=== PATIENT | male | born 1960 | race Caucasian/White ===

== ENCOUNTER 2023-05-18 15:03 | Outpatient (AMB) | payer MEDICARE, SELFPAY ==
--- NOTE | 2023-05-18 15:04 | A.OFFVIS_ITS ---
Intake Vital Signs 05/18/23 15:10 Height 5 ft 7 in Weight 226 lb 3.108 oz BMI 35.4 BP 158/84 H Blood Pressure Location Lt brachial Position Sitting Pulse 72 Pulse Source Pulse Oximeter Intake Visit Reasons: DM Intake Note: Patient presents today to follow up on DMT. Last Diabetic Eye exam: 05/04/2023 Last Podiatry Visit: Doesn't have one Random Glucose: 76 mg/dl HgA1c: 9.3% Passenger Tire Inspector Required: No Accompanied by: Self / Same As Patient HPI HPI Comments History of Present Illness Details 62 YO M who is seen in consultation for T2DM at the request of PCP. He was seen by myself many years ago for diabetes Initially diagnosed with T2DM in 2003. Was initially started on treatment with metformin. Current regimen 70/30 insulin 60units in AM and 60 units in PM . Regular in sulin 20 units in AM and PM Metformin 1000 mg not taking Glipizide 5 mg QD Per the CGM / Dexcom CGMS is active % of time . data the patient's predicted A1C is []% which is compared to the patients previous A1C [] dated []. Avg glucose is . Variability of The patient's blood sugars were in target []% of the time, above target []% of the time, and below target []% of the time Reports low sugars once a wk . Treats lows with eats cake . Not Checks sugar after to ensure it is rising. Most recent A1C 9.3 , Family history of T2DM in father . Has eyes checked yearly, last eye exam 2 wks ago , Has retinopathy. Has neuropathy, last foot exam [], Not sees podiatry. Has nephropathy, on CORAL/ARB. Has HLD, on statin. Denies CAD. Had diabetes education in past . [facility] Surgical History (Updated 05/18/23 @ 15:17 by ALINA Ceja) H/O lateral meniscus repair of left knee H/O umbilical hernia repair History of Tony-en-Y gastric bypass History of cervical discectomy History of lumbar fusion H/O microdiscectomy Family History (Updated 05/18/23 @ 15:20 by ALINA Ceja) Mother Asthma Father Diabetes Prostate cancer Social History (Updated 05/18/23 @ 15:21 by ALINA Ceja) Alcohol intake: never Patient Tobacco Use Status: Never used Tobacco Physical Exam Vital Signs: Last Vital Signs Pulse 72 05/18/23 15:10 BP 158/84 H 05/18/23 15:10 BMI result Body Mass Index 35.4 Assessment & Plan Assessment & Plan (1) Uncontrolled type 2 diabetes mellitus with hyperglycemia: Code(s): E11.65 - Type 2 diabetes mellitus with hyperglycemia Plan: This is a 62-year-old male with a history of type 2 diabetes being treated with glipizide, premixed insulin poor glycemic control and known microvascular complications namely neuropathy and CKD. Plan is to change the 70/30 insulin to Tresiba 30 units and talk to the patient about starting mounjaro 2.5 mg Qwkly or an alternative G LP 1. We will also provide Humalog supplemental scale 151-200 6 units , 201-250 8 units and >250 10 units . Will have patient be with assistant chief nursing officer and weather teacher. Could consider an SGLT 2 inhibitor in the future. Went over relationship with poor glycemic control to development and progression of complication Medications: New insulin degludec (Tresiba FlexTouch U-100 insulin) 30 units (0.3 mL) subcut BEDTIME 15 mL 4RF blood-glucose sensor (FreeStyle Max 3 Sensor device) As directed change every 14 days 2 ea 5RF tirzepatide (Mounjaro) 2.5 mg (0.5 mL) subcut QWEEK 4 weeks 2 mL 0RF insulin lispro (Humalog KwikPen (U-100) Insulin) 8 units (0.08 mL) subcut TID 15 mL 4RF blood-glucose meter,continuous (FreeStyle Max 3 [place]) As directed 1 ea 0RF Coding Level of Care Code Est Pt Level 4 (21927) Diagnoses Uncontrolled type 2 diabetes mellitus with hyperglycemia E11.65
[2023-05-18 15:10] VITALS: BP 158/84; PULSE 72; BMI 35.4
[2023-05-19 07:30] LABS: Glucose, Whole Blood 76 mg/dL (60-115)
== END 2023-05-18 16:04 | disposition home or self-care (01) ==
PROVIDERS: PCP Internal Medicine; Visit Provider Internal Medicine Endocrinology, Diabetes & Metabolism
DX: E11.65 Type 2 diabetes mellitus with hyperglycemia (principal)
CPT/HCPCS: 99214

== ENCOUNTER → 2023-05-18 15:03 | Outpatient (BNVA) | payer MEDICARE, SELFPAY | PROVIDERS: PCP Internal Medicine; Visit Provider Internal Medicine Endocrinology, Diabetes & Metabolism | DX: E11.65 Type 2 diabetes mellitus with hyperglycemia (principal) | CPT/HCPCS: 82947; 99212 ==

== ENCOUNTER → 2023-05-19 07:34 | Outpatient (BNV) | payer MEDICARE, SELFPAY | PROVIDERS: PCP Internal Medicine; Visit Provider Internal Medicine Endocrinology, Diabetes & Metabolism | DX: Z13.9 Encounter for screening, unspecified (principal); E11.65 Type 2 diabetes mellitus with hyperglycemia | CPT/HCPCS: 83036 ==

== ENCOUNTER 2023-05-30 09:02 | Outpatient (AMB) | payer MEDICARE, SELFPAY ==
--- NOTE | 2023-05-30 09:46 | A.OFFVIS_ITS ---
Intake Intake Visit Reasons: dm Novelties Sales Representative Required: No Accompanied by: Self / Same As Patient Allergies No Known Allergies Allergy (Verified 05/20/23 08:41) HPI Comprehensive Diabetes Asmnt Most Recent Diabetes Results: No Data to Display [facility] Surgical History (Updated 05/18/23 @ 15:17 by ALINA Ceja) H/O lateral meniscus repair of left knee H/O umbilical hernia repair History of Tony-en-Y gastric bypass History of cervical discectomy History of lumbar fusion H/O microdiscectomy Family History (Updated 05/18/23 @ 15:20 by ALINA Ceja) Mother Asthma Father Diabetes Prostate cancer Social History (Updated 05/18/23 @ 15:21 by ALINA Ceja) Alcohol intake: never Patient Tobacco Use Status: Never used Tobacco Assessment & Plan Assessment & Plan (1) Uncontrolled type 2 diabetes mellitus with hyperglycemia: Code(s): E11.65 - Type 2 diabetes mellitus with hyperglycemia Plan: Learning objectives: The patient was provided with verbal and written education on the following topics as outlined below. Assess patient education level/literacy/barriers, patient reports he forgot reading glasses so he was unable to identify carbohydrates from carbohydrate list that he regularly eats within his diet Patient questions/concerns, patient's last A1c 9.3% on 05/19/2023, patient reports prior A1cs in the 7% range in 2022. Patient reports he has not participating in regular physical activity in the winter months. Does attend sportsman club in warmer weather. The patient met all learning objectives and was able to verbalize understanding and provide teach back of education topics discussed . The patient was provided with the opportunity to ask questions and all questions were answered. Topics covered in today?s session included: Medications (If applicable) * Name of medication? * Dosing/administration instructions? * Mechanism of action? * Potential side effects? * Potential adverse reaction and appropriate treatment? * Review onset, peak, duration Assess for concerns re: insurance coverage, cost, barriers to compliance Insulin/Injectables (If applicable) * Storage/care of insulin?? * Injection sites? * Site rotation? * Onset, peak, duration * Drawing up insulin? * Injecting insulin/other injectables? * Sharps disposal Continuous blood glucose monitoring (if applicable) Hypoglycemia and Hyperglycemia * Signs and symptoms? * Causes?? * Treatment? * Preventing hypoglycemia? * When to seek medical attention * Blood glucose targets and how you feel when your blood glucose is in and out of your target ranges. * Monitoring and knowing your A1C. * What can make blood glucose go up and down and preventing high and low blood glucose. * Review of blood sugar targets in expected goal range and outside of expected goal range. * Problem solving and preventing hyper/hypoglycemia. * Sick day management of diabetes. * Using blood sugar results in decision making process in managing diabetes. ?Patient was receptive to information provided and participated in the discussion. Asked?appropriate questions and demonstrated good understanding of the topics discussed.? ? Educational Materials: The patient was provided with the following written educational materials: Planning healthy meals New Smart Goal: Patient will increase physical activity Patient Response to instructions: Comprehension of Instructions: Good Readiness to make changes:? Contemplation How confident they feel about making changes: Positive Patient Instructions: follow up with DM in 1 month Coding Level of Care Code Est Pt Level 1 (16488) Diagnoses Uncontrolled type 2 diabetes mellitus with hyperglycemia E11.65
== END 2023-05-30 09:55 | disposition home or self-care (01) ==
PROVIDERS: PCP Internal Medicine; Visit Provider Registered Nurse Diabetes Educator
DX: E11.65 Type 2 diabetes mellitus with hyperglycemia (principal)

== ENCOUNTER → 2023-05-30 09:02 | Outpatient (BNVA) | payer MEDICARE, SELFPAY | PROVIDERS: PCP Internal Medicine; Visit Provider Registered Nurse Diabetes Educator | DX: E11.65 Type 2 diabetes mellitus with hyperglycemia (principal) | CPT/HCPCS: 99211 ==

== ENCOUNTER 2023-06-27 10:24 | Outpatient (REF) | payer MEDICARE, SELFPAY ==
[2023-06-27 11:59] LABS: Anion Gap 10 (12-20); Blood Urea Nitrogen 13 mg/dL (9-16); Calcium 9.4 mg/dL (8.4-10.2); Carbon Dioxide 28 mmol/L (22-29); Chloride 106 mmol/L (96-108); Cholesterol 169 mg/dL (<200); Estimated Glomerular Filt Rate 50; Glucose Random 132 mg/dL (60-115); HDL Cholesterol 28 mg/dL (>40); LDL Cholesterol Calculated 112 mg/dL (<100); Potassium 3.7 mmol/L (3.3-5.1); Sodium 140 mmol/L (135-145); Triglycerides 149 mg/dL (<150)
[2023-06-27 13:09] LABS: Microalbum/Creatinine Ratio Ur 283.8 ug/mg cr (<30)
== END 2023-06-27 10:25 | disposition home or self-care (01) ==
LOC: HO.LAB 10:24
PROVIDERS: Visit Provider Internal Medicine Endocrinology, Diabetes & Metabolism
DX: E11.9 Type 2 diabetes mellitus without complications (principal)
CPT/HCPCS: 36415; 80048; 80061; 82043; 82570

== ENCOUNTER 2023-06-29 14:33 | Outpatient (AMB) | payer MEDICARE, SELFPAY ==
--- NOTE | 2023-06-29 15:23 | A.OFFVIS_ITS ---
Intake Vital Signs 06/29/23 15:26 Height 5 ft 7 in Weight 216 lb 0.848 oz BMI 33.8 BP 134/80 Blood Pressure Location Lt brachial Position Sitting Pulse 71 Pulse Source Pulse Oximeter Intake Visit Reasons: DM-lvm Intake Note: Patient presents today to follow up on D2MT. Last Diabetic Eye exam: 04/2023 Last Podiatry Visit: Doesn't have one Random Glucose: 203 mg/dl HgA1c: 9.3% 05/19/23 Primer Powder Blender Wet Required: No Accompanied by: Self / Same As Patient Allergies No Known Allergies Allergy (Verified 06/29/23 15:23) Medication List - Last Reconciled 06/29/23 by Joseph Garcia MD amitriptyline 25 mg PO BEDTIME atorvastatin 10 mg PO DAILY blood-glucose meter,continuous (FreeStyle Max 3 [place]) As directed blood-glucose sensor (FreeStyle Max 3 Sensor device) As directed change every 14 days coenzyme C33-nleloxo E 100-100 mg-unit caps PO bohxnfmxrtbe-ymxbyupmmzh-ijuot 1,000-200 mcg (Celebrate B-12 Quick-Melt) tabs PO diltiazem HCl ER 300 mg PO DAILY ezetimibe 10 mg PO DAILY fenofibrate 160 mg PO DAILY gabapentin 600 mg PO TID insulin aspart U-100 (Novolog FlexPen U-100 Insulin aspart) 8 units (0.08 mL) subcut TID lisinopril 40 mg PO DAILY metoprolol succinate ER 200 mg PO DAILY pen needle, diabetic (Comfort EZ Pen [place]) As directed injects 4 times a day saw palmetto 450 mg PO BID spironolactone 25 mg PO DAILY tirzepatide (Mounjaro) 2.5 mg (0.5 mL) subcut QWEEK 4 weeks tramadol-acetaminophen 37.5-325 mg 1 tab PO BID PRN Tresiba FlexTouch U-100 (insulin degludec) 30 units (0.3 mL) subcut BEDTIME NS vitamin B complex 1 cap PO DAILY HPI HPI Comments History of Present Illness Details 63 YO M who is seen in consultation for T2DM at the request of PCP. He was seen by myself many years ago for diabetes Initially diagnosed with T2DM in 2003. Was initially started on treatment with metformin. Current regimen Tresiba 30 units , Novolog 8 units Metformin 1000 mg not taking Mounjaro 2.5 mg Qwkly Per the CGM / max CGMS is active 91 % of time . data the patient's predicted A1C is 7.8% Avg glucose is 189 . Variability of 29.4 The patient's blood sugars were in target 43% of the time, above target 57% of the time, and below target 0% of the time. Panel shows [place] cares overnight and elevation post-dinner Reports low sugars once a wk . Treats lows with eats cake . Not Checks sugar after to ensure it is rising. Family history of T2DM in father . Has eyes checked yearly, last eye exam 2 wks ago , Has retinopathy. Has neuropathy, last foot exam [], Not sees podiatry. Has nephropathy, on CORAL/ARB. Has HLD, on statin. Denies CAD. Had diabetes education in past . [facility] Medical History (Updated 06/29/23 @ 16:20 by Joseph Garcia MD) Hyperlipidemia Type 2 diabetes mellitus Surgical History H/O lateral meniscus repair of left knee H/O umbilical hernia repair History of Tony-en-Y gastric bypass History of cervical discectomy History of lumbar fusion H/O microdiscectomy Family History Mother Asthma Father Diabetes Prostate cancer Social History Alcohol intake: never Patient Tobacco Use Status: Never used Tobacco Physical Exam Vital Signs: Last Vital Signs Pulse 71 06/29/23 15:26 BP 134/80 06/29/23 15:26 BMI result Body Mass Index 33.8 Absence of Cushingoid features. Absence of acromegalic features. Neck exam reveals nl size thyroid about 15 gms. No thyroid nodules palpable. No carotid bruits present. Lungs CTA. Heart S1 S2, Reg R/R. No M/R/ G. Skin exam reveals absence of vitiligo or acanthosis nigricans. Abdominal exam reveals Soft NT/ND with NA BS. No organomegaly present. Neck Other: . Extrem Other: Visual exam of foot performed. No ulcerations or open lesions. No onchomycosis, no callouses.Pulses 2 + distally Sensation intact to monofilament exam. Vibratory sensation sensed is intact with 128 Hz tuning fork Results Reviewed Results Reviewed: Laboratory Last Values Glucose (Clinic) 203 mg/dL (60-115) H 06/29/23 15:29 Assessment & Plan Assessment & Plan (1) Uncontrolled type 2 diabetes mellitus with hyperglycemia: Code(s): E11.65 - Type 2 diabetes mellitus with hyperglycemia Plan: This is a 62-year-old male with a history of type 2 diabetes being treated withMounjaro and basal-bolus insulin poor glycemic control and known microvascular complications namely neuropathy and CKD. Plan is to increase the Mounjaro to 5 mg Qwkly. Will also add a SGLT 2 inhibitor namely Farxiga 5 mg. Told patient to report any hypoglycemia. Will check a basic metabolic panel 10 days after starting the Farxiga (2) Type 2 diabetes mellitus: Code(s): E11.9 - Type 2 diabetes mellitus without complications Plan: See plan for diabetes (3) Hyperlipidemia: Code(s): E78.5 - Hyperlipidemia, unspecified Plan: LDL not at goal. Patient previously not tolerant of atorvastatin . We will switch ezetimibe and fenofibrate to rosuvastatin 10 mg and recheck lipid profile in 2 months Orders: Orders Basic Metabolic Panel 10 Days E11.9 - Type 2 diabetes mellitus without complications Lipid Panel 2 Months E11.9 - Type 2 diabetes mellitus without complications Medications: New rosuvastatin (Crestor) 10 mg PO DAILY 30 tabs 4RF tirzepatide (Mounjaro) 5 mg (0.5 mL) subcut QWEEK 2 mL 5RF dapagliflozin propanediol (Farxiga) 5 mg PO DAILY 30 tabs 5RF Discontinued tirzepatide (Mounjaro) Discontinued Reason: Doctor's Order 2.5 mg (0.5 mL) subcut QWEEK 4 weeks 2 mL 0RF E11.65 - Type 2 diabetes mellitus with hyperglycemia Coding Level of Care Code Est Pt Level 4 (22089) Diagnoses Uncontrolled type 2 diabetes mellitus with hyperglycemia E11.65 Type 2 diabetes mellitus E11.9 Hyperlipidemia E78.5
[2023-06-29 15:26] VITALS: BP 134/80; PULSE 71; BMI 33.8
[2023-06-29 15:33] LABS: Glucose, Whole Blood 203 mg/dL (60-115)
== END 2023-06-29 16:25 | disposition home or self-care (01) ==
PROVIDERS: PCP Internal Medicine; Visit Provider Internal Medicine Endocrinology, Diabetes & Metabolism
DX: E11.65 Type 2 diabetes mellitus with hyperglycemia (principal); E11.9 Type 2 diabetes mellitus without complications; E78.5 Hyperlipidemia, unspecified
CPT/HCPCS: 99214

== ENCOUNTER → 2023-06-29 14:33 | Outpatient (BNVA) | payer MEDICARE, SELFPAY | PROVIDERS: PCP Internal Medicine; Visit Provider Internal Medicine Endocrinology, Diabetes & Metabolism | DX: E11.65 Type 2 diabetes mellitus with hyperglycemia (principal); E78.5 Hyperlipidemia, unspecified | CPT/HCPCS: 82947; 99212 ==

== ENCOUNTER 2023-07-25 13:00 | Outpatient (AMB) | payer MEDICARE, SELFPAY ==
--- NOTE | 2023-07-25 13:41 | A.OFFVIS_ITS ---
Intake Intake Visit Reasons: DM Policy Writer Required: No Accompanied by: Spouse Allergies No Known Allergies Allergy (Verified 06/29/23 15:23) HPI Comprehensive Diabetes Asmnt Most Recent Diabetes Results: Microalb/Creat Ratio 283.8 ug/mg cr (<30) H 06/27/23 Cholesterol 169 mg/dL (<200) 06/27/23 HDL Cholesterol 28 mg/dL (>40) L 06/27/23 Triglycerides 149 mg/dL (<150) 06/27/23 Creatinine 1.43 mg/dL (0.5-1.4) H 06/27/23 Blood Urea Nitrogen 13 mg/dL (9-16) 06/27/23 Sodium 140 mmol/L (135-145) 06/27/23 Potassium 3.7 mmol/L (3.3-5.1) 06/27/23 Chloride 106 mmol/L (96-108) 06/27/23 Carbon Dioxide 28 mmol/L (22-29) 06/27/23 Calcium 9.4 mg/dL (8.4-10.2) 06/27/23 [facility] Medical History (Updated 06/29/23 @ 16:20 by Joseph Garcia MD) Hyperlipidemia Type 2 diabetes mellitus Surgical History H/O lateral meniscus repair of left knee H/O umbilical hernia repair History of Tony-en-Y gastric bypass History of cervical discectomy History of lumbar fusion H/O microdiscectomy Family History Mother Asthma Father Diabetes Prostate cancer Social History Alcohol intake: never Patient Tobacco Use Status: Never used Tobacco Assessment & Plan Assessment & Plan (1) Type 2 diabetes mellitus: Code(s): E11.9 - Type 2 diabetes mellitus without complications Plan: Learning objectives: The patient was provided with verbal and written education on the following topics as outlined below. Assess patient education level/literacy/barriers Patient questions/concerns, patient uses freestyle Max 3 to test glucose Average glucose for the past 2 weeks 185 mg/dL Patient above target 50% Patient at target 50% Patient below target 0% Patient is having some postprandial hyperglycemia especially in the evening meal Reviewed with patient, portion sizes of carbohydrates at mealtime The patient met all learning objectives and was able to verbalize understanding and provide teach back of education topics discussed . The patient was provided with the opportunity to ask questions and all questions were answered. Topics covered in today?s session included: Medications (If applicable) * Name of medication? * Dosing/administration instructions? * Mechanism of action? * Potential side effects? * Potential adverse reaction and appropriate treatment? * Review onset, peak, duration Assess for concerns re: insurance coverage, cost, barriers to compliance Insulin/Injectables (If applicable) * Storage/care of insulin?? * Injection sites? * Site rotation? * Onset, peak, duration * Drawing up insulin? * Injecting insulin/other injectables? * Sharps disposal Continuous blood glucose monitoring (if applicable) Hypoglycemia and Hyperglycemia * Signs and symptoms? * Causes?? * Treatment? * Preventing hypoglycemia? * When to seek medical attention * Blood glucose targets and how you feel when your blood glucose is in and out of your target ranges. * Monitoring and knowing your A1C. * What can make blood glucose go up and down and preventing high and low blood glucose. * Review of blood sugar targets in expected goal range and outside of expected goal range. * Problem solving and preventing hyper/hypoglycemia. * Sick day management of diabetes. * Using blood sugar results in decision making process in managing diabetes. ?Patient was receptive to information provided and participated in the [place] doc. Asked?appropriate questions and demonstrated good understanding of the topics discussed.? ? Educational Materials: The patient was provided with the following written educational materials: Target Goal handout Smart Goal Assessment:? keep meals between 45-60 gms Pt met goal less than 25% New Smart Goal: Patient will use rule of 15 to treat any hypoglycemia Patient Response to instructions: Comprehension of Instructions: Fair Readiness to make changes:? Contemplative How confident they feel about making changes: Fair Patient Instructions: Recommended to patient he increase suppertime dose of NovoLog from 12 units to 14 units Follow-up with medical educator in 1 month Coding Level of Care Code Est Pt Level 1 (37304) Diagnoses Type 2 diabetes mellitus E11.9
== END 2023-07-25 13:51 | disposition home or self-care (01) ==
PROVIDERS: PCP Internal Medicine; Visit Provider Registered Nurse Diabetes Educator
DX: E11.9 Type 2 diabetes mellitus without complications (principal)

== ENCOUNTER → 2023-07-25 13:00 | Outpatient (BNVA) | payer MEDICARE, SELFPAY | PROVIDERS: PCP Internal Medicine; Visit Provider Registered Nurse Diabetes Educator | DX: E11.9 Type 2 diabetes mellitus without complications (principal) | CPT/HCPCS: 99211 ==

== ENCOUNTER 2023-08-25 12:31 | Outpatient (AMB) | payer MEDICARE, SELFPAY ==
--- NOTE | 2023-08-25 13:05 | A.OFFVIS_ITS ---
Intake Intake Visit Reasons: DM/CONFIRMED Senior Sales Operations Analyst Required: No Accompanied by: Spouse Allergies No Known Allergies Allergy (Verified 06/29/23 15:23) [facility] Comprehensive Diabetes Asmnt Most Recent Diabetes Results: Microalb/Creat Ratio 283.8 ug/mg cr (<30) H 06/27/23 Cholesterol 169 mg/dL (<200) 06/27/23 HDL Cholesterol 28 mg/dL (>40) L 06/27/23 Triglycerides 149 mg/dL (<150) 06/27/23 Creatinine 1.43 mg/dL (0.5-1.4) H 06/27/23 Blood Urea Nitrogen 13 mg/dL (9-16) 06/27/23 Sodium 140 mmol/L (135-145) 06/27/23 Potassium 3.7 mmol/L (3.3-5.1) 06/27/23 Chloride 106 mmol/L (96-108) 06/27/23 Carbon Dioxide 28 mmol/L (22-29) 06/27/23 Calcium 9.4 mg/dL (8.4-10.2) 06/27/23 [facility] Medical History (Updated 06/29/23 @ 16:20 by Joseph Garcia MD) Hyperlipidemia Type 2 diabetes mellitus Surgical History H/O lateral meniscus repair of left knee H/O umbilical hernia repair History of Tony-en-Y gastric bypass History of cervical discectomy History of lumbar fusion H/O microdiscectomy Family History Mother Asthma Father Diabetes Prostate cancer Social History Alcohol intake: never Patient Tobacco Use Status: Never used Tobacco Assessment & Plan Assessment & Plan (1) Type 2 diabetes mellitus: Code(s): E11.9 - Type 2 diabetes mellitus without complications Plan: Personal Continuous Glucose Monitor: Patients CGM information reviewed Reviewed patient's sensor data: Hypoglycemia: ? 0% Hyperglycemia:? 78% Time in Range:?22% Average glucose for the last 2 weeks? 241 mg/dL Has not been able to get Mounjaro 5 mg in the past several months, while not taking the medication glucose has increased. Patient also reports snacking on high carb foods overnight Patient using Efficient Power Conversion Max 3 to monitor glucose Average glucose for the past 2 weeks 241 mg/dL Patient above target 78% At target 22% Below target 0% This is a significant increase from average glucose when he was seen in June 2023. Called [facility] pharmacy to find out if they have any Mounjaro stock, was told by pharmacist they have 2.5 mg dose Message sent to Dr. Garcia to send prescription for Mounjaro 2.5 mg dose Also discussed with patient switching Tresiba U 100, to Tresiba U 200 in the event we need to titrate up Tresiba dose of 30 units daily Patient given low carb snack list, recommended to patient to decrease carbohydrate snacks in the evening and overnight. If he is going to eat high carb snacks or high carb meal recommended he increase physical activity afterwards, this can help reduce postprandial hyperglycemia Patient's last A1c in April 2023 9.3%, patient has follow-up appointment with PCP 09/2023. Patient will have A1c drawn at that appointment. Patient will follow-up with Dr. Garcia in October 2023, and follow-up with certified diabetes educator a month after appointment with Dr. Garcia Patient instructed if he is unable to obtain Mounjaro to call certified diabetes educator so we can review glucose and adjust insulin as needed Reviewed how to interpret trend arrows Reminded patient that to check finger sticks if symptoms do not match sensor reading. Discussed lag time between finger stick and sensor data.? Patient able to insert sensor independently at home without issue.? Portions of this note were created using voice recognition software, please excuse any words or phrases that may have been misinterpreted. Coding Level of Care Code Est Pt Level 1 (03971) Diagnoses Type 2 diabetes mellitus E11.9
== END 2023-08-25 13:13 | disposition home or self-care (01) ==
PROVIDERS: PCP Internal Medicine; Visit Provider Registered Nurse Diabetes Educator
DX: E11.9 Type 2 diabetes mellitus without complications (principal)

== ENCOUNTER → 2023-08-25 12:31 | Outpatient (BNVA) | payer MEDICARE, SELFPAY | PROVIDERS: PCP Internal Medicine; Visit Provider Registered Nurse Diabetes Educator | DX: E11.9 Type 2 diabetes mellitus without complications (principal) | CPT/HCPCS: 99211 ==

== ENCOUNTER 2023-11-07 08:21 | Outpatient (AMB) | payer MEDICARE, SELFPAY ==
--- NOTE | 2023-11-03 09:33 | MHC.OFFVIS ---
Intake Visit Reasons: DM2 Allergies No Known Allergies Allergy (Verified 06/29/23 15:23) PFSH Medical History (Updated 06/29/23 @ 16:20 by Joseph Garcia MD) Hyperlipidemia Type 2 diabetes mellitus Surgical History H/O lateral meniscus repair of left knee H/O umbilical hernia repair History of Tony-en-Y gastric bypass History of cervical discectomy History of lumbar fusion H/O microdiscectomy Family History Mother Asthma Father Diabetes Prostate cancer Social History Alcohol intake: never Patient Tobacco Use Status: Never used Tobacco Coding
--- NOTE | 2023-11-07 08:23 | A.OFFVIS_ITS ---
Vital Signs 11/07/23 08:24 Height 5 ft 7 in Weight 205 lb 11.06 oz BMI 32.2 BP 142/78 H Blood Pressure Location Lt brachial Position Sitting Pulse 65 Pulse Source Pulse Oximeter Intake Visit Reasons: DM2/CONFIRMED Intake Note: Patient presents today for D2MT follow up visit. Last Diabetic Eye exam: 04/2023 Last Podiatry Visit: Doesn't have one Random Glucose: 103 mg/dl HgA1c: 6.9% Director Of Rehabilitative Services Required: No Accompanied by: Self / Same As Patient Allergies No Known Allergies Allergy (Verified 06/29/23 15:23) Medication List - Last Reconciled 11/07/23 by Terri Lanier PA-C amitriptyline 25 mg PO BEDTIME atorvastatin 10 mg PO DAILY blood-glucose meter,continuous (HydrobeeStyle Max 3 [place]) As directed blood-glucose sensor (FreeStyle Max 3 Sensor device) USE DIRECTED TO TEST BLOOD SUGAR. CHANGE EVERY 14 DAYS coenzyme [id number] E 100-100 mg-unit caps PO jearoilotowm-yimkhuztgjb-qnhuz 1,000-200 mcg (Celebrate B-12 Quick-Melt) tabs PO dapagliflozin propanediol (Farxiga) 5 mg PO DAILY diltiazem HCl ER 300 mg PO DAILY gabapentin 600 mg PO TID insulin aspart U-100 (Novolog FlexPen U-100 Insulin aspart) 12 units (0.12 mL) subcut TID insulin degludec (Tresiba FlexTouch U-200 insulin) 30 units (0.15 mL) subcut BEDTIME lisinopril 40 mg PO DAILY metoprolol succinate ER 200 mg PO DAILY pen needle, diabetic (Comfort EZ Pen [place]) As directed injects 4 times a day rosuvastatin (Crestor) 10 mg PO DAILY saw palmetto 450 mg PO BID spironolactone 25 mg PO DAILY tramadol-acetaminophen 37.5-325 mg 1 tab PO BID PRN vitamin B complex 1 cap PO DAILY HPI HPI DM2/CONFIRMED: Details: Pt is a 63 y/o male who presents today for a DM follow up. He last saw Dr. Garcia in June 2023. He has a hx of htn, cardiomyopathy, hyperlipidemia, ckd, microalbuminuria, peripheral neuropathy and insomnia. Endo: A1c today is 6.9. His previous A1c was 9.3. He is currently on Tresiba 30 units, NovoLog 12 units t.i.d. (not using unless has a large meal), Farxiga 5 mg, Mounjaro 2.5 mg. he states he is tolerating his medications. CGM-Max 3 download shows usage 96%, average glucose 146, GMI 6.8, variability 25%. Very high 1%, high 18%, 81% in range. No hypoglycemic events. -hyperglycemia appears to be in the afternoon at lunchtime and evening around 21:00. Hypoglycemia-rare. Treats it with orange juice. Hyperglycemia- states that he will get thristy but has no sx usually. Complications- CKD, microalbuminuria, peripheral neuropathy, denies known vision problems but states he wears glasses. No known retinopathy. Nephro: he follows with Nephrology, Dr. Serrato. Follows annually, last seen 2 weeks ago. CV: Blood pressure today in the office is 142/78. He is on spironolactone 25 mg, metoprolol 200 mg, lisinopril 40 mg, diltiazem 300 mg. His last cholesterol was not at goal. at his last visit he was started on Crestor. He did not tolerate atorvastatin due to myalgias. Reports some improvement of muscle aches. He did not get labs done prior to appointment. his mortgage advisor is Dr. Cee and sees him annually. Recent echo, per pt, shows stable/improved. Neuro: follows with neurology for peripheral neuropathy thought to be related to dm and on gabapentin. [facility] Medical History (Updated 11/07/23 @ 09:06 by Terri Lanier PA-C) Hyperlipidemia Surgical History H/O lateral meniscus repair of left knee H/O umbilical hernia repair History of Tony-en-Y gastric bypass History of cervical discectomy History of lumbar fusion H/O microdiscectomy Family History Mother Asthma Father Diabetes Prostate cancer Social History Alcohol intake: never Patient Tobacco Use Status: Never used Tobacco Physical Exam Const Orientation/consciousness: patient oriented x3 Neck Neck: Yes no lymphadenopathy Thyroid: Thyroid normal Carotids: no bruits Resp Auscultation: clear to auscultation bilaterally Cardio Rate: regular rate Rhythm: regular rhythm Heart sounds: S1 normal heart sound present and S2 normal heart sound present Peripheral pulses: dorsalis pedis present Neuro General: patient oriented x3, gait normal and no focal motor deficits Extrem Other: Monofilament sensation intact bilaterally. Vibratory sensation intact bilaterally. Skin intact. General: Yes normal to inspection Results AMB Hemoglobin A1c AMB Hemoglobin A1c 6.9 % Last Edit by ALINA Ceja on 11/07/23 08:41 Results Reviewed Results Reviewed: Laboratory Tests 05/19/23 06/27/23 06/27/23 07:34 10:38 10:40 Creatinine 1.43 H Estimated GFR 50 Glucose (Clinic) Hgb A1c (Clinic) 9.3 H Triglycerides 149 Cholesterol 169 LDL Cholesterol, Calc 112 H HDL Cholesterol 28 L Urine Creatinine 94.40 Urine Microalbumin 268.0 Microalb/Creat Ratio 283.8 H 06/29/23 15:29 Creatinine Estimated GFR Glucose (Clinic) 203 H Hgb A1c (Clinic) Triglycerides Cholesterol LDL Cholesterol, Calc HDL Cholesterol Urine Creatinine Urine Microalbumin Microalb/Creat Ratio Assessment & Plan Assessment & Plan (1) Diabetes mellitus type 2, controlled, with complications: Code(s): E11.8 - Type 2 diabetes mellitus with unspecified complications Category: Medical Qualifiers: Diabetes mellitus chcf insulin use: with chcf use Qualified Code(s): E11.8 - Type 2 diabetes mellitus with unspecified complications; Z79.4 - group home (current) use of insulin Plan: continue tresiba. increase mounjaro to 5 mg weekly, continue farxiga 5 mg. Discussed that he never got his labs done after this was started but he states they had them done a couple weeks ago with his electron beam welder and everything looked ?normal ?. I will recheck labs in 3 months. He will follow-up at that time. Sooner if needed. (2) Diabetic peripheral neuropathy associated with type 2 diabetes mellitus: Code(s): E11.42 - Type 2 diabetes mellitus with diabetic polyneuropathy Category: Medical Plan: Following with Neurology. States pain is well controlled with gabapentin. 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 Reports recent labs showed stable. Will recheck in a few months. Reminded him to avoid NSAIDs. advised to get records (5) CKD stage 3 due to type 2 diabetes mellitus: Code(s): E11.22 - Type 2 diabetes mellitus with diabetic chronic kidney disease; N18.30 - Chronic kidney disease, stage 3 unspecified Category: Medical Plan: see above (6) Cardiomyopathy: Code(s): I42.9 - Cardiomyopathy, unspecified Category: Medical Qualifiers: Cardiomyopathy type: unspecified Qualified Code(s): I42.9 - Cardiomyopathy, unspecified Plan: stable per pt. follows with Dr. Cee. Advised to get records (7) Hyperlipidemia: Code(s): E78.5 - Hyperlipidemia, unspecified Category: Medical Qualifiers: Hyperlipidemia type: pure hypercholesterolemia Qualified Code(s): E78.00 - Pure hypercholesterolemia, unspecified Plan: switched from atorvastatin to crestor. reports better tolerance. will recheck lfts and lipds Orders: Orders Comprehensive [place]. Panel Fast Today E11.3213 - Type 2 diabetes mellitus with mild nonproliferative diabetic retinopathy with macular edema, bilateral, E78.5 - Hyperlipidemia, unspecified, Z79.4 - group home (current) use of insulin AMB Hemoglobin A1c Today E11.9 - Type 2 diabetes mellitus without complications, Z13.9 - Encounter for screening, unspecified Hemoglobin A1c Today E11.3213 - Type 2 diabetes mellitus with mild nonproliferative diabetic retinopathy with macular edema, bilateral, E78.5 - Hyperlipidemia, unspecified, Z79.4 - group home (current) use of insulin Lipid Panel Today E11.3213 - Type 2 diabetes mellitus with mild nonproliferative diabetic retinopathy with macular edema, bilateral, E78.5 - Hyperlipidemia, unspecified, Z79.4 - group home (current) use of insulin Microalbumin, Random (w Creat) Today E11.3213 - Type 2 diabetes mellitus with mild nonproliferative diabetic retinopathy with macular edema, bilateral, E78.5 - Hyperlipidemia, unspecified, Z79.4 - manager long term care (current) use of insulin Medications: New tirzepatide (Mounjaro) 5 mg (0.5 mL) subcut QWEEK 2 mL 6RF Coding Level of Care Code Est Pt Level 4 (96058) Complex EM visit Add On G2211 Diagnoses Controlled type 2 diabetes mellitus with complication, with long-term current use of insulin E11.8; Z79.4 Diabetes mellitus chcf insulin use: with chcf use Diabetic peripheral neuropathy associated with type 2 diabetes mellitus E11.42 Primary hypertension I10 Hypertension type: primary hypertension 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
[2023-11-07 08:24] VITALS: BP 142/78; PULSE 65; BMI 32.2
[2023-11-07 08:35] LABS: Glucose, Whole Blood 103 mg/dL (60-115)
== END 2023-11-07 08:55 | disposition home or self-care (01) ==
PROVIDERS: PCP Internal Medicine; Visit Provider Physician Assistant
DX: E11.8 Type 2 diabetes mellitus with unspecified complications (principal); Z79.4 Long term (current) use of insulin; E11.42 Type 2 diabetes mellitus with diabetic polyneuropathy; I10 Essential (primary) hypertension; E11.21 Type 2 diabetes mellitus with diabetic nephropathy; E11.22 Type 2 diabetes mellitus with diabetic chronic kidney disease; N18.30 Chronic kidney disease, stage 3 unspecified; I42.9 Cardiomyopathy, unspecified; E78.00 Pure hypercholesterolemia, unspecified; Z13.9 Encounter for screening, unspecified
CPT/HCPCS: 99214; G2211

== ENCOUNTER → 2023-11-07 08:21 | Outpatient (BNVA) | payer MEDICARE, SELFPAY | PROVIDERS: PCP Internal Medicine; Visit Provider Physician Assistant | DX: E11.42 Type 2 diabetes mellitus with diabetic polyneuropathy (principal); E11.22 Type 2 diabetes mellitus with diabetic chronic kidney disease; E11.21 Type 2 diabetes mellitus with diabetic nephropathy; N18.30 Chronic kidney disease, stage 3 unspecified; I42.9 Cardiomyopathy, unspecified; E78.00 Pure hypercholesterolemia, unspecified; Z79.4 Long term (current) use of insulin | CPT/HCPCS: 82947; 83036; 99212 ==

== ENCOUNTER 2023-11-25 11:40 | Outpatient (REF) | payer MEDICARE, SELFPAY ==
[2023-11-25 14:10] LABS: Alanine Aminotransferase 20 U/L (0-40); Alkaline Phosphatase 58 U/L (39-117); Anion Gap 11 (12-20); Aspartate Amino Transferase 22 U/L (5-37); Blood Urea Nitrogen 15 mg/dL (9-16); Calcium 9.3 mg/dL (8.4-10.2); Carbon Dioxide 27 mmol/L (22-29); Chloride 106 mmol/L (96-108); Cholesterol 192 mg/dL (<200); Estimated Glomerular Filt Rate 58; Glucose Fasting 70 mg/dL (60-99); HDL Cholesterol 28 mg/dL (>40); LDL Cholesterol Calculated 137 mg/dL (<100); Potassium 3.4 mmol/L (3.3-5.1); Sodium 141 mmol/L (135-145); Total Protein 7.1 g/dL (6.5-8.0); Triglycerides 139 mg/dL (<150)
[2023-11-25 14:20] LABS: Estimated Average Glucose 134 mg/dL; Hemoglobin A1c % 6.3 % (<6.0)
[2023-11-25 14:40] LABS: Creatinine Urine 74.86 mg/dL; Microalbum/Creatinine Ratio Ur 125.5 ug/mg cr (<30)
== END 2023-11-25 11:41 | disposition home or self-care (01) ==
LOC: HO.LAB 11:40
PROVIDERS: Absent Provider Internal Medicine Endocrinology, Diabetes & Metabolism; PCP Family Medicine; Visit Provider Physician Assistant
DX: E11.3213 Type 2 diabetes mellitus with mild nonproliferative diabetic retinopathy with macular edema, bilateral (principal); Z79.4 Long term (current) use of insulin; E78.5 Hyperlipidemia, unspecified
CPT/HCPCS: 36415; 80053; 80061; 82043; 82570; 83036

== ENCOUNTER 2023-12-26 12:57 | Outpatient (AMB) | payer MEDICARE, SELFPAY ==
--- NOTE | 2023-12-26 13:15 | A.OFFVIS_ITS ---
Intake Intake Visit Reasons: 60 min-lvm Therapeutic Recreation Leader Required: No Accompanied by: Self / Same As Patient Allergies No Known Allergies Allergy (Verified 06/29/23 15:23) HPI Comprehensive Diabetes Asmnt Most Recent Diabetes Results: Microalb/Creat Ratio 125.5 ug/mg cr (<30) H 11/25/23 Cholesterol 192 mg/dL (<200) 11/25/23 HDL Cholesterol 28 mg/dL (>40) L 11/25/23 Triglycerides 139 mg/dL (<150) 11/25/23 Creatinine 1.25 mg/dL (0.5-1.4) 11/25/23 Blood Urea Nitrogen 15 mg/dL (9-16) 11/25/23 Sodium 141 mmol/L (135-145) 11/25/23 Potassium 3.4 mmol/L (3.3-5.1) 11/25/23 Chloride 106 mmol/L (96-108) 11/25/23 Carbon Dioxide 27 mmol/L (22-29) 11/25/23 Calcium 9.3 mg/dL (8.4-10.2) 11/25/23 AST 22 U/L (5-37) 11/25/23 ALT 20 U/L (0-40) 11/25/23 Total Protein 7.1 g/dL (6.5-8.0) 11/25/23 Albumin 4.0 g/dL (3.5-5.0) 11/25/23 [facility] Medical History (Updated 11/07/23 @ 09:06 by Terri Lanier PA-C) Hyperlipidemia Surgical History H/O lateral meniscus repair of left knee H/O umbilical hernia repair History of Tony-en-Y gastric bypass History of cervical discectomy History of lumbar fusion H/O microdiscectomy Family History Mother Asthma Father Diabetes Prostate cancer Social History Alcohol intake: never Patient Tobacco Use Status: Never used Tobacco Assessment & Plan Assessment & Plan (1) Diabetes mellitus type 2, controlled, with complications: Code(s): E11.8 - Type 2 diabetes mellitus with unspecified complications Qualifiers: Diabetes mellitus residential insulin use: with intermediate school teacher use Qualified Code(s): E11.8 - Type 2 diabetes mellitus with unspecified complications; Z79.4 - remote computer terminal operator (current) use of insulin Plan: Learning objectives: The patient was provided with verbal and written education on the following topics as outlined below. The patient met all learning objectives and was able to verbalize understanding and provide teach back of education topics discussed . The patient was provided with the opportunity to ask questions and all questions were answered. Patient Assessment Patient questions/concerns patient's last A1c on 10/28/2023 6.9% this is an improvement from A1c from 05/09/2023 of 9.3% Route patient reports he has stopped using mealtime insulin Currently taking Farxiga 5 mg daily Tresiba U 200 30 units daily Mounjaro 5 mg weekly Recommended to patient he reduce Tresiba U 200 from 30 units daily to 26 units daily due to overnight hypoglycemic events If he continues to experience hypoglycemia he can reduce Tresiba to 22 units daily Patient has upcoming visit with physician's medical receptionist medical assistant on 02/10/2024, suggested to patient he discuss increasing majora dose with physician's medical receptionist medical assistant at that visit if he wishes to further reduce insulin What is Diabetes? Pathophysiology How the body produces and uses insulin Identify type of DM Risk factors Signs of Diabetes Brief overview of Diabetes Management Monitoring blood sugar Following a meal plan Regular exercise Maintaining a healthy weight Taking medication as needed Members of the care team (PCP, RN, MA, RD, CDE, warp trucker) Blood glucose monitoring When/how often to test Target blood sugar range Patient uses freestyle Max 3 to monitor glucose Patient's average glucose for the past 2 weeks 127 mg/dL Above target 6% At target 94% Below target 0% Patient has sporadic episodes of hypoglycemia overnight in her roof bolter operator Patient treats hypoglycemia with 4 oz of fruit juice or 8 oz of milk Introduction to Nutrition Importance of healthy diet in managing DM Diet is personalized to individual preference Review patient?s regular diet/food preferences Who prepares meals/does food shopping/ Dining out?/ Barriers? How diet effects glucose Eating 3 balanced meals a day with small, healthy snacks between meals Review food groups Carbohydrates: What is a carbohydrate/Which food/food groups are considered carbohydrates Effect of carbohydrates on blood glucose Portion sizes Reading food labels Basic carb counting (if applicable per nursing assessment) Plate method Meal planning Recommendations: Follow plate method, consistent carbs and read nutritional labels. Hypoglycemia and Hyperglycemia * Signs and symptoms * Causes * Treatment * Preventing hypoglycemia * When to seek medical attention Medical alert bracelet Lifestyle * Work * Travel * Stress management * Problem solving Know your goals * A1C * Blood sugar targets * Blood pressure * Cholesterol/LDL Urine microalbumin Smart Goal Assessment: Patient has been using rule of 15 to treat episodes of hypoglycemia, with fruit juice or milk Pt met goal 100% New Goal:? Patient will continue to work on increasing physical activity to up to 30 minutes 5 days a week Educational Materials: The patient was provided with the following written educational materials: ADCES 7 Healthy Behaviors Reducing Risks handout Patient Response to instructions: Comprehension of Instructions: good Readiness to make changes: action How confident they feel about making changes: positive Letter of completion of diabetes Education program will be sent to referring provider Portions of this note were created using voice recognition software, please excuse any words or phrases that may have been misinterpreted. Incluir actividad diaria regular. ADA recomienda 30 minutos de ejercicio 5 d?as a la semana. P?rdida de peso, hable con el PCP o el cardi?logo antes de comenzar un nuevo plan. Mida el nivel de az?car en la roberto seg?n las indicaciones; Ayuno y comida m?s amanda de 2hpp. Observe las tendencias en los resultados. Utilice los resultados y eval?e c?mo los alimentos, la actividad f?fuentes y los medicamentos afectan los resultados de az?car en la roberto. Lleve el gluc?metro o CGM a la pr?xima visita. Conocer los medicamentos para la diabetes, vigil acci?n, los efectos secundarios, la eficacia, la toxicidad, la dosis prescrita, el momento y la frecuencia de administraci?n apropiados, el efecto de las dosis olvidadas y retrasadas y las instrucciones de almacenamiento, viaje y seguridad. T?cnicas de resoluci?n de problemas para el seguimiento de episodios de hipo/hiperglucemia y tratamientos. Reducir los comportamientos de reducci?n de riesgos, dejar de fumar, ex?menes regulares de ojos, pies y dentales. Patient Instructions: Include regular daily activity. ADA recommends 30 minutes of exercise 5 days a week. Weight loss talk to PCP or Child And Adolescent Psychiatrist before starting new plan. Test blood sugar as directed; Fasting and 2hpp largest meal. Watch trends in results. Utilize results and to assess how food, physical activity and medications affect blood sugar results. Bring glucometer or CGM to next visit. Be knowledgeable about diabetes medication, its action, side effects, efficacy, toxicity, prescribed dosage, appropriate timing and frequency of administration, effect of missed and delayed doses and instructions for storage, travel and safety. Problem solving techniques to monitor hypo/hyperglycemia episodes and treatments. Reduce risk reduction behaviors, smoking cessation, regular eye, foot and dental examinations. Coding Level of Care Code Est Pt Level 1 (09283) Diagnoses Controlled type 2 diabetes mellitus with complication, with long-term current use of insulin E11.8; Z79.4 Diabetes mellitus residential insulin use: with intermediate school teacher use
== END 2023-12-26 13:27 | disposition home or self-care (01) ==
PROVIDERS: PCP Internal Medicine; Visit Provider Registered Nurse Diabetes Educator
DX: E11.8 Type 2 diabetes mellitus with unspecified complications (principal); Z79.4 Long term (current) use of insulin

== ENCOUNTER → 2023-12-26 12:57 | Outpatient (BNVA) | payer MEDICARE, SELFPAY | PROVIDERS: PCP Internal Medicine; Visit Provider Registered Nurse Diabetes Educator | DX: E11.8 Type 2 diabetes mellitus with unspecified complications (principal); E78.5 Hyperlipidemia, unspecified; Z79.4 Long term (current) use of insulin | CPT/HCPCS: 99211 ==

== ENCOUNTER 2024-02-13 15:05 | Outpatient (AMB) | payer MEDICARE, SELFPAY ==
[2024-02-13 15:09] VITALS: BP 140/76; PULSE 65; BMI 29.9
--- NOTE | 2024-02-13 15:09 | A.OFFVIS_ITS ---
Vital Signs 02/13/24 15:09 Height 5 ft 7 in Weight 190 lb 14.725 oz BMI 29.9 BP 140/76 H Blood Pressure Location Lt brachial Position Sitting Pulse 65 Pulse Source Pulse Oximeter Intake Visit Reasons: T2DM/LVM Intake Note: Patient presents today for D2MT follow up visit. Last Diabetic Eye exam: 05/2023 Last Podiatry Visit: Doesn't have one Random Glucose: 117 mg/dl HgA1c: 6.3% 11/25/23 [employer] Required: No Accompanied by: Self / Same As Patient Allergies No Known Allergies Allergy (Verified 02/13/24 15:18) Medication List - Last Reconciled 02/13/24 by Terri Lanier PA-C blood-glucose meter,continuous (FreeStyle Max 3 [place]) As directed blood-glucose sensor (FreeStyle Max 3 Sensor device) USE DIRECTED TO TEST BLOOD SUGAR. CHANGE EVERY 14 DAYS coenzyme T21-ztgksyl E 100-100 mg-unit caps PO xbccthnzcukn-fdogktstvfq-kzxde 1,000-200 mcg (Celebrate B-12 Quick-Melt) tabs PO diltiazem HCl ER 300 mg PO DAILY gabapentin 600 mg PO TID insulin aspart U-100 (Novolog FlexPen U-100 Insulin aspart) 12 units (0.12 mL) subcut TID insulin degludec (Tresiba FlexTouch U-200 insulin) 30 units (0.15 mL) subcut BEDTIME lisinopril 40 mg PO DAILY metoprolol succinate ER 200 mg PO DAILY pen needle, diabetic (Comfort EZ Pen [place]) As directed injects 4 times a day saw palmetto 450 mg PO BID spironolactone 25 mg PO DAILY tirzepatide (Mounjaro) 5 mg (0.5 mL) subcut QWEEK tramadol-acetaminophen 37.5-325 mg 1 tab PO BID PRN vitamin B complex 1 cap PO DAILY HPI HPI T2DM/LVM: Details: Pt is a 63 y/o male who presents today for a DM follow up. He last saw Dr. Garcia in June 2023. He has a hx of htn, cardiomyopathy, hyperlipidemia, ckd, microalbuminuria, peripheral neuropathy and insomnia. Endo: A1c most recently was 6.3. He is currently on Tresiba 30 units, NovoLog sliding scale (not using unless has a large meal),, Mounjaro 5 mg. he states he is tolerating his medications. -he stopped farxiga months ago and does not want to be on it. he stopped it due to issues with supply. CGM-Max 3 download shows usage 98%, average glucose 138, GMI 6.6, variability 25%. Very high 1%, high 12%, 87% in range. No hypoglycemic events. -hyperglycemia appears to be in the afternoon at lunchtime and evening around 21:00. Hypoglycemia-rare. Treats it with orange juice. has glucose tabs as well. Hyperglycemia- states that he will get thristy but has no sx usually. Complications- CKD, microalbuminuria, peripheral neuropathy, denies known vision problems but states he wears glasses. No known retinopathy. Nephro: he follows with Nephrology, Dr. Serrato. Follows annually. CV: Blood pressure today in the office is 140/76. He is on spironolactone 25 mg, metoprolol 200 mg, lisinopril 40 mg, diltiazem 300 mg. His last cholesterol was not at goal. he states he does not want any statins right now and did not tolerate crestor or atorvastatin. He did not get labs done prior to appointment. his plunger scoop operator is Dr. Cee and sees him annually. Recent echo, per pt, shows stable/improved. Neuro: follows with neurology for peripheral neuropathy thought to be related to dm and on gabapentin. [facility] Medical History (Updated 11/07/23 @ 09:06 by Terri Lanier PA-C) Hyperlipidemia Surgical History H/O lateral meniscus repair of left knee H/O umbilical hernia repair History of Tony-en-Y gastric bypass History of cervical discectomy History of lumbar fusion H/O microdiscectomy Family History Mother Asthma Father Diabetes Prostate cancer Social History Alcohol intake: never Patient Tobacco Use Status: Never used Tobacco Physical Exam Const Orientation/consciousness: patient oriented x3 Neck Neck: Yes no lymphadenopathy Thyroid: Thyroid normal Carotids: no bruits Resp Auscultation: clear to auscultation bilaterally Cardio Rate: regular rate Rhythm: regular rhythm Heart sounds: S1 normal heart sound present and S2 normal heart sound present Peripheral pulses: dorsalis pedis present Neuro General: patient oriented x3, gait normal and no focal motor deficits Extrem Other: Skin intact General: Yes normal to inspection Office Procedures Glucose Monitoring Details Details: see [facility] [id number] - Glucose monitoring, continuous-physician I&R Procedure code (CPT) selection complete Results Reviewed Results Reviewed: Laboratory Tests 06/27/23 11/25/23 11/25/23 10:40 11:58 12:00 BUN 15 Creatinine 1.25 Estimated GFR 58 Fasting Glucose 70 Estimat Average Glucose 134 Hemoglobin A1c % 6.3 H AST 22 ALT 20 Triglycerides 139 Cholesterol 192 LDL Cholesterol, Calc 137 H HDL Cholesterol 28 L Urine Creatinine 94.40 74.86 Urine Microalbumin 268.0 94.0 Microalb/Creat Ratio 283.8 H 125.5 H Assessment & Plan Assessment & Plan (1) 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 Currently well-controlled. Continue current regimen. follow up in 3-4 months. Sooner if needed. (2) HTN (hypertension): Code(s): I10 - Essential (primary) hypertension Category: Medical Qualifiers: Hypertension type: primary hypertension Qualified Code(s): I10 - Essential (primary) hypertension Plan: Continue current regimen (3) Hyperlipidemia: Code(s): E78.5 - Hyperlipidemia, unspecified Category: Medical Qualifiers: Hyperlipidemia type: pure hypercholesterolemia Qualified Code(s): E78.00 - Pure hypercholesterolemia, unspecified Plan: Declined statin or any medication to treat the cholesterol at this point. Discussed that lipids are not at goal. He is going to work on some lifestyle modifications. He states he is aware of the increased risk of heart attack and stroke with the uncontrolled cholesterol. 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
[2024-02-13 15:25] LABS: Glucose, Whole Blood 117 mg/dL (60-115)
== END 2024-02-13 15:44 | disposition home or self-care (01) ==
PROVIDERS: PCP Internal Medicine; Visit Provider Physician Assistant
DX: E11.21 Type 2 diabetes mellitus with diabetic nephropathy (principal); I10 Essential (primary) hypertension; E78.00 Pure hypercholesterolemia, unspecified

== ENCOUNTER → 2024-02-13 15:05 | Outpatient (BNVA) | payer MEDICARE, SELFPAY | PROVIDERS: PCP Internal Medicine; Visit Provider Physician Assistant | DX: E11.21 Type 2 diabetes mellitus with diabetic nephropathy (principal); E78.00 Pure hypercholesterolemia, unspecified; I10 Essential (primary) hypertension | CPT/HCPCS: 82947; 99212 ==

== ENCOUNTER 2024-07-13 11:03 | Outpatient (REF) | payer MEDICARE, SELFPAY ==
[2024-07-13 12:29] LABS: Estimated Average Glucose 128 mg/dL; Hemoglobin A1C 157.1893 umol/L; Hemoglobin A1c % 6.1 % (<6.0); Total Hemoglobin (HGBA1C) 3655.3358 umol/L
--- OUTSIDE RECORDS SUMMARY | 2024-07-13 12:33 | XMS_ITS | Encounter Summary ---
Author Organization [facility] Address [address] [place] [address] Phone Care Team Providers Care Skip Locator Name Role Phone Alexandre Jarquin MD Primary Care Provider [phone] Reason for Visit * Reason Comments Med Refill Encounter Details Date Type Department Care Team (Late Contact Info) Description 03/22/2021 Refill [facility] [address] [place] [address] Solis Serrato MD [address] [place] [address] Social History Tobacco Use Types [...] Office Visit [facility], [address] [place] [address] Solis Serrato MD [address] [place] [address] documented as of this encounter Visit Diagnoses Not on filedocumented in this encounter Care Teams Skip Locator Relationship Specialty Start Date End Date Alexandre Jarquin MD [address] [address] PCP - General Family Medicine 05/18/21 documented as of this encounter
--- OUTSIDE RECORDS SUMMARY | 2024-07-13 12:33 | XMS_ITS | Encounter Summary ---
Author Organization [facility], Address [address] [address] [place] [address] Phone Care Team Providers Care Brine Mixer Operator Name Role Phone Alexandre Jarquin MD Primary Care Provider [phone] Reason for Visit * Reason Comments Med Refill Encounter Details Date Type Department Care Team (Late Contact Info) Description 09/03/2020 Refill [facility] [address] [place] [phone] Jeancarlos Corea MD Social History Tobacco Use [...] Upcoming Encounters Date Type Department Care Team ([facility] Contact Info) Description 10/08/2024 3:45 PM EDT Office Visit [facility] [place], [address] [place] [address] Solis Serrato MD [address] [place] [address] documented as of this encounter Visit Diagnoses Not on filedocumented in this encounter Care Teams Brine Mixer Operator Relationship Specialty Start Date End Date Alexandre Jarquin MD [address] [phone] PCP - General Family Medicine 05/18/21 documented as of this encounter
--- OUTSIDE RECORDS SUMMARY | 2024-07-13 12:33 | XMS_ITS | Encounter Summary ---
Demographics Address [address] [place] [address] Home Phone Work Phone Mobile Phone Preferred Language en Marital Status Baptism Affiliation Unknown Race White Ethnic Group or Author Organization [employer] Address [address] [employer] [address] [place] [address] Care Team Providers Care School Patrol Name Role Phone Unavailable Primary Care Provider Unavailabl e Encounter Details Date Type Department Care Team (Latest Contact Info) Description 06/15/2021 Abstract [facility] CONVERSIONS Dental, Provider, DDS Social History [...]
--- OUTSIDE RECORDS SUMMARY | 2024-07-13 12:33 | XMS_ITS | Clinical Summary ---
Demographics Address [address] [place] [address] Home Phone Work Phone Mobile Phone Preferred Language en Marital Status Scientology Affiliation Unknown Race White Ethnic Group or Author Organization [employer] Address [address] [place] [address] 7[address] [place] [address] Care Team Providers Care Shopfitter Name Role Phone Unavailable Primary Care Provider [...]
--- OUTSIDE RECORDS SUMMARY | 2024-07-13 12:33 | XMS_ITS | Clinical Summary ---
Demographics Address [address] [place] [address] Home Phone Mobile Phone Preferred Language en Marital Status Hindu Affiliation Unknown Race Unknown Ethnic Group or Author Organization [facility] Address [address] [place] [address] Care Team Providers Care Social Work Job Titles Name Role Phone Unavailable Primary Care Provider [...] Documents on File Type Date Recorded Patient Repairer Resistance Welding Machines Expl anation Health Care Decision (hx) 02/25/2014 AD GUAJARDO DIRECTIVE Health Care Decision (hx) 02/25/2014 AD GUAJARDO DIRECTIVE Health Care Decision (hx) 02/25/2014 AD GUAJARDO DIRECTIVE Health Care Decision (hx) 02/25/2014 AD GUAJADRO DIRECTIVE Health Care Decision (hx) 02/25/2014 AD [...] DIRECTIVE Health Care Decision (hx) 12/17/2011 AD GUJAARDO DIRECTIVE Health Care Decision (hx) 12/17/2011 AD GUAJARDO DIRECTIVE Health Care Decision (hx) 12/17/2011 AD GUAJARDO DIRECTIVE Health Care Decision (hx) 12/17/2011 AD GUAJARDO DIRECTIVE Health Care Decision (hx) 12/17/2011 AD GUAJARDO DIRECTIVE Health Care Decision (hx) 12/17/2011 AD GUAJARDO DIRECTIVE
--- OUTSIDE RECORDS SUMMARY | 2024-07-13 12:33 | XMS_ITS | Clinical Summary ---
Demographics Address [address] [place] [address] Home Phone Mobile Phone Preferred Language Uzbek Marital Status Muslim Affiliation Unknown Race Unknown Ethnic Group or Author Organization [facility] Address [address] [place] [address] Care Team Providers Care Excel Expert Name Role Phone Unavailable Primary Care Provider [...] Personal/Family Self 1960 [address] [place] [address]
--- OUTSIDE RECORDS SUMMARY | 2024-07-13 12:33 | XMS_ITS | Encounter Summary ---
Demographics Address [address] [place] [address] Home Phone Work Phone Mobile Phone Preferred Language en Marital Status Mormon Affiliation Unknown Race White Ethnic Group or Author Organization [employer] Address [address] [facility] 7[address] [place] [address] Care Team Providers Care Automotive Brake Technician Name Role Phone Unavailable Primary Care Provider Unavailabl e Encounter Details Date Type Department Care Team (Latest Contact Info) Description 06/21/2018 Abstract [facility] CONVERSIONS Dental, Provider, DDS Social History [...]
--- OUTSIDE RECORDS SUMMARY | 2024-07-13 12:33 | XMS_ITS | Clinical Summary ---
Author Organization [facility] [place], Address [address] [place] [address] [place] [address] Phone Care Team Providers Care Silk Opener Name Role Phone Alexandre Jarquin MD Primary Care Provider [phone] Allergies No known active allergies Medications dilTIAZem [...] Visit [facility], [address] [place] [address] Solis Serrato MD [address] [facility] [place] [phone] Health Maintenance Due Date Last Done Comments [...] AM EDT) Hemoglobin A1C 8.3(H) (4.0-5.6) % [facility] Comment: MONITORING: In known diabetic patients, hemoglobin A1c targets should be discussed with health care provider. DIAGNOSTIC USE: ??The [place] Diabetes Association (ADA) and the World Health [...] Supplement 1 Testing performed or reported by [facility], a Service of [facility], [address] [place] [address] Francois Haque MD, Micro Computer Data Processor Blood (Blood, Venous) 08/07/2020 10:28 AM EDT 08/07/2020 10:29 AM EDT Solis Serrato MD LAB BLOOD ORDERABLES Final Result [facility] from Last 3 Months or Most Recently Relevant to Health Maintenance Insurance [facility] Care Teams Silk Opener Relationship Specialty Start Date End Date Alexandre Jarquin MD [address] [phone] PCP - General Family Medicine 05/18/21
[2024-07-13 12:44] LABS: Alanine Aminotransferase 23 U/L (0-40); Albumin Level 4.2 g/dL (3.5-5.0); Alkaline Phosphatase 54 U/L (39-117); Aspartate Amino Transferase 25 U/L (5-37); Bilirubin Direct 0.2 mg/dL (0.0-0.5); Bilirubin Total 0.5 mg/dL (0.0-1.0); Total Protein 7.3 g/dL (6.5-8.0)
[2024-07-13 12:49] LABS: Creatinine Urine 91.03 mg/dL; Microalbum/Creatinine Ratio Ur 96.6 ug/mg cr (<30)
== END 2024-07-13 11:04 | disposition home or self-care (01) ==
LOC: HO.LAB 11:03
PROVIDERS: PCP Family Medicine; Visit Provider Physician Assistant
DX: E11.8 Type 2 diabetes mellitus with unspecified complications (principal); I42.9 Cardiomyopathy, unspecified; E11.22 Type 2 diabetes mellitus with diabetic chronic kidney disease; N18.30 Chronic kidney disease, stage 3 unspecified; E11.21 Type 2 diabetes mellitus with diabetic nephropathy; Z79.4 Long term (current) use of insulin
CPT/HCPCS: 36415; 80076; 82043; 82570; 82947; 83036; 99212

== ENCOUNTER 2024-07-13 11:03 | Outpatient (AMB) | payer MEDICARE, SELFPAY ==
[2024-07-13 11:05] VITALS: BP 124/68; PULSE 69; O2SAT 96; BMI 29.1
--- NOTE | 2024-07-13 11:05 | A.OFFVIS_ITS ---
Vital Signs 07/13/24 11:05 Height 5 ft 7 in Weight 185 lb 10.067 oz BMI 29.1 BP 124/68 Blood Pressure Location Lt brachial Position Sitting Pulse 69 Pulse Source Pulse Oximeter Pulse Oximetry (%) 96 Oxygen Delivery Method Room Air Intake Visit Reasons: T2DM Intake Note: Patient present today for Type 2 Diabetes Mellitus Last Diabetic eye exam: 04/2024 Last Podiatry Visit: Doesn't have one Random Glucose: 164 mg/dl HgA1C: 6.1% Brick Paver Required: No Accompanied by: Self / Same As Patient Allergies acetaminophen [From Percocet] Allergy (Intermediate, Verified 07/13/24 11:12) Difficulty Breathing oxycodone [From Percocet] Allergy (Intermediate, Verified 07/13/24 11:12) Difficulty Breathing Medication List - Last Reconciled 07/13/24 by Terri Lanier PA-C blood-glucose sensor (Mobile Pulseyle Max 3 Sensor device) USE DIRECTED TO TEST BLOOD SUGAR. CHANGE EVERY 14 DAYS blood-glucose,brick paver,cont (FreeStyle Max 3 [place]) As directed coenzyme I20-npoldgz E 100-100 mg-unit caps PO jdlldkubznlb-xumkqyeipjj-hkhqw 1,000-200 mcg (Celebrate B-12 Quick-Melt) tabs PO diltiazem HCl ER 300 mg PO DAILY gabapentin 600 mg PO TID insulin aspart U-100 (Novolog FlexPen U-100 Insulin aspart) 12 units (0.12 mL) subcut TID insulin degludec (Tresiba FlexTouch U-200 insulin) 30 units (0.15 mL) subcut BEDTIME lisinopril 40 mg PO DAILY metoprolol succinate ER 200 mg PO DAILY pen needle, diabetic (Comfort EZ Pen [place]) As directed injects 4 times a day saw palmetto 450 mg PO BID spironolactone 25 mg PO DAILY tirzepatide (Mounjaro) 7.5 mg (0.5 mL) subcut QWEEK tramadol-acetaminophen 37.5-325 mg 1 tab PO BID PRN vitamin B complex 1 cap PO DAILY HPI HPI T2DM: Details: Pt is a 64 y/o male who presents today for a DM follow up. He last saw Dr. Garcia in June 2023. He has a hx of htn, cardiomyopathy, hyperlipidemia, ckd, microalbuminuria, peripheral neuropathy and insomnia. He forgot to do labs prior to today's appointment and is going to go after. He would like a copy to Dr. Jarquin at [facility] in [place]. Endo: A1c most recently was 6.1. He is currently on Tresiba 30 units, NovoLog sliding scale (not using unless has a large meal),, Mounjaro 5 mg. he states he is tolerating his medications. -he stopped farxiga months ago and does not want to be on it. he stopped it due to issues with supply. CGM-Max 3 download shows usage 96%, average glucose 133, GMI 6.5, variability 26%. Very high 1%, high 9%, 90% in range. No hypoglycemic events. -hyperglycemia appears to be in the afternoon at lunchtime and evening around 21:00. Hypoglycemia-rare. Treats it with orange juice. has glucose tabs as well. Hyperglycemia- states that he will get thirsty but has no sx usually. Complications- CKD, microalbuminuria, peripheral neuropathy, denies known vision problems but states he wears glasses. No known retinopathy. Nephro: he follows with Nephrology, Dr. Serrato. Follows annually. CV: Blood pressure today in the office is 124/68. He is on spironolactone 25 mg, metoprolol 200 mg, lisinopril 40 mg, diltiazem 300 mg. His last cholesterol was not at goal. he states he does not want any statins right now and did not tolerate crestor or atorvastatin. his quality improvement consultant is Dr. Cee and sees him annually. Recent echo, per pt, shows stable/improved. Neuro: follows with neurology for peripheral neuropathy thought to be related to dm and on gabapentin. [facility] Medical History (Updated 11/07/23 @ 09:06 by Terri Lanier PA-C) Hyperlipidemia Surgical History H/O lateral meniscus repair of left knee H/O umbilical hernia repair History of Tony-en-Y gastric bypass History of cervical discectomy History of lumbar fusion H/O microdiscectomy Family History Mother Asthma Father Diabetes Prostate cancer Social History Alcohol intake: never Patient Tobacco Use Status: Never used Tobacco Physical Exam Vital Signs: Last Vital Signs Pulse 69 07/13/24 11:05 BP 124/68 07/13/24 11:05 Pulse Ox 96 07/13/24 11:05 Oxygen Delivery Method Room Air 07/13/24 11:05 BMI result Body Mass Index 29.1 Const Orientation/consciousness: patient oriented x3 Neck Neck: Yes no lymphadenopathy Thyroid: Thyroid normal Carotids: no bruits Resp Auscultation: clear to auscultation bilaterally Cardio Rate: regular rate Rhythm: regular rhythm Heart sounds: S1 normal heart sound present and S2 normal heart sound present Peripheral pulses: dorsalis pedis present Neuro General: patient oriented x3, gait normal and no focal motor deficits Extrem Other: Monofilament sensation intact bilaterally. Vibratory sensation intact bilaterally. Skin intact. General: Yes normal to inspection Results AMB Hemoglobin A1c AMB Hemoglobin A1c 6.1 % Last Edit by ALINA Ceja on 07/13/24 11:27 Results Reviewed Results Reviewed: Laboratory Last Values Glucose (Clinic) 164 mg/dL (60-115) H 07/13/24 11:13 Laboratory Tests 11/25/23 02/13/24 11:58 15:21 Sodium 141 Potassium 3.4 Chloride 106 Carbon Dioxide 27 Anion Gap 11 L BUN 15 Creatinine 1.25 Estimated GFR 58 Glucose (Clinic) 117 H Hemoglobin A1c % 6.3 H AST 22 ALT 20 Alkaline Phosphatase 58 Total Protein 7.1 Triglycerides 139 Cholesterol 192 LDL Cholesterol, Calc 137 H HDL Cholesterol 28 L Assessment & Plan Assessment & Plan (1) Diabetes mellitus type 2, controlled, with complications: Code(s): E11.8 - Type 2 diabetes mellitus with unspecified complications Category: Medical Qualifiers: Diabetes mellitus mcc insulin use: with long term care social worker use Qualified Code(s): E11.8 - Type 2 diabetes mellitus with unspecified complications; Z79.4 - long term acute care registered nurse (current) use of insulin Plan: We will decrease the Tresiba to 25 units. I have increased Mounjaro to 7.5 mg. He will let me know if there is any difficulty tolerating this regimen. He will complete his blood work today. We will follow up in 3-4 months. Sooner if needed. Patient understands and agrees with this plan. (2) CKD stage 3 due to type 2 diabetes mellitus: Code(s): E11.22 - Type 2 diabetes mellitus with diabetic chronic kidney disease; N18.30 - Chronic kidney disease, stage 3 unspecified Category: Medical Plan: We will monitor. Labs ordered. Follows with Nephrology (3) Diabetic peripheral neuropathy associated with type 2 diabetes mellitus: Code(s): E11.42 - Type 2 diabetes mellitus with diabetic polyneuropathy Category: Medical Plan: Stable. On gabapentin. (4) Hyperlipidemia: Code(s): E78.5 - Hyperlipidemia, unspecified Category: Medical Qualifiers: Hyperlipidemia type: pure hypercholesterolemia Qualified Code(s): E78.00 - Pure hypercholesterolemia, unspecified Plan: Declines statin. Due for lipids. Aware of increased risk of MA/CVA. (5) HTN (hypertension): Code(s): I10 - Essential (primary) hypertension Category: Medical Qualifiers: Hypertension type: primary hypertension Qualified Code(s): I10 - Essential (primary) hypertension Plan: WNL. Continue current regimen. Orders: Orders AMB Hemoglobin A1c Today E11.8 - Type 2 diabetes mellitus with unspecified complications, Z13.9 - Encounter for screening, unspecified, Z79.4 - long term acute care registered nurse (current) use of insulin Medications: New tirzepatide (Mounjaro) 7.5 mg (0.5 mL) subcut QWEEK 2 mL 3RF Changed From insulin degludec (Tresiba FlexTouch U-200 insulin) 30 units (0.15 mL) subcut BEDTIME 9 mL 5RF To insulin degludec (Tresiba FlexTouch U-200 insulin) 25 units (0.125 mL) subcut BEDTIME 9 mL 5RF Discontinued tirzepatide (Mounjaro) Discontinued Reason: Doctor's Order 5 mg (0.5 mL) subcut QWEEK 2 mL 6RF Patient Instructions: increase mounjaro to 7.5 mg weekly decrease tresiba to 25 units download pt portal Coding Level of Care Code Est Pt Level 4 (66033) Complex EM visit Add On G2211 Diagnoses Controlled type 2 diabetes mellitus with complication, with long-term current use of insulin E11.8; Z79.4 Diabetes mellitus long term care social worker insulin use: with mcc use CKD stage 3 due to type 2 diabetes mellitus E11.22; N18.30 Diabetic peripheral neuropathy associated with type 2 diabetes mellitus E11.42 Pure hypercholesterolemia E78.00 Hyperlipidemia type: pure hypercholesterolemia Primary hypertension I10 Hypertension type: primary hypertension
[2024-07-13 11:18] LABS: Glucose, Whole Blood 164 mg/dL (60-115)
--- OUTSIDE RECORDS SUMMARY | 2024-07-13 11:51 | XMS_ITS | Encounter Summary ---
Demographics Address [address] [place] [address] Home Phone Work Phone Mobile Phone Preferred Language en Marital Status Amish Affiliation Unknown Race White Ethnic Group or Author Organization [employer] Address [address] [facility] [address] [place] [address] Care Team Providers Care Mice Raiser Name Role Phone Unavailable Primary Care Provider Unavailabl e Encounter Details Date Type Department Care Team (Latest Contact Info) Description 06/21/2018 Abstract [facility] CONVERSIONS Dental, Provider, DDS Social History Tobacco Use Types Packs/Day Years Used Date Smoking Tobacco: Never Assessed Sex and Gender Information Value Date Recorded Sex Assigned at Male 01/18/2022 10:25 AM EDT Legal Sex Male 10:25 AM EDT Gender Identity Male 01/18/2022 10:25 AM EDT Sexual Orientation Straight 01/18/2022 10 :25 AM EDT documented as of this encounter Plan of Treatment Not on file documented as of this encounter Visit Diagnoses Not on filedocumented in this encounter
--- OUTSIDE RECORDS SUMMARY | 2024-07-13 11:51 | XMS_ITS | Clinical Summary ---
Demographics Address [address] [place] [address] Home Phone Work Phone Mobile Phone Preferred Language en Marital Status Christianity Affiliation Unknown Race White Ethnic Group or Author Organization [employer] Address [address] [place] [address] 7[address] [place] [address] Care Team Providers Care Supervisor Dairy Sanitation Name Role Phone Unavailable Primary Care Provider Unavailabl e Social History Tobacco Use Types Packs/Day Years Used Date Smoking Tobacco: Never Assessed Sex and Gender Information Value Date Recorded Sex Assigned at Male 01/18/2022 10:25 AM EDT Legal Sex Male 10:25 AM EDT Gender Identity Male 01/18/2022 10:25 AM EDT Sexual Orientation Straight 01/18/2022 10 :25 AM EDT Plan of Treatment Health Maintenance Due Date Last Done Comments CT Colonography 1960 Colonoscopy 1960 Colorectal Cancer Screening 1960 Depression Screening 1960 FIT DNA/Cologuard 1960 FIT 1960 FOBT 1960 Lipid Panel 1960 Sigmoidoscopy 1960 Alcohol/Substance Use Screening 1972 Tobacco Screening 1972 Pneumococcal Vaccine: 50+ Years (2 of 2 - PCV) 2010 11/16/2006, 08/16/2006 Zoster Vaccines (1 of 2) 2010 COVID-19 Vaccine ( season) 2023 08/15/2020, 07/18/2020 Influenza Vaccine (#1) 2023 9, 12/10/2017, 12/21/2016, Additional history exists DTaP/Tdap/Td Vaccines (3 - Td or Tdap) 09/25/2027 09/24/2017, 01/04/2008 RSV Patients and Patients Aged 60 years or older (1 - 1-dose 75+ series) 05/26/2035 Pneumococcal Vaccine: Pediatrics (0 to 5 Years) and At-Risk Patients (6 to 49) Years) Aged Out 11/16/2006, 08/16/2006 No longer eligibl e based on patient's age to complete this topic HIB Vaccines Aged Out No longer eligi ble based on patient's age to complete this topic HPV Vaccines Aged Out No longer eligi ble based on patient's age to complete this topic Hepatitis A Vaccines Aged Out No long er eligible based on patient's age to complete this topic Hepatitis B Vaccines Aged Out No long er eligible based on patient's age to complete this topic IPV Vaccines Aged Out No longer eligi ble based on patient's age to complete this topic Meningococcal Vaccine Aged Out No guy priscila eligible based on patient's age to complete this topic RSV under 20 months Aged Out No longe r eligible based on patient's age to complete this topic Rotavirus Vaccines Aged Out No longer eligible based on patient's age to complete this topic
--- OUTSIDE RECORDS SUMMARY | 2024-07-13 11:51 | XMS_ITS | Encounter Summary ---
Demographics Address [address] [place] [address] Home Phone Work Phone Mobile Phone Preferred Language en Marital Status Samaritan Affiliation Unknown Race White Ethnic Group or Author Organization [employer] Address [address] [facility] [address] [place] [address] Care Team Providers Care Log Brander Name Role Phone Unavailable Primary Care Provider Unavailabl e Encounter Details Date Type Department Care Team (Latest Contact Info) Description 06/15/2021 Abstract [facility] CONVERSIONS Dental, Provider, DDS Social History [...]
--- OUTSIDE RECORDS SUMMARY | 2024-07-13 11:52 | XMS_ITS | Clinical Summary ---
Author Organization [facility], Address [address] [place] [address] [place] [address] Phone Care Team Providers Care Tram Operator Name Role Phone Alexandre Jarquin MD Primary Care Provider [phone] Allergies No known active allergies Medications dilTIAZem (TIAZAC) 300 MG 24 hr capsule Take 300 mg by mouth 1 (one) time each day Active folic acid (FOLVITE) 1 MG tablet Take 1 mg by mouth 1 (one) time each day Active gabapentin (NEURONTIN) 300 MG capsule Take 300 mg by mouth 1 (one) time each day Active insulin glargine (LANTUS) 100 UNIT/ML injection Inject 40 Units under the skin 1 (one) time each day Active lisinopril (PRINIVIL,ZESTRIL) 40 MG tablet Take 40 mg by mouth 1 (one) time each day Active metFORMIN XR (GLUCOPHATE-XR) 500 MG 24 hr tablet Take 1,000 mg by mouth 2 (two) times a day with meals Active Multiple Vitamin (MULTIVITAMIN) tablet Take 1 tablet by mouth 1 (one) time each day Active omeprazole (PriLOSEC) [address] capsule Take 20 mg by mouth 1 (one) time each day Active metoprolol succinate XL (TOPROL-XL) 200 MG 24 hr tablet Take 200 mg by mouth 1 (one) time each day Active Cyanocobalamin (VITAMIN B12 PO) Take 1 tablet by mouth 1 (one) time each day Active sildenafil (VIAGRA) 50 MG tablet sildenafil 50 mg tablet TAKE ONE TABLET BY MOUTH EVERY DAY DIRECTED Active ezetimibe (ZETIA) 10 MG tablet ezetimibe 10 mg tablet TAKE 1 TABLET BY MOUTH EVERY DAY 08/10/19 20 Active aspirin (ST LEON) 81 MG EC tablet Take 1 tablet by mouth 1 (one) time each day 06/25/19 15 Active coenzyme Q-10 100 MG capsule Take 300 mg by mouth daily Active fenofibrate (TRIGLIDE) 160 MG tablet 04/20/19 21 Active Melatonin [address] 10 mg under the tongue at night if needed Active oxyCODONE (ROXICODONE) 5 MG immediate release tablet 06/13/19 21 Active oxyCODONE-acetamino phen (PERCOCET) 5-325 MG per tablet Take 1 tablet by mouth at bed time 02/29/20 15 Active traMADol-acetaminop hen (ULTRACET) 37.5-325 MG per tablet tramadol 37.5 mg-acetaminophen 325 mg tablet 12/07/19 15 Active glipiZIDE (GLUCOTROL XL) 5 MG 24 hr tablet Take 1 tablet (5 mg total) by mouth 1 (one) time each day 90 tablet 3 03/24/19 22 Active amitriptyline (ELAVIL) 25 MG tablet 11/08/19 22 Active Ascorbic Acid (vitamin C) 500 MG tablet Take 500 mg by mouth 1 (one) time each day 08/18/19 23 Active docusate sodium (COLACE) 100 MG capsule TAKE ONE TO TWO CAPSULES BY MOUTH AT BEDTIME NEEDED FOR CONSTIPATION 08/15/19 23 Active gabapentin (NEURONTIN) 600 MG tablet TAKE 1 TABLET BY MOUTH TWICE DAILY AND 2 TABLETS AT BEDTIME DIRECTED 10/06/19 23 Active iron polysaccharides (NU-IRON,IFEREX) 150 MG capsule Take 150 mg by mouth 1 (one) time each day 08/18/19 23 Active rosuvastatin (CRESTOR) 10 MG tablet Take 10 mg by mouth 1 (one) time each day Active Active Problems Problem Noted Date Diagnosed Date Hypertensive renal disease 05/27/202110/18 Chronic kidney disease, stage 3 (moderate) 07/22 Hyperlipidemia 06/16/2017 Overview (08/01/2020): Last Assessment & Plan: Continues on moderate intensity statin therapy + zetia No recent lipid panel available for review but reports that he is up to date Type 2 diabetes mellitus 06/10/2017 023 Overview (10/18/2022): DIABETES HISTORY Diagnosis - type 2 diabetes, dx 2003 Treatment history - Metformin, PERALTA; insulin (Lantus and Humalog) in the past, required up to Lantus 300u per day; tried Byetta in the past, was having abd pain; on Soliqua as of July 2016. S/p gastric bypass Feb 2015 Last Assessment & Plan: Follows with Dr. Corea Continues on ACEi Blood pressure is well controlled Unable to view recent labs, reports Dr. Corea states his kidney function is stable. Type 2 diabetes mellitus with diabetic mononeuro letitia Serum creatinine above reference range Proteinuria Hyperkalemia Essential hypertension Anemia Resolved Problems Problem Noted Date Diagnosed Date Resolved Date Body mass index 30+ - obesity 06/16/2017 08/01/2020 Overview (08/01/2020): Last Assessment & Plan: Continues with healthy eating Activity is reduced due to back/neck arthritis/pain Insulin based therapy with NPH and PERALTA unfortunately promotes weight gain, although other antihyperglycemic agents might be helpful for weight loss, [facility] has limited access to these due to cost Other obstructive and reflux uropathy 05/18/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 05/18/2021 Immunizations Immunization Administration Dates Next Due Influenza (IM) Preservative Free 01/21/2014 Influenza TIV (IM) 11/28/2012,01/04/2008, 007 Influenza, Quadrivalent, Pre servative Free 12/29/2018,12/10/2017,12/21/2016,02/05,04/02/2015 Pneumococcal Polysaccharide 11/16/2006, 7 Tdap 09/24/2017,01/04/2008 Family History Medical History Relation Comments Cancer Father prostate Diabetes Father Hypertension Father Heart disease Mother heart attack Hypertension Mother Relation Status Comments Father Mother Social History Tobacco Use Types Packs/Day Years Used Date Smoking Tobacco: Never Alcohol Use Standard Drinks/Week Comments No 0 (1 standard drink = 0.6 oz pur e alcohol) Sex and Gender Information Value Date Recorded Sex Assigned at Not on file Legal Sex Male 4:33 PM EST Gender Identity Not on file Sexual Orientation Not on file Last Filed Vital Signs Vital Sign Reading Time Taken Comments Blood Pressure 100/60 10/19/2023 2:54 PM EDT Pulse - - Temperature - - Respiratory Rate - - Oxygen Saturation - - Inhaled Oxygen Concentration - - Weight 86.2 kg (190 lb) 07/23/2019 9:53 AM EDT Height 172.7 cm (5' 8 ) 02/05/2019 12:00 PM EST Body Mass Index 28.89 02/05/2019 12:00 PM EST Plan of Treatment Upcoming Encounters Date Type Department Care Team (Late st Contact Info) Description 10/08/2024 3:45 PM EDT Office Visit [facility], [address] [place] [address] Solis Serrato MD [address] [facility] [place] [id number] Health Maintenance Due Date Last Done Comments Pneumococcal Vaccine: 50+ Years (3 of 3 - PCV) 11/17/2007 11/16/2006, 08/16/2006 Colorectal Cancer Screening: Annual FOBT 2009 Colorectal Cancer Screening: Sigmoidoscopy 2009 Diabetes: Ophthalmology Exam 06/11/2019 Diabetes: Pedal Pulse Checked 06/11/2019 Diabetes: Sensory Foot Exam 06/11/2019 Diabetes: Visual Foot Exam 06/11/2019 Diabetes: Hemoglobin A1C 11/07/2020 021, 06/04/2020, 07/26/2019, Additional history exists Colorectal Cancer Screening: Colonoscopy 10/15/2024 10/15/2014 Influenza Vaccine (Season Ended) 2024 12/29/2018, 12/10/2017, 12/21/2016, Additional history exists Pneumococcal Vaccine: Peds (0 to 5 Years) and At-Risk Patients (6 to 49 Years) Discontinued 11/16/2006, 08/16/2006 Hepatitis B Vaccine Aged Out No longe r eligible based on patient's age to complete this topic Procedures Procedure Name Priority Date/Time Associated Diagnosis Comments HEMOGLOBIN A1C Routine 08/07/2020 10:28 AM EDT Serum creatinine raised Other proteinuria Essential hypertension from Last 3 Months or Most Recently Relevant to Health Maintenance Results * (ABNORMAL) Hemoglobin A1c (08/07/2020 10:28 AM EDT) Hemoglobin A1C 8.3(H) (4.0-5.6) % [facility] Comment: MONITORING: In known diabetic patients, hemoglobin A1c targets should be discussed with health care provider. DIAGNOSTIC USE: ??The [place] Diabetes Association (ADA) and the World Health Organization (WHO) recommend the use of HbA1c to diagnose diabetes using a threshold of 6.5%. Patients who have an HbA1c between 5.7% and 6.4% are considered at increased risk for developing diabetes in the future. CAUTION: Falsely low HbA1c results may be observed in patients with hemolytic anemia, homozygous forms of abnormal hemoglobin (e.g. SS, CC, SC), , recent blood loss or hemoglobin F greater than 7%. Fructosamine may be used as an alternate test in these cases. REFERENCE: ADA: Standards of Medical Care in Diabetes 2020, The Journal of Clinical and Applied Research and Education Volume 43, Supplement 1 Testing performed or reported by [facility], a Service of [facility], [address] [place] [address] Francois Haque MD, Multi Purpose Machine Operator Blood (Blood, Venous) 08/07/2020 10:28 AM EDT 08/07/2020 10:29 AM EDT Solis Serrato MD LAB BLOOD ORDERABLES Final Result [facility] from Last 3 Months or Most Recently Relevant to Health Maintenance Insurance [facility] Care Teams Tram Operator Relationship Specialty Start Date End Date Alexandre Jarquin MD [address] [phone] PCP - General Family Medicine 05/18/21
--- OUTSIDE RECORDS SUMMARY | 2024-07-13 11:52 | XMS_ITS | Clinical Summary ---
Demographics Address [address] [place] [address] Home Phone Mobile Phone Preferred Language Nicaraguan Marital Status Advent Affiliation Unknown Race Unknown Ethnic Group or Author Organization [facility] Address [address] [place] [address] Care Team Providers Care Waxing Machine Operator Name Role Phone Unavailable Primary Care Provider Unavailabl e Social History Tobacco Use Types Packs/Day Years Used Date Smoking Tobacco: Never Assessed Sex and Gender Information Value Date Recorded Sex Assigned at Not on file Gender Identity Not on file Sexual Orientation Not on file Job Start Date Occupation Industry Not on file Not on file Not on file Plan of Treatment Health Maintenance Due Date Last Done Comments Hepatitis C Screening 1960 Depression Screening 1972 Preventative Health Evaluation 1978 Colon Cancer Screening (Colonoscopy) 2005 Shingrix-Zoster Vaccine (1 of 2) 2010 COVID-19 Vaccine ( - season) 2023 08/15/2020, 07/18/2020 Influenza Vaccine (#1) 2023 9, 12/10/2017, 12/21/2016, Additional history exists Pneumococcal Vaccine (2 of 2 - PCV) 2025 11/16/2006, 08/16/2006 DTap / Tdap / Td (3 - Td or Tdap) 09/25/2027 09/24/2017, 01/04/2008 RSV Adult > 60+ Yrs or (1 - 1-dose 75+ series) 05/26/2035 Pneumococcal Vaccine Aged Out 11/16/2006, 08/17/19 07 No longer eligible based on patient's age to complete this topic Hepatitis B Vaccines Aged Out No long er eligible based on patient's age to complete this topic RSV Ped < 20 months Aged Out No longe r eligible based on patient's age to complete this topic Guarantor Name Account Type Relation to Patient Date of Phone Billing Address [place] Personal/Family Self 1960 [address] [place] [address]
--- OUTSIDE RECORDS SUMMARY | 2024-07-13 11:52 | XMS_ITS | Data Portability ---
Author Organization [facility], Main Office Address [address] [place] [address] Care Team Providers Care Senior Java Architect Name Role Phone MARILEE GASTON Orthodontist Vice President [phone] DALE CORONA Urologist ЕЛЕНА RAMOS Instruction Dean [phone] JESICA MELENDEZ Guest Experience Specialist MORENITA VELASCO Rx Specialist JANINE ALEJANDRE Phys. Med. [facility] Rehab CRISTINA DAVIS Neurosurgeon TATY CARBALLO Meat Hostess NÉSTOR JARQUIN Primary Care Provider [phone] LYNN CEE Settlement Clerk MANDY CORONADO OTHER Assessment No assessment recorded. Plan of Treatment Reminders Order Date Submit Date Provider Last Modified By Organization Details Last Modified Time Details Appointments FOLL OW UP 30MI N 2024 10:00A Andre Jarquin MD Not available Not available Not available Lab sjog myles anti body pane l (ssa , ssb, ro, la), seru m 2023 024 FRANCIE [facility], [address], [facility], [place], [address], 02/10/2024 06:09:02 C reac tive prot ein, QN, seru m or plas ma 2023 024 FRANCIE [facility] (Centralized Electronic Ordering - All Locations), Patient Can Go To The Location Of Their Choice, [id number] 02/10/2024 06:09:09 TSH, ultr a-se nsit surekha, seru m 2023 024 FRANCIE [facility], [address], [place], [address], 02/10/2024 06:09:05 PSA, seru m or plas ma 2023 024 FRANCIE [facility] (Centralized Electronic Ordering - All Locations), Patient Can Go To The Location Of Their Choice, 02/10/2024 06:09:03 test oste tonio , free + tota l, seru m 2023 024 FRANCIE [facility] (Centralized Electronic Ordering - All Locations), Patient Can Go To The Location Of Their Choice, 02/10/2024 06:09:03 lipi d pane l, seru m 2023 024 [facility]ANCIE [facility], [address], [place], [address], 02/10/2024 06:09:00 CMP, seru m or plas ma 2023 024 FRANCIE [facility] (Centralized Electronic Ordering - All Locations), Patient Can Go To The Location Of Their Choice, 02/10/2024 06:08:59 micr oalb umin /cre atin ine, mass rati o, urin e 2023 024 FRANCIE [facility] (Centralized Electronic Ordering - All Locations), Patient Can Go To The Location Of Their Choice, 02/10/2024 06:09:01 melquiades min B12, seru m 2023 024 FRANCIE [facility], [address], [place], [address], 02/10/2024 06:09:06 lucian te, seru m 2023 024 [facility]CIE [facility], [address], [place], [address], 02/10/2024 06:09:04 ferr jas , seru m or plas ma 2023 024 [facility]CI[facility], [address], [place], [address], 02/10/2024 06:09:07 reti c coun t, bloo d 2023 024 [facility]ANCIE [facility], [address], [place], [address], 02/10/2024 06:09:08 CBC w/ auto diff 2023 024 [facility]ANCIE [facility], [address], [place], [address], 02/10/2024 06:08:58 TIBC (tot al iron -[facility] ), seru m 2023 024 FRANCIE [facility], [address], [place], [address], 02/10/2024 06:09:00 russell sfer rin rece ptor , solu ble, hilaria t, seru m 2023 024 FRANCIE [facility] (Centralized Electronic Ordering - All Locations), Patient Can Go To The Location Of Their Choice, [id number] 02/10/2024 06:09:04 michael hernandez seru m 2023 024 FRANCIE [facility], [address], [address], [place], [address], 02/10/2024 06:09:07 hemo glob in A1C, fing erst ick 2023 024 FRANCIE In-Office Order, Internal Use Only DO Not Attach Compendium DO Not Attach Compendium, Do Not Delete/merge, [id number] 10/05/2023 14:13:01 CRP, high sens itiv ity, seru m or plas ma 2022 023 [facility], [address], [place], [address], 09/08/2022 13:40:35 sjog myles anti body pane l (ssa , ssb, ro, la), seru m 2022 023 [facility], [address], [address], [place], [address], 09/08/2022 13:28:34 test oste tonio , free , seru m 2022 023 [email or web address] [facility], [address], [address], [place], [address], 04/14/2023 17:30:20 HIV 1+2 AB + HIV 1 p24 Ag, qual itat surekha immu noas say, seru m 2022 023 FRANCIE [facility], [address], [address], [place], [address], 09/08/2022 13:40:36 michael lase , seru m 2022 023 [facility], [address], [address], [place], [address], 09/08/2022 13:49:21 magn esiu m, seru m or plas ma 2022 023 [facility], [address], [address], [place], [address], 07/27/2022 12:08:08 melquiades min B12, seru m 2022 023 [facility]CIE [facility], [address], [address], [place], [address], 07/27/2022 12:29:36 lipi d pane l, seru m 2022 023 [facility]ANCIE [facility], [address], [address], [place], [address], 07/27/2022 12:08:47 AST/ SGOT (asp fredis te freitas otra nsfe rase ), seru m or plas ma 2022 023 FRANCIE [facility], [address], [address], [place], [address], 07/27/2022 12:08:44 ALT (ala nine freitas otra nsfe rase ), seru m or plas ma 2022 023 FRANCIE [facility], [address], [address], [place], [address], 07/27/2022 12:08:43 BMP, seru m or plas ma 2022 023 [facility], [address], [address], [place], [address], 07/27/2022 12:08:46 CBC w/ auto diff 2022 023 [facility]CIE [facility], [address], [address], [place], [address], 07/27/2022 11:44:08 TSH, seru m or plas ma 2022 023 FRANCIE [facility], [address], [address], [place], [address], 07/27/2022 12:34:15 test oste tonio , free , seru m 2022 023 FRANCIE [facility], [address], [address], [place], [address], 07/27/2022 15:12:36 lucian te, seru m 2022 023 FRANCIE [facility], [address], [address], [place], [address], 07/27/2022 12:51:36 ferr itin , seru m or plas ma 2022 023 FRANCIE [facility], [address], [address], [place], [address], 07/27/2022 12:29:37 reti c coun t, bloo d 2022 023 FRANCIE [facility], [address], [address], [place], [address], 07/27/2022 11:44:09 iron + tota l iron -[facility] ([facility]IB C), seru m 2022 023 FRANCIE [facility], [address], [address], [place], [address], 07/27/2022 12:08:06 HbA1 c (hem oglo bin A1c) , bloo d 2022 023 FRANCIE [facility], [address], [address], [place], [address], 07/27/2022 12:09:57 micr oalb umin urin e 2022 023 FRANCIE [facility], [address], [address], [place], [address], 07/27/2022 12:16:32 PSA, seru m or plas ma 2022 023 FRANCIE [facility], [address], [address], [place], [address], 07/27/2022 12:29:38 Referral phys ical medi cine and reha bili marcela on refe rral - want s to cons ider stim ulat or. 2023 024 [facility], [address] [place] [address], [address], 02/22/2024 09:07:[address] refe rral - Esta blis hed Philly ent need s colo n canc er scre enin g 2023 024 CHRISTINE Gaston MD, [address] [facility], [facility] [address], [place], [address], 01/17/2024 12:07:25 psyc hiat rist refe rral 2022 023 [email or web address] os Not available 11/29/2022 12:39:03 psyc holo gist refe rral 2022 023 [email or web address] os Not available 11/29/2022 12:39:04 Procedures colo nosc opy scre enin g (PRO C) 2023 024 [email or web address] [facility], [address] [place], [address], 01/17/2024 11:55:46 Surgeries None adan rded . Imaging None adan rded . Medication Orders nyst atin 100, 000 unit /mL oral susp ensi on 2022 023 [email or web address] [facility], [facility], [place], [address], 10/05/2023 14:02:52 Nicho gra Nicho rgy 180 mg tabl et 2022 023 [email or web address] [id number], [address] [place], [address], 01/17/2024 10:22:06 Patient TargetsNo targets recorded. Patient Instructions Encounter Date Encounter Id Patient Instructions Last Modified By Organization Details Last Modified Time 06/02/2022 [id number] diabetic neuropathy: care instructions [email or web address] Not available 06/02/2022 14:43:49 09/08/2022 [id number] Well Visit 50 to 65: Care Instructions ckokar Not available 09/08/2022 13:28:17 preventing falls : care instructions ckokar Not available 09/08/2022 13:28:17 starting a weigh t loss plan: care instructions ckokar Not available 09/08/2022 13:28:17 diabetic neuropathy: care instructions ckokar Not available 09/08/2022 13:28:17 10/05/2023 [id number] Learning About Take-Home Naloxone Kits for Opioid Emergencies ckoharesh Not available 10/05/2023 14:11:39 ulcerative colitis: care instructions ckokar Not available 10/05/2023 14:11:39 anemia: care instructions ckokar Not available 10/05/2023 14:11:39 01/17/2024 [id number] back care and preventing injuries: care instructions ckokar Not available 01/17/2024 10:57:14 getting back to normal after low back pain: care instructions ckokar Not available 01/17/2024 10:57:14 learning about relief for back pain ckokar Not available 01/17/2024 10:57:14 Prostate Cancer Screening ckokar Not available 01/17/2024 10:49:08 Decreased Male Libido: Care Instructions ckokar Not available 01/17/2024 11:00:52 diabetic neuropathy: care instructions ckokar Not available 01/17/2024 10:49:07 When You Want to Lose Weight: Care Instructions ckokar Not available 01/17/2024 10:50:40 Well Visit 50 to 65: Care Instructions ckokar Not available 01/17/2024 10:49:07 preventing falls : care instructions ckokar Not available 01/17/2024 10:49:07 medical record request* - had colo and endo at [facility] get records. 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 Referring Physician: Néstor Jarquin [facility], Encounter Date: 01/17/2024 Results Created Date Observation Date Name Description Value Unit Range Abnormal Flag Note LastModifiedBy Organization Detail LastModifiedTime 07/28/1907/27/2022 COMPL ETE CBC WITH DIFF WBC 7.8 K/mm3 (4.0-1 1.0) Not Available [facility] (Centralized Electronic Ordering - All Locations) Patient Can Go To The Location Of Their Choice, 07/27/2022 11:44:07/28/1907/27/2022 COMPL ETE CBC WITH DIFF RBC 4.89 M/mm3 (4.70- 6.10) Not Available [facility] (Centralized Electronic Ordering - All Locations) Patient Can Go To The Location Of Their Choice, 07/27/2022 11:44:07 07/28/1907/27/2022 COMPL ETE CBC WITH DIFF HGB 12.4 gm/dL (13.7- 17.1) low Not Available [facility] (Centralized Electronic Ordering - All Locations) Patient Can Go To The Location Of Their Choice, 07/27/2022 11:44:07/28/1907/27/2022 COMPL ETE CBC WITH DIFF HCT 40.6 % (40.5- 50.0) Not Available [facility] (Centralized Electronic Ordering - All Locations) Patient Can Go To The Location Of Their Choice, 07/27/2022 11:44:07/28/1907/27/2022 COMPL ETE CBC WITH DIFF MCV 83.0 fL (80.0- 94.0) Not Available [facility] (Centralized Electronic Ordering - All Locations) Patient Can Go To The Location Of Their Choice, 07/27/2022 11:44:07/28/1907/27/2022 COMPL ETE CBC WITH DIFF MCH 25.4 pg (27.0- 34.0) low Not Available [facility] (Centralized Electronic Ordering - All Locations) Patient Can Go To The Location Of Their Choice, 07/27/2022 11:44:07/28/1907/27/2022 COMPL ETE CBC WITH DIFF MCHC 30.5 g/dL (33.0- 37.0) low Not Available [facility] (Centralized Electronic Ordering - All Locations) Patient Can Go To The Location Of Their Choice, 07/27/2022 11:44:07/28/1907/27/2022 COMPL ETE CBC WITH DIFF plt 276 K/mm3 (150-4 60) Not Available [facility] (Centralized Electronic Ordering - All Locations) Patient Can Go To The Location Of Their Choice, 07/27/2022 11:44:07/28/1907/27/2022 COMPL ETE CBC WITH DIFF RDW-SD 43.7 fL (<47.0 ) Not Available [facility] (Centralized Electronic Ordering - All Locations) Patient Can Go To The Location Of Their Choice, 07/27/2022 11:44:07/28/1907/27/2022 COMPL ETE CBC WITH DIFF MPV 11.5 fL (9.4-1 2.4) Not Available [facility] (Centralized Electronic Ordering - All Locations) Patient Can Go To The Location Of Their Choice, 07/27/2022 11:44:07/28/1907/27/2022 COMPL ETE CBC WITH DIFF automated NRBC 0.0 #/100 _WBC' s Not Available [facility] (Centralized Electronic Ordering - All Locations) Patient Can Go To The Location Of Their Choice, 07/27/2022 11:44:07/28/1907/27/2022 COMPL ETE CBC WITH DIFF abs. NRBC 0.0 K/mm3 Not Available [facility] (Centralized Electronic Ordering - All Locations) Patient Can Go To The Location Of Their Choice, 07/27/2022 11:44:07/28/1907/27/2022 COMPL ETE CBC WITH DIFF neut # 3.6 K/mm3 (1.3-7 .0) Not Available [facility] (Centralized Electronic Ordering - All Locations) Patient Can Go To The Location Of Their Choice, 07/27/2022 11:44:07/28/1907/27/2022 COMPL ETE CBC WITH DIFF lymph # 2.8 K/mm3 (0.8-3 .1) Not Available [facility] (Centralized Electronic Ordering - All Locations) Patient Can Go To The Location Of Their Choice, 07/27/2022 11:44:07/28/1907/27/2022 COMPL ETE CBC WITH DIFF mono# 0.9 K/mm3 (0.4-1 .3) Not Available [facility] (Centralized Electronic Ordering - All Locations) Patient Can Go To The Location Of Their Choice, 07/27/2022 11:44:07/28/1907/27/2022 COMPL ETE CBC WITH DIFF eo # 0.4 K/mm3 (0.0-0 .4) Not Available [facility] (Centralized Electronic Ordering - All Locations) Patient Can Go To The Location Of Their Choice, 07/27/2022 11:44:07/28/1907/27/2022 COMPL ETE CBC WITH DIFF baso # 0.1 K/mm3 (0.0-0 .1) Not Available [facility] (Centralized Electronic Ordering - All Locations) Patient Can Go To The Location Of Their Choice, 07/27/2022 11:44:07/28/1907/27/2022 COMPL ETE CBC WITH DIFF abs. imm gran 0.0 K/mm3 Not Available [facility] ([facility] Order[facility] - All Locations) Patient Can Go To The Location Of Their Choice, 07/27/2022 11:44:07/28/1907/27/2022 COMPL ETE CBC WITH DIFF neut 45.5 % (44-76 ) Not Available [facility] (Centralized Electronic Ordering - All Locations) Patient Can Go To The Location Of Their Choice, 07/27/2022 11:44:07/28/1907/27/2022 COMPL ETE CBC WITH DIFF lymph 36.5 % (15-43 ) Not Available [facility] (Centralized Electronic Ordering - All Locations) Patient Can Go To The Location Of Their Choice, 07/27/2022 11:44:07/28/1907/27/2022 COMPL ETE CBC WITH DIFF monocyte 11.4 % (4.5-1 0.5) high Not Available [facility] (Centralized Electronic Ordering - All Locations) Patient Can Go To The Location Of Their Choice, 07/27/2022 11:44:07/28/1907/27/2022 COMPL ETE CBC WITH DIFF eo 5.4 % (0-6) Not Available [facility] (Centralized Electronic Ordering - All Locations) Patient Can Go To The Location Of Their Choice, 07/27/2022 11:44:07/28/1907/27/2022 COMPL ETE CBC WITH DIFF baso 0.8 % (0-2) Not Available [facility] (Centralized Electronic Ordering - All Locations) Patient Can Go To The Location Of Their Choice, 07/27/2022 11:44:07/28/1907/27/2022 COMPL ETE CBC WITH DIFF imm gran 0.4 % Not Available [facility] (Centralized Electronic Ordering - All Locations) Patient Can Go To The Location Of Their Choice, 07/27/2022 11:44:07/28/1907/27/2022 RETIC ULOCY TE COUNT retic % 1.5 % (0.9-2 .1) Not Available [facility] (Centralized Electronic Ordering - All Locations) Patient Can Go To The Location Of Their Choice, 07/27/2022 11:44:07/28/1907/27/2022 RETIC ULOCY TE COUNT reticulocyte count, corrected 1.4 % (0.9-2 .1) Not Available [facility] (Centralized Electronic Ordering - All Locations) Patient Can Go To The Location Of Their Choice, 07/27/2022 11:44:07/28/1907/27/2022 RETIC ULOCY TE COUNT reticulocyte production index 1.4 % (1.0-2 .0) Not Available [facility] (Centralized Electronic Ordering - All Locations) Patient Can Go To The Location Of Their Choice, 07/27/2022 11:44:07/28/1907/27/2022 IRON & TIBC iron 65 mcg/d L (45-16 0) Not Available [facility] (Centralized Electronic Ordering - All Locations) Patient Can Go To The Location Of Their Choice, 07/27/2022 12:08:06 07/28/1907/27/2022 IRON & TIBC unsaturated iron binding capac 397 mcg/d L (110-3 70) high Not Available [facility] (Centralized Electronic Ordering - All Locations) Patient Can Go To The Location Of Their Choice, 07/27/2022 12:08:06 07/28/1907/27/2022 IRON & TIBC est T. iron bind capacity 462 mcg/d L (155-5 30) Not Available [facility] (Centralized Electronic Ordering - All Locations) Patient Can Go To The Location Of Their Choice, 07/27/2022 12:08:06 07/28/1907/27/2022 IRON & TIBC % iron saturation 14 % (20-55 ) low Not Available [facility] (Centralized Electronic Ordering - All Locations) Patient Can Go To The Location Of Their Choice, 07/27/2022 12:08:06 07/28/1907/27/2022 MAGNE SIUM magnesium 2.0 mg/dL (1.6-2 .3) Not Available [facility] (Centralized Electronic Ordering - All Locations) Patient Can Go To The Location Of Their Choice, 07/27/2022 12:08:08 07/28/1907/27/2022 ALT ALT 27 U/L (0-41) Not Available [facility] (Centralized Electronic Ordering - All Locations) Patient Can Go To The Location Of Their Choice, 07/27/2022 12:08:43 07/28/1907/27/2022 AST AST 39 U/L (0-40) Not Available [facility] (Centralized Electronic Ordering - All Locations) Patient Can Go To The Location Of Their Choice, 07/27/2022 12:08:44 07/28/1907/27/2022 BASIC METAB OLIC PANEL glucose 156 mg/dL (70-99 ) high Not Available [facility] (Centralized Electronic Ordering - All Locations) Patient Can Go To The Location Of Their Choice, 07/27/2022 12:08:46 07/28/1907/27/2022 BASIC METAB OLIC PANEL BUN 16 mg/dL (8-23) Not Available [facility] (Centralized Electronic Ordering - All Locations) Patient Can Go To The Location Of Their Choice, 07/27/2022 12:08:46 07/28/1907/27/2022 BASIC METAB OLIC PANEL creatinine 1.3 mg/dL (0.7-1 .2) high Not Available [facility] (Centralized Electronic Ordering - All Locations) Patient Can Go To The Location Of Their Choice, 07/27/2022 12:08:46 07/28/1907/27/2022 BASIC METAB OLIC PANEL sodium 142 mmol/ L (133-1 45) Not Available [facility] (Centralized Electronic Ordering - All Locations) Patient Can Go To The Location Of Their Choice, 07/27/2022 12:08:46 07/28/1907/27/2022 BASIC METAB OLIC PANEL potassium 4.2 mmol/ L (3.6-5 .2) Not Available [facility] (Centralized Electronic Ordering - All Locations) Patient Can Go To The Location Of Their Choice, 07/27/2022 12:08:46 07/28/1907/27/2022 BASIC METAB OLIC PANEL chloride 102 mmol/ L (98-10 7) Not Available [facility] (Centralized Electronic Ordering - All Locations) Patient Can Go To The Location Of Their Choice, 07/27/2022 12:08:46 07/28/1907/27/2022 BASIC METAB OLIC PANEL bicarbonate 29 mmol/ L (22-29 ) Not Available [facility] (Centralized Electronic Ordering - All Locations) Patient Can Go To The Location Of Their Choice, 07/27/2022 12:08:46 07/28/1907/27/2022 BASIC METAB OLIC PANEL anion gap 11 (4-17) Not Available [facility] (Centralized Electronic Ordering - All Locations) Patient Can Go To The Location Of Their Choice, 07/27/2022 12:08:46 07/28/1907/27/2022 BASIC METAB OLIC PANEL calcium 9.4 mg/dL (8.6-1 0.5) Not Available [facility] (Centralized Electronic Ordering - All Locations) Patient Can Go To The Location Of Their Choice, 07/27/2022 12:08:46 07/28/1907/27/2022 BASIC METAB OLIC PANEL estimated GFR creatinine 62 mL/mi n/1.7 3_M2 Creat inine based estim ated glome rular filtr ation (eGFR ) in adult s is calcu lated using the Natio nal Kidne y Found ation recom zoe d 2020 CKD-E PI equat ion. Estim ates GFR from serum creat inine , age and sex. Not Available [facility] (Centralized Electronic Ordering - All Locations) Patient Can Go To The Location Of Their Choice, 07/27/2022 12:08:46 07/28/1907/27/2022 LIPID PANEL cholesterol, total 183 mg/dL (<200) Not Available [facility] ([facility] Order[facility] - All Locations) Patient Can Go To The Location Of Their Choice, 07/27/2022 12:08:47 07/28/1907/27/2022 LIPID PANEL triglyceride 123 mg/dL (<150) Not Available [facility] ([facility] - [facility] Locations) Patient Can Go To The Location Of Their Choice, 07/27/2022 12:08:47 07/28/1907/27/2022 LIPID PANEL HDL chol 33 mg/dL (>39) low Not Available [facility] (Centralized Electronic Ordering - All Locations) Patient Can Go To The Location Of Their Choice, 07/27/2022 12:08:47 07/28/1907/27/2022 LIPID PANEL LDL cholesterol, calculated 125 mg/dL (0-130 ) Not Available [facility] (Centralized Electronic Ordering - All Locations) Patient Can Go To The Location Of Their Choice, 07/27/2022 12:08:47 07/28/1907/27/2022 LIPID PANEL non HDL cholesterol (calc) 150 mg/dL (<160) Not Available [facility] ([facility] Ordering - All Locations) Patient Can Go To The Location Of Their Choice, 07/27/2022 12:08:47 07/28/1907/27/2022 HEMOG LOBIN A1C hemoglobin A1C 7.8 % (4.0-5 .6) high MONIT ORING : In known diabe tic patie nts, hemog lobin A1c targe ts shoul d be discu ssed with healt h care provi carol. DIAGN OSTIC USE: The Ameri can [place] bent[place] Assoc iatio n (ADA) and the World Healt h Organ izati on (WHO) recom mend the use of HbA1c to diagn ose diabe bentley using a thres hold of 6.5%. Patie nts who have an HbA1c betwe en 5.7% and 6.4% are consi dered at incre ased risk for devel oping diabe bentley in the futur eChad MAGAÑA ON: False ly low HbA1c resul ts may be obser tania in patie nts with hemol ytic anemi a, homoz ygous forms of abnor mal hemog lobin (e.g. SS, CC, SC), pregn arun, recen t blood loss or hemog lobin F great er than 7%. Fruct osami ne may be used as an alter rober test in these cases . REFER ENCE: ADA: Stand ards of Medic al Care in [place] 2019, The Journ al of Clini emma and Appli ed Resea [facility] and Educa tion Volum e 43, Suppl ement 1 Not Available [facility] (Centralized Electronic Ordering - All Locations) Patient Can Go To The Location Of Their Choice, 07/27/2022 12:09:57 07/28/1907/27/2022 URINA RY MICRO ALBUM IN micro-albumi n 40.7 mg/L (<20) high The urine micro album in test is desig aspen to monit or renal funct ion. When scree juan for Bence Redman prote inuri a, urine elect ropho resis is recom zoe d. Not Available [facility] (Centralized Electronic Ordering - All Locations) Patient Can Go To The Location Of Their Choice, 07/27/2022 12:16:32 07/28/1907/27/2022 URINA RY MICRO ALBUM IN malb/creat ratio 56.5 mg/gm (0-20) high Not Available [facility] ([facility] Ordering - All Locations) Patient Can Go To The Location Of Their Choice, 07/27/2022 12:16:32 07/28/19 23 07/27/2022 URINA RY MICRO ALBUM IN urine creat for micro albumin 72.0 mg/dL Not Available [facility] ([facility] Ordering - All Locations) Patient Can Go To The Location Of Their Choice, 07/27/2022 12:16:32 07/28/1907/27/2022 VITAM IN B12 vitamin B12 1649 pg/mL (232-1 245) high Not Available [facility] (Centralized Electronic Ordering - All Locations) Patient Can Go To The Location Of Their Choice, 07/27/2022 12:29:36 07/28/1907/27/2022 NEAL TIN ferritin 27 NG/mL (16-29 4) Not Available [facility] (Centralized Electronic Ordering - All Locations) Patient Can Go To The Location Of Their Choice, 07/27/2022 12:29:37 07/28/1907/27/2022 PSA PSA 2.3 NG/mL (0-4) TEST PERFO RMED USING THE AUNG ELECT [employer] MILLU MINERamamia CENCE TOTAL PSA ASSAY . PSA VALUE S OBTAI ASPEN WITH OTHER ASSAY METHO DS OR KITS CANNO T BE USED INTER ROSAS EABLY . Not Available [facility] (Centralized Electronic Ordering - All Locations) Patient Can Go To The Location Of Their Choice, 07/27/2022 12:29:38 07/28/1907/27/2022 TSH WITH REFLE X TO FT4 TSH 1.57 uIU/m L (0.4-4 .2) Not Available [facility] (Centralized Electronic Ordering - All Locations) Patient Can Go To The Location Of Their Choice, 07/27/2022 12:34:15 07/28/1907/27/2022 FOLIC ACID folic acid 35.7 NG/mL (4.5-3 2.2) high Not Available [facility] (Centralized Electronic Ordering - All Locations) Patient Can Go To The Location Of Their Choice, 07/27/2022 12:51:36 07/28/1907/27/2022 FREE TESTO STERO NE testosterone 1015 NG/dL (280-8 00) high Not Available [facility] (Centralized Electronic Ordering - All Locations) Patient Can Go To The Location Of Their Choice, 07/27/2022 15:12:36 07/28/1907/2707/27/2022 FREE TESTO STERO NE shbg 69.7 nmol/ L (19-76 ) Not Available [facility] (Centralized Electronic Ordering - All Locations) Patient Can Go To The Location Of [facility], [id number] 07/27/2022 15:12:36 07/28/19 23 07/27/2022 FREE TESTO STERO NE free testosterone , estimated 12.90 NG/dL (3.7-1 4.7) Not Available [facility] (Centralized Electronic Ordering - All Locations) Patient Can Go To The Location Of Their Choice, [id number] 07/27/2022 15:12:36 08/15/19 23 08/14/2022 fecal occul t blood , immun oassa y, stool RESULT positi ve Not Available In-Office Order Internal Use Only DO Not Attach Compendium DO Not Attach Compendium, Do Not Delete/merge, [id number] 07/29/2022 20:39:50 10/05/19 24 10/05/2023 hemog lobin A1C, finge rstic k A1C 7.6 % 4-6 abnormal Not Available In-Office Order Internal Use Only DO Not Attach Compendium DO Not Attach Compendium, Do Not Delete/merge, [id number] 10/04/2023 17:57:12 02/08/20 24 02/08/2024 CBC WITH DIFFE RENTI AL/PL ATELE T WBC 9.2 x10e3 /uL 3.4-10 .8 normal Eff ectiv e Decem 2023 profi le 12414 5 WBC will be made* * non-o rdera ble as a stand -cristela e order code. Not Available [facility] ([facility]) [address] [facility], [place], [address], 02/10/2024 06:08:58 02/08/20 24 02/08/2024 CBC WITH DIFFE RENTI AL/PL ATELE T RBC 4.78 x10e6 /uL 4.14-5 .80 normal Not Available [facility] ([facility]) [address] [facility], [place], [address], 02/10/2024 06:08:58 02/08/20 24 02/08/2024 CBC WITH DIFFE RENTI AL/PL ATELE T hemoglobin 13.5 g/dL 13.0-1 7.7 normal Not Available [facility] ([facility]) [address] [place], [address], 02/10/2024 06:08:58 02/08/20 24 02/08/2024 CBC WITH DIFFE RENTI AL/PL ATELE T hematocrit 41.8 % 37.5-5 1.0 normal Not Available [facility] ([facility]) [address] [place], [address], 02/10/2024 06:08:58 02/08/2002/08/2024 CBC WITH DIFFE RENTI AL/PL ATELE T MCV 87 fL 79-97 normal Not Available [facility] ([facility]) [address] [place], [address], 02/10/2024 06:08:58 02/08/20 24 02/08/2024 CBC WITH DIFFE RENTI AL/PL ATELE T MCH 28.2 pg 26.6-3 3.0 normal Not Available [facility] ([facility]) [address] [place], [address], 02/10/2024 06:08:58 02/08/20 24 02/08/2024 CBC WITH DIFFE RENTI AL/PL ATELE T MCHC 32.3 g/dL 31.5-3 5.7 normal Not Available [facility] ([facility]) [address] [place], [address], 02/10/2024 06:08:58 02/08/20 24 02/08/2024 CBC WITH DIFFE RENTI AL/PL ATELE T RDW 13.2 % 11.6-1 5.4 Not Available [facility] ([facility]) [address] [place], [address], 02/10/2024 06:08:58 02/08/20 02/08/2024 CBC WITH DIFFE RENTI AL/PL ATELE T platelets 262 x10e3 /uL 150-45 0 normal Not Available [facility] ([facility]) [address] [facility], [place], [address], 02/10/2024 06:08:58 02/08/20 24 02/08/2024 CBC WITH DIFFE RENTI AL/PL ATELE T neutrophils 57 % not estab. normal Not Available [facility] ([facility]) [address] [facility], [place], [address], 02/10/2024 06:08:58 02/08/20 24 02/08/2024 CBC WITH DIFFE RENTI AL/PL ATELE T lymphs 29 % not estab. normal Not Available [facility] ([facility]) [address] [facility], [place], [address], 02/10/2024 06:08:58 02/08/20 24 02/08/2024 CBC WITH DIFFE RENTI AL/PL ATELE T monocytes 9 % not estab. normal Not Available [facility] ([facility]) [address] [facility], [place], [address], 02/10/2024 06:08:58 02/08/20 24 02/08/2024 CBC WITH DIFFE RENTI AL/PL ATELE T eos 4 % not estab. normal Not Available [facility] ([facility]) [address] [facility], [place], [address], 02/10/2024 06:08:58 02/08/20 24 02/08/2024 CBC WITH DIFFE RENTI AL/PL ATELE T basos 1 % not estab. normal Not Available [facility] ([facility]) [address] [facility], [place], [address], 02/10/2024 06:08:58 02/08/20 24 02/08/2024 CBC WITH DIFFE RENTI AL/PL ATELE T immature cells COMPENSATION ANALYST Not Available [facility] ([facility]) [address] [facility], [place], [address], 02/10/2024 06:08:58 02/08/20 24 02/08/2024 CBC WITH DIFFE RENTI AL/PL ATELE T neutrophils (absolute) 5.2 x10e3 /uL 1.4-7. 0 normal Not Available [facility] ([facility]) [address] [place], [address], 02/10/2024 06:08:58 02/08/20 24 02/08/2024 CBC WITH DIFFE RENTI AL/PL ATELE T lymphs (absolute) 2.7 x10e3 /uL 0.7-3. 1 normal Not Available [facility] ([facility]) [address] [place], [address], 02/10/2024 06:08:58 02/08/20 24 02/08/2024 CBC WITH DIFFE RENTI AL/PL ATELE T monocytes(ab solute) 0.8 x10e3 /uL 0.1-0. 9 normal Not Available [facility] ([facility]) [address] [place], [address], 02/10/2024 06:08:58 02/08/20 24 02/08/2024 CBC WITH DIFFE RENTI AL/PL ATELE T eos (absolute) 0.4 x10e3 /uL 0.0-0. 4 normal Not Available [facility] ([facility]) [address] [place], [address], 02/10/2024 06:08:58 02/08/20 24 02/08/2024 CBC WITH DIFFE RENTI AL/PL ATELE T baso (absolute) 0.1 x10e3 /uL 0.0-0. 2 normal Not Available [facility] ([facility]) [address] [place], [address], 02/10/2024 06:08:58 02/08/20 24 02/08/2024 CBC WITH DIFFE RENTI AL/PL ATELE T immature granulocytes 0 % not estab. Not Available [facility] ([facility]) [address] [facility], [place], [address], 02/10/2024 06:08:58 02/08/20 24 02/08/2024 CBC WITH DIFFE RENTI AL/PL ATELE T immature grans (abs) 0.0 x10e3 /uL 0.0-0. 1 Not Available [facility] ([facility]) [address] [facility], [place], [address], 02/10/2024 06:08:58 02/08/20 24 02/08/2024 CBC WITH DIFFE RENTI AL/PL ATELE T NRBC COMPENSATION ANALYST Not Available [facility] ([facility]) [address] [facility], [place], [address], 02/10/2024 06:08:58 02/08/20 24 02/08/2024 CBC WITH DIFFE RENTI AL/PL ATELE T hematology comments: COMPENSATION ANALYST Not Available [facility] ([facility]) [address] [facility], [place], [address], 02/10/2024 06:08:58 02/08/20 24 02/08/2024 COMP. METAB OLIC PANEL (14) glucose 99 mg/dL 70-99 normal Not Available [facility] ([facility]) [address] [facility], [place], [address], 02/10/2024 06:08:59 02/08/20 24 02/08/2024 COMP. METAB OLIC PANEL (14) BUN 17 mg/dL 8-27 normal Not Available [facility] ([facility]) [address] [facility], [place], [address], 02/10/2024 06:08:59 02/08/20 24 02/08/2024 COMP. METAB OLIC PANEL (14) creatinine 1.36 mg/dL 0.76-1 .27 above high normal Not Available [facility] ([facility]) [address], [place], [address], 02/10/2024 06:08:59 02/08/20 24 02/08/2024 COMP. METAB OLIC PANEL (14) eGFR 58 mL/mi n/1.7 3 >59 below low normal Not Available [facility] ([facility]) [address] [place], [address], 02/10/2024 06:08:59 02/08/20 24 02/08/2024 COMP. METAB OLIC PANEL (14) BUN/creatini ne ratio 13 10-24 normal Not Available [facility] ([facility]) [address] [facility] [place], [address], 02/10/2024 06:08:59 02/08/20 24 02/08/2024 COMP. METAB OLIC PANEL (14) sodium 141 mmol/ L 134-14 4 normal Not Available [facility] ([facility]) [address] [facility] [place], [address], 02/10/2024 06:08:59 02/08/20 24 02/08/2024 COMP. METAB OLIC PANEL (14) potassium 3.5 mmol/ L 3.5-5. 2 normal Not Available [facility] ([facility]) [address] [facility] [place], [address], 02/10/2024 06:08:59 02/08/20 24 02/08/2024 COMP. METAB OLIC PANEL (14) chloride 101 mmol/ L 96-106 normal Not Available [facility] ([facility]) [address] [facility] [place], [address], 02/10/2024 06:08:59 02/08/20 24 02/08/2024 COMP. METAB OLIC PANEL (14) carbon dioxide, total 25 mmol/ L 20-29 normal Not Available [facility] ([facility]) [address] [facility] [place], [address], 02/10/2024 06:08:59 02/08/20 24 02/08/2024 COMP. METAB OLIC PANEL (14) calcium 9.5 mg/dL 8.6-10 .2 normal Not Available [facility] ([facility]) [address] [place], [address], 02/10/2024 06:08:59 02/08/20 24 02/08/2024 COMP. METAB OLIC PANEL (14) protein, total 6.8 g/dL 6.0-8. 5 normal Not Available [facility] ([facility]) [address] [place], [address], 02/10/2024 06:08:59 02/08/20 24 02/08/2024 COMP. METAB OLIC PANEL (14) albumin 4.2 g/dL 3.9-4. 9 normal Not Available [facility] ([facility]) [address] [place], [address], 02/10/2024 06:08:59 02/08/20 24 02/08/2024 COMP. METAB OLIC PANEL (14) globulin, total 2.6 g/dL 1.5-4. 5 Not Available [facility] ([facility]) [address] [place], [address], 02/10/2024 06:08:59 02/08/20 24 02/08/2024 COMP. METAB OLIC PANEL (14) bilirubin, total 0.8 mg/dL 0.0-1. 2 normal Not Available [facility] ([facility]) [address] [place], [address], 02/10/2024 06:08:59 02/08/20 24 02/08/2024 COMP. METAB OLIC PANEL (14) alkaline phosphatase 52 IU/L 44-121 normal Not Available [facility] ([facility]) [address] [facility] [place], [address], 02/10/2024 06:08:59 02/08/20 24 02/08/2024 COMP. METAB OLIC PANEL (14) AST (SGOT) 22 IU/L 0-40 normal Not Available [facility] ([facility]) [address] [place], [address], 02/10/2024 06:08:59 02/08/20 24 02/08/2024 COMP. METAB OLIC PANEL (14) ALT (SGPT) 16 IU/L 0-44 normal Not Available [facility] ([facility]) [address] [place], [address], 02/10/2024 06:08:59 02/08/20 24 02/08/2024 LIPID PANEL cholesterol, total 189 mg/dL 100-19 9 normal Not Available [facility] ([facility]) [address] [place], [address], 02/10/2024 06:09:00 02/08/20 24 02/08/2024 LIPID PANEL triglyceride s 103 mg/dL 0-149 normal Not Available [facility] ([facility]) [address] [place], [address], 02/10/2024 06:09:00 02/08/20 24 02/08/2024 LIPID PANEL HDL cholesterol 30 mg/dL >39 below low normal Not Available [facility] ([facility]) [address] [place], [address], 02/10/2024 06:09:00 02/08/20 24 02/08/2024 LIPID PANEL VLDL cholesterol emma 19 mg/dL 5-40 Not Available [facility] ([facility]) [address] [place], [address], 02/10/2024 06:09:00 02/08/20 24 02/08/2024 LIPID PANEL LDL chol calc ([facility]) 140 mg/dL 0-99 above high normal Not Available [facility] ([facility]) [address] [facility], [place], [address], 02/10/2024 06:09:00 02/08/20 24 02/08/2024 LIPID PANEL LDL calc comment: COMPENSATION ANALYST Not Available [facility] ([facility]) [address] [facility], [place], [address], 02/10/2024 06:09:00 02/08/20 24 02/09/2024 IRON AND TIBC iron bind.cap.(TI BC) 397 ug/dL 250-45 0 normal Not Available [facility] ([facility]) [address] [facility], [place], [address], 02/10/2024 06:09:00 02/08/20 24 02/09/2024 IRON AND TIBC UIBC 300 ug/dL 111-34 3 normal Not Available [facility] ([facility]) [address] [facility], [place], [address], 02/10/2024 06:09:00 02/08/20 24 02/09/2024 IRON AND TIBC iron 97 ug/dL 38-169 normal Not Available [facility] ([facility]) [address] [facility], [place], [address], 02/10/2024 06:09:00 02/08/20 24 02/09/2024 IRON AND TIBC iron saturation 24 % 15-55 normal Not Available [facility] ([facility]) [address] [place], [address], 02/10/2024 06:09:00 02/08/20 24 02/09/2024 ALBUM IN/CR EAT RATIO , RANDO M UR creatinine, urine 223.8 mg/dL not estab. normal Not Available [facility] ([facility]) [address] [facility], [place], [address], 02/10/2024 06:09:01 02/08/20 24 02/09/2024 ALBUM IN/CR EAT RATIO , RANDO M UR albumin, urine 251.8 ug/mL not estab. Not Available [facility] ([facility]) [address] [place], [address], 02/10/2024 06:09:01 02/08/20 24 02/09/2024 ALBUM IN/CR EAT RATIO , RANDO M UR alb/creat ratio 113 mg/g_ creat 0-29 above high normal Cecy l: 0 - 29 Moder ately incre ased: 30 - 300 Sever jossie incre ased: >300 Not Available [facility] ([facility]) [address] [place], [address], 02/10/2024 06:09:01 02/08/20 24 02/09/2024 SJOGR EN'S AB, ANTI- SS-A/ -SS-B sjogren's anti-ss-A <0.2 ai 0.0-0. 9 Not Available [facility] ([facility]) [address] [place], [address], 02/10/2024 06:09:02 02/08/20 24 02/09/2024 SJOGR EN'S AB, ANTI- SS-A/ -SS-B sjogren's anti-ss-B <0.2 ai 0.0-0. 9 Not Available [facility] ([facility]) [address] [place], [address], 02/10/2024 06:09:02 02/08/20 24 02/09/2024 TESTO STERO NE,FR EE AND TOTAL testosterone 1081 NG/dL 264-91 6 above high normal Adult male refer ence inter jeannie is based on a popul ation of healt hy nonob severo males (BMI <30) betwe en 19 and 39 years old. Lb lubin et.al . JCEM 2017, 102;1 161-1 173. PMID: 82805 103. Not Available [facility] ([facility]) [address] [place], [address], 02/10/2024 06:09:03 02/08/20 24 02/09/2024 TESTO STERO NE,FR EE AND TOTAL free testosterone (direct) 9.3 pg/mL 6.6-18 .1 Not Available [facility] ([facility]) [address] [facility], [place], [address], 02/10/2024 06:09:03 02/08/20 24 02/08/2024 PSA TOTAL (REFL EX TO FREE) reflex criteria Commen t The perce nt free PSA is perfo rmed on a refle x basis only when the total PSA is betwe en 4.0 and 10.0 ng/mL . Not Available [facility] ([facility]) [address] [facility], [place], [address], 02/10/2024 06:09:03 02/08/20 24 02/09/2024 PSA TOTAL (REFL EX TO FREE) prostate specific Ag 2.2 NG/mL 0.0-4. 0 normal Aung ECLIA metho dolog y. Accor ding to the Ameri can [employer] g[employer] iatio n, Serum PSA shoul d decre ase and remai n at undet ectab le level s after radic al prost atect ross. The AUA defin es bioch emica l recur rence as an initi al PSA value 0.2 ng/mL or great er follo wed by a subse quent confi rmato ry PSA value 0.2 ng/mL or great er. Value s obtai aspen with diffe rent assay metho ds or kits canno t be used inter rosas eably . Resul ts canno t be inter prete d as absol jeovany evide nce of the prese nce or absen ce of edvin andino se. Not Available [facility] ([facility]) [address] [facility], [place], [address], 02/10/2024 06:09:03 02/08/20 24 02/08/2024 FOLAT E (FOLI C ACID) , SERUM folate (folic acid), serum >20.0 NG/mL >3.0 A serum folat e jodee ntrat ion of less than 3.1 ng/mL is consi dered to repre sent clini emma defic iency . Not Available [facility] ([facility]) [address] [facility], [place], [address], 02/10/2024 06:09:04 02/08/20 24 02/10/2024 SOLUB LE TRANS NEAL N DISTRIBUTION OPERATION SUPERVISOR TOR soluble transferrin receptor 16.6 nmol/ L 12.2-2 7.3 Not Available [facility] ([facility]) [address] [place], [address], 02/10/2024 06:09:04 02/08/20 24 02/08/2024 TSH RFX ON ABNOR MAL TO FREE T4 TSH 1.280 uIU/m L 0.450- 4.500 normal Not Available [facility] ([facility]) [address] [place], [address], 02/10/2024 06:09:05 02/08/20 24 02/09/2024 VITAM IN B12 vitamin B12 1708 pg/mL 232-12 45 above high normal Not Available [facility] ([facility]) [address] [place], [address], 02/10/2024 06:09:06 02/08/20 24 02/09/2024 ALDOL ASE aldolase 4.2 U/L 3.3-10 .3 Not Available [facility] ([facility]) [address] [place], [address], 02/10/2024 06:09:07 02/08/20 24 02/09/2024 NEAL TIN ferritin 115 NG/mL 30-400 normal Not Available [facility] ([facility]) [address] [place], [address], 02/10/2024 06:09:07 02/08/20 24 02/08/2024 RETIC ULOCY TE COUNT reticulocyte count 1.0 % 0.6-2. 6 Not Available [facility] ([facility]) [address] [facility], [place], [address], 02/10/2024 06:09:08 02/08/20 24 02/09/2024 C-NATHAN CTIVE PROTE IN, QUANT C-reactive protein, quant 2 mg/L 0-10 normal Not Available [facility] ([facility]) [address] [facility], [place], [address], 02/10/2024 06:09:09 06/04/19 23 04/27/2022 trans -thor acic echoc ardio gram (TTE) (PROC ) No observ ation record ed. [facility] ([facility]iology) [address] [place], [address], 06/04/2022 13:09:24 Result Notes None recorded. Problems Name Problem SNOMED Code Status Onset Date Resolution Date Notes Provider Name and Address Organization Details Recorded Time Type 2 diabetes mellitus 68958978 Completed 03/25/2017 Simón Finch MD [address], [place], [address] , [facility] 8 13:56:11 Epigastr ic pain [id number] Completed 201210/25/2013 RECORDED 11/29/19 13 2:49PM BY WAYNE MCCULLOUGH MA, ANNOTATI ON/JULIET Patel PA-C [address] [facility], [place], [address] , [facility] 6 14:59:27 Inflamma tory disorder of extremit y [id number] Completed 200810/25/2013 RECORDED 10/03/19 09 11:41AM BY AFIA HAY ON/ADDEN DUM Nora Jorge RIVERAC [address] [facility], [place], [address] , [facility] 6 14:59:27 Acute sinusiti s [id number] Completed 201210/25/2013 RECORDED 05/04/19 13 4:48PM BY MALAIKA EARL I, ANNOTATI ON/ADDEN DUM Nora Patel PA-C [address], [place], [address] , [facility] 6 14:59:26 Joint pain [id number] Completed 201210/25/2013 RECORDED 11/29/19 13 2:49PM BY WAYNE MCCULLOUGH MA, ANNOTATI ON/ADDEN DUM Nora Jorge PA-C [address], [place], [address] , [facility] 6 14:59:26 Cough [id number] Completed 200810/25/2013 IMPRESSI ON: ASTHMA VS. ACEI-REL ATED; RECORDED 04/02/19 09 7:22AM BY WAYNE MCCULLOUGH MA, AFIA ON/ADDEN DUM Nora Jorge HUNG-C [address], [place], [address] , [facility] 6 14:59:27 Counseli ng Completed 201110/25/2013 RECORDED 01/21/20 12 11:22AM BY WAYNE MCCULLOUGH MA, ANNOTATI ON/ADDEN DUM Nora Jorge HUNG-C [address], [place], [address] , [facility] 6 14:59:27 Uncontro lled type 2 diabetes mellitus [id number] Completed 201210/25/2013 RECORDED 11/29/19 13 2:51PM BY WAYNE MCCULLOUGH MA, ANNOTATI ON/ADDEN DUM Simón Finch MD [address], [place], [address] , [facility] 7 14:00:56 Edema [id number] Completed 201110/25/2013 RECORDED 01/21/20 12 11:21AM BY WAYNE MCCULLOUGH MA, ANNOTATI ON/ADDEN DUM Nora Patel PA-C [address], [place], [address] , [facility] 6 14:59:27 Family history of malignan t neoplasm of prostate [id number] Completed 200810/25/2013 RECORDED 10/03/19 09 11:41AM BY PANCHITO CONNOR, MINHATI ON/ADDEN DUM Nora Patel PA-C [address], [place], [address] , [facility] 6 14:59:27 Abdomina l pain [id number] Completed 201310/25/2013 RECORDED 03/23/19 14 1:50PM BY WAYNE MCCULLOUGH MA, ANNOTATI ON/ADDEN DUM Nora Patel PA-C [address], [place], [address] , [facility] 6 14:59:27 Influenz a vaccine needed [id number] Completed 201210/25/2013 RECORDED 11/29/19 13 3:35PM BY SIMÓN FINCH MD, OFFICE VISIT [facility]3][employer] [address] [place] [address] [address], [place], [address] , [facility] 6 14:59:27 Laborato ry procedur e performe d [id number] Completed 201310/25/2013 RECORDED 05/23/19 14 9:12AM BY WAYNE MCCULLOUGH MA, ANNOTATI ON/ADDEN DUM Nora Patel PA-C [address], [place], [address] , [facility] 6 14:59:27 Lateral epicondy litis [id number] Completed 201110/25/2013 RECORDED 01/21/20 12 11:21AM BY WAYNE MCCULLOUGH MA, ANNOTATI ON/ADDEN DUM Nora Patel PA-C [address], [place], [address] , [facility] 6 14:59:26 Knee pain Completed 201110/25/2013 STORY: LEFT KNEE; RECORDED 01/21/20 12 11:22AM BY WAYNE MCCULLOUGH MA, ANNOTATI ON/ADDEN DUM Nora Patel PA-C [address], [place], [address] , [facility] 6 14:59:26 Renewal of prescrip tion Completed 201210/25/2013 RECORDED 07/28/19 13 3:30PM BY WAYNE MCCULLOUGH MA, ANNOTATI ON/ADDEN DUM Nora Patel PA-C [address], [place], [address] , [facility] 6 14:59:27 Amnesia [id number] Completed 200810/25/2013 RECORDED 10/03/19 09 11:35AM BY PANCHITO CONNOR, AFIA ON/ADDEN DUM Nora Patel PA-C [address], [place], [address] , [facility] 6 14:59:27 Active or passive immuniza tion Completed 200710/25/2013 RECORDED 02/14/20 08 9:58AM BY PANCHITO VALENTIN, AFIA ON/ADDEN DUM Nora Patel PA-C [address] [facility] [address], [place], [address] , [facility] 6 14:59:27 Administ ration of bacteria l and viral vaccine Completed 200710/25/2013 RECORDED 01/04/20 08 9:03AM BY NATE GUTIERREZ, OFFICE VISIT Nora HUNG-C [address], [place], [address] , [facility] 6 14:59:27 Pre-surg ghanshyam evaluati on Completed 201110/25/2013 RECORDED 01/21/20 12 11:22AM BY WAYNE MCCULLOUGH MA, ANNOTATI ON/ADDEN DUM Nora Patel PA-C [address], [place], [address] , [facility] 6 14:59:27 Screenin g procedur e Completed 201310/25/2013 RECORDED 06/26/19 14 9:59AM BY WAYNE MCCULLOUGH MA, ANNOTLICHA ON/ADDEN DUM Nora Patel PA-C [address], [place], [address] , [facility] 6 14:59:27 Senile hyperker atosis [id number] Completed 201110/25/2013 RECORDED 01/21/20 12 11:21AM BY WAYNE MCCULLOUGH MA, AFIA ON/ADDEN DUM Nora Patel PA-C [address], [place], [address] , [facility] 6 14:59:26 Eruption [id number] Completed 200810/25/2013 RECORDED 10/03/19 09 11:41AM BY PANCHITO CONNOR, MINHATI ON/ADDEN DUM Nora Patel PA-C [address], [place], [address] , [facility] 6 14:59:27 Disturba nce of consciou sness [id number] Completed 201110/25/2013 STORY: EXCESSIV E DAYTIME SOMNOLEN CE. PREVIOUS INCONCLU SIVE POLYSOMN OGRAM.; RECORDED 01/21/20 12 11:22AM BY WAYNE MCCULLOUGH MA, ANNOTATI ON/ADDEN DUM Nora Jorge PA-C [address], [place], [address] , [facility] 6 14:59:26 Current knee cartilag e tear Completed 201110/25/2013 IMPRESSI ON: L KNEE, M AND LMT, FOLLOWED BY DR. KIM. SCHED FOR REPAIR 10/27. WILL FORWARD NOTE AND EKG. PT ALREADY HAS ORDER FROM THEIR OFFICE FOR REC LABS.; RECORDED 01/21/20 12 11:22AM BY WAYNE MCCULLOUGH MA, AFIA ON/ADDEN DUM Nora Jorge PA-C [address], [place], [address] , [facility] 6 14:59:27 Dermatop hytosis of the body Completed 201110/25/2013 RECORDED 01/21/20 12 11:22AM BY WAYNE MCCULLOUGH MA, AFIA ON/ADDEN DUM Nora Jorge HUNG-C [address], [place], [address] , [facility] 6 14:59:26 Type 2 diabetes mellitus without complica tion [id number] Completed 201010/25/2013 RECORDED 06/26/19 11 12:56PM BY WAYNE MCCULLOUGH MA, AFIA ON/ADDEN DUM Nora Jorge HUNG-C [address], [place] [place], [address] , [facility] 6 14:59:26 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 [id number] Completed 200810/25/2013 RECORDED 11/20/19 09 8:59AM BY AFIA HAY ON/ADDEN DUM Nora Jorge PA-C [address], [place], [address] , [facility] 6 14:59:26 Epigastr ic pain 49943905 Completed 201210/26/2013 RECORDED 11/29/19 13 2:49PM BY WAYNE MCCULLOUGH MA, ANNOTATI ON/ADDEN DUM Nora Jorge PA-C [address], [place], [address] , [facility] 6 14:59:27 Inflamma tory disorder of extremit y [id number] Completed 200810/26/2013 RECORDED 10/03/19 09 11:41AM BY PANCHITO CONNOR, ANNOTATI ON/ADDEN DUM Nora Patel PA-C [address], [place], [address] , [facility] 6 14:59:27 Acute sinusiti s [id number] Completed 201210/26/2013 RECORDED 05/04/19 13 4:48PM BY MALAIKA EARL I, ANNOTATI ON/ADDEN DUM Nora Patel PA-C [address], [place], [address] , [facility] 6 14:59:26 Joint pain [id number] Completed 201210/26/2013 RECORDED 11/29/19 13 2:49PM BY WAYNE MCCULLOUGH MA, ANNOTATI ON/ADDEN DUM Nora Jorge PA-C [address], [place], [address] , [facility] 6 14:59:26 Cough [id number] Completed 200810/26/2013 IMPRESSI ON: ASTHMA VS. ACEI-REL ATED; RECORDED 04/02/19 09 7:22AM BY WAYNE MCCULLOUGH MA, ANNOTATI ON/ADDEN DUM Nora Patel PA-C [address], [place], [address] , [facility] 6 14:59:27 Counseli ng Completed 201110/26/2013 RECORDED 01/21/20 12 11:22AM BY WAYNE MCCULLOUGH MA, ANNOTATI ON/ADDEN DUM Nora Jorge PA-C [address], [place], [address] , [facility] 6 14:59:27 Uncontro lled type 2 diabetes mellitus [id number] Completed 201210/26/2013 RECORDED 11/29/19 13 2:51PM BY WAYNE MCCULLOUGH MA, ANNOTATI ON/ADDEN DUM Simón Finch MD [address] [facility] [address], [place], [address] , [facility] 7 14:00:56 Edema [id number] Completed 201110/26/2013 RECORDED 01/21/20 12 11:21AM BY WAYNE MCCULLOUGH MA, ANNOTATI ON/ADDEN DUM Nora Jorge HUNG-C [address], [place], [address] , [facility] 6 14:59:27 Family history of malignan t neoplasm of prostate [id number] Completed 200810/26/2013 RECORDED 10/03/19 09 11:41AM BY PANCHITO CONNOR, ANNOTATI ON/ADDEN DUM Nora Jorge PA-C [address] [facility] [address], [place], [address] , [facility] 6 14:59:27 Abdomina l pain 66801153 Completed 201310/26/2013 RECORDED 03/23/19 14 1:50PM BY WAYNE MCCULLOUGH MA, ANNOTATI ON/ADDEN DUM Nora Jorge HUNG-C [address] [facility] [address], [place], [address] , [facility] 6 14:59:27 Influenz a vaccine needed [id number] 06 Completed 201210/26/2013 RECORDED 11/29/19 13 3:35PM BY SIMÓN FINCH MD, OFFICE VISIT Nora HUNG-C [address], [place], [address] , [facility] 6 14:59:27 Laborato ry procedur e performe d 968560963 Completed 201310/26/2013 RECORDED 05/23/19 14 9:12AM BY WAYNE MCCULLOUGH MA, ANNOTATI ON/ADDEN DUM Nora Jorge HUNG-C [address], [place], [address] , [facility] 6 14:59:27 Lateral epicondy litis 967672023 Completed 201110/26/2013 RECORDED 01/21/20 12 11:21AM BY WAYNE MCCULLOUGH MA, ANNOTATI ON/ADDEN DUM Nora HUNG-C [address], [place], [address] , [facility] 6 14:59:26 Knee pain Completed 201110/26/2013 STORY: LEFT KNEE; RECORDED 01/21/20 12 11:22AM BY WAYNE MCCULLOUGH MA, ANNOTATI ON/ADDEN DUM Nora Jorge HUNG-C [address], [place], [address] , [facility] 6 14:59:26 Renewal of prescrip tion Completed 201210/26/2013 RECORDED 07/28/19 13 3:30PM BY WAYNE MCCULLOUGH MA, ANNOTATI ON/ADDEN DUM Nora Jorge HUNG-C [address], [place], [address] , [facility] 6 14:59:27 Amnesia [id number] Completed 200810/26/2013 RECORDED 10/03/19 09 11:35AM BY PANCHITO CONNOR, ANNOTATI ON/ADDEN DUM Nora Patel PA-C [address], [place], [address] , [facility] 6 14:59:27 Active or passive immuniza tion Completed 200710/26/2013 RECORDED 02/14/20 08 9:58AM BY PANCHITO VALENTIN, ANNOTATI ON/ADDEN DUM Nora Patel PA-C [address] [facility] [address], [place], [address] , [facility] 6 14:59:27 Administ ration of bacteria l and viral vaccine Completed 200710/26/2013 RECORDED 01/04/20 08 9:03AM BY NATE GUTIERREZ, OFFICE VISIT [facility]3]den DC-C [address], [place], [address] , [facility] 6 14:59:27 Pre-surg ghanshyam evaluati on Completed 201110/26/2013 RECORDED 01/21/20 12 11:22AM BY WAYNE MCCULLOUGH MA, ANNOTATI ON/ADDEN DUM Nora Patel DC-C [address] [facility] [address], [place], [address] , [facility] 6 14:59:27 Screenin g procedur e Completed 201310/26/2013 RECORDED 06/26/19 14 9:59AM BY WAYNE MCCULLOUGH MA, ANNOTATI ON/ADDEN DUM Nora Patel PA-C [address] [address], [place], [address] , [facility] 6 14:59:27 Senile hyperker atosis 012790827 Completed 201110/26/2013 RECORDED 01/21/20 12 11:21AM BY WAYNE MCCULLOUGH MA, ANNOTATI ON/ADDEN DUM Nora Patel PA-C [address], [place], [address] , [facility] 6 14:59:26 Eruption [id number] Completed 200810/26/2013 RECORDED 10/03/19 09 11:41AM BY AFIA HAY ON/ADDEN DUM Norastewart Patel PA-C [address] [address], [place], [address] , [facility] 6 14:59:27 Disturba nce of consciou sness [id number] Completed 201110/26/2013 STORY: EXCESSIV E DAYTIME SOMNOLEN CE. PREVIOUS INCONCLU SIVE POLYSOMN OGRAM.; RECORDED 01/21/20 12 11:22AM BY WAYNE MCCULLOUGH MA, AFIA ON/ADDEN DUM Nora Patel PA-C [address] [address], [place], [address] , [facility] 6 14:59:26 Current knee cartilag e tear Completed 201110/26/2013 IMPRESSI ON: L KNEE, M AND LMT, FOLLOWED BY DR. KIM. SCHED FOR REPAIR 10/27. WILL FORWARD NOTE AND EKG. PT ALREADY HAS ORDER FROM THEIR OFFICE FOR REC LABS.; RECORDED 01/21/20 12 11:22AM BY WAYNE MCCULLOUGH MA, AFIA ON/ADDEN DUM Nora Patel PA-C [address] [address], [place], [address] , [facility] 6 14:59:27 Dermatop hytosis of the body Completed 201110/26/2013 RECORDED 01/21/20 12 11:22AM BY WAYNE MCCULLOUGH MA, AFIA ON/ADDEN DUM Nora Patel PA-C [address] [address], [place], [address] , [facility] 6 14:59:26 Type 2 diabetes mellitus without complica tion 832087744 Completed 201010/26/2013 RECORDED 06/26/19 11 12:56PM BY WAYNE MCCULLOUGH MA, ANNOTATI ON/ADDEN DUM Nora Jorge PA-C [address], [place], [address] , [facility] 6 14:59:26 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 844915539 Completed 200810/26/2013 RECORDED 11/20/19 09 8:59AM BY PANCHITO CONNOR, MINHATI ON/ADDEN DUM Nora Jorge PA-C [address], [place], [address] , [facility] 6 14:59:26 Epigastr ic pain 17059740 Completed 201210/02/2013 RECORDED 11/29/19 13 2:49PM BY WAYNE MCCULLOUGH MA, ANNOTATI ON/ADDEN DUM Nora Jorge PA-C [address], [place], [address] , [facility] 6 14:59:27 Intraret inal microvas cular abnormal ity 624014322 Completed 09/08/2022 Néstor Jarquin MD [address] [facility] [address], [place], [address] , [facility] 3 13:22:54 Inflamma tory disorder of extremit y 331071962 Completed 200810/02/2013 RECORDED 10/03/19 09 11:41AM BY PANCHITO CONNOR, MINHATI ON/ADDEN DUM Nora Jorge PA-C [address], [place], [address] , [facility] 6 14:59:27 Acute sinusiti s 05915539 Completed 201210/02/2013 RECORDED 05/04/19 13 4:48PM BY MINH BOLDENATI ON/ADDEN DUM Nora Jorge PA-C [address], [place], [address] , [facility] 6 14:59:26 Adult health examinat ion Completed 08/13/2022 Néstor Jarquin MD [address], [place], [address] , [facility] 3 18:13:54 Joint pain 37995501 Completed 201210/02/2013 RECORDED 11/29/19 13 2:49PM BY WAYNE MCCULLOUGH MA, ANNOTATI ON/ADDEN DUM Nora Patel PA-C [address], [place], [address] , [facility] 6 14:59:26 Asthma 262024131 Completed 09/17/2016 Néstor Jarquin MD [address] [facility] [address], [place], [address] , [facility] 2 18:53:24 Benign prostati c hyperpla lalo 655842065 Active Not Available [facility] 2 19:36:36 Bipolar I disorder 282590368 Active Not Available [facility] 2 19:36:36 Primary cardiomy opathy 86183260 Active Not Available [facility] 2 19:36:36 Carpal tunnel syndrome 96364845 Completed 09/08/2022 Néstor Jarquin MD [address] [facility] [address], [place], [address] , [facility] 3 13:21:48 Chronic pain 45510645 Active Not Available [facility] 2 19:36:36 Screenin g for malignan t neoplasm of colon Completed 12/21/2016 Wayne baez [facility], [facility] 7 13:26:16 Screenin g for malignan t neoplasm of colon Completed 201310/02/2013 RECORDED 06/26/19 14 9:59AM BY WAYNE MCCULLOUGH MA, ANNOTATI ON/ADDEN DUM Wayne baez MA null, [facility] 7 13:26:16 Cough 94203757 Completed 200810/02/2013 IMPRESSI ON: ASTHMA VS. ACEI-REL ATED; RECORDED 04/02/19 09 7:22AM BY WAYNE MCCULLOUGH MA, ANNOTATI ON/ADDEN DUM Nora Jorge ARANGO [address] [facility] [address], [place], [address] , [facility] 6 14:59:27 Counseli ng Completed 201110/02/2013 RECORDED 01/21/20 12 11:22AM BY WAYNE MCCULLOUGH MA, ANNOTATI ON/ADDEN DUM Nora Jorge ARANGO [address] [address], [place], [address] , [facility] 6 14:59:27 Uncontro lled type 2 diabetes mellitus 453731107 Completed 201210/02/2013 RECORDED 11/29/19 13 2:51PM BY WAYNE MCCULLOUGH MA, ANNOTATI ON/ADDEN DUM Simón Finch MD [address] [address], [place], [address] , [facility] 7 14:00:56 Disorder of eye due to type 2 diabetes mellitus 913810452 Active Not Available [facility] 2 19:36:36 Diplopia 22321173 Completed 09/08/2022 Néstor Jarquin MD [address] [address], [place], [address] , [facility] 3 13:21:57 Psychose 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 d libido 719803633 Active Not Available [facility] 2 19:36:37 Edema 518301122 Completed 201110/02/2013 RECORDED 01/21/20 12 11:21AM BY WAYNE MCCULLOUGH MA, ANNOTATI ON/ADDEN DUM Nora Patel PA-C [address], [place], [address] , [facility] 6 14:59:27 Family history of malignan t neoplasm of prostate 199692078 Completed 200810/02/2013 RECORDED 10/03/19 09 11:41AM BY PANCHITO CONNOR, MINHATI ON/ADDEN DUM Nora Patel PA-C [address], [place], [address] , [facility] 6 14:59:27 Abdomina l pain 11869745 Completed 201310/02/2013 RECORDED 03/23/19 14 1:50PM BY WAYNE MCCULLOUGH MA, ANNOTATI ON/ADDEN DUM Nora Jorge HUNG-C [address], [place], [address] , [facility] 6 14:59:27 Influenz a vaccine needed 10963316666 06 Completed 201210/02/2013 RECORDED 11/29/19 13 3:35PM BY SIMÓN FINCH MD, OFFICE VISIT Nora HUNG-C [address] [facility] [address], [place], [address] , [facility] 6 14:59:27 Umbilica l hernia 411179181 Active Not Available [facility] 2 19:36:37 Hyperlip idemia 91234154 Active 2017 Not Available [facility] 2 19:36:37 Hypersom shane with sleep apnea 40956054 Completed 01/17/2024 Néstor Jarquin MD [address] [facility] [address], [place], [address] , [facility] 4 10:37:02 Testicul ar hypofunc tion 240810125 Completed 09/08/2022 Néstor Jarquin MD [address], [place], [address] , [facility] 3 13:23:57 Metaboli c syndrome X 620005647 Completed 09/19/2016 Simón Finch MD [address], [place], [address] , [facility] 7 17:32:14 Vertebra l artery syndrome 68076522 Completed 09/19/2016 Simón Finch MD [address], [place], [address] , [facility] 7 17:32:22 Laborato ry procedur e performe d 433703710 Completed 201310/02/2013 RECORDED 05/23/19 14 9:12AM BY WAYNE MCCULLOUGH MA, ANNOTATI ON/ADDEN DUM Nora Jorge RIVERAC [address], [place], [address] , [facility] 6 14:59:27 Lateral epicondy litis 185311437 Completed 201110/02/2013 RECORDED 01/21/20 12 11:21AM BY WAYNE MCCULLOUGH MA, ANNOTATI ON/ADDEN DUM Nora Jorge RIVERAC [address], [place], [address] , [facility] 6 14:59:26 Low back pain 096427375 Active Not Available [facility] 2 19:36:36 Knee pain Completed 201110/02/2013 STORY: LEFT KNEE; RECORDED 01/21/20 12 11:22AM BY WAYNE MCCULLOUGH MA, ANNOTATI ON/ADDEN DUM Nora Jorge PA-C [address], [place], [address] , [facility] 6 14:59:26 Renewal of prescrip tion Completed 201210/02/2013 RECORDED 07/28/19 13 3:30PM BY WAYNE MCCULLOUGH MA, AFIA ON/ADDEN DUM Nora [facility] [address] [facility] [address], [place], [address] , [facility] 6 14:59:27 Amnesia [id number] Completed 200810/02/2013 RECORDED 10/03/19 09 11:35AM BY AFIA HAY ON/ADDEN DUM [facility] [address] [facility] [address], [place], [address] , [facility] 6 14:59:27 Active or passive immuniza tion Completed 200710/02/2013 RECORDED 02/14/20 08 9:58AM BY AFIA HILL ON/ADDEN DUM [facility] [address], [place], [address] , [facility] 6 14:59:27 Administ ration of bacteria l and viral vaccine Completed 200710/02/2013 RECORDED 01/04/20 08 9:03AM BY NATE GUTIERREZ, OFFICE VISIT [facility] [address] [facility] [address], [place], [address] , [facility] 6 14:59:27 Patient status finding [id number] Completed 09/17/2016 Wayne baez [place] null, [facility] 7 14:55:50 Morbid obesity 203546366 Completed 09/08/2022 Néstor Jarquin MD [address] [facility] [address], [place], [address] , [facility] 3 13:23:08 Pre-surg ghanshyam evaluati on Completed 201110/02/2013 RECORDED 01/21/20 12 11:22AM BY WAYNE MCCULLOUGH MA, ANNOTATI ON/ADDEN DUM Nora Patel PA-C [address], [place], [address] , [facility] 6 14:59:27 Screenin g procedur e Completed 201310/02/2013 RECORDED 06/26/19 14 9:59AM BY WAYNE MCCULLOUGH MA, ANNOTATI ON/ADDEN DUM Nora Patel PA-C [address], [place], [address] , [facility] 6 14:59:27 Senile hyperker atosis 342242903 Completed 201110/02/2013 RECORDED 01/21/20 12 11:21AM BY WAYNE MCCULLOUGH MA, ANNOTATI ON/ADDEN DUM Nora Patel PA-C [address], [place], [address] , [facility] 6 14:59:26 Eruption [id number] Completed 200810/02/2013 RECORDED 10/03/19 09 11:41AM BY PANCHITO CONNOR, ANNOTATI ON/ADDEN DUM Nora Patel PA-C [address] [facility] [address], [place], [address] , [facility] 6 14:59:27 Disturba nce of consciou sness 6107015 Completed 201110/02/2013 STORY: EXCESSIV E DAYTIME SOMNOLEN CE. PREVIOUS INCONCLU SIVE POLYSOMN OGRAM.; RECORDED 01/21/20 12 11:22AM BY WAYNE MCCULLOUGH MA, ANNOTLICHA ON/ADDEN DUM Nora Patel PA-C [address], [place], [address] , [facility] 6 14:59:26 Current knee cartilag e tear Completed 201110/02/2013 IMPRESSI ON: L KNEE, M AND LMT, FOLLOWED BY DR. KIM. SCHED FOR REPAIR 10/27. WILL FORWARD NOTE AND EKG. PT ALREADY HAS ORDER FROM THEIR OFFICE FOR REC LABS.; RECORDED 01/21/20 12 11:22AM BY WAYNE MCCULLOUGH MA, ANNOTATI ON/ADDEN DUM Nora Jorge PA-C [address], [place], [address] , [facility] 6 14:59:27 Dermatop hytosis of the body Completed 201110/02/2013 RECORDED 01/21/20 12 11:22AM BY WAYNE MCCULLOUGH MA, AFIA ON/ADDEN DUM Nora Jorge HUNG-C [address], [place], [address] , [facility] 6 14:59:26 Type 2 diabetes mellitus without complica tion 247364348 Completed 201010/02/2013 RECORDED 06/26/19 11 12:56PM BY WAYNE MCCULLOUGH MA, ANNOTATI ON/ADDEN DUM Nora Jorge HUNG-C [address], [place], [address] , [facility] 6 14:59:26 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 412518524 Completed 200810/02/2013 RECORDED 11/20/19 09 8:59AM BY PANCHITO CONNOR, AFIA ON/ADDEN DUM Nora Jorge HUNG-C [address], [place], [address] , [facility] 6 14:59:26 Inflamma tion of rotator cuff tendon 288485017 Active Not Available [facility] 2 19:36:37 Retinopa thy Active Not Available [facility] 2 19:36:36 Multiple joint pain 16591705 Completed 01/17/2024 Néstor Jarquin MD [address], [place], [address] , [facility] 4 10:37:17 Multiple bruising 210524487 Completed 09/01/2021 Néstor Jarquin MD [address] [facility] [address], [place], [address] , [facility] 2 08:36:05 Painless rectal bleeding 248667690 Completed 09/19/2016 Simón Finch MD [address] [facility] [address], [place], [address] , [facility] 7 17:32:25 Foot pain 77698190 Completed 09/08/2022 Néstor Jarquin MD [address] [facility] [address], [place], [address] , [facility] 3 13:22:03 Cardiomy opathy 59604171 Active Not Available [facility] 2 19:36:37 Tear of medial meniscus of knee 558584576 Active s/p repair Néstor Jarquin MD [address] [facility] [address], [place], [address] , [facility] 3 13:23:39 Uncontro lled type 2 diabetes mellitus 802558283 Completed 12/21/2016 Simón Finch MD [address] [facility] [address], [place], [address] , [facility] 7 14:00:56 Ulcerati ve colitis 79708514 Active 2017 Not Available [facility] 2 19:36:36 Venous retinal branch occlusio n 85519452 Active 2018 Not Available [facility] 2 19:36:36 Mild persiste nt asthma 744457168 Active Not Available [facility] 2 19:36:36 Iron deficien cy anemia 21972244 Completed 201809/01/2021 Néstor Jarquin MD [address] [facility] [address], [place], [address] , [facility] 2 08:35:56 Gastroes ophageal reflux disease 726599768 Active 2018 Not Available [facility] 2 19:36:37 Neurogen ic axel tello 791342101 Completed 201909/08/2022 Néstor Jarquin MD [address], [place], [address] , [facility] 3 13:23:16 Chronic kidney disease stage 3A 294429227 Active 2020 Not Available [facility] 2 19:36:37 Chronic kidney disease due to type 2 diabetes mellitus 77242414483 8 Active 2020 Not Available [facility] 2 19:36:36 Proteinu jennifer 52513078 Completed 01/17/2024 Néstor Jarquin MD [address], [place], [address] , [facility] 4 10:37:22 Anemia 677810307 Completed 01/17/2024 Néstor Jarquin MD [address], [place], [address] , [facility] 4 10:51:44 Serum creatini ne above referenc e range 136957159 Completed 09/08/2022 Néstor Jarquin MD [address], [place], [address] , [facility] 3 13:23:22 Hyperkal emia 57522021 Completed 09/01/2021 Néstor Jarquin MD [address], [place], [address] , [facility] 2 08:35:50 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 025289835 Active Not Available [facility] 2 19:36:37 Chronic kidney disease stage 3 626119123 Completed 201907/23/2019 Wayne baez [place] null, [facility] 2 15:07:15 Asthma 418843241 Active 2021 Not Available [facility] 2 19:36:36 Hyperten sive renal disease 99224407 Active 2021 Not Available [facility] 2 19:36:36 Spinal stenosis of lumbar region 37483043 Active 2023 Néstor Jarquin MD [address] [address], [place], [address] , [facility] 4 17:59:11 Body mass index 25-29 - overweig ht 366753631 Active 2023 Néstor Jarquin MD [address] [address], [place], [address] , [facility] 4 10:50:18 Overweig ht 116237141 Active 2023 Néstor Jarquin MD [address] [address], [place], [address] , [facility] 4 10:50:34 Abnormal testoste tonio 283905383 Active 2023 Néstor Jarquin MD [address] [address], [place], [address] , [facility] 4 06:26:29 Notes:Some problems listed i n Document: #[id number] could not be added to this patient's chart. Please review this document and add these problems to the patient's chart manually as needed. Problem Notes None recorded. Procedures Surgical History Date Name Laterality Status Provider Name and Address Organization Details Recorded Time 03/07/20 diabetic retinopathy screening completed Beatrice Pope [facility] 03/09/2024 09:24:39 01/17/20 24 Diabetic Foot Exam (Monofilament) completed Néstor Jarquin MD [address] [address], [place], [address], [facility] 01/17/2024 10:59:13 09/09/19 23 Diabetic Foot Exam (Monofilament) completed Néstor Jarquin MD [address], [place], [address], [facility] 09/08/2022 13:49:58 09/03/19 22 Diabetic Foot Exam (Monofilament) completed Néstor Jarquin MD [address] [facility] [address], [place], [address], [facility] 09/02/2021 09:44:23 11/12/19 21 lumbar microdiscectomy completed Wayne ramirez MA [facility] 05/27/2021 15:18:39 10/28/19 21 Diabetic Foot Exam (Monofilament) completed Wayne ramirez MA [facility] 10/27/2020 13:17:47 09/04/19 21 lumbar spinal fusion completed Wayne ramirez MA [facility] 05/27/2021 15:19:22 06/13/19 21 fusion of cervicothoracic joint by anterior approach completed Wayne ramirez MA [facility] 05/27/2021 15:19:42 12/30/19 19 Diabetic Foot Exam (Monofilament) completed Sherry Barnes [facility] 12/29/2018 10:14:49 11/29/19 19 injection of steroid via intravitreal route completed Wayne ramirez MA [facility] 12/05/2018 13:15:48 12/11/19 18 Chronic Pain Assessment completed Wayne ramirez MA [facility] 12/10/2017 10:21:40 12/11/19 18 Diabetic Foot Exam (Monofilament) completed Wayne ramirez MA [facility] 12/10/2017 10:09:19 09/25/19 18 Chronic Pain Assessment completed Wayne ramirez MA [facility] 09/24/2017 08:50:23 09/25/19 18 Diabetic Foot Exam (Monofilament) completed Wayne Holliday ashley, PANCHITO [facility] 09/24/2017 08:33:05 06/21/19 18 Chronic Pain Assessment completed Wayne Duc-Sharif os, [place] [facility] 06/20/2017 13:01:18 03/25/19 18 Chronic Pain Assessment completed Wayne Duc-Sharif os, PAN[place] [facility] 03/25/2017 13:50:04 12/22/19 17 Chronic Pain Assessment completed Wayne Duc-Sharif os, [place] [facility] 12/21/2016 13:28:57 09/18/19 17 Chronic Pain Assessment completed Wayne Duc-Sharif os, [place] [facility] 09/17/2016 14:55:34 05/07/19 17 Chronic Pain Assessment completed Malaika Solorio [facility] 05/07/2016 09:21:49 02/06/20 16 Chronic Pain Assessment completed Wayne Duc-Sharif ashley, PANCHITO [facility] 02/06/2016 14:10:17 11/04/19 16 Chronic Pain Assessment completed Wayne Duc-Sharif ashley, PANCHITO [facility] 11/04/2015 10:50:37 10/16/19 15 Colonoscopy completed Wayne Carranzaivan-Sharif ashley, PANCHITO [facility] 05/27/2021 15:20:02 10/16/19 15 Colonoscopy & polypectomy completed Wayne Duc-Sharif PANCHITO ramirez [facility] 05/27/2021 15:20:15 02/19/20 14 Gastric bypass for obesity completed Wayne Duc-Sharif PANCHITO ramirez [facility] 05/27/2021 15:21:50 11/20/19 12 Circumcision completed Wayne Duc-Sharif PANCHITO ramirez [facility] 02/06/2016 14:02:12 03/21/19 12 primary repair of umbilical hernia completed Wayne Duc-Sharif osPANCHITO [facility] 05/27/2021 15:22:24 10/20/19 11 Orthopedic Surgery completed Wayne ramirez MA [facility] 02/06/2016 14:02:12 03/21/19 11 operation on meniscus of the knee completed Wayne ramirez MA [facility] 05/27/2021 15:22:55 07/31/19 04 lumbar spinal fusion completed Wayne ramirez MA [facility] 05/27/2021 15:23:44 03/21/19 03 Back Surgery completed Wayne ramirez MA [facility] 01/21/2014 10:51:35 Imaging Results Imaging Date Name Status LastModified by Organization Details LastModified Time 04/27/2022 trans-thoracic echocardiogram (TTE) (PROC) completed [facility] (Interventional Radiology) [address] [place] [address], [id number], 06/04/2022 13:09:24 Procedure Notes None recorded. Medical Equipment None Reported. Allergies Allergen ID Allergen Name Allergen Category Reaction Reaction Severity Criticality Documentation Date Start Date Code Code System Note Provider Name and Address Organization Details Recorded Time 23148 No known allergy (situatio n) Not available Not available Not available Not available 08/05/2020 [id number] SNOMED PANCHITO [facility] 3 14:17:44 44628 atorvasta tin medicatio n myalgias (muscle pain) Not available Not available 06/02/2022 [id number] RxNorm PANCHITO [facility] 3 14:17:54 Medications Name Sig Start Date Stop Date Status Note LastModified by Organization Details LastModified Time carisopro dol 350 mg tablet THREE TIMES DAILY, NEEDED active Not Available Not Available No t Available fenofibra te micronize d 160 mg tablet 10/27 completed Not Available Not Available Not Available amoxicill in 500 mg capsule TAKE 1 CAPSULE BY MOUTH EVERY 8 HOURS 05/27 completed Not Available Not Available Not Available terazosin 5 mg capsule Take 5 mg by oral route. 10/04 completed Not Available Not Available Not Available fluconazo le 100 mg tablet DAILY 03/03 completed RECORDED 03/03/20 11 11:00AM BY WAYNE MCCULLOUGH MA, OFFICE VISIT; Not Available Not Available Not Available atorvasta tin 40 mg tablet Take 40 mg by oral route. 01/16 completed Not Available Not Available Not Available clotrimaz ole 10 mg jose Take 1 tablet 5 times a day by oral route for 7 days. 05/07 completed Not Available Not Available Not Available metformin 500 mg tablet Take 2 tablets twice a day by oral route. 07/09 completed Not Available Not Available Not Available Novolin 70/30 U-100 Insulin 100 unit/mL subcutane ous suspensio n Inject 45 units twice a day by subcutan eous route as directed . 01/16 completed Not Available Not Available Not Available nystatin 100,000 unit/mL oral suspensio n Take 5 mL 4 times a day by oral route for 7 days. 10/04 completed Not Available Not Available Not Available prednison e 10 mg tablet DIRECTED 07/27 completed RECORDED 07/28/19 13 3:34PM BY WAYNE MCCULLOUGH MA, OFFICE VISIT; Not Available Not Available Not Available gabapenti n 600 mg tablet Take 1 tablet 3 times a day by oral route for [address] Kareen Rodríguez Not Available Not Available Not Available ipratropi um 0.5 mg-albute rol 3 mg (2.5 mg base)/3 mL nebulizat ion soln Inhale 3 mL 4 times a day by inhalati on route as needed for 30 days. 05/07 completed Not Available Not Available Not Available Saline Mist 0.65 % nasal spray aerosol TAKE 1 SPRAY EVERY DAY BY NASAL ROUTE FOR 30 DAYS. 10/04 completed Not Available Not Available Not Available albuterol sulfate 2.5 mg/3 mL (0.083 %) solution for nebulizat ion INHALE THE CONTENTS OF 1 VIAL VIA NEBULIZE R THREE TIMES A DAY NEEDED active Not Available Not Available No t Available Vitamin C 500 mg tablet TAKE ONE TABLET BY MOUTH EVERY DAY 01/16 completed Not Available Not Available Not Available sildenafi l 50 mg tablet TAKE ONE TABLET BY MOUTH EVERY DAY 2023 active Not Available Not Available Not Avai lable atorvasta tin 10 mg tablet TAKE 1 TABLET BY MOUTH EVERY DAY 06/02 completed Not Available Not Available Not Available ketoconaz ole 200 mg tablet DAILY 03/03 completed RECORDED 03/03/20 11 11:00AM BY WAYNE MCCULLOUGH MA, OFFICE VISIT; Not Available Not Available Not Available Cartia XT 300 mg capsule,e xtended release Take 1 capsule every day by oral route for 30 days. 12/05 completed Not Available Not Available Not Available glyburide 5 mg tablet BID 11/16 completed RECORDED 11/17/19 07 1:00PM BY SIMÓN FINCH MD, OFFICE VISIT; Not Available Not Available Not Available ibuprofen 800 mg tablet THREE TIMES DAILY 06/02 completed Not Available Not Available Not Available diltiazem CD 180 mg capsule,e xtended release 24 hr 02/05 completed Not Available Not Available Not Available tramadol 37.5 mg-acetam inophen 325 mg tablet TAKE 2 TABLETS BY MOUTH 3 TIMES A DAY NEEDED 2024 active Not Available Not Available Not Avai lable Novolin N NPH U-100 Insulin isophane 100 unit/mL subcutane ous susp Inject 40 units every day by sub-q route for 28 days. 07/16 completed Not Available Not Available Not Available metoprolo l succinate ER 50 mg tablet,ex tended release 24 hr active Not Available Not Available Not Available melatonin 5 mg sublingua l tablet Place 10 mg by sublingu al route. 10/04 completed Not Available Not Available Not Available Tegretol XR 200 mg tablet,ex tended release QHS / HS 2008 active RECORDED 04/02/19 09 11:27AM BY WAYNE MCCULLOUGH MA, ANNOTATI ON/ADDEN DUM;[facility] ([facility] ) Not Available Not Available Not Available metoprolo l succinate ER 200 mg tablet,ex tended release 24 hr TAKE 1 TABLET BY MOUTH EVERY DAY FOR HYPERTEN DENISE RENAL DISEASE 2023 active Not Available Not Available Not Avai lable polysacch aride iron complex 150 mg iron capsule TAKE ONE CAPSULE BY MOUTH EVERY DAY 01/16 completed Not Available Not Available Not Available lisinopri l 20 mg tablet active Not Available Not Available Not Available prednison e 20 mg tablet 06/26 completed Not Available Not Available Not Available felodipin e ER 5 mg tablet,ex tended release 24 hr DAILY active Not Available Not Available Not Available metoprolo l succinate ER 100 mg tablet,ex tended release 24 hr active Not Available Not Available Not Available prednison e 5 mg tablet Take 1 tablet twice a day by oral route as needed for 3 days. 06/02 completed Not Available Not Available Not Available glipizide ER 5 mg tablet, extended release 24 hr Take 5 mg by oral route. 10/04 completed Not Available Not Available Not Available Lantus U-100 Insulin 100 unit/mL subcutane ous solution Inject 40 units by sub-q route. 10/04 completed Not Available Not Available Not Available pioglitaz one 45 mg tablet QD 11/27 completed RECORDED 11/28/19 11 11:57AM BY SIMÓN FINCH MD, OFFICE VISIT; Not Available Not Available Not Available diltiazem ER 300 mg capsule,2 4 hr,extend ed release Take 1 capsule every day by oral route. active Dr Lynn Cee Not Available Not Available Not Available amlodipin e 5 mg tablet Take 1 tablet every day by oral route for 90 days. 11/03 completed Not Available Not Available Not Available allopurin ol 100 mg tablet Take 2 tablets every day by oral route for 30 days. 05/07 completed Not Available Not Available Not Available omeprazol e 40 mg capsule,d elayed release DAILY 05/22 completed RECORDED 05/23/19 14 9:21AM BY WAYNE MCCULLOUGH MA, OFFICE VISIT; Not Available Not Available Not Available aspirin 81 mg tablet,de layed release Take 1 tablet every day by oral route. 09/17 completed Not Available Not Available Not Available spironola ctone 25 mg tablet TAKE 1 TABLET BY MOUTH EVERY DAY 01/[address] Lynn Cee Not Available Not Available Not Available amoxicill in 500 mg tablet 05/27 completed Not Available Not Available Not Available simvastat in 40 mg tablet DAILY active Not Available Not Available Not Available baclofen 20 mg tablet TAKE 1 TABLET TWICE A DAY 10/27 completed Not Available Not Available Not Available carbamaze pine 200 mg tablet DIRECTED 07/18 completed RECORDED 07/19/19 10 11:12AM BY SIMÓN FINCH MD, OFFICE VISIT;20 0MG IN THE MORNING, 300MG AT BEDTIME Not Available Not Available Not Available oxycodone -acetamin ophen 5 mg-325 mg tablet Take 1 tablet every day by oral route at bedtime for 30 days. 09/24 completed Not Available Not Available Not Available Fluticaso ne Propionat e (Inhal) 50 mcg/BLIST inhl powd TWO TIMES DAILY 07/27 completed RECORDED 07/28/19 13 3:35PM BY WAYNE MCCULLOUGH MA, OFFICE VISIT; Not Available Not Available Not Available hydromorp petey 2 mg tablet TAKE 1 2 TABLETS BY MOUTH EVERY 4 HOURS NEEDED FOR MODERATE PAIN SCALE 4 6 05/27 completed Not Available Not Available Not Available amitripty line 25 mg tablet Take 1 tablet every day by oral route at bedtime. active Dr. Kareen Rodríguez Not Available Not Available Not Available Novolin R Regular U-100 Insulin 100 unit/mL injection solution use 3 times daily with sliding scale 10/04 completed Not Available Not Available Not Available tamsulosi n 0.4 mg capsule Take 1 capsule every day by oral route for 30 days. 10/27 completed Not Available Not Available Not Available Calci-Claritza w 500 mg (as calcium carbonate 1,250 mg) tablet Take 1 tablet 3 times a day by oral route. 02/05 completed Not Available Not Available Not Available cephalexi n 500 mg capsule TAKE 1 CAPSULE BY MOUTH 4 TIMES A DAY FOR 7 DAYS 10/27 completed Not Available Not Available Not Available hydrocodo ne 10 mg-acetam inophen 660 mg tablet EVERY FOUR HOURS, NEEDED 09/01 completed RECORDED 10/04/19 12 12:31PM BY SIMÓN FINCH MD, MEDICATI ON AUTO-WILDA CTIVATIO N;OKAY TO DISPENSE DESPITE PRIOR REACTION TO OXYCODON E WITH NAUSEA. HAS TOLERATE D HYDROCOD ONE WITHOUT PROBLEMS . Not Available Not Available Not Available naproxen sodium 550 mg tablet 03/25 completed Not Available Not Available Not Available metformin 1,000 mg tablet TWO TIMES DAILY 03/23 completed RECORDED 03/23/19 14 1:58PM BY WAYNE MCCULLOUGH MA, OFFICE VISIT; Not Available Not Available Not Available lisinopri l 10 mg tablet active Not Available Not Available Not Available ferrous gluconate 240 mg (27 mg iron) tablet Take 1 tablet twice a day by oral route for 90 days. 07/14 completed iron studies wnl Not Available Not Available Not Available ascorbic acid (vitamin C) 500 mg chewable tablet Take 1 tablet every day by oral route. 2022 active Not Available Not Available Not Avai lable nystatin- triamcino lone 100,000 unit/g-0. 1 % topical cream 2 TIMES A DAY 03/03 completed RECORDED 03/03/20 11 11:00AM BY WAYNE MCCULLOUGH MA, OFFICE VISIT; Not Available Not Available Not Available docusate sodium 100 mg capsule TAKE ONE TO TWO CAPSULES BY MOUTH AT BEDTIME NEEDED FOR CONSTIPA TION active Not Available Not Available No t Available oxybutyni n chloride ER 5 mg tablet,ex tended release 24 hr Take 1 tablet every day by oral route for 14 days. 09/24 completed Not Available Not Available Not Available gabapenti n 300 mg capsule Take 300 mg by oral route. 10/04 completed Not Available Not Available Not Available omeprazol e 20 mg capsule,d elayed release Take 20 mg by oral route. 10/04 completed Not Available Not Available Not Available lisinopri l 20 mg-hydroc hlorothia zide 25 mg tablet QD 06/13 completed RECORDED 06/14/19 08 10:38AM BY SIMÓN FINCH MD, OFFICE VISIT;SEAMAN S COUGH. PROB ACEI COUGH Not Available Not Available Not Available folic acid 1 mg tablet Take 1 mg by oral route. 10/04 completed Not Available Not Available Not Available monteluka st 10 mg tablet Take 1 tablet every day by oral route. 01/16 completed Not Available Not Available Not Available lisinopri l 5 mg tablet active Not Available Not Available Not Available Aspirin EC 325 mg tablet,de layed release DAILY 06/24 completed Not Available Not Available Not Available Diltiazem HCl CR 300 mg/24hr capsule,e xtended release Take 1 capsule every day by oral route. 07/10 completed Not Available Not Available Not Available insulin lispro (U-100) 100 unit/mL subcutane ous solution Inject 20 units 3 times a day by subcutan eous route for 30 days. 2014 active Not Available Not Available Not Avai labjuana saw palmetto 500 mg capsule Take 1000 mg every day by oral route. active Not Available Not Available No t Available Tylenol-C odeine #3 300 mg-30 mg tablet TID/PRN 05/20 completed RECORDED 06/14/19 08 9:57AM BY SIMÓN FINCH MD, MEDICATI ON AUTO-WILDA CTIVATIO N; Not Available Not Available Not Available albuterol sulfate HFA 90 mcg/actua tion aerosol inhaler INHALE TWO PUFFS BY MOUTH EVERY 4 HOURS NEEDED active Not Available Not Available No t Available doxycycli ne hyclate 20 mg tablet Q12H 03/03 completed RECORDED 03/03/20 11 11:00AM BY WAYNE MCCULLOUGH MA, OFFICE VISIT;DR RIVERA Not Available Not Available Not Available Avandia 4 mg tablet Take 1 tablet every day by oral route for 30 days. active Not Available Not Available No t Available lisinopri l 40 mg tablet TAKE 1 TABLET BY MOUTH EVERY DAY active Not Available Not Available No t Available SF 5000 Plus 1.1 % dental cream TWO TIMES DAILY AFTER BRUSHING 03/03 completed RECORDED 03/03/20 11 11:01AM BY WAYNE MCCULLOUGH MA, OFFICE VISIT;DR RIVERA Not Available Not Available Not Available fluoxetin e 20 mg capsule DAILY 08/13 completed RECORDED 08/14/19 09 9:23AM BY SIMÓN FINCH MD, ANNOTATI ON/ADDEN DUM;PER PSYCHIAT RY (DR. QUEEN) Not Available Not Available Not Available metformin ER 500 mg tablet,ex tended release 24 hr Take 1000 mg by oral route. 10/04 completed Not Available Not Available Not Available sertralin e 50 mg tablet QD 11/16 completed RECORDED 11/17/19 07 1:00PM BY SIMÓN FINCH MD, OFFICE VISIT; Not Available Not Available Not Available glipizide 5 mg tablet BID 04/21 completed RECORDED 04/21/19 07 12:39PM BY SIOBHAN JHAVERI, MEDICATI ON AUTO-WILDA CTIVATIO N;THIS ORDER DISCONTI NUED PER MEDI-SPA N. Not Available Not Available Not Available diazepam 5 mg tablet 06/26 completed Not Available Not Available Not Available amoxicill in 875 mg-potass ium clavulana te 125 mg tablet TWO TIMES DAILY 12/05 completed Not Available Not Available Not Available Actos 30 mg tablet Take 1 tablet every day by oral route for 30 days. 06/24 completed Not Available Not Available Not Available oxycodone 5 mg tablet 07/09 completed Not Available Not Available Not Available albuterol (refill) 90 mcg/actua tion aerosol inhaler FOUR TIMES DAILY 07/27 completed RECORDED 07/28/19 13 3:35PM BY WAYNE MCCULLOUGH MA, OFFICE VISIT; Not Available Not Available Not Available Mapap Arthritis Pain 650 mg tablet,ex tended release 06/02 completed Not Available Not Available Not Available multivita min with iron tablet Take 1 tablet every day by oral route. 10/27 completed Not Available Not Available Not Available eplerenon e 25 mg tablet Take 1 tablet every day by oral route. 10/[address] Skinner Pack Not Available Not Available Not Available ezetimibe 10 mg tablet TAKE 1 TABLET BY MOUTH EVERY DAY 01/16 completed Not Available Not Available Not Available Novolog FlexPen U-100 Insulin aspart 100 unit/mL (3 mL) subcutane ous 10/04 completed Not Available Not Available Not Available cyclobenz aprine 5 mg tablet NEEDED 06/25 completed RECORDED 06/26/19 14 10:05AM BY WAYNE MCCULLOUGH MA, OFFICE VISIT; Not Available Not Available Not Available aripipraz ole 5 mg tablet DAILY 07/18 completed RECORDED 07/19/19 10 11:12AM BY SIMÓN FINCH MD, OFFICE VISIT;PE R PSYCH Not Available Not Available Not Available rosuvasta tin 10 mg tablet Take 1 tablet every day by oral route in the evening. active Dr Mandy Coronado Not Available Not Available Not Available Co Q-10 300 mg capsule Take 1 capsule every day by oral route. 01/16 completed Not Available Not Available Not Available tadalafil 20 mg tablet 30 MINUTES PRIOR TO INTERCOU RSE, PRN 2013 active Cialis Not Available Not Available Not Avai lable Glipizide XL 5 mg tablet,ex tended release Take 2 tablets every day by oral route. 12/[address] Morenita Velasco Not Available Not Available Not Available mesalamin e 1,000 mg rectal supposito ry Insert 1 supposit ory every day by rectal route as directed . 08/26 completed Not Available Not Available Not Available Pain Relief Extra Strength (acetamin ophen) 500 mg tablet TAKE 1 TABLET BY MOUTH EVERY 4 TO 6 HOURS NEEDED NOT TO EXCEED 8 TABLETS PER 24 HOURS 06/04 completed Not Available Not Available Not Available exenatide 5 mcg/dose (250 mcg/mL)1. 2 mL subcutane ous pen injector BID 30 MIN BEFORE MEALS 11/27 completed RECORDED 11/28/19 11 11:56AM BY SIMÓN FINCH MD, OFFICE VISIT; Not Available Not Available Not Available fenofibra te 160 mg tablet TAKE 1 TABLET BY MOUTH EVERY DAY active Not Available Not Available No t Available metformin ER 1,000 mg tablet,ex tended release 24 hr TWO TIMES DAILY 05/18 completed RECORDED 05/18/19 13 11:14AM BY WAYNE MCCULLOUGH MA, PHONE ENCOUNTE R;CHANGE D TO REGULAR METFORMI N Not Available Not Available Not Available chlorhexi dine gluconate 0.12 % mouthwash PLEASE SEE ATTACHED FOR DETAILED DIRECTIO NS 06/04 completed Not Available Not Available Not Available hydromorp petey EVERY FOUR HOURS, NEEDED 08/30 completed RECORDED 08/31/19 12 2:24PM BY SIMÓN FINCH MD, PHONE ENCOUNTE R; Not Available Not Available Not Available Flomax DAILY 03/03 completed RECORDED 03/03/20 11 11:00AM BY WAYNE MCCULLOUGH MA, OFFICE VISIT;DR COR[place] Not Available Not Available Not Available econazole nitrate TWO TIMES DAILY 03/03 completed RECORDED 03/03/20 11 11:00AM BY WAYNE MCCULLOUGH MA, OFFICE VISIT; Not Available Not Available Not Available CORAL Tennis Elbow Brace 04/23 completed RECORDED 04/23/19 12 9:45AM BY AFIA STONE ON/ADDEN DUM; Not Available Not Available Not Available Glucagon Emergency Kit (human) NEEDED active RECORDED 06/26/19 14 9:58AM BY WAYNE MCCULLOUGH MA, OFFICE VISIT; Not Available Not Available Not Available One Touch Lancets TID 04/23 completed RECORDED 04/23/19 12 9:45AM BY AFIA STONE ON/ADDEN DUM; Not Available Not Available Not Available blood pressure monitor DAILY MONITORI NG OF BP FOR HTN 06/15 completed RECORDED 06/16/19 13 11:40AM BY AFIA STONE ON/ADDEN DUM; Not Available Not Available Not Available Men's Multi-Vit freitas 1 tablet po daily 09/17 completed Not Available Not Available Not Available One Touch Test TID 2007 active RECORDED 06/22/19 08 12:27PM BY SIMÓN FINCH MD, AFIA ON/ADDEN DUM; Not Available Not Available Not Available Flovent HFA BID 07/27 completed RECORDED 07/28/19 13 3:35PM BY WAYNE MCCULLOUGH MA, OFFICE VISIT; Not Available Not Available Not Available valsartan 320 mg-hydroc hlorothia zide 25 mg tablet DAILY 08/14 completed RECORDED 08/15/19 11 11:35AM BY SIMÓN FINCH MD, AFIA ON/ADDEN DUM; Not Available Not Available Not Available BD Ultra-Fin e Short Pen Needle 31 gauge x 5/16 active Not Available Not Available Not Available metformin ER 500 mg 24 hr tablet,ex tended release (gastric retention ) Take 2 tablets every day by oral route. 08/26 completed Not Available Not Available Not Available saw palmetto 450 mg capsule Take 1 capsule every day by oral route. 01/16 completed Not Available Not Available Not Available OneTouch Ultra2 Meter BID 04/23 completed RECORDED 04/23/19 12 9:45AM BY AFIA STONE ON/JULIET OCHOA; Not Available Not Available Not Available MoviPrep 100 gram-7.5 gram-2.69 1 gram oral powder packet Take 1 packet every day by oral route. active Not Available Not Available No t Available coenzyme Q29-vjgsi in E 100 mg-5 unit capsule Take 300 mg by oral route. 01/16 completed Not Available Not Available Not Available Pulmicort Flexhaler 180 mcg/actua tion breath activated TWO TIMES DAILY 07/27 completed RECORDED 07/28/19 13 3:35PM BY WAYNE MCCULLOUGH MA, OFFICE VISIT; Not Available Not Available Not Available Symbicort 160 mcg-4.5 mcg/actua tion HFA aerosol inhaler TWO TIMES DAILY 05/22 completed RECORDED 05/23/19 14 9:21AM BY WAYNE MCCULLOUGH MA, OFFICE VISIT; Not Available Not Available Not Available SymlinPen 120 2,700 mcg/2.7 mL subcutane ous pen injector THREE TIMES DAILY 05/22 completed RECORDED 05/23/19 14 9:21AM BY WAYNE MCCULLOUGH MA, OFFICE VISIT;DR CORONADO Not Available Not Available Not Available glipizide ER 5 mg 24 hr tablet,ex tended release Take 1 tablet every day by oral route. 03/25 completed Not Available Not Available Not Available GaviLyte- G 236 gram-22.7 4 gram-6.74 gram-5.86 gram oral solution TAKE 8 OUNCE BY MOUTH DIRECTED TAKE 8 GLASSES EVERY 15-20 MINUTES UNTIL DONE 10/04 completed Not Available Not Available Not Available liragluti de 0.6 mg/0.1 mL (18 mg/3 mL) subcutane ous pen injector DAILY 06/25 completed RECORDED 06/26/19 14 10:05AM BY WAYNE MCCULLOUGH MA, OFFICE VISIT; Not Available Not Available Not Available Co Q-10 400 mg capsule Take 400 mg every day by oral route. active Not Available Not Available No t Available Annamarie Allergy 180 mg tablet Take 1 tablet every day by oral route for 90 days. 2022 active as needed Not Available Not Available Not Available B-100 Complex ER 100 mg tablet,ex tended release Take 1 tablet every day by oral route. active Not Available Not Available No t Available OneTouch Verio test strips USE 1 STRIP THREE TIMES A DAY TO CHECK BLOOD SUGAR 10/04 completed Not Available Not Available Not Available insulin syringe U-100 with needle 0.3 mL 31 gauge x 15/64 USE 1 SYRINGE TWICE DAILY 10/04 completed Not Available Not Available Not Available oxycodone 5 mg tablet,or al ONLY (not feeding tubes) 10/27 completed Not Available Not Available Not Available melatonin 10 mg tablet Take 1 tablet every day by oral route at bedtime. 10/04 completed Not Available Not Available Not Available BD Insulin Syringe Ultra-Fin e 1 mL 31 gauge x 5/16 Take 4 syringes every day by miscell. route for 50 days. 01/16 completed Not Available Not Available Not Available BD Insulin Syringe Ultra-Fin e 0.5 mL 31 gauge x 5/16 USE 1 SYRINGE THREE TIMES DAILY BEFORE MEALS 01/16 completed Not Available Not Available Not Available vitamin B12 1,000 mcg-folic acid 400 mcg sublingua l tablet Place 1 tablet every day by sublingu al route. 02/05 completed Not Available Not Available Not Available Farxiga 5 mg tablet 10/04 completed Not Available Not Available Not Available Calcium Citrate Plus 250 mg-40 mg-125 unit-3.75 mg tablet Take 1 tablet every day by oral route. 06/02 completed brand: Celebrat e Not Available Not Available Not Available Trulicity 0.75 mg/0.5 mL subcutane ous pen injector 02/05 completed Not Available Not Available Not Available Tresiba FlexTouch U-200 insulin 200 unit/mL (3 mL) subcutane ous pen Inject 28 units every day by subcutan eous route in the evening. active Not Available Not Available No t Available Tresiba FlexTouch U-100 insulin 100 unit/mL (3 mL) subcutane ous pen 10/04 completed Not Available Not Available Not Available cyanocoba lucretia(B-1 2) ER 5,000 mcg tablet, immediate and extend release Take 1 tablet every day by oral route. 09/02 completed Not Available Not Available Not Available Soliqua 100/33 100 unit-33 mcg/mL subcutane ous insulin pen Inject 40 units every day by subcutan eous route in the morning. 06/04 completed Not Available Not Available Not Available Flonase Sensimist 27.5 mcg/actua tion nasal spray,manas pension Take 1 spray every day by nasal route at bedtime for 30 days. 10/04 completed Not Available Not Available Not Available BD Torie 2nd Gen Pen Needle 32 gauge x 5/32 active Not Available Not Available Not Available Bariatric Multivita mins 1 capsules po daily 2021 active brand: Celebrat e Not Available Not Available Not Available FreeStyle Max 2 Sensor kit active Not Available Not Available Not Available gorge seaman root extract with KSM-66; 2 tablets po daily active Not Available Not Available No t Available Mounjaro 5 mg/0.5 mL subcutane ous pen injector Inject 0.5 mL every week by sub-q route as directed for 28 days. active Not Available Not Available No t Available Mounjaro 2.5 mg/0.5 mL subcutane ous pen injector 1 injectio n weekly 01/16 completed Not Available Not Available Not Available FreeStyle Max 3 [place] active Not Available Not Available Not Available FreeStyle Max 3 Plus Sensor device active Not Available Not Available Not Available Vitals Date Recorded Body height Body mass index (BMI) Body weight Heart rate Oxygen saturation Oxygen saturation in Arterial blood by Pulse oximetry Body temperature Systolic blood pressure Diastolic blood pressure Provider Name and Address Organization Details Last Updated DateTime 3 170.18 cm 32.9 kg/m2 73790.4 g 72 /min 97 % 97 % 97.5 [degF] 153 mm[Hg] 78 mm[Hg] Wayne mejias MA [facility] 3 14:09:41 Date Recorded Body height Body mass index (BMI) Body weight Heart rate Oxygen saturation Oxygen saturation in Arterial blood by Pulse oximetry Body temperature Systolic blood pressure Diastolic blood pressure Provider Name and Address Organization Details Last Updated DateTime 3 170.18 cm 32.6 kg/m2 74943.2 1 g 58 /min 97 % 97 % 97.2 [degF] 118 mm[Hg] 62 mm[Hg] Wayne mejias MA [facility] 3 13:11:28 Date Recorded Body height Body mass index (BMI) Body weight Oxygen saturation Oxygen saturation in Arterial blood by Pulse oximetry Heart rate Body temperature Systolic blood pressure Diastolic blood pressure Provider Name and Address Organization Details Last Updated DateTime 4 170.18 cm 31 kg/m2 77787.9 9 g 98 % 98 % 64 /min 97.8 [degF] 123 mm[Hg] 71 mm[Hg] Irene Ordonez [facility] 4 13:55:40 Date Recorded Body height Body mass index (BMI) Body weight Heart rate Oxygen saturation Oxygen saturation in Arterial blood by Pulse oximetry Body temperature Systolic blood pressure Diastolic blood pressure Provider Name and Address Organization Details Last Updated DateTime 4 170.18 cm 29.8 kg/m2 34472.5 5 g 76 /min 98 % 98 % 97.3 [degF] 129 mm[Hg] 73 mm[Hg] Wayne mejias MA [facility] 4 10:11:59 Social History Question Answer Notes LastModified by Organizat ion Details LastModified Time Tobacco Smoking Status Never Smoker PANCHITO Chavez [facility] 10/27/2020 13:22:08 Do You Have An Advance Directive? Yes Information not available 01/02/2021 What Is Your Level Of Alcohol Consumption? Occasional Information not available 10/27/2020 Is Blood Transfusion Acceptable In An Emergency? Yes Information not available 10/27/2020 What Is Your Level Of Caffeine Consumption? Moderate Coffee- 4 Cups Daily Information not available 09/08/2022 How Much Tobacco Do You Chew? None Information not available 10/27/2020 Are You Currently Employed? No Information not available 10/27/2020 What Type Of Diet Are You Following? DIABETIC Information not available 10/27/2020 Which Illicit Or Recreational Drugs Have You Used? None Information not available 10/27/2020 Do You Or Have You Ever Used E-cigarettes Or Vape? 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 With Others (Audrey) Information not available 01/02/2021 Do You Take Precautions To Prevent Distracted Driving? Yes Information not available 12/31/2014 How Often Do You Need To Have Someone Help You When You Read Instructions, Pamphlets, Or Other Written Material From Your Doctor Or Pharmacy? Never Information not available 12/31/2014 Have You Served In The ? No Information not available 09/17/2016 Have You Or Anyone In Your Household Had Any Of The Following Symptoms In The Last 14 Days: Sore Throat, Cough, Chills, Body Aches For Unknown Reasons, Shortness Of Breath For Unknown Reasons, Loss Of Smell, Loss Of Taste, Fever At Or Greater Than 100 Degrees Fahrenheit? No Information not available 06/04/2020 Are You Or Anyone In Your Household A Health Care Provider Or Emergency Responder? No Information not available 06/04/2020 To The Best Of Your Knowledge Have You Been In Close Proximity To Any Individual Who Tested Positive For COVID-19? No Information not available 06/04/2020 Have You Recently Traveled To A COVID-19 High Risk Area Or Gathering In The Last 10 Days? No Information not available 06/04/2020 What Was The Date Of Your Most Recent Tobacco Screening? 01/17/2024 Information not available 01/17/2024 How Many Children Do You Have? 3 Erick Pastor Jr And Leola Information not available 09/08/2022 Do You Use Protection During Sex? No Information not available 10/27/2020 Seat Belts Used Routinely Yes Information not available 01/02/2021 Are You Sexually Active? No Information not available 10/27/2020 Smoke Alarm In Home Yes Information not available 01/02/2021 At What Age Did You Start Smoking Tobacco? 0 Information not available 10/27/2020 Are You Passively Exposed To Smoke? No Information not available 10/27/2020 Do You Or Have You Ever Used Smokeless Tobacco? Never Used Smokeless Tobacco Information not available 10/27/2020 How Much Tobacco Do You Smoke? No Information not available 10/27/2020 Do You Use Any Illicit Or Recreational Drugs? No Information not available 05/27/2021 Do You Use Sunscreen Routinely? No Information not available 10/27/2020 How Many Years Have You Smoked Tobacco? 0 Information not available 10/27/2020 Do You Or Have You Ever Used Any Other Forms Of Tobacco Or Nicotine? No Information not available 05/27/2021 Sex: Unknown Functional Status Question Answer Note LastModified by Organizat ion Details LastModified Time Are you able to walk? YESWOREST Information not available 01/02/2021 Are you able to care for yourself? Yes Information not available 10/27/2020 What is your exercise level? Occasional Information not available 10/27/2020 Mental Status None recorded. Family History Relationship Description Onset Age of this Age Resolved Age Notes LastModified by Organization Details LastModified Time Mother Coronary arterioscler osis Not available 10/15/ 2021 10:14:07 Mother Asthma [email or web address] Not availab le 09/23/2015 13:02:35 Mother Heart disease [email or web address] s Not available 02/06/2016 14:02:09 Father Essential hypertension Not available 10:14:07 Father Carcinoma in situ of prostate Not available 2020 10:14:07 Father Diabetes mellitus [email or web address] Not available 07/2015 13:02:35 Brother Obesity [email or web address] s Not available 02/06/2016 14:02:09 Brother Cerebrovascu lar accident 62 [email or web address] s Not available 12/10/2017 10:16:29 Daughter Asthma [email or web address] s Not available 10/27/2020 13:21:24 Daughter Migraine [email or web address] s Not available 10/27/2020 13:21:24 Daughter Anxiety disorder [email or web address] s Not available 10/27/2020 13:21:24 Daughter Depressive disorder [email or web address] s Not available 10/27/2020 13:21:25 Daughter Attention deficit hyperactivit y disorder [email or web address] s Not available 10/27/2020 13:21:25 Medical History Condition Response Gout N Other N Kidney Stones Y Blood Diseases N Hyperthyroidism N Breast Cancer N COPD N Depression N Lung Disease N Hypothyroidism N Defects or Inherited Disease N Anesthesia Complications N Headaches/Migraines N Anxiety Disorder N Varicose Veins N Obesity Y Vision or Eye Problems N Arthritis Y Head Injury/Concussion N Polyps Y Infertility N Congenital Anomalies N Acid Reflux (GERD) N Cancer N Stroke N ADHD N Endometriosis N High Cholesterol Y Liver Disease N Fibromyalgia N Kidney Disease Y Heart Problems Y Ear or Hearing Problems N Hospitalizations Y Thyroid Problems N GI Problems Y Acne N Eating Disorder N Skin Problems N Anemia N Constipation N Bladder Problems Y Mental Illness N Diabetes Y Ovarian Cancer N Blood Transfusions N Seizures/Epilepsy N Tuberculosis N AIDS/HIV N Congestive Heart Failure (CHF) N Eczema N Abuse/Domestic Violence N Diverticulitis N Asthma Y Allergies N Reflux/GERD N Hepatitis N Pulmonary Embolism N Hypertension Y Chicken Pox N Autism Spectrum Disorder (ASD) N Osteoporosis N Immunizations Vaccine Type Date Status Note Provider Nam e and Address Organization Details Recorded Time pneumococcal polysaccharide PPV23 7 completed Not Available [facility] 01/06/2022 19:36:37 pneumococcal polysaccharide PPV23 7 completed Not Available [facility] 01/06/2022 19:36:37 Influenza, split virus, trivalent, preservative 7 completed Not Available [facility] 01/06/2022 19:36:37 Influenza, split virus, trivalent, preservative 8 completed Not Available [facility] 01/06/2022 19:36:37 Tdap 8 completed Not Available [facility] 01/06/2022 19:36:37 Influenza, split virus, trivalent, preservative 3 completed Not Available [facility] 01/06/2022 19:36:37 COVID-19, mRNA, LNP-S, PF, 100 mcg/0.5mL dose or 50 mcg/0.25mL dose 1 completed Not Available [facility] 01/06/2022 19:36:37 COVID-19, mRNA, LNP-S, PF, 100 mcg/0.5mL dose or 50 mcg/0.25mL dose 1 completed PANCHITO [place], [facility] 10/05/2023 13:56:12 Influenza, split virus, quadrivalent, PF 6 completed Not Available [facility] 04/07/2019 02:22:02 COVID-19, mRNA, LNP-S, PF, 100 mcg/0.5mL dose or 50 mcg/0.25mL dose 1 completed PANCHITO [place] [facility] 10/05/2023 13:56:12 zoster recombinant 2 completed PANCHITO [place], [facility] 10/05/2023 13:56:12 zoster recombinant 2 completed PANCHITO [place], [facility] 10/05/2023 13:56:12 COVID-19, mRNA, LNP-S, PF, 100 mcg/0.5mL dose or 50 mcg/0.25mL dose 1 completed PANCHITO [place], [facility] 10/05/2023 13:56:12 Influenza, split virus, quadrivalent, PF 6 completed Not Available [facility] 04/07/2019 02:22:07 Influenza, split virus, quadrivalent, PF 7 completed Not Available [facility] 04/07/2019 02:22:13 Tdap 8 completed Not Available [facility] 04/07/2019 02:21:48 Influenza, split virus, quadrivalent, PF 8 completed Not Available [facility] 04/07/2019 02:22:16 Influenza, split virus, quadrivalent, PF 9 completed Not Available [facility] 04/07/2019 02:22:10 Influenza, split virus, trivalent, PF 4 completed Not Available [facility] 04/07/2019 02:21:57 Past Encounters Encounter ID Performer Location Encounter Start Date Encounter Closed Date Diagnosis/Indication Diagnosis SNOMED-CT Code Diagnosis ICD10 Code Diagnosis Note [id number] Main Office [address] [facility] [place] [address] 10/23/2013 09:26:09 10/23/2013 10:16:36 Type 2 diabetes mellitus 35042093 Chronic pain 56311643 Low back pain 384601816 Chronic ki dney disease stage 3 457099713 Continue monitorig and follow up with Dr. Velasco for renal. Renal diso rder due to type 2 diabetes mellitus 947489167 [id number] autoEComm erce [address] [facility] [place] [address] 01/10/2006 00:00:00 [id number] autoEComm erce [address] [facility] [place] [address] 10/08/2005 00:00:00 [id number] autoEComm erce [address] [facility] [place] [address] 08/23/2005 00:00:00 [id number] autoEComm erce [address] [facility] [place] [address] 06/16/2005 00:00:00 [id number] autoEComm erce [address] [facility] [place] [address] 05/16/2006 00:00:00 [id number] [address]Comm erce [address] [place] [address] 08/16/2006 00:00:00 [id number] autoEComm erce [address] [facility] [place] [address] 11/16/2006 00:00:00 [id number] auto[employer]Comm erce [address] [place] [address] 03/13/2007 00:00:00 [id number] autoEComm erce [address] [facility] [address] [place] [address] 05/11/2007 00:00:00 [id number] autoEComm erce [address] [facility] [place] [address] 06/14/2007 00:00:00 [id number] autoEComm erce [address] [facility] [place] [address] 09/19/2007 00:00:00 [id number] autoEComm erce [address] [facility] [place] [address] 01/04/2008 00:00:00 [id number] autoEComm erce [address] [facility] [place] [address] 02/14/2008 00:00:00 [id number] autoEComm erce [address] [facility] [place] [address] 04/02/2008 00:00:00 [id number] autoEComm erce [address] [facility] [place] [address] 08/13/2008 00:00:00 [id number] autoEComm erce [address] [facility] [address] [place] [address] 11/19/2008 00:00:00 [id number] autoEComm erce [address] [facility] [place] [address] 03/13/2009 00:00:00 [id number] autoEComm erce [address] [place] [address] 07/18/2009 00:00:00 [id number] autoEComm erce [address] [place] [address] 06/30/2010 00:00:00 [id number] autoEComm erce [address] [place] [address] 08/14/2010 00:00:00 [id number] autoEComm erce [address] [place] [address] 10/19/2010 00:00:00 [id number] autoEComm erce [address] [place] [address] 11/27/2010 00:00:00 [id number] autoEComm erce [address] [facility] [place] [address] 03/03/2011 00:00:00 [id number] autoEComm erce [address] [facility] [place] [address] 07/09/2011 00:00:00 [id number] autoEComm erce [address] [facility] [place] [address] 10/11/2011 00:00:00 [id number] autoEComm erce [address] [facility] [place] [address] 01/21/2012 00:00:00 [id number] autoEComm erce [address] [facility] [place] [address] 03/30/2012 00:00:00 [id number] autoEComm erce [address] [facility] [place] [address] 05/05/2012 00:00:00 [id number] autoEComm erce [address] [place] [address] 07/27/2012 00:00:00 [id number] autoEComm erce [address] [place] [address] 09/27/2012 00:00:00 [id number] autoEComm erce [address] [facility] [place], [place] [address] 11/28/2012 00:00:00 [id number] autoEComm erce [address] [facility] [place], [place] [address] 03/23/2013 00:00:00 [id number] autoEComm erikae [address] [facility] [place], [place] [address] 05/22/2013 00:00:00 [id number] autoEComm erce [address] [facility] [place], [place] [address] 06/25/2013 00:00:00 [id number] Main Office [address] [address] [place] [address] 11/29/2013 09:33:35 11/29/2013 09:58:41 Pre-surgery evaluation [id number] Benign pro static hyperplasia 591763640 Morbid obesity 424837709 Chronic ki dney disease stage 3 093795947 Type 2 shavon betes mellitus 74177733 Essential hypertension 75659514 BP 157/90 today, he states he has been takig his BP meds regularly and that he took these this am. Just came to appt from the gym, states it has not been elevated recently. Patient to monitor and report back. Hyperlipidemia 95473926 Metabolic syndrome X 210604526 [id number] Main Office [address] [address] [place] [address] 01/21/2014 10:20:26 01/21/2014 11:57:02 Type 2 diabetes mellitus 36023231 Chronic pain 27334481 Chronic ki dney disease stage 3 000272809 Continue monitorig and follow up with Dr. Velasco for renal. 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 218736231 Essential hypertension 13803637 Benign pro static hyperplasia 334302700 Body mass index 30+ - obesity 114021679 s/p bariatric surgery with bypass [id number] Main Office [address] [address] [place] [address] 06/24/2014 13:56:03 06/24/2014 14:30:50 Type 2 diabetes mellitus 58186571 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 073609725 Essential hypertension 07309573 Multiple joint pain 33631774 Multiple bruising 961097839 [id number] Main Office [address] [address] [place] [address] 09/24/2014 10:25:51 09/24/2014 11:38:34 Type 2 diabetes mellitus 36731254 Essential hypertension 58735237 Chronic pain 54689670 Foot pain 21370171 [id number] Simón Finch MD Main Office [address] [address] [place] [address] 12/31/2014 15:13:36 12/31/2014 16:32:48 Type 2 diabetes mellitus 55805457 E11.9 Chronic pain 21792379 G8 9.29 Cardiomyopathy 90500894 I42.9 Benign pro static hyperplasia 855406224 D29.1 [id number] Simón Finch MD Main Office [address] [address] [place] [address] 04/02/2015 13:43:32 04/02/2015 16:44:29 Adult health examination 263511749 Z00.00 Chronic pain 73010138 G8 9.29 Needs infl uenza immunization 067015702 Z23 Essential hypertension 29086899 I10 Renal diso rder due to type 2 diabetes mellitus 155838266 E11.29 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 796939767 E11.39 Tear of me dial meniscus of knee 759450676 S83.241A [id number] Simón Finch MD Main Office [address] [address] [place] [address] 07/01/2015 09:09:08 07/01/2015 10:19:28 Renal disorder due to type 2 diabetes mellitus 441760259 E11.29 Essential hypertension 71211392 I10 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 Velasco as scheduled. 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 Uncontroll ed type 2 diabetes mellitus 525732850 E11.65 Continue Glipizide ER 5 mg 2 po qd. Start Trulicity 0.75 mg SC weekly injections . POssible side effects reviewed. F/u 6 weeks with log and repeat A1c. 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 Notes no symptoms of CHF and improving LVEF. 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 Velasco for renal. 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 Velasco for renal. Cardiomyopathy 20033032 I42.9 Lumbar radiculopathy 128 970142 M54.16 [id number] Simón Finch MD Main Office [address] [facility] [address] [place] [address] 03/25/2017 13:31:53 03/25/2017 14:20:41 Renal disorder due to type 2 diabetes mellitus 316911953 E11.29 Followed by coby. 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 Velasco for renal. Cardiomyopathy 81194952 I42.9 Lumbar radiculopathy 128 243431 M54.16 [id number] Simón Finch MD Main Office [address] [facility] [address] [place] [address] 06/20/2017 12:48:57 06/20/2017 13:38:08 Hepatitis C screening 729229000 Z11.59 Renal diso rder due to type 2 diabetes mellitus 650296540 E11.29 Followed by endo. continue monitoring Chronic pain 66828436 G8 9.29 Anemia due to unknown mechanism 17483446 D64.9 Chronic low back pain 27 8109010 M54.5 Obesity 228191861 E66.9 Body mass index 30+ - obesity 212779568 Z68.30 s/p bariatric surgery with bypass [id number] Simón Finch MD Main Office [address] [facility] [address] [place] [address] 09/24/2017 08:22:14 09/24/2017 09:21:13 Essential hypertension 65051278 I10 Renal diso rder due to type 2 diabetes mellitus 107081523 E11.29 Followed by endo. continue monitoring Administra tion of viral vaccine 12731066 Z23 Chronic low back pain 27 2987292 M54.5 Benign pro static hyperplasia 603812543 D29.1 Mild persi stent asthma 393995399 J45.30 Chronic ki dney disease stage 3 838457536 N18.3 Continue monitorig and follow up with Dr. Velasco for renal. [id number] Simón Finch MD Main Office [address] [facility] [address] [place] [address] 12/10/2017 09:51:19 12/10/2017 11:11:13 Essential hypertension 65356578 I10 Renal diso rder due to type 2 diabetes mellitus 714540997 E11.29 Followed by endo. continue monitoring Chronic pain 04624665 G8 9.29 Chronic low back pain 27 6600132 M54.5 Needs infl uenza immunization 586034354 Z23 Fatigue 74362744 R53.83 Hypersomnia 79746517 G47 .10 Bursitis of shoulder 239 293514 M75.50 Disorder o f nervous system due to type 2 diabetes mellitus 741174364 E11.49 Diabetic polyneurop athy. preserved sensation by monofilame nt exam, but complains of burning pain. Continues to see Dr. Melendez for management of blood sugars. [id number] Simón Finch MD Main Office [address] [facility] [address] [facility] [place] [address] 06/26/2018 11:10:15 06/26/2018 12:24:50 Essential hypertension 47176420 I10 Adult heal th examination 463744477 Z00.00 Renal diso rder due to type 2 diabetes mellitus 633977602 E11.29 Followed by endo. continue monitoring Cardiomyopathy 90169196 I42.9 History of non-ischem ic cardiomyop athy Kidney stone 72970427 N2 0.0 Testicular hypofunction 578506892 E29.1 Primary er ectile dysfunction 464884773 N52.9 Chronic low back pain 27 9306844 M54.5 [id number] Mary Robledo Main Office [address] [facility] [address] [place] [address] 12/05/2018 13:03:11 12/05/2018 14:22:28 Renal disorder due to type 2 diabetes mellitus 350707412 E11.22 renal fxn followed by Dr. Velasco, and diabetes followed by Dr. Melendez - CGM for 2 week continuous glucose monitoring placed today to reevaluate for adjusting Soliqua up. Pt. will continue all antidiabet ic at this time. Essential hypertension 94813342 I10 Sees cardiologi , Dr. Cee. Had echo in June - mild reduced ejection fraction. Was put on spironolac tone. Continue current regimen. Hyperlipidemia 71257610 E78.00 elevated triglyceri rajiv as of 10/06. Start atorvastat in 40 mg daily . Repeat lipids in 6 weeks. Venous ret inal branch occlusion 88697480 H34.8322 r/o hypercoagu lable state. Chronic ki dney disease stage 3 790192241 N18.3 [id number] Sherry Cameron Main Office [address] [facility] [address] [place] [address] 12/19/2018 13:34:47 12/19/2018 14:34:11 Uncontrolled type 2 diabetes mellitus 994612583 E11.65 [id number] Simón Finch MD Main Office [address] [place] [address] 12/29/2018 09:34:41 12/29/2018 11:32:32 Renal disorder due to type 2 diabetes mellitus 996488533 E11.29 Followed by endo. continue monitoring blood sugars. repeat labs as ordered. Needs infl uenza immunization 176384074 Z23 Venous ret inal branch occlusion 62779941 H34.8322 Followed by retina specialist . Chronic ki dney disease stage 3 875320962 N18.3 Continue monitorig and follow up with Dr. Velasco for renal. Avoiding NSAIDS Hyperlipidemia 79675412 E78.5 Cardiomyopathy 18701340 I42.9 History of non-ischem ic cardiomyop athy [id number] Mary Robledo Main Office [address] [facility] [address] [place] [address] 05/16/2019 10:24:46 05/16/2019 11:48:51 Dysuria 23114349 R30.0 no dysuria rather dark urine -- likely d/t bilirubin - see below re: DM care Renal diso rder due to type 2 diabetes mellitus 077875714 E11.29 last seen by endo ~ 6 months ago - next f/u is next month ---- see below A1c elevated to 9.6!!! *will fwd this note to endo and renal* Chronic ki dney disease stage 3 620365820 N18.3 cont f/u c renal next week Hyperlipidemia 21869362 E78.5 advised pt likely infxn causing his sugars to go up not his statin, so encouraged him to resume his statin Uncontroll ed type 2 diabetes mellitus 205394704 E11.65 A1c elevated to 9.6!!! strongly encouraged pt to call endo for sooner eval Abscess of oral tissue 84591386 K12.2 L upper - wll rx c abx - rec probiotic supplement -- and cont f/u c dentist in a few days [id number] Simón Finch MD Main Office [address] [facility] [address] [place] [address] 08/27/2019 10:48:03 08/27/2019 12:07:20 Adult health examination 000596633 Z00.00 Renal diso rder due to type 2 diabetes mellitus 094713912 E11.29 Followed by endo. continue monitoring blood sugars. repeat labs as ordered. Essential hypertension 13108378 I10 Chronic ki dney disease stage 3 017976350 N18.3 Continue monitorig and follow up with Dr. Velasco for renal. Avoiding NSAIDS Primary er ectile dysfunction 010896839 N52.9 Cardiomyopathy 06610243 I42.9 History of non-ischem ic cardiomyop athy Tremor 19461620 R25.1 Neurogenic claudication 893371167 M48.062 [id number] Mary Robledo Main Office [address] [facility] [address] [place] [address] 06/04/2020 13:56:52 06/04/2020 15:22:12 Pre-surgery evaluation 605177531 Z01.818 Chronic ki dney disease stage 3 630064363 N18.31 cont f/u c renal Cardiomyopathy 84864971 I42.9 History of non-ischem ic cardiomyop athy - cont f/u c card Cervical radiculitis 110 77040 M54.12 Lumbosacra l radiculitis 12832867 M54.17 Hypertensi ve renal disease 57021586 I12.9 stable, cont meds as dir Chronic ki dney disease due to type 2 diabetes mellitus 6187557108 08 E11.22 cont f/u c endo - next is tomorrow - advised pt to d/w endo re: holding his glipizide and novolin the am of his surgery [id number] Néstor Jarquin MD Main Office [address] [facility] [address] [facility] [place] [address] 07/09/2020 10:25:51 07/09/2020 11:25:48 Cramp in lower limb 364010675 R25.2 Patient notes to poor PO hydration, advised hydration. Will check CK levels and electrolyt e Fatigue 95693256 R53.83 On iron will start will cbc Testicular hypofunction 617167896 E29.1 will check testostero ne levels. Muscle weakness 82199182 M62.81 per orders.Antolin l check UA for myoglobin. Anxiety state 196387108 F41.1 ANNE 19, 2/2 to health and medication concerned discussed at visit, will monitor at next visit. [id number] Mary Robledo Main Office [address] [facility] [address] [place] [place] [address] 07/16/2020 15:55:21 07/17/2020 13:23:20 Diarrhea 58619205 R19.7 Pt with 2 weeks diarrhea, needs stool studies done, no loperamide until infectious diarrhea or cdiff ruled out, need to r/o dehydratio n. Lightheadedness 49230151 8 R42 Pt has been lightheade d all day, ? dehydratio n, will have him go to ED now for evaluation and treatment including labs, IV hydration, EKG. Offered ambulance but he and his decline, she will drive him. I called [facility] with an expect . Orthostati c hypotension 45815776 I95.1 BP low today 88/62 on arrival, reports orthostati c sx at home with fall last week, needs hydration and labs, possible BP adjustment . If pt discharged tonight, keep followup appt with cardiology tomorrow. Chronic ki dney disease due to type 2 diabetes mellitus 3781240597 08 E11.22 BS with poor control, on insulin, metformin and glipizide, states he does not feel hypoglycem ic. Follows with endocrine in [facility] Chronic ki dney disease stage 3 733871322 N18.31 [id number] Simón Finch MD Main Office [address] [facility] [address] [place] [address] 10/27/2020 13:05:30 10/27/2020 14:16:20 Essential hypertension 73553301 I10 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 337544638 E11.39 Neurogenic claudication 051460355 M48.062 Hyperlipidemia 50472324 E78.5 Body mass index 30+ - obesity 745564853 E66.9 s/p bariatric surgery with bypass [id number] Néstor Jarquin MD Main Office [address] [facility] [address] [place] [address] 01/02/2021 10:13:18 01/02/2021 11:10:51 Benign prostatic hyperplasia 982018031 N40.1 Dawit has a diagnosis of BPH he follows urology for this and he takes Flomax for this with good outcome. We will check PSA. Carcinoma of urinary bladder 667674488 C67.9 Won denies any smoking history, or any knowledge of history of bladder carcinoma. It is uncertain how his chart medical history of flags bladder carcinoma without Dawit Kevin. And thus to be safe, I will get a UA, urine cytology, and ultrasound . Dawit has had a fairly recent CAT scan of the abdomen and pelvis with no remarks for bladder carcinoma. And thus I feel that an ultrasound would be sufficient . Dawit, also brought this up to his urologist who did not seem concerned at this time. This is but significan t anxiety to Dawit hence the work-up for reassuranc e. [id number] Mary Robledo Main Office [address] [facility] [address] [place] [address] 05/27/2021 14:41:37 05/27/2021 16:04:07 Cardiomyopathy 88946570 I42.[address] Lantigua Chronic ki dney disease stage 3A 355897700 N18.[address] Nelson Chronic ki dney disease due to type 2 diabetes mellitus 1240048934 [address] Estevez per BayiOEH5P y4xjwvxk done by Judy Patel on ASAFeet check by Corey lmology exam done for this year.Follo wing RenalLipid profile orderedCou nselled about regular physical activityCo unselled on dietPatien t advised regarding risks/sign s/symptoms of hypoglycem ia. Counseled to carry a snack in case of emergencie s Varicella vaccination 68 658548 Z23 Fatigue 73992482 R53.83 Hyperlipidemia 45366375 E78.5 Benign pro static hyperplasia 766160818 N40.1 Dawit has a diagnosis of BPH he follows urology for this and he takes Flomax for this with good outcome. We will check PSA. Peripheral neuropathy due to type 2 diabetes mellitus 0316459243 107 E11.42 requesting to be seen by specialist for neuropathy , has tried gabapentin does not want to try more but rather be evaluated by neurologis t.I noted to him glycemic control is mesa to prevent progressio n.Will get neuropathy workup labs in the event other causes contribute since getting labs done for annual. Long-term drug therapy 928170316 Z79.899 Z86.39 Metformin Use Multiple joint pain 3567 8005 M25.50 Neuropathy 600896321 G62 .9 Asthma 607726716 J45.90 9 Anemia due to unknown mechanism 71547728 D64.9 Hypertensi ve renal disease 07499415 I12.9 Low sodium diet discussedC ounseled on medication adherenceC ounseled on diet/exerc iseAdvised to keep BP daily BP log and technique counseled. Red flags of HTN emergency discussed and when to go to ED. [id number] Néstor Jarquin MD Main Office [address] [facility] [address] [place] [address] 06/03/2021 10:37:57 06/03/2021 15:28:40 Intrinsic asthma 306639569 J45.909 Likely allergy induced , sx improved, able to speak in full sentencesN otes PM neublizer has helped.Had CXR, result pending.Wi ll consider short dose of pred if needed would like to avoid as he is a diabeticLo w suspicion for PNA as no longer dyspnoeic and no fever. Allergic rhinitis 394766 04 J30.9 [id number] Mary Robledo Main Office [address] [facility] [place] [address] 09/02/2021 08:56:31 09/02/2021 09:50:31 Hyperlipidemia 21495624 E78.5 Body mass index 30+ - obesity 677852095 Z68.32 s/p bariatric surgery with bypass Adult heal th examination 425992245 Z00.00 Patient was counseled on healthy diet, exercise and nutrition due to Body mass index is 32.7 kg/m? ? ?. Last PSADate: 08/31/21Res ult: 2.4Plan: cont to monitor Last Colonoscop y:Date:Res ult:Plan: due referral provided. Vaccines:T dAP: 18shin grix: Notes had first dose.PCV20 : Will provide at [id number]: 11/16/06Inf luenza: not in seasonCovi d: 07/18/20, 08/15/20, booster advised. Routine labs today reviewed Immunizati on status reviewed. Will screen based on risk factors. Regular dental and ophtho care advised as well as seat belt and sunscreen use. Distracted driving discussed. Medication reconciled . Varicella vaccination 68 696036 Z23 Screening for malignant neoplasm of colon 144211728 Z12.11 Cardiomyopathy 15987914 I42.[address] Lantigua Chronic ki dney disease due to type 2 diabetes mellitus 1360695260 [address] Estevez per YrubUFD2J u2hrakxo done faxed on endoOn ACENot on ASA due to hx of multiple bruise.Fee t checked today, advised to clip own toe nails and check regularly. Ophthalmol ogy exam done for this year.Follo wing RenalLipid profile orderedCou nselled about regular physical activityCo unselled on dietPatien t advised regarding risks/sign s/symptoms of hypoglycem ia. Counseled to carry a snack in case of emergencie sPneumonia vax up to date. Chronic ki dney disease stage 3A 763171507 N18.[address] Nelosn Hypertensi ve renal disease 43704689 I12.9 Low sodium diet discussedC ounseled on medication adherenceC ounseled on diet/exerc iseAdvised to keep BP daily BP log and technique counseled. Red flags of HTN emergency discussed and when to go to ED. Obesity 342749053 E66.9 s/p bariatric surgery with bypass [id number] Néstor Jarquin MD Main Office [address] [place] [address] 06/02/2022 13:47:48 06/02/2022 14:56:40 Hypertensive renal disease 84357084 I12.9 Low sodium diet discussedC ounseled on medication adherence - working on restarting meds, otherwise asymptomat ic.[employer] Consultant ed on diet/exerc iseAdvised to keep BP daily BP log and technique counseled. Red flags of HTN emergency discussed and when to go to ED. Chronic ki dney disease stage 3A 216240717 N18.[address] Nelson Cardiomyopathy 56039627 I42.[address] Lantigua Chronic ki dney disease due to type 2 diabetes mellitus 4482960568 [address] Estevez per YsegVRC7A e4qvrniu done by Judy Patel on ASAFeet check by endoOphtha lmology exam done for this year.Follo wing RenalLipid profile orderedCou nselled about regular physical activityCo unselled on dietPatien t advised regarding risks/sign s/symptoms of hypoglycem ia. Counseled to carry a snack in case of emergencie s Fatigue 77392165 R53.83 Hyperlipidemia 33477975 E78.5 Benign pro static hyperplasia 250747662 N40.1 Dawit has a diagnosis of BPH he follows urology for this and he takes Flomax for this with good outcome. We will check PSA. Peripheral neuropathy due to type 2 diabetes mellitus 3399521420 107 E11.42 Following neurologis t. Asthma 478873649 J45.90 9 Recent increase of inhaler every 2 weeks but not regularly. Anemia due to unknown mechanism 20846333 D64.9 Long-term drug therapy 369223157 Z79.899 Z86.39 Metformin Use Bipolar I disorder 08490 6008 F31.9 Denies homicidal or suicidal Ideation.4 13care given, psychology today advised. Allergic rhinitis 710628 04 J30.9 [id number] Brenna Soria [place] Main Office [address] [facility] [address] [facility] [place] [address] 08/13/2022 15:17:50 08/13/2022 15:19:48 [id number] Néstor Jarquin MD Main Office [address] [facility] [address] [facility] [place] [address] 09/08/2022 12:49:09 09/08/2022 13:46:23 Chronic kidney disease due to type 2 diabetes mellitus 2613523115 [address] Estevez per JihfVXI2E o2rhwvdu Per endo.On ACENot on ASAFeet check done, advised to use own clipperOph thalmology exam done for this year.Follo wing RenalLipid profile done, on statinCoun selled about regular physical activityCo unselled on dietPatien t advised regarding risks/sign s/symptoms of hypoglycem ia. Counseled to carry a snack in case of emergencie s Hypertensi ve renal disease 51276362 I12.9 Cont current regimen. Chronic ki dney disease stage 3A 193978103 N18.[address] Nelson Cardiomyopathy 26540349 I42.[address] Lantigua Fatigue 46411400 R53.83 Peripheral neuropathy due to type 2 diabetes mellitus 3727952058 107 E11.42 Following neurologis t. Asthma 779075461 J45.90 9 Recent increase of inhaler every 2 weeks but not regularly. Bipolar I disorder 30660 6008 F31.9 Denies homicidal or suicidal Ideation.4 13care given, psychology today advised. Adult heal th examination 027651839 Z00.00 Patient was counseled on healthy diet, exercise and nutrition due to Body mass index is 32.7 kg/m? ? ?. Last PSADate: 07/27/22Resu lt: 2.3Plan: cont to monitor per pt. Last Colonoscop y:Date:Res ult:Plan: due has apt coming up per pt. Vaccines:T dAP: 09/24/17Zost er rec: 08/05/2021 , 11/24/2021 PCV20: script givenPPSV2 3: 11/16/06Inf luenza: Yearly flu shot encouraged .Covid: 07/18/20, 08/15/20, 08/15/2020 , bivalent advised. Routine labs today reviewed Immunizati on status reviewed. Will screen based on risk factors. Regular dental and ophtho care advised as well as seat belt and sunscreen use. Distracted driving discussed. Medication reconciled . Obesity 801950919 E66.9 s/p bariatric surgery with bypass Body mass index 30+ - obesity 481327678 Z68.32 s/p bariatric surgery with bypass Ulcerative colitis 36786 004 K51.90 Administra tion of pneumococcal vaccine 90082023 Z23 Xerostomia 43739473 R68. 2 Likely related to med and dm advised bioperine otc mouth will check sjogren ab.JACQUELINE done in 2021 wnl. Candidiasis of mouth 797 02363 B37.0 Will get HIV and start oral rinse. Dental care advised.No recent steroid use. If not better he is aware to let us know Muscle weakness 03939482 M62.81 All lab workup so far wnl will add adolase, advise neuro follow up since he is vickie lizarraga [id number] Néstor Jarquin MD Main Office [address] [place] [address] 10/05/2023 13:42:49 10/05/2023 14:27:41 Bipolar I disorder 624732141 F31.9 Has been stable of meds for many years.Was given resources to mental health provider in past. Cardiomyopathy 70349944 I42.[address] Lantigua Chronic ki dney disease stage 3A 082891874 N18.[address] PurcellAma 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 002678178 E11.39 Mononeurop athy due to type 2 diabetes mellitus 261700143 E11.41 Ulcerative colitis 14501 004 K51.90 Cont follow up with GI Family his tory of malignant neoplasm of prostate 461416518 Z80.42 Follows urology. Hyperglyce stewart due to type 2 diabetes mellitus [address]105310573 [address] Jose Angelo. Spinal cody nosis of lumbar region 03594313 M48.061 Chronic pain syndrome 37 7846878 G89.4 Reviewed the risks and benefits of long-term use of opiate for chronic, non-malign ant pain. Reviewed with patient that retirement opiate use is appropriat e treatment based on current medical condition and patient states that continued benefit is noted. Contract for opiate use is in place. Discussed side effects of opiates. Caution driving, reviewed fall risk, and treatment for constipati on, as well as option to fill in lesser amounts. A Prescripti on for an Opioid has been given to the patient and I have reviewed the patients profile in [facility] Partial fill of RX is possible. Contract. Anemia 417820298 D64.9 Likely related to ACD from . [id number] Néstor Jarquin MD Main Office [address] [address] 01/17/2024 09:54:26 01/17/2024 11:11:54 Influenza vaccination declined 870700740 Z28.21 Body mass index 25-29 - overweight 564335804 E66.3 Z68.25 Continues weight loss on mounjaro. Overweight 422323686 E66 .3 Low back pain 406125693 M54.50 Reduced libido 5951205 R 68.82 Adult heal th examination 529729243 Z00.00 Patient was counseled on healthy diet, exercise and nutrition due to Body mass index is 29.8 kg/m? ? ?. Last PSADate: 07/27/22Resu lt: 2.3Plan: cont to monitor per pt. Last Colonoscop y:Date:Res ult:Plan: notes had recent colo will get records. Vaccines:T dAP: 09/24/17Zost er rec: 08/05/2021 , 11/24/2021 PCV20: script givenPPSV2 3: 11/16/06Inf luenza: Yearly flu shot encouraged .Covid: encourage updated vaccine Routine labs today reviewed Immunizati on status reviewed. Will screen based on risk factors. Regular dental and ophtho care advised as well as seat belt and sunscreen use. Distracted driving discussed. Medication reconciled . Chronic ki dney disease due to type 2 diabetes mellitus [address]10444786 [address] Christianson per DkxhIZX2S q1qsrfte Per endo.On ACENot on ASAFeet check done, advised to use own clipper and check feet regularly. Yearly Ophthalmol ogy exam advisedFol lowing RenalLipid profile ordered, on statinCoun selled about regular physical activityCo unselled on dietPatien t advised regarding risks/sign s/symptoms of hypoglycem ia. Counseled to carry a snack in case of emergencie s Hypertensi ve renal disease 13612629 I12.9 Cont current regimen. Chronic ki dney disease stage 3A 405908268 N18.[address] Nelson Cardiomyopathy 17958765 I42.[address] Lantigua Fatigue 20257216 R53.83 Peripheral neuropathy due to type 2 diabetes mellitus 0281532999 107 E11.42 Following neurologis t. Asthma 674195954 J45.90 9 Bipolar I disorder 49804 6008 F31.9 Denies homicidal or suicidal Ideation.D eclines therapy or to be seen by psych.413c are given, psychology today advised. Ulcerative colitis 19768 004 K51.90 Cont follow up with GI Administra tion of pneumococcal vaccine 27398135 Z23 Xerostomia 29143510 R68. 2 Likely related to med and dm advised bioperine otc mouth will check sjogren ab.JACQUELINE done in 2021 wnl. 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 Screening for malignant neoplasm of colon 408853105 Z12.11 Hyperlipidemia 11391239 E78.5 Z00.00 FASTING Nocturia 666224510 R35.1 Anemia due to unknown mechanism 64259714 D64.9 Health Concerns Section Related Observation LastModified by Organization Detai ls LastModified Time None Recorded Concern Status LastModified by Organization Details LastModified Time None Recorded Advance Directives Directive Y: Payers Encounter Date Sequence Insurance Name Policy Number Policy Palumbo Covered Member ID Palumbo Member ID Guarantor Name 06/02/2022 1 [employer] (MEDICARE REPLACEMENT PPO) [id number] Dawit Ramos [id number] Dawit Ramos 08/13/2022 1 [employer] PPO) [id number] Dawit Keller Richard [id number] Dawit Keller Richard 09/08/2022 1 [employer] (MEDICARE [place]PLAC[place] PPO) [id number] Dawit Ramos [id number] Dawit Keller Richard 10/05/2023 1 [employer] (MEDICARE [place]PLAC[place] PPO) [id number] Dawit Keller Richard [id number] Dawit Keller Richard 01/17/2024 1 [employer] (MEDICARE [place]PLACEMENT PPO) [id number] Dawit Keller Richard [id number] Dawit Keller Richard Notes Date Note Type Note Provider Name and Address Organization Details Recorded Time 06/02/2022 text/html Diabetes F/URepo rted bypatient.Context:no rmal range of home blood sugars (in the low 100s); seeing eye doctor regularly; checking feet regularly Associated Symptoms:no headaches; no confusion; no increased thirst; no increased appetite; no increased urination; no blurred vision; no numbness of feet; no calluses on feetNotes:Followed by Dr. Melendez for diabetes. Has been trying to titrate medication doses. Followed by Dr. nelson for diabetic nephropathy. Stable serum CrHypertension F/UReported bypatient.Associated Symptoms:no dizziness; no lightheadedness; no chest pain; no shortness of breath; no palpitations; no edema; no calf pain with exertion Lifestyle:limiting/a voiding salt;not exercising regularly Medications:no side effects from medication;not taking medications as directed(ran out of meds for 5 weeks now, working on restarting) Here for follow up visit noting multiple chronic conditions including DM2, HTN. Has concern for increasing sagging of skin arms. Followed by cardiology intermittently for non-ischemic cardiomyopathy. No changes in meds. Has not taken ACEI and beta anthony, due to insurance issues working with cards to restart. LVEF has improved. No signs of heart failure. Néstor Jarquin MD [address] [address], [place], [address], [facility] 06/02/2022 14:50:14 09/08/2022 text/html Here for KOMAL coe. Reviewed chronic medications and medical problems. Discussed screening guidelines as well as goals for fitness and weight management. Néstor Jarquin MD [address], [phone], [facility] 09/08/2022 13:51:18 10/05/2023 text/html Diabetes F/URepo rted bypatient.Context:no rmal range of home blood sugars (in the low 100s); seeing eye doctor regularly; checking feet regularly Associated Symptoms:no increased thirst; no increased appetite; no increased urination; no blurred vision; no calluses on feet;numbness of feetNotes:Followed by Dr. Coronado for diabetes. Has been trying to titrate medication doses. Followed by Dr. nelson for diabetic nephropathy. Stable serum CrHypertension F/UReported bypatient.Associated Symptoms:no dizziness; no lightheadedness; no chest pain; no shortness of breath; no palpitations; no edema; no calf pain with exertion Lifestyle:limiting/a voiding salt;not exercising regularly Medications:taking medications as directed; no side effects from medicationPain Management F/UReported bypatient.Location:l ower back bilateral Quality:aching Severity:same Duration:present for >12 months Timing:constant Context:prior back problems; used medication for back pain; had evaluations by back specialist; previous surgery; previous MRI Alleviating Factors:rest; ice; heat; medication; injections; physical therapy Aggravating Factors:movement/pos itioning; bending over; twisting Associated Symptoms:no skin changes; no fever; no swelling;numbness;ti ngling Néstor Jarquin MD [address], [address], [facility] 10/05/2023 17:58:02 01/17/2024 text/html Here for KOMAL finney Reviewed chronic medications and medical problems. Discussed screening guidelines as well as goals for fitness and weight management. Seeing neurologist for neuropathy which has worsened. Néstor Jarquin MD [address], [address], [facility] 01/17/2024 11:01:19
--- OUTSIDE RECORDS SUMMARY | 2024-07-13 11:52 | XMS_ITS | Encounter Summary ---
Author Organization [facility] Address [address] [place] [address] Phone Care Team Providers Care Upholstery Auto Trimmer Name Role Phone Alexandre Jarquin MD Primary Care Provider [phone] Reason for Visit * Reason Comments Med Refill Encounter Details Date Type Department Care Team (Late Contact Info) Description 03/22/2021 Refill [facility] [address] [place] [address] Solis Serrato MD [address] [place] [address] Social History Tobacco Use Types Packs/Day Years Used Date Smoking Tobacco: Never Alcohol Use Standard Drinks/Week Comments No 0 (1 standard drink = 0.6 oz pur e alcohol) Sex and Gender Information Value Date Recorded Sex Assigned at Not on file Legal Sex Male 4:33 PM EST Gender Identity Not on file Sexual Orientation Not on file documented as of this encounter Plan of Treatment Upcoming Encounters Date Type Department Care Team (Late Contact Info) Description 10/08/2024 3:45 PM EDT Office Visit [facility], [address] [place] [address] Solis Serrato MD [address] [place] [place] [address] documented as of this encounter Visit Diagnoses Not on filedocumented in this encounter Care Teams Upholstery Auto Trimmer Relationship Specialty Start Date End Date Alexandre Jarquin MD [address] [address] PCP - General Family Medicine 05/18/21 documented as of this encounter
--- OUTSIDE RECORDS SUMMARY | 2024-07-13 11:52 | XMS_ITS | Encounter Summary ---
Author Organization [facility], Address [address] [address] [place] [address] Phone Care Team Providers Care Picking Table Worker Name Role Phone Alexandre Jarquin MD Primary Care Provider [phone] Reason for Visit * Reason Comments Med Refill Encounter Details Date Type Department Care Team (Late Contact Info) Description 09/03/2020 Refill [facility] [address] [place] [phone] Jeancarlos Corea MD Social History Tobacco Use Types Packs/Day Years [...] Upcoming Encounters Date Type Department Care Team ([facility] Contact Info) Description 10/08/2024 3:45 PM EDT Office Visit [facility] [place], [address] [place] [address] Solis Serrato MD [address] [facility] [address] [facility] [place] [address] documented as of this encounter Visit Diagnoses Not on filedocumented in this encounter Care Teams Picking Table Worker Relationship Specialty Start Date End Date Alexandre Jarquin MD [address] [phone] PCP - General Family Medicine 05/18/21 documented as of this encounter
--- OUTSIDE RECORDS SUMMARY | 2024-07-13 11:52 | XMS_ITS | Clinical Summary ---
Demographics Address [address] [place] [address] Home Phone Mobile Phone Preferred Language en Marital Status Christian Affiliation Unknown Race Unknown Ethnic Group or Author Organization [facility] Address [address] [place] [address] Care Team Providers Care Explosive Ordnance Manager Name Role Phone Unavailable Primary Care Provider Unavailabl e Social History Tobacco Use Types Packs/Day Years Used Date Smoking Tobacco: Never Assessed Sex and Gender Information Value Date Recorded Sex Assigned at Not on file Legal Sex Male 4:55 AM EST Gender Identity Not on file Sexual Orientation Not on file Plan of Treatment Health Maintenance Due Date Last Done Comments DTaP,Tdap,and Td Vaccines (1 - Tdap) 05/26/1979 Pneumococcal Vaccine: 50+ Ye ars (1 of 1 - PCV) 2010 Zoster Vaccines (1 of 2) 2010 Cholesterol Screening (Lipid Panel) 02/21/2022 Colorectal Cancer Screening: Colonoscopy 02/21/2022 Depression Screening 02/21/2022 HIV Screening 02/21/2022 Hepatitis C Screening 02/21/2022 Social Influencers of Health Screening 02/21/2022 COVID-19 Vaccine ( - 2023-2 5 season) 2023 Influenza Vaccine (Season Ended) 2024 RSV Immunization Adult Patie nts (1 - 1-dose 75+ series) 05/26/2035 HIB Vaccines Aged Out No longer eligi [...] on patient's age to complete this topic MMR Vaccines Aged Out No longer eligi ble based on patient's age to complete this topic Meningococcal ACWY Vaccine Aged Out N o longer eligible based on patient's age to complete this topic Meningococcal B Vaccine Aged Out No l onger eligible based on patient's age to complete this topic Pneumococcal Vaccine: Pediat rics (0 to 5 Years) and At-Risk Patients (6 to 64 Years) Aged Out No longer eligible b ased on patient's age to complete this topic RSV Immunization Patients Un carol 20 months Aged Out No longer eligible b ased on patient's age to complete this topic Varicella Vaccines Aged Out No longer eligible based on patient's age to complete this topic Advance Directives Documents on File Type Date Recorded Patient Punch Operator Expl anation Health Care Decision (hx) 02/25/2014 AD GUAJARDO DIRECTIVE Health Care Decision (hx) 02/25/2014 AD GUAJARDO DIRECTIVE Health Care Decision (hx) 02/25/2014 AD GUAJARDO DIRECTIVE Health Care Decision (hx) 02/25/2014 AD GUAJARDO DIRECTIVE Health Care Decision (hx) 02/25/2014 AD GUAJARDO DIRECTIVE Health Care Decision (hx) 02/25/2014 AD GUAJARDO DIRECTIVE Health Care Decision (hx) 02/25/2014 AD GUAJARDO DIRECTIVE Health Care Decision (hx) 02/25/2014 AD GUAJARDO DIRECTIVE Health Care Decision (hx) 02/25/2014 AD GUAJARDO DIRECTIVE Health Care Decision (hx) 02/25/2014 AD GUAJARDO DIRECTIVE Health Care Decision (hx) 02/25/2014 AD GUAJARDO DIRECTIVE Health Care Decision (hx) 02/25/2014 AD GUAJARDO DIRECTIVE Health Care Decision (hx) 02/25/2014 AD GUAJARDO DIRECTIVE Health Care Decision (hx) 02/25/2014 AD GUAJARDO DIRECTIVE Health Care Decision (hx) 09/26/2012 AD GUAJARDO DIRECTIVE Health Care Decision (hx) 09/26/2012 AD GUAJARDO DIRECTIVE Health Care Decision (hx) 09/26/2012 AD GUAJARDO DIRECTIVE Health Care Decision (hx) 09/26/2012 AD GUAJARDO DIRECTIVE Health Care Decision (hx) 09/26/2012 AD GUAJARDO DIRECTIVE Health Care Decision (hx) 09/26/2012 AD GUAJARDO DIRECTIVE Health Care Decision (hx) 09/26/2012 AD GUAJARDO DIRECTIVE Health Care Decision (hx) 09/26/2012 AD GUAJARDO DIRECTIVE Health Care Decision (hx) 09/26/2012 AD GUAJARDO DIRECTIVE Health Care Decision (hx) 09/26/2012 AD GUAJARDO DIRECTIVE Health Care Decision (hx) 09/26/2012 AD GUAJARDO DIRECTIVE Health Care Decision (hx) 09/26/2012 AD GUAJARDO DIRECTIVE Health Care Decision (hx) 09/26/2012 AD GUAJARDO DIRECTIVE Health Care Decision (hx) 09/26/2012 AD GUAJARDO DIRECTIVE Health Care Decision (hx) 12/17/2011 AD GUAJARDO DIRECTIVE Health Care Decision (hx) 12/17/2011 AD GUAJARDO DIRECTIVE Health Care Decision (hx) 12/17/2011 AD GUAJARDO DIRECTIVE Health Care Decision (hx) 12/17/2011 AD GUAJARDO DIRECTIVE Health Care Decision (hx) 12/17/2011 AD GUAJARDO DIRECTIVE Health Care Decision (hx) 12/17/2011 AD GUAJARDO DIRECTIVE Health Care Decision (hx) 12/17/2011 AD GUAJARDO DIRECTIVE Health Care Decision (hx) 12/17/2011 AD GUAJARDO DIRECTIVE Health Care Decision (hx) 12/17/2011 AD GUAJARDO DIRECTIVE Health Care Decision (hx) 12/17/2011 AD GUAJARDO DIRECTIVE Health Care Decision (hx) 12/17/2011 AD GUAJARDO DIRECTIVE Health Care Decision (hx) 12/17/2011 AD GUAJARDO DIRECTIVE Health Care Decision (hx) 12/17/2011 AD GUAJARDO DIRECTIVE Health Care Decision (hx) 12/17/2011 AD GUAJARDO DIRECTIVE
== END 2024-07-13 11:33 | disposition home or self-care (01) ==
LOC: HO.ENCR 11:03
PROVIDERS: PCP Internal Medicine; Visit Provider Physician Assistant
DX: E11.8 Type 2 diabetes mellitus with unspecified complications (principal); Z79.4 Long term (current) use of insulin; E11.22 Type 2 diabetes mellitus with diabetic chronic kidney disease; N18.30 Chronic kidney disease, stage 3 unspecified; E11.42 Type 2 diabetes mellitus with diabetic polyneuropathy; E78.00 Pure hypercholesterolemia, unspecified; I10 Essential (primary) hypertension; Z13.9 Encounter for screening, unspecified

== ENCOUNTER 2024-11-12 11:00 | Outpatient (REF) | payer MEDICARE, SELFPAY ==
[2024-11-12 12:43] LABS: Alanine Aminotransferase 31 U/L (0-40); Albumin Level 4.6 g/dL (3.5-5.0); Alkaline Phosphatase 50 U/L (39-117); Anion Gap 10 (12-20); Aspartate Amino Transferase 26 U/L (5-37); Blood Urea Nitrogen 34 mg/dL (9-16); Calcium 9.8 mg/dL (8.4-10.2); Carbon Dioxide 29 mmol/L (22-29); Chloride 106 mmol/L (96-108); Cholesterol 171 mg/dL (<200); Estimated Glomerular Filt Rate 46; HDL Cholesterol 30 mg/dL (>40); Potassium 3.4 mmol/L (3.3-5.1); Sodium 142 mmol/L (135-145); Total Protein 7.3 g/dL (6.5-8.0); Triglycerides 113 mg/dL (<150)
[2024-11-12 12:53] LABS: Microalbum/Creatinine Ratio Ur 55.3 ug/mg cr (<30)
== END 2024-11-12 11:01 | disposition home or self-care (01) ==
LOC: HO.LAB 11:00
PROVIDERS: PCP Family Medicine; Visit Provider Physician Assistant
DX: I12.9 Hypertensive chronic kidney disease with stage 1 through stage 4 chronic kidney disease, or unspecified chronic kidney disease (principal); E11.22 Type 2 diabetes mellitus with diabetic chronic kidney disease; E11.42 Type 2 diabetes mellitus with diabetic polyneuropathy; N18.30 Chronic kidney disease, stage 3 unspecified; E78.00 Pure hypercholesterolemia, unspecified; Z79.4 Long term (current) use of insulin; Z79.85 Long-term (current) use of injectable non-insulin antidiabetic drugs
CPT/HCPCS: 36415; 80053; 80061; 82043; 82570; 82947; 83036; 99212

== ENCOUNTER 2024-11-12 11:00 | Outpatient (AMB) | payer MEDICARE, SELFPAY ==
--- NOTE | 2024-11-12 11:01 | A.OFFVIS_ITS ---
Vital Signs 11/12/24 11:02 Height 5 ft 7 in Weight 158 lb 11.725 oz BMI 24.9 BP 142/70 H Blood Pressure Location Lt brachial Position Sitting Pulse 66 Pulse Source Pulse Oximeter Pulse Oximetry (%) 98 Oxygen Delivery Method Room Air Intake Visit Reasons: T2DM Intake Note: Patient present today for Type 2 Diabetes Mellitus Last Diabetic eye exam: 05/2024 Last Podiatry Visit: Doesn't have one Random Glucose: 146 mg/dl HgA1C: 6.7% Director [employer] Required: No Accompanied by: Self / Same As Patient Allergies acetaminophen (From Percocet) Allergy (Intermediate, Verified 11/12/24 11:09) Difficulty Breathing oxycodone (From Percocet) Allergy (Intermediate, Verified 11/12/24 11:09) Difficulty Breathing Medication List - Last Reconciled 11/12/24 by Terri Lanier PA-C amitriptyline 50 mg PO BEDTIME blood-glucose sensor (TimelinerStyle Max 3 Sensor device) USE DIRECTED TO TEST BLOOD SUGAR. CHANGE EVERY 14 DAYS blood-glucose,yarding supervisor,cont (FreeStyle Max 3 [place]) As directed coenzyme Q15-zjkzjje E 100-100 mg-unit caps PO izgklbyxmkox-tjnuiccpwju-kucrp 1,000-200 mcg (Celebrate B-12 Quick-Melt) tabs PO diltiazem HCl ER 300 mg PO DAILY diltiazem HCl ER (Tiadylt ER) 300 mg PO DAILY fenofibrate 160 mg PO DAILY gabapentin 600 mg PO TID insulin degludec (Tresiba FlexTouch U-200 insulin) 10 units subcut BEDTIME lisinopril 40 mg PO DAILY metoprolol succinate ER 100 mg PO DAILY pen needle, diabetic (Comfort EZ Pen [place]) As directed injects 4 times a day saw palmetto 450 mg PO BID spironolactone 25 mg PO DAILY tirzepatide (Mounjaro) 7.5 mg (0.5 mL) subcut QWEEK tramadol-acetaminophen 37.5-325 mg 1 tab PO BID PRN vitamin B complex 1 cap PO DAILY HPI HPI T2DM: Details: Pt is a 64 y/o male who presents today for a DM follow up. He has a hx of htn, cardiomyopathy, hyperlipidemia, ckd, microalbuminuria, peripheral neuropathy and insomnia. Endo: A1c most recently was 6.1 and today it is 6.7. He is currently on Tresiba 8 units, Mounjaro 7.5 mg. he states he is tolerating his medications. He has had a 25 lb weight loss with the Mounjaro but states that he has been working on this and wanted this. He feels that this is the right dose for him. Normally he is off of the tresiba but recently restarted on 8 units of Tresiba because he has had to temporarily hold the Mounjaro for back procedure on 11/22. He currently is suffering from a right drop foot. -he stopped farxiga months ago and does not want to be on it. he stopped it due to issues with supply. CGM-Max 3 download shows GMI 6.7%, variability 26%. Very high 1%, high 14%, 85% in range. No hypoglycemic events. Hypoglycemia-rare. Treats it with orange juice. has glucose tabs as well. Hyperglycemia- states that he will get thirsty but has no sx usually. Complications- CKD, microalbuminuria, peripheral neuropathy, denies known vision problems but states he wears glasses. No known retinopathy. Nephro: he follows with Nephrology, Dr. Serrato. Follows annually. CV: Blood pressure today in the office is 142/70. He is on spironolactone 25 mg, metoprolol 200 mg, lisinopril 40 mg, diltiazem 300 mg. His last cholesterol was not at goal. he states he does not want any statins right now and did not tolerate crestor or atorvastatin. his hand bulldozer is Dr. Cee and sees him annually. Recent echo, per pt, shows stable/improved. Neuro: follows with neurology for peripheral neuropathy thought to be related to dm and on gabapentin. [facility] Medical History (Updated 11/07/23 @ 09:06 by Terri Lanier PA-C) Hyperlipidemia Surgical History H/O lateral meniscus repair of left knee H/O umbilical hernia repair History of Tony-en-Y gastric bypass History of cervical discectomy History of lumbar fusion H/O microdiscectomy Family History Mother Asthma Father Diabetes Prostate cancer Social History Alcohol intake: never Patient Tobacco Use Status: Never used Tobacco Physical Exam Vital Signs: Last Vital Signs Pulse 66 11/12/24 11:02 BP 142/70 H 11/12/24 11:02 Pulse Ox 98 11/12/24 11:02 Oxygen Delivery Method Room Air 11/12/24 11:02 BMI result Body Mass Index 24.9 Const Orientation/consciousness: patient oriented x3 Neck Neck: Yes no lymphadenopathy Thyroid: Thyroid normal Carotids: no bruits Resp Auscultation: clear to auscultation bilaterally Cardio Rate: regular rate Rhythm: regular rhythm Heart sounds: S1 normal heart sound present and S2 normal heart sound present Peripheral pulses: dorsalis pedis present Neuro General: patient oriented x3, gait normal and no focal motor deficits Extrem Other: Monofilament sensation diminished on the right. Intact on the left. Right drop foot noted. Skin intact. 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 Advised to complete labs. (2) HTN (hypertension): Code(s): I10 - Essential (primary) hypertension Category: Medical Qualifiers: Hypertension type: primary hypertension Qualified Code(s): I10 - Essential (primary) hypertension Plan: We will continue to monitor. Last blood pressures were normal. (3) CKD stage 3 due to type 2 diabetes mellitus: Code(s): E11.22 - Type 2 diabetes mellitus with diabetic chronic kidney disease; N18.30 - Chronic kidney disease, stage 3 unspecified Category: Medical Plan: Labs ordered. We will follow up pending test results. Orders: Orders Lipid Panel Today E11.21 - Type 2 diabetes mellitus with diabetic nephropathy, E11.22 - Type 2 diabetes mellitus with diabetic chronic kidney disease, E78.00 - Pure hypercholesterolemia, unspecified, I10 - Essential (primary) hypertension, N18.30 - Chronic kidney disease, stage 3 unspecified AMB Hemoglobin A1c Today E11.21 - Type 2 diabetes mellitus with diabetic nephropathy, Z13.9 - Encounter for screening, unspecified Comprehensive [place]. Panel Fast Today E11.21 - Type 2 diabetes mellitus with diabetic nephropathy, E11.22 - Type 2 diabetes mellitus with diabetic chronic kidney disease, E78.00 - Pure hypercholesterolemia, unspecified, I10 - Essential (primary) hypertension, N18.30 - Chronic kidney disease, stage 3 unspecified Microalbumin, Random (w Creat) Today E11.21 - Type 2 diabetes mellitus with diabetic nephropathy, E11.22 - Type 2 diabetes mellitus with diabetic chronic kidney disease, E78.00 - Pure hypercholesterolemia, unspecified, I10 - Essential (primary) hypertension, N18.30 - Chronic kidney disease, stage 3 unspecified Coding Level of Care Code Est Pt Level 4 (16542) Complex EM visit Add On G2211 Diagnoses 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
[2024-11-12 11:02] VITALS: BP 142/70; PULSE 66; O2SAT 98; BMI 24.9
[2024-11-12 11:18] LABS: Glucose, Whole Blood 146 mg/dL (60-115)
--- OUTSIDE RECORDS SUMMARY | 2024-11-12 12:20 | XMS_ITS | Clinical Summary ---
Author Organization [facility] Address [address] [place] [id number] Phone Care Team Providers Care Adjunct Spanish Instructor Name Role Phone Alexandre Jarquin MD Primary Care Provider [phone] Allergies No known active allergies Medications dilTIAZem (CARDIZEM CD) 300 MG 24 hr capsule Take 1 capsule by mouth daily. Active traMADol-acetami nophen (ULTRACET) 37.5-325 mg per tablet Take 2 tablets by mouth every 6 (six) hours as needed. Active metoprolol succinate (TOPROL-XL) 200 MG 24 hr tablet Take 1 tablet by mouth daily. Active lisinopril (PRINIVIL,ZESTRI L) 40 MG tablet Take 1 tablet by mouth daily. Active glipiZIDE (GLUCOTROL) 5 MG 24 hr tablet Take 1 tablet by mouth daily. Active MULTIVIT-MIN/FA/ LYCOPEN/LUTEIN (MEN 50 PLUS MULTIVITAMIN ORAL) 1 tablet po daily Ac tive blood sugar diagnostic Strp strips OneTouch Verio strips Active terazosin (HYTRIN) 5 MG capsule Take 1 capsule every day by oral route for 90 days. Active montelukast (SINGULAIR) 10 mg tablet montelukast 10 mg tablet Active ferrous gluconate 256 mg (28 mg elemental) Tab Take 240 mg by mouth 2 (two) times a day with meals. Active baclofen (LIORESAL) 20 MG tablet Take 20 mg by mouth 2 (two) times a day as needed. Active omeprazole (PRILOSEC) 20 MG capsule Take 20 mg by mouth daily. Active spironolactone (ALDACTONE) 25 MG tablet Take 25 mg by mouth daily. Active insulin syringe-needle U-100 0.3 mL 31 gauge x 15/64 SyrgIndications: Type 2 diabetes mellitus with stage 3 chronic kidney disease, with long-term current use of insulin,Type 2 diabetes mellitus with diabetic mononeuropathy, with long-term current use of insulin 1 each by Miscellaneous route 2 (two) times a day. 100 Syringe 11 10/26/19 20 Active cyanocobalamin, vitamin B-12, 1000 MCG tablet Take 1 tablet by mouth. Active sildenafiL (VIAGRA) 50 mg tablet sildenafil 50 mg tablet TAKE ONE TABLET BY MOUTH EVERY DAY DIRECTED Active fenofibrate (LOFIBRA) 160 MG tablet 04/20/19 21 Active saw palmetto 450 mg Cap Take by mouth. Activ e ASHWAGANDHA ROOT EXTRACT ORALIndications: anxiaty ans stress relief Take by mouth. Indications: anxiaty ans stress relief Active BITTER MELON EXTRACT, BULK, MISC by Miscellaneous route. Active coenzyme Q10 100 mg capsule Take 300 mg by mouth daily. Active oxyCODONE 5 MG immediate release tablet 06/13/19 21 Active tamsulosin (FLOMAX) 0.4 mg Cap 07/15/19 21 Active gabapentin (NEURONTIN) 300 MG capsuleIndicatio ns:Type 2 diabetes mellitus with diabetic mononeuropathy, with long-term current use of insulin TAKE 2 CAPSULES TWICE A DAY 360 capsule 3 10/07/19 21 Active vit B complex 100 combo no.2 (B-100 COMPLEX) 100 mg TbER daily. Active multivitamin-min -iron-FA-vit K (BARIATRIC MULTIVITAMINS) 45 mg iron- 800 mcg-120 mcg Cap Bariatric Multivitamins 2 capsules po daily Active calcium qor-fko-Z7-Zn-co p-mdadison (CALCIUM CITRATE PLUS) 162-21-151-3.75 mx-iq-rsey-mg Tab Calcium Citrate Plus 250 mg-40 mg-125 unit-3.75 mg tablet Take 1 tablet twice a day by oral route. Active cephalexin (KEFLEX) 500 MG capsule TAKE 1 CAPSULE BY MOUTH 4 TIMES A DAY FOR 7 DAYS 09/16/19 21 Active insulin NPH-insulin regular (NOVOLIN 70/30 U-100 INSULIN) 100 unit/mL (70-30) injection vial Novolin 70/30 U-100 Insulin 100 unit/mL subcutaneous suspension Inject 45 units twice a day by subcutaneous route as directed. Active insulin regular (HUMULIN-R,NOVOL IN-R) 100 unit/mL injection Novolin R Regular U-100 Insulin 100 unit/mL injection solution use 3 times daily with sliding scale Active atorvastatin (LIPITOR) 10 MG tablet Take 10 mg by mouth daily. 10/28/19 21 Active melatonin 10 mg Tab daily. Active insulin syringe-needle U-100 0.5 mL 31 gauge x 08/03 SyrgIndications: Type 2 diabetes mellitus with diabetic mononeuropathy, with long-term current use of insulin,Type 2 diabetes mellitus with stage 3 chronic kidney disease, with long-term current use of insulin, unspecified whether stage 3a or 3b CKD 1 each by Miscellaneous route 3 (three) times a day before meals. 300 each 3 03/31/19 23 Active ezetimibe (ZETIA) 10 mg tabletIndication s:Type 2 diabetes mellitus with stage 3 chronic kidney disease, with long-term current use of insulin,Type 2 diabetes mellitus with diabetic mononeuropathy, with long-term current use of insulin TAKE 1 TABLET BY MOUTH EVERY DAY 90 tablet 1 07/12/19 24 Active Active Problems Problem Noted Date Diagnosed Date Hypertension 06/16/2017 Assessment & Plan (10/07/2021 10:39 AM EDT): Blood pressure is in good control today Continues on ACEi Follows up with Dr. Corea for CKD Attention to blood pressure and blood sugar control is important in supporting kidney health and reduce progression of diabetic renal disease Assessment & Plan (12/04/2020 12:57 PM EDT): Blood pressure is in good control today Continues on ACEi Follows up with Dr. Corea for CKD Attention to blood pressure and blood sugar control is important in supporting kidney health and reduce progression of diabetic renal disease Assessment & Plan (06/05/2020 10:42 PM EDT): Continues on ACEi Follows up with Dr. Corea for CKD Attention to blood pressure and blood sugar control is important in supporting kidney health and reduce progression of diabetic renal disease Assessment & Plan (06/19/2019 9:44 AM EDT): Continues on ACEi Follows up with Dr. Corea for CKD Attention to blood pressure and blood sugar control is important in supporting kidney health and reduce progression of diabetic renal disease Assessment & Plan (07/14/2018 2:57 PM EDT): Well controlled blood pressure Continues on ACEi Assessment & Plan (01/13/2018 4:16 PM EDT): Continues with very well controlled blood pressure on current regimen which includes ACEi Assessment & Plan (09/27/2017 2:46 PM EDT): Very well controlled blood pressure on current therapy which includes ACEi Assessment & Plan (06/16/2017 5:35 PM EDT): Blood pressure well controlled on current antihypertensive regimen which includes ACEI Obesity with body mass index 30 or greater 06/16 Assessment & Plan (10/07/2021 10:42 AM EDT): Continues with healthy eating Activity is reduced due to back/neck arthritis/pain Insulin based therapy with NPH and PERALTA unfortunately promotes weight gain, although other antihyperglycemic agents might be helpful for weight loss, Dawit has limited access to these due to cost. Assessment & Plan (06/05/2020 10:53 PM EDT): Continues with healthy eating Activity is reduced due to back/neck arthritis/pain Insulin based therapy with NPH and PERALTA unfortunately promotes weight gain, although other antihyperglycemic agents might be helpful for weight loss, Dawit has limited access to these due to cost Assessment & Plan (07/14/2018 2:56 PM EDT): Dawit has a very healthy diet, his exercise has decreased due to gym fees/cost however he has lost ~10lb since our last visit last fall Assessment & Plan (01/13/2018 4:14 PM EDT): Weight has been stable with BMI 32 Dawit is motivated to stay active but is periodically unable to due to back pain Healthy diet encouaraged Assessment & Plan (09/27/2017 2:47 PM EDT): Weight has been stable, BMI remains around 32 Hyperlipidemia 06/16/2017 Assessment & Plan (10/07/2021 10:41 AM EDT): Continues on moderate intensity statin therapy + zetia No recent lipid panel available for review but reports that he is up to date Assessment & Plan (12/04/2020 12:56 PM EDT): Currently on moderate intensity statin therapy + zetia No recent lipid panel available for review but reports that he is up to date Assessment & Plan (06/05/2020 10:48 PM EDT): Continues on moderate intensity statin therapy + zetia No recent lipid panel available for review but reports that he is up to date Assessment & Plan (06/19/2019 9:43 AM EDT): Statin caused high blood sugar, Dawit stopped this and his blood sugars improved Will trial zetia to provide some lipid lowering benefit hopefully without negative effect on glycemia Assessment & Plan (07/14/2018 3:00 PM EDT): Most recent lipid panel reviewed No longer on statin therapy Assessment & Plan (01/13/2018 4:16 PM EDT): Most recent labs reviewed, LDL at goal Not currently on statin therapy Assessment & Plan (09/27/2017 2:46 PM EDT): Not currently on statin therapy, reports h/o myalgia from simva in the past We discussed that some statins may be better tolerated than others and the overall benefit of statin therapy even though Dawit' LDL is at goal, he has several risk factors for heart disease in addition to his diabetes history Assessment & Plan (06/16/2017 5:39 PM EDT): Reviewed lipid panel from March, TG very high but LDL under excellent control, reports no longer on simva or fibrate Advised continued excellent effort with healthy eating Type 2 diabetes mellitus wit h diabetic mononeuropathy, with long-term current use of insulin 06/16/2017 Assessment & Plan (10/07/2021 11:09 AM EDT): Dawit' glycemic control is not quite as tight as last summer with his recent A1C increased to 8.8% from 7.4%. Tends to snack late into the evening which also corresponds to his pattern of highest sugars. Discussed increasing his 70/30 insulin to 40u twice daily which should overall help is sugars. Additionally recommended taking a modest dose of his R insulin (2-3u) when he finds himself snacking late into the evening. Reviewed hypoglycemia prevention, recognition and management. Dawit is hesitant to stop his PERALTA at present as it is a modest dose. Discussed discontinuing his glipizide if he experiences any hypoglycemia, especially in the setting of CKD3. Also discussed setting his low alarm to 75 or 80 to forewarn of impending low sugars. Discussed improved sugar control would likely help alleviate some of his nightly foot neuropathy. Feet of in good condition upon visual inspection without skin breakdown and well perfused. Encouraged to continue to make healthy diet choices and remain as physically active as tolerates. Encouraged to contact us with any concerns or questions. Dawit prefers to follow up at a later interval of 12 months and will contact us if he has any concerns or questions. Assessment & Plan (12/04/2020 1:02 PM EDT): Had been requiring large amount of insulin in the past due to pain, inflammation, inactivity, now overall lower doses and insulin requirement is lower We discussed dosing adjustments of NPH insulin to reduce hypoglycemia risk Also advised to take a modest dose of Regular insulin at time of late night snack, this will likely help patterns overnight Dawit is given written instructions with new dosing recommendations Using Snugg Homestyle Max 2 CGM, encouraged to continue to evaluate patterns, we discussed reasons for modest discrepancy between interstitial and blood glucose and times when he may anticipate this discrepancy to be more significant Encouraged to reach out to me via gateway or phone with any questions, we will follow up in 3-4 months Assessment & Plan (06/30/2020 9:07 PM EDT): Has been using bitter melon supplement and feels that this is helpful however blood sugars are running high and Dawit is managing this with multiple doses of intermediate insulin daily, likely well over 100u per day We discussed the duration of action of NPH insulin and the risk for hypoglycemia with frequent dosing of this We discussed the benefit of using premix insulin at morning and evening meals and Humulin R insulin for corrections, this insulin choice will allow him to continue to purchase insulin OTC at [facility] for low cost, given instructions on dosing Also we discussed the benefits of CGM and Dawit is provided a Wattblock Max 2 reader and sensor today We will be in touch with Dawit later this week to assess glucose patterns and adjust insulin as needed, he is also encouraged to reach out to us with any questions or concerns Assessment & Plan (06/05/2020 10:58 PM EDT): Dawit is doing well on his current regimen but this is resulting in suboptimal glucose control The only generic antihyperglycemic medication that he is not currently on and which would be affordable to him is pioglitazone, Dawit reports past side effects to this We discussed therapy with an alternative agent, bitter melon, which Dawit can dose up to three times daily; he is made aware that this may cause hypoglycemia when taken in combination with insulin and PERALTA therapy and he is strongly advised to monitor blood sugars, we will help him adjust his insulin and/or PERALTA doses should this occur Optimizing glucose control will help Dawit with healing after surgery, it will also reduce his progression of current diabetes complications namely DPN, retinopathy and CKD; with improved control DPN symptoms may be reduced We will check in with Dawit in 2 weeks to see how he is doing on herbal supplement, he is encouraged to call sooner if any issues, questions or concerns; we will follow up in 6 months Assessment & Plan (06/19/2019 9:49 AM EDT): No change in DPN, this continues to be painful and limits activity Dr. Corea discussed Jardiance with him in the past which would offer cardiovascular benefit and renal protection but this too is cost prohibitive The only other affordable medications in Dawit' current regimen are Metformin and PERALTA regimen, he is consistent with these He has been able to be consistent with Soliqua since he has had support from our office with samples of this, he is made aware that he can stop by for 1-2 pens however our sample supply is not secure at this time, a prescription was sent to the pharmacy and Dawit is advised to do his best with taking this as consistently as he can We discussed dosing adjustments to the above medications as needed based on blood sugar information, Dawit was provided this in writing via gateway AVS Encouraged to call with any questions or concerns Assessment & Plan (07/14/2018 3:09 PM EDT): We discussed changing timing of gabapentin to earlier in evening to address pain that starts prior to his current dosage at bedtime, Dawit will experiment with the timing of this once daily dosage or split dosing at afternoon and bedtime A1c is suboptimal on current regimen, ideally Dawit would have Soliqua dose increased however he cannot afford this medication Dr. Corea discussed Jardiance with him which would offer cardiovascular benefit and renal protection but this too is cost prohibitive The only other affordable medication in addition to Dawit' current Metformin and PERALTA regimen would be addition of Pioglitazone -- I'm unsure whether this is most appropriate given Dawit' history of cardiomyopathy and likely LV dysfunction, he had echo today and will be seeing his administration clerk next week Assessment & Plan (01/13/2018 4:24 PM EDT): Improved DPN symptoms, encouraged to continue current dosing schedule for Gabapentin We discussed likely benefits in pain control and possible reduction of pain flares with PT and/or acupuncture therapy Continues on Soliqua and Metformin, Glipizide should be discontinued to avoid low blood sugars though more recently blood sugars likely elevated due to steroid therapy We discussed adjustment of Soliqua dosing in the future if treated with steroid therapy, injection or oral We did not make any changes to diabetes therapy otherwise Assessment & Plan (09/27/2017 2:43 PM EDT): Continues to have significant pain due to DPN, with improved blood sugars he will likely have some improvement in this We discussed changing timing of Gabapentin to earlier in the evening, this may then be more effective at a time when pain is most bothersome; if he does not see much improvement in the effect from taking this earlier then advised to increase dosage to 600mg and continue once daily Taking Gabapentin earlier may also help with sleep since Gabapentin has sedating side effects, improving sleep quality would likely also help with blood sugar management We made the following adjustments to Dawit' antihyperglycemic medication therapy: D/c glipizide, evidence of hypoglycemia recently and also PERALTA may be contributing to more glucose variability Increase Soliqua to 40u once daily and take this consistently Continue metformin for now--having diarrhea from this so we will work on titrating this down as we optimize Soliqua therapy Assessment & Plan (06/16/2017 5:43 PM EDT): Significant pain due to DPN, this may be from worsened back pain and diabetes combination Poor sleep due to pain is likely contributing to increased insulin resistance Discussed gabapentin therapy, interested in trial and will take in evening which may help not only neuropathic pain but also improve sleep; will need to monitor renal function with respect to dosing Type 2 diabetes mellitus wit h stage 3 chronic kidney disease 06/10/2017 Overview (07/14/2018): DIABETES HISTORY Diagnosis - type 2 diabetes, dx 2003 Treatment history - Metformin, PERALTA; insulin (Lantus and Humalog) in the past, required up to Lantus 300u per day; tried Byetta in the past, was having abd pain; on Soliqua as of July 2016. S/p gastric bypass Feb 2015 Assessment & Plan (10/07/2021 10:43 AM EDT): Follows with Dr. Corea Continues on ACEi Blood pressure is well controlled Unable to view recent labs, reports Dr. Corea states his kidney function is stable. Assessment & Plan (12/04/2020 12:57 PM EDT): Follows with Dr. Corea Continues on ACEi Blood pressure is well controlled Assessment & Plan (06/05/2020 10:43 PM EDT): Follows with Dr. Corea Continues on ACEi Blood pressure is well controlled Assessment & Plan (06/19/2019 9:45 AM EDT): Blood pressure has been historically well controlled, most recent GFR on file, [address] Corea Continues on ACEi Assessment & Plan (07/14/2018 3:02 PM EDT): Blood pressure well controlled, most recent GFR on file, [address] Corea Continues on ACEi Assessment & Plan (01/13/2018 4:22 PM EDT): Blood pressure control is very good, continues on ACEi Assessment & Plan (09/27/2017 2:39 PM EDT): Most recent labs, reviewed today, GFR 67 Blood pressure well controlled On ACEi Assessment & Plan (06/16/2017 5:40 PM EDT): Await pending A1c done today, previous result was 10.4% in March Blood sugar data is variable Discussed optimizing Metformin therapy to 2000mg daily, currently taking 1000mg in morning, will increase gradually Continue ACEI Immunizations Immunization Administration Dates Next Due COVID-19 (Pre-01/10) Moderna Vaccine, mRNA, PF 08/15/2020,07/18/2020,07/18/2020 INFLUENZA, SPLIT VIRUS, TRIVALENT PF 01/21/2014 INFLUENZA, SPLIT VIRUS, TRIV ALENT W/ PRESERVATIVE IM 11/28/2012,01/04/2008,03/13/2007 Influenza Quadrivalent Prese rvative Free IM 12/29/2018,12/10/2017,12/21/2016,02/05,04/02/2015 Pneumococcal polysaccharide PPSV23 11/16/2006, Tdap 09/24/2017,01/04/2008 Family History Medical History Relation Comments Diabetes type II Brother Obesity Brother Amparo-Danlos syndrome Daughter Colon polyps Father Diabetes type II Father Other Father Choledocholithia sis. Prostate cancer Father Coronary artery disease Mother s/p [place] x 4 Diabetes type II Mother Cancer Son testicular cance r Relation Status Comments Brother Daughter Father Mother Son Social History Tobacco Use Types Packs/Day Years Used Date Smoking Tobacco: Never Smokeless Tobacco: Never Alcohol Use Standard Drinks/Week Comments Yes 0 (1 standard drink = 0.6 oz pur e alcohol) rare, holidays Education Answer Date Recorded Are you interested in more education? Not on jovanna e 07/16/2022 Are you concerned about learning? Not on file 07/16/2022 No 07/16/2022 No 07/16/2022 Digital Access Answer Date Recorded No 08/14/2022 No 08/14/2022 Reliable internet access at home? Not on file 08/14/2022 Device with a working camera? Not on file Sex and Gender Information Value Date Recorded Sex Assigned at Male 11/24/2020 8:12 PM EDT Legal Sex Male 10:34 PM EDT Gender Identity Male 11/24/2020 8:12 PM EDT Sexual Orientation Straight 11/24/2020 8: 12 PM EDT Last Filed Vital Signs Vital Sign Reading Time Taken Comments Blood Pressure 110/66 10/07/2021 9:35 AM EDT Pulse 62 10/07/2021 9:35 AM EDT Temperature 36.4 C (97.5 F) 10/07/2021 9:35 AM EDT Respiratory Rate - - Oxygen Saturation 98% 10/07/2021 9:35 AM EDT Inhaled Oxygen Concentration - - Weight 93.9 kg (207 lb) 10/07/2021 9:35 AM EDT Height 170.2 cm (5' 7.01 ) 10/07/2021 9:35 AM ED T Body Mass Index 32.41 10/07/2021 9:35 AM EDT Plan of Treatment Health Maintenance Due Date Last Done Comments BLOOD PRESSURE 1960 DEPRESSION SCREENING 1972 HEPATITIS C SCREENING 1978 HIV ONE-TIME SCREENING (18-65 YEARS) 1978 COLOGUARD 2005 COLONOSCOPY 2005 COLORECTAL CANCER SCREENING 2005 FIT TEST 2005 FOBT 2005 SIGMOIDOSCOPY 2005 VIRTUAL COLONOSCOPY 2005 PNEUMOCOCCAL VACCINES (50+ years) (2 of 2 - PCV) 11/17/2007 11/16/2006, 08/16/2006 RSV VACCINE (1 - Risk 60-74 years 1-dose series) 2020 CREATININE LEVEL 07/30/2021 07/30/2020 POTASSIUM LEVEL 08/31/2022 08/31/2021, 07/30/2020 HEMOGLOBIN A1C 01/27/2023 07/27/2022, 08/19, 10/27/2020, Additional history exists DIABETIC EYE EXAM 03/08/2023 03/08/2022, , 11/21/2018 COVID-19 VACCINE ( season) 2023 08/15/2020, 07/18/2020, 07/18/2020 Adult Td,Tdap Booster 09/25/2027 09/24/2017, 008 SMOKING STATUS SCREENING (Once After 26 Yrs) Completed 10/07/2021 ZOSTER VACCINES Completed 11/24/2021, 08/05/2021 HEPATITIS A VACCINES Aged Out No long er eligible based on patient's age to complete this topic HIB VACCINES Aged Out No longer eligi ble based on patient's age to complete this topic MENINGOCOCCAL VACCINES (ACWY) Aged Out No longer eligible based on patient's age to complete this topic MENINGOCOCCAL VACCINES (B) Aged Out N o longer eligible based on patient's age to complete this topic Medical Devices Not on file Procedures Procedure Name Priority Date/Time Associated Diagnosis Comments OUTSIDE HEMOGLOBIN A1C Routine 07/27/2022 DIABETES EYE EXAM FOR RESULT ENTRY ONLY Routine 03/08/2022 OUTSIDE POTASSIUM LEVEL Routine 08/31/2021 CREATININE Routine 07/30/2020 from Last 3 Months or Most Recently Relevant to Health Maintenance Results * Outside HbA1c (07/27/2022) Hemoglobin A1c - External 7.8 % us Historical Provider MD LAB BLOOD ORDERABLES Bel l Result * DIABETES EYE EXAM FOR RESULT ENTRY ONLY (03/08/2022) EYE EXAM SEE SCANNED REPORT IN MEDIA us Historical Provider HEALTH MAINTENANCE Final Result * Outside Potassium Level (08/31/2021) Potassium level - External 4.8 3.4 - 5.0 mmol/L Historical Provider LAB BLOOD ORDERABLES Bel l Result * Creatinine (07/30/2020) Jeancarlos Corea MD LAB BLOOD ORDERABLES Final Result from Last 3 Months or Most Recently Relevant to Health Maintenance Insurance MEDICARE PPO BLUE REPLACEMENT MEDICARE PPO BLUE REPLACEMENT MEDICARE PPO BLUE REPLACEMENT MEDICARE PPO BLUE REPLACEMENT MEDICARE PPO BLUE REPLACEMENT MEDICARE PPO BLUE REPLACEMENT MEDICARE PPO BLUE REPLACEMENT MEDICARE PPO BLUE REPLACEMENT Care Teams Adjunct Spanish Instructor Relationship Specialty Start Date End Date Alexandre Jarquin MD [id number] [facility] [address] [place] [address] PCP - General Family Medicine 10/07/21 Additional Source Comments The information contained in this document represents components of the legal health record. It is not the complete legal health record.[facility]
--- OUTSIDE RECORDS SUMMARY | 2024-11-12 12:20 | XMS_ITS | Encounter Summary ---
Author Organization [facility], Address [address] [address] [place] [address] Phone Care Team Providers Care Tooling Specialist Name Role Phone Alexandre Jarquin MD Primary Care Provider [phone] Reason for Visit * Reason Comments Med Refill Encounter Details Date Type Department Care Team (Late Contact Info) Description 09/03/2020 Refill [facility] [address] [place] [phone] Jeancarlos Corea MD Social History Tobacco Use [...] Upcoming Encounters Date Type Department Care Team ([facility] Contact Info) Description 10/11/2025 1:45 PM EDT Office Visit [facility], [address] [place] [address] Solis Serrato MD [address] [place] [phone] documented as of this encounter Visit Diagnoses Not on filedocumented in this encounter Care Teams Tooling Specialist Relationship Specialty Start Date End Date Alexadnre Jarquin MD [address] [phone] PCP - General Family Medicine 05/18/21 documented as of this encounter
--- OUTSIDE RECORDS SUMMARY | 2024-11-12 12:20 | XMS_ITS | Clinical Summary ---
Demographics Address [address] [place] [address] Home Phone Mobile Phone Preferred Language en Marital Status Judaism Affiliation Unknown Race Unknown Ethnic Group or Author Organization [facility] Address [address] [place] [address] Care Team Providers Care Radio Antenna Installer Name Role Phone Unavailable Primary Care Provider [...] Panel) 02/21/2022 Colorectal Cancer Screening: Colonoscopy 02/21/2022 HIV Screening 02/21/2022 Hepatitis C Screening 02/21/2022 Social Influencers of Health Screening 02/21/2022 COVID-19 Vaccine (1 - 2023-2 5 season) 2023 Depression Screening 03/21/2024 Influenza Vaccine (#1) 2024 RSV Immunization Adult Patie nts (1 [...] Documents on File Type Date Recorded Patient Maritime Officer Expl anation Health Care Decision (hx) 02/25/2014 [...]
--- OUTSIDE RECORDS SUMMARY | 2024-11-12 12:20 | XMS_ITS | Clinical Summary ---
Demographics Address [address] [place] [address] Home Phone Work Phone Mobile Phone Preferred Language en Marital Status Church Affiliation Unknown Race White Ethnic Group Unknown Author Organization [employer] Address [address] [place] [address] [address] [place] [address] Care Team Providers Care Cork Grinder Name Role Phone Unavailable Primary Care Provider [...] FOBT 1960 Lipid Panel 1960 Sigmoidoscopy 1960 Disability Screening 1960 Alcohol/Substance Use Screening 1972 Tobacco Screening 1972 Pneumococcal Vaccine: 50+ Years (2 of 2 - PCV) 2010 11/16/2006, 08/16/2006 Zoster Vaccines (1 of 2) 2010 COVID-19 Vaccine (3 - season) 2023 08/15/2020, 07/18/2020 Influenza Vaccine (#1) 2024 9, 12/10/2017, 12/21/2016, Additional history exists DTaP/Tdap/Td Vaccines (3 - Td or Tdap) 09/25/2027 09/24/2017, 01/04/2008 RSV Patients and Patients Aged 60 years or older (1 - 1-dose 75+ series) 05/26/2035 HIB [...]
--- OUTSIDE RECORDS SUMMARY | 2024-11-12 12:20 | XMS_ITS | Clinical Summary ---
Demographics Address [address] [place] [address] Home Phone Mobile Phone Preferred Language Lao Marital Status Scientologist Affiliation Unknown Race Unknown Ethnic Group or Author Organization [facility] Address [address] [place] [address] Care Team Providers Care Metallurgy Teacher Name Role Phone Unavailable Primary Care Provider [...] 2024 9, 12/10/2017, 12/21/2016, Additional history exists Pneumococcal [...] Personal/Family Self 1960 [address] [place] [address]
== END 2024-11-12 11:27 | disposition home or self-care (01) ==
PROVIDERS: PCP Internal Medicine; Visit Provider Physician Assistant
DX: E11.21 Type 2 diabetes mellitus with diabetic nephropathy (principal); I10 Essential (primary) hypertension; E11.22 Type 2 diabetes mellitus with diabetic chronic kidney disease; N18.30 Chronic kidney disease, stage 3 unspecified; Z13.9 Encounter for screening, unspecified

== ENCOUNTER 2024-11-16 09:48 | Outpatient (AMB) | payer MEDICARE, SELFPAY ==
--- OUTSIDE RECORDS SUMMARY | 2024-11-12 23:59 | XMS_ITS | Continuity of Care Document ---
Author Organization [facility] Address [address] [place] [address] Care Team Providers Care Manager Employment Name Role Phone Britton HERRERA, Opal [id number] Date(s): 11/05/24 - 11/12/24 [facility] [address] [place], [place] [address] Attending Physician: Oneal Cage MD Referring Physician: Joseph De La Cruz MD Encounter Type: Office Visit Allergies, Adverse Reactions, Alerts Substance Criticality Severity Reaction Reaction Severity Status Percocet 7.5/325 dificulty breathing Active Medications acetaminophen-tramadol 325 mg-37.5 mg oral tablet TAKE 2 TABLETS BY MOUTH 3 TIMES A DAY NEEDED FOR SPINAL STENOSIS Start Date: 11/05/24 Status: Ordered Repeat number: 1 amitriptyline 25 mg oral tablet 25 mg, 1, tablet, By Mouth, Daily, Refills 0, Maintenance, 02/02/22 10:04:00 AM EST, Partial fill upon patient request if the prescription is for a schedule II opioid drug. Start Date: 02/02/22 Status: Ordered Repeat number: 1 B 100 Complex By Mouth, Daily, 0 Refills, Maintenance, 02/10/21 9:48:00 AM EST, Partial fill upon patient requestif the prescription is for a schedule II opioid drug. Start Date: 02/10/21 Status: Ordered Repeat number: 1 CoQ10 300 mg oral capsule 1 capsule = 300 mg, By Mouth, Daily, # 100 capsule, 0 Refills, Maintenance, 09/14/22 9:16:00 AM EDT,Capsule, Partial fill upon patient request if the prescription is for a schedule II opioid drug. Start Date: 09/14/22 Status: Ordered Quantity: 100.0 Unit: capsule Repeat number: 1 ezetimibe 10 mg oral tablet 1 tablet = 10 mg, By Mouth, Daily, # 30 tablet, 0 Refills, Maintenance, 09/24/19 2:42:00 PM EDT, Tablet Start Date: 09/24/19 Status: Ordered Quantity: 30.0 Unit: tablet Repeat number: 1 fenofibrate 160 mg oral tablet 1 tablet, By Mouth, Daily, # 90 tablet, 3 Refills, Maintenance, 03/19/24 8:10:00 AM EST, [id number], 170, cm, 09/14/22 9:52:00 EDT, Height Start Date: 03/19/24 Status: Ordered Quantity: 90.0 Unit: tablet Repeat number: 1 lisinopril 40 mg oral tablet 1 tablet, By Mouth, Daily, # 90 tablet, 1 Refills, Maintenance, 08/14/24 7:41:00 AM EDT, [id number], 170, cm, 07/16/24 10:05:00 EDT, Height Start Date: 08/14/24 Status: Ordered Quantity: 90.0 Unit: tablet Repeat number: 1 melatonin 10 mg oral tablet 1 tablet = 10 mg, By Mouth, Daily at bedtime, PRN as needed for insomnia, # 200 tablet, 0 Refills, Maintenance, 07/16/20 8:45:00 PM EDT, Tablet, Partial fill upon patient request if the prescription is for a schedule II opioid drug. Start Date: 07/16/20 Status: Ordered Quantity: 200.0 Unit: tablet Repeat number: 1 Metoprolol Succinate ER 200 mg oral tablet, extended release 1 tablet = 200 mg, By Mouth, Daily, # 90 tablet, 3 Refills, Maintenance, 04/19/22 3:19:00 PM EST, ERTablet, [id number], 170, cm, 02/02/22 10:01:00 EST, Height, 73.9, kg, 07/16/20 22:08:00 EDT, Dry Weight Start Date: 04/19/22 Stop Date: 04/14/23 Status: Ordered Quantity: 90.0 Unit: tablet Repeat number: 4 Mounjaro 7.5 mg/0.5 mL subcutaneous solution = 7.5 mg, Subcutaneous Injection, Every week, rotate injection sites, # 2 mL, 0 Refills, Maintenance, 11/05/24 9:12:00 AM EDT, Solution, Partial fill upon patient request if the prescription is for a schedule II opioid drug. Start Date: 11/05/24 Status: Ordered Quantity: 2.0 Unit: mL Repeat number: 1 Multivitamin By Mouth, Daily, 0 Refills, Maintenance, 01/24/15 4:07:13 PM EST Start Date: 01/24/15 Status: Ordered Repeat number: 1 saw palmetto 450 mg oral capsule 0 Refills, Maintenance, 07/16/20 8:45:00 PM EDT, Partial fill upon patient request if the prescription is for a schedule II opioid drug. Start Date: 07/16/20 Status: Ordered Repeat number: 1 Tiadylt ER 300 mg/24 hours oral capsule, extended release 1 capsule, By Mouth, Daily, # 90 capsule, 1 Refills, Maintenance, 08/14/24 7:40:00 AM EDT, [id number], 170, cm, 07/16/24 10:05:00 EDT, Height Start Date: 08/14/24 Status: Ordered Quantity: 90.0 Unit: capsule Repeat number: 1 Tresiba FlexTouch 200 units/mL subcutaneous solution = 10 units, Subcutaneous Injection, Daily, rotate injection sites, # 9 mL, 0 Refills, Maintenance, 11/05/24 9:13:00 AM EDT, Solution, Partial fill upon patient request if the prescription is for a schedule II opioid drug. Start Date: 11/05/24 Status: Ordered Quantity: 9.0 Unit: mL Repeat number: 1 Problem List Condition Confirmation Course Effective Dates Status H ealth Status Informant BPH (benign prostatic hyperplasia) Confirmed Active Nonischemic cardiomyopathy Confirmed Active CKD stage 3 secondary to diabetes Confirmed Active Hyperlipidemia Confirmed Active Hypertensive disorder Confirmed Active Intermittent asthma Confirmed Active Peripheral neuropathy Confirmed Active Type 2 diabetes mellitus Confirmed Active Ulcerative colitis Confirmed Active Procedures Procedure Date Related Diagnosis Body Site Status 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 Completed Colonoscopy Completed History of repair of umbilical hernia Completed Social History Social History Type Response Smoking Status Never (less than 100 in lifetime) entered on: 11/05/24 Sex Sex Representation Male (finding) EKG study * Event Display: ECG 12-Lead Authored Date: Please click on pdf link to open report * Event Display: ECG 12-Lead Authored Date: Ventricular Rate: 63 BPM Atrial Rate: 63 BPM P-R Interval: 170 ms QRS Duration: 112 ms Q-T Interval: 398 ms QTC Calculation(Bazett): 407 ms P Fair Play: 57 degrees R Fair [place]: 5 degrees T Fair Play: -67 degrees Normal sinus rhythm Left ventricular hypertrophy with repolarization abnormality Abnormal ECG When compared with ECG of 16-Jul-2020 18:09, Nonspecific T wave abnormality now evident in Inferior leads Confirmed by SSUHMA ALVAREZ MD ([id number]) on 11/05/2024 1:18:19 PM Kelley: SUSHMA ALVAREZ MD Patient Care team information Care Team Personnel Name: Diamante Jackman Position: [facility] Outreach Member Role: Lifetime Consulting Physician Name: Alexandre Jarquin MD Position: Reference Physician Member Role: PCP Address: [address] [place] [address] Telecom: Care Team Related Persons Name: TANYA COTTON Insurance Providers Guarantor name: [employer] Health Plan Information #: 1 Payer: [facility] PPO Payer Identifier: NA Member Number: [id number] Group Number: [id number] Subscriber Identifier: [id number] Relationship to Subscriber: self Coverage Type: Medicare PPO Coverage Verification Date: NA Telecom: NA Address:
[2024-11-16 09:55] VITALS: BMI 24.7
--- NOTE | 2024-11-16 09:55 | A.SPINEOV_ITS ---
Vital Signs 11/16/24 09:55 Height 5 ft 7 in Weight 158 lb BMI 24.7 Intake Visit Reasons: low back pain Intake Note: Mr. Ramos is here today c/o low back pain and right foot drop. Associate Art Director Required: No Allergies acetaminophen (From Percocet) Allergy (Intermediate, Verified 11/12/24 11:09) Difficulty Breathing oxycodone (From Percocet) Allergy (Intermediate, Verified 11/16/24 09:56) Difficulty Breathing Physical Exam Vital Signs: BMI result Body Mass Index 24.7 Assessment & Plan Assessment & Plan (1) Foot drop, right foot: Code(s): M21.371 - Foot drop, right foot Category: Medical Plan Dear colleague Thank you for referring Dawit Ramos to the office today with a chief complaint of right footdrop. HPI: This 60-year-old gentleman is well known to me. I performed cervical and lumbar surgeries on this patient previously. He comes in stating that he developed an acute footdrop approximately 3 months ago. He denies an increase in his known chronic pain. The foot drop is associated with numbness prominently on the top of his foot. The symptoms have not improved. His medical history is positive for diabetes and neuropathy. He is scheduled to undergo a spinal cord stimulator on November 22 at [facility] On exam, there is a complete footdrop (0/0 strength of the dorsiflexors, extensor hallucis longus and eversion). There is numbness over the distal part of the lower leg and top of the foot. Straight leg raise is negative Impression/Plan: I think the drop foot is coming from a dysfunction of the right peroneal nerve in the setting of a patient with diabetes and neuropathy. I do not think it is originating from the spine. I will order an EMG to confirm the diagnosis. I also wrote him a script for an ankle-foot orthosis. He can proceed with a spinal cord stimulator. They will confirm that it is at least an MRI palpable stimulator. Thank you for allowing me to participate in your patients care. total time spent was 35 minutes in counseling ,coordination of plan, personal review of imaging, surgical decision making and subsequent plan Sean Sweet MD, PhD Spine Fellowship Trained Neurosurgeon Director, [facility] Medications: New [AFO] Ankle-foot orthosis, right for acute footdrop 1 ea 0RF Coding Level of Care Code New Pt Level 3 (03721) Diagnoses Foot drop, right foot M21.371
--- OUTSIDE RECORDS SUMMARY | 2024-11-16 10:35 | XMS_ITS | Encounter Summary ---
Demographics Address [address] [place] [address] Home Phone Work Phone Mobile Phone Preferred Language en Marital Status Restorationist Affiliation Unknown Race White Ethnic Group Unknown Author Organization [employer] Address [address] [facility] [address] [place] [address] Care Team Providers Care Artificial Flower Maker Name Role Phone Unavailable Primary Care Provider Unavailabl e Encounter Details Date Type Department Care Team (Latest Contact Info) Description 06/15/2021 Abstract [facility] CONVERSIONS Dental, Provider, DDS Social History Tobacco [...]
--- OUTSIDE RECORDS SUMMARY | 2024-11-16 10:35 | XMS_ITS | Clinical Summary ---
Demographics Address [address] [place] [address] Home Phone Mobile Phone Preferred Language Albanian Marital Status Holiness Affiliation Unknown Race Unknown Ethnic Group or Author Organization [facility] Address [address] [place] [address] Care Team Providers Care Glass Blowing Lathe Operator Name Role Phone Unavailable Primary Care [...] Vaccine (1 of 2) 2010 COVID-19 Vaccine (3 [...] Personal/Family Self 1960 [address] [place] [address]
--- OUTSIDE RECORDS SUMMARY | 2024-11-16 10:35 | XMS_ITS | Encounter Summary ---
Author Organization [facility] [place] [facility], Address [address] [address] [place] [address] Phone Care Team Providers Care Best Worker Name Role Phone Alexandre Jarquin MD Primary Care Provider [phone] Reason for Visit * Reason Comments Med Refill Encounter Details Date Type Department Care Team (Late Contact Info) Description 09/03/2020 Refill [facility] [place] [address] [place] [phone] Jeancarlos Corea MD Social History Tobacco Use [...] Upcoming Encounters Date Type Department Care Team ([facility] Contact Info) Description 10/11/2025 1:45 PM EDT Office Visit [facility] [place], [address] [place] [address] Solis Serrato MD [address] [place] [phone] documented as of this encounter Visit Diagnoses Not on filedocumented in this encounter Care Teams Best Worker Relationship Specialty Start Date End Date Alexandre Jarquin MD [address] [phone] PCP - General Family Medicine 05/18/21 documented as of this encounter
--- OUTSIDE RECORDS SUMMARY | 2024-11-16 10:35 | XMS_ITS | Clinical Summary ---
Demographics Address [address] [place] [address] Home Phone Mobile Phone Preferred Language en Marital Status Latter Day Affiliation Unknown Race Unknown Ethnic Group or Author Organization [facility] ity Address [address] [place] [address] Care Team Providers Care Service Liaison Representative Name Role Phone Unavailable Primary Care Provider [...] Documents on File Type Date Recorded Patient Vocational Ed Instructor Expl anation Health Care Decision (hx) 02/25/2014 [...]
--- OUTSIDE RECORDS SUMMARY | 2024-11-16 10:35 | XMS_ITS | Clinical Summary ---
Demographics Address [address] [place] [address] Home Phone Work Phone Mobile Phone Preferred Language en Marital Status Pentecostal Affiliation Unknown Race White Ethnic Group Unknown Author Organization [employer] Address [address] [place] [address] [address] [place] [address] Care Team Providers Care Button Facing Machine Operator Name Role Phone Unavailable Primary [...]
--- OUTSIDE RECORDS SUMMARY | 2024-11-16 10:35 | XMS_ITS | Encounter Summary ---
Author Organization [facility] Address [address] [place] [address] Phone Care Team Providers Care Exercise Manager Name Role Phone Alexandre Jarquin MD Primary Care Provider [phone] Reason for Visit * Reason Comments Med Refill Encounter Details Date Type Department Care Team (Late Contact Info) Description 03/22/2021 Refill [facility] [address] [place] [address] Solis Serrato MD [address] [place] [address] Social History Tobacco Use Types [...] Department Care Team (Late Contact Info) Description 10/11/2025 1:45 PM EDT Office Visit [facility], [address] [place] [address] Solis Serrato MD [address] [place] [address] documented as of this encounter Visit Diagnoses Not on filedocumented in this encounter Care Teams Exercise Manager Relationship Specialty Start Date End Date Alexandre Jarquin MD [address] [phone] PCP - General Family Medicine 05/18/21 documented as of this encounter
--- OUTSIDE RECORDS SUMMARY | 2024-11-16 10:35 | XMS_ITS | Clinical Summary ---
Author Organization [facility], Address [address] [place] [address] [place] [address] Phone Care Team Providers Care Donations Attendant Name Role Phone Alexandre Jarquin MD Primary Care Provider [phone] Allergies No known active allergies Medications dilTIAZem [...] uropathy 05/18/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 05/18/2021 Encounters Date Type Department Care Team Description 10/08/2024 3:45 PM EDT Office Visit [facility], [address] [place] [address] Solis Serrato MD Type 2 diabetes mellitus with diabetic mononeuropathy (HCC) (Primary Dx); Serum creatinine above reference range; Persistent proteinuria; Nephrolithiasis 09/24/2024 Orders Only [facility], [address] [place] [address] Juliane Black MA Stage 3 chronic kidney disease, not otherwise specified (HCC) (Primary Dx); Renal stone; Type 2 diabetes mellitus with diabetic chronic kidney disease (HCC); Other proteinuria from Last 3 Months Immunizations Immunization Administration Dates Next Due Influenza [...] Sign Reading Time Taken Comments Blood Pressure 120/68 10/08/2024 3:48 PM EDT Pulse - - Temperature - - Respiratory Rate - - Oxygen Saturation - - Inhaled Oxygen Concentration - - Weight 86.2 kg (190 lb) 07/23/2019 9:53 AM EDT Height 172.7 cm (5' 8 ) 02/05/2019 12:00 PM EST Body Mass Index 28.89 02/05/2019 12:00 PM EST Plan of Treatment Upcoming Encounters Date Type Department Care Team (Late st Contact Info) Description 10/11/2025 1:45 PM EDT Office Visit [facility], [address] [place] [address] Solis Serrato MD [address] [place] [address] Health Maintenance Due Date Last Done Comments [...] Cancer Screening: Colonoscopy 10/15/2024 10/15/2014 Influenza Vaccine (#1) 2024 9, 12/10/2017, 12/21/2016, Additional history exists Pneumococcal Vaccine: Peds (0 to 5 Years) and At-Risk Patients (6 to 49 Years) Discontinued 11/16/2006, 08/16/2006 Hepatitis B Vaccine Aged Out No longe r eligible based on patient's age to complete this topic Procedures Procedure Name Priority Date/Time Associated Diagnosis Comments URINE ALBUMIN / CREATININE RATIO Routine 10/30/2024 6:00 AM EDT SODIUM, URINE, 24 HOUR Routine 10/30/2024 6:00 AM EDT Type 2 diabetes mellitus with diabetic mononeuropathy (HCC) Serum creatinine above reference range Persistent proteinuria Nephrolithiasis CITRIC ACID, 24 HR URINE (W/O CREATININE) Routine 10/30/2024 6:00 AM EDT Type 2 diabetes mellitus with diabetic mononeuropathy (HCC) Serum creatinine above reference range Persistent proteinuria Nephrolithiasis CREATININE, URINE, 24 HOUR Routine 10/30/2024 6:00 AM EDT Type 2 diabetes mellitus with diabetic mononeuropathy (HCC) Serum creatinine above reference range Persistent proteinuria Nephrolithiasis URIC ACID, URINE, 24 HOUR Routine 10/30/2024 6:00 AM EDT Type 2 diabetes mellitus with diabetic mononeuropathy (HCC) Serum creatinine above reference range Persistent proteinuria Nephrolithiasis CALCIUM, URINE, 24 HOUR Routine 10/30/2024 6:00 AM EDT Type 2 diabetes mellitus with diabetic mononeuropathy (HCC) Serum creatinine above reference range Persistent proteinuria Nephrolithiasis RENAL FUNCTION PANEL Routine 10/24/2024 10:14 AM EDT Stage 3 chronic kidney disease, not otherwise specified (HCC) Renal stone Type 2 diabetes mellitus with diabetic chronic kidney disease (HCC) Other proteinuria CBC AND DIFFERENTIAL Routine 10/24/2024 10:14 AM EDT Stage 3 chronic kidney disease, not otherwise specified (HCC) Renal stone Type 2 diabetes mellitus with diabetic chronic kidney disease (HCC) Other proteinuria HEMOGLOBIN A1C Routine 08/07/2020 10:28 AM EDT Serum creatinine raised Other proteinuria Essential hypertension from Last 3 Months or Most Recently Relevant to Health Maintenance Results * Citric Acid, 24 HR Urine (w/o Creatinine) (10/30/2024 6:00 AM EDT) Citric Acid, Urine 377 Undefined mg/L [facility] Citric Acid, 24hr Urine 603 320 - 1,240 mg/24 hr [facility] Urine 10/30/2024 6:00 AM EDT 10/30/2024 Narrative [facility] - 11/02/2024 8:06 AM EDT Test(s) 565289-[id number] Acid, Urine was developed and its performance characteristics determined by [facility]. It has not been cleared or approved by the Food and Drug Administration. Solis Serrato MD LAB URINE ORDERABLES Final Result [facility] [place] [address] * Urine Uric Acid, 24 hour (10/30/2024 6:00 AM EDT) URIC ACID, URINE RND 38.9 Not Estab. mg/dL [facility] Uric Acid, 24H Ur 622.4 182.4 - 936.8 mg/24 hr [facility] Urine Urine specimen obtained by clean catch procedure / Unknown 10/30/2024 6:00 AM EDT 10/30/2024 Solis Serrato MD LAB URINE ORDERABLES Final Result Performing Organization Address City/[facility]/ZIP Co de Phone Number [email or web address] [address] [place] [address] * Urine Calcium, 24 hour (10/30/2024 6:00 AM EDT) Calcium, Ur 14.8 Not Estab. mg/dL [facility] Calcium, 24H Urine 237 0 - 320 mg/24 hr [facility] Urine Urine specimen obtained by clean catch procedure / Unknown 10/30/2024 6:00 AM EDT 10/30/2024 Solis Serrato MD LAB URINE ORDERABLES Final Result Performing Organization Address [facility] Co de Phone Number [facility] [address] [place] [address] * Urine Creatinine, 24 hour (10/30/2024 6:00 AM EDT) Creatinine, 24H Ur 1,302 1,000 - 2,000 mg/24 hr [facility] Urine Urine specimen obtained by clean catch procedure / Unknown 10/30/2024 6:00 AM EDT 10/30/2024 Solis Serrato MD LAB URINE ORDERABLES Final Result Performing Organization Address [facility] Co de Phone Number [email or web address] [address] [place] [address] * (ABNORMAL) Urine Albumin / Creatinine Ratio (10/30/2024 6:00 AM EDT) Creatinine, Ur 81.4 Not Estab. mg/dL [facility] Albumin, Urine 58.5 Not Estab. ug/mL [facility] Albumin/Creatin ine Ratio 72(H) 0 - 29 mg/g creat [facility] Comment: Normal: 0 - 29 Moderately increased: 30 - 300 Severely increased: >300 10/30/2024 6:00 AM EDT 10/30/2024 Solis Serrato MD LAB URINE ORDERABLES Final Result Performing Organization Address City/[facility]/ZIP Co de Phone Number [facility] [address] [place] [address] * Urine Sodium, 24 hour (10/30/2024 6:00 AM EDT) Sodium, 24H Ur 132 Not Estab. mmol/L [facility] Sodium, 24H Ur 211 58 - 337 mmol/24 hr [facility] Urine Urine specimen obtained by clean catch procedure / Unknown 10/30/2024 6:00 AM EDT 10/30/2024 Solis Serrato MD LAB URINE ORDERABLES Final Result Performing Organization Address [facility] Co de Phone Number [facility] [address] [place] [address] * (ABNORMAL) CBC and Differential (10/24/2024 10:14 AM EDT) WBC 6.8 3.4 - 10.8 x10E3/uL [facility] RBC 4.21 4.14 - 5.80 x10E6/uL [facility] Hemoglobin 11.9(L) 13.0 - 17.7 g/dL [facility] Hematocrit 36.6(L) 37.5 - 51.0 % [facility] MCV 87 79 - 97 fL [facility] MCH 28.3 26.6 - 33.0 pg [facility] MCHC 32.5 31.5 - 35.7 g/dL [facility] RDW 14.1 11.6 - 15.4 % [facility] Platelets 306 150 - 450 x10E3/uL [facility] Neutrophils Relative 44 Not Estab. % [facility] Lymphocytes Relative 40 Not Estab. % [facility] Monocytes 11 Not Estab. % [facility] Eosinophils Relative 4 Not Estab. % [facility] Basophils Relative 1 Not Estab. % [facility] Neutrophils Absolute 3.0 1.4 - 7.0 x10E3/uL [facility] Lymphocytes Absolute 2.7 0.7 - 3.1 x10E3/uL [facility] Monocytes Absolute 0.8 0.1 - 0.9 x10E3/uL [facility] Eosinophils Absolute 0.3 0.0 - 0.4 x10E3/uL [facility] Basophils Absolute 0.1 0.0 - 0.2 x10E3/uL [facility] Immature Granulocytes 0 Not Estab. % [facility] Immature Grans (Absolute) 0.0 0.0 - 0.1 x10E3/uL [facility] Blood Venous blood / Unknown 10/24/2024 10:14 AM EDT 10/24/2024 us Solis Serrato MD LAB BLOOD ORDERABLES Final Result [facility] [address] [place] [address] * (ABNORMAL) Renal Function Panel (10/24/2024 10:14 AM EDT) Pathologist [facility] Glucose 145(H) 70 - 99 mg/dL [facility] BUN 25 8 - 27 mg/dL [facility] Creatinine 1.67(H) 0.76 - 1.27 mg/dL [facility] eGFR CKD-EPI CR 2020 45(L) >59 mL/min/1.7 3 [facility] BUN/Creatinine Ratio 15 10 - 24 [facility] Sodium 139 134 - 144 mmol/L [facility] Potassium 4.5 3.5 - 5.2 mmol/L [facility] Chloride 101 96 - 106 mmol/L [facility] Bicarbonate (CO2) 22 20 - 29 mmol/L [facility] Calcium 10.0 8.6 - 10.2 mg/dL [facility] Albumin 4.3 3.9 - 4.9 g/dL [facility] Phosphorus 4.0 2.8 - 4.1 mg/dL [facility] Blood Venous blood / Unknown 10/24/2024 10:14 AM EDT 10/24/2024 Solis Serrato MD LAB BLOOD ORDERABLES Final Result [facility] [address] [place] [address] * (ABNORMAL) Hemoglobin A1c (08/07/2020 10:28 AM EDT) Pathologist [facility] Hemoglobin A1C 8.3(H) (4.0-5.6) % [facility] Comment: MONITORING: In known diabetic patients, hemoglobin A1c targets should be discussed with health care provider. DIAGNOSTIC USE: The [place] Diabetes Association (ADA) and the World Health [...] Supplement 1 Testing performed or reported by [facility], a Service of [facility], [address] [place] [id number] Francois Haque MD, Hand Cutter Apprentice Blood specimen (specimen) Venous blood / Unknown 08/07/2020 10:28 AM EDT 08/07/2020 10:29 AM EDT Solis Serrato MD LAB BLOOD ORDERABLES Final Result [facility] from Last 3 Months or Most Recently Relevant to Health Maintenance Insurance [facility] Care Teams Donations Attendant Relationship Specialty Start Date End Date Alexandre Jarquin MD [address] [address] PCP - General Family Medicine 05/18/21
--- OUTSIDE RECORDS SUMMARY | 2024-11-16 10:35 | XMS_ITS | Encounter Summary ---
Demographics Address [address] [place] [address] Home Phone Work Phone Mobile Phone Preferred Language en Marital Status Moravian Affiliation Unknown Race White Ethnic Group Unknown Author Organization [employer] Address [address] [facility] [address] [place] [address] Care Team Providers Care Panama Hat Hydraulic Press Operator Name Role Phone Unavailable Primary Care Provider Unavailabl e Encounter Details Date Type Department Care Team (Latest Contact Info) Description 06/21/2018 Abstract [facility] CONVERSIONS Dental, Provider, DDS Social [...]
== END 2024-11-16 10:31 | disposition home or self-care (01) ==
LOC: HO.HNS 09:48
PROVIDERS: PCP Internal Medicine; Visit Provider Neurological Surgery
DX: M21.371 Foot drop, right foot (principal)
CPT/HCPCS: 99203

== ENCOUNTER → 2024-11-16 09:48 | Outpatient (BNVA) | payer MEDICARE, SELFPAY | PROVIDERS: PCP Internal Medicine; Visit Provider Neurological Surgery | DX: M54.50 Low back pain, unspecified (principal); M21.371 Foot drop, right foot | CPT/HCPCS: 99202 ==

== ENCOUNTER 2024-11-21 13:03 | Outpatient (REF) | payer MEDICARE, SELFPAY ==
--- NOTE | 2024-11-21 13:07 | EMG_ITS ---
Chief complaint: Right footdrop History of lumbar surgery 2 years ago. History of diabetes, diagnosed 2003. Feet numbness noted 10 years ago. Noted right footdrop for the past year. Reason for referral: Evaluate for peroneal neuropathy Referred by: Dr. Sweet Procedure done: Right lower extremity NCS/EMG, comparison with left Precautions and/or limitations: Previous lumbar surgery The limb temperature was monitored continuously and remained between 32-36 degrees C during the performance of the NCS. Nerve Conduction Studies Anti Sensory Summary Table ?Stim Site NR Onset (ms) Norm Onset (ms) Peak (ms) Norm Peak (ms) O-P Amp (?V) Norm O-P Amp Site1 Site2 Delta-0 (ms) Dist (cm) Franko (m/s) Norm Franko (m/s) Left Sural Anti Sensory (Lat Mall) Calf NR <4.0 >5.0 Calf Lat Mall 14.0 Right Sural Anti Sensory (Lat Mall) Calf NR <4.0 >5.0 Calf Lat Mall 14.0 Motor Summary Table ?Stim Site NR Onset (ms) Norm Onset (ms) O-P Amp (mV) Norm O-P Amp iAmp (mV) Amp (1st) (%) Site1 Site2 Delta-0 (ms) Dist (cm) Franko (m/s) Norm Franko (m/s) Left Peroneal Motor (Ext Dig Brev) Ankle ? 5.7 <4.0 1.9 >2.5 2.5 100.0 Ankle Ext Dig Brev 5.7 0.0 B Fib ? 14.1 1.3 1.8 68.4 B Fib Ankle 8.4 31.0 37 >40 Poplt ? 14.8 0.9 1.4 47.4 Poplt B Fib 0.7 4.5 64 >40 Right Peroneal Motor (Ext Dig Brev) Ankle NR <4.0 >2.5 Ankle Ext Dig Brev 0.0 B Fib NR B Fib Ankle 0.0 >40 Poplt NR Poplt B Fib 0.0 >40 Left Tibial Motor (Abd Aviles Brev) Ankle ? 4.1 <5 1.2 >2.5 1.5 100.0 Ankle Abd Aviles Brev 4.1 0.0 Knee ? 13.4 1.8 2.1 150.0 Knee Ankle 9.3 38.0 41 >40 Right Tibial Motor (Abd Aviles Brev) Ankle ? 4.1 <5 1.3 >2.5 1.6 100.0 Ankle Abd Aviles Brev 4.1 0.0 Knee ? 13.8 1.0 1.1 76.9 Knee Ankle 9.7 37.0 38 >40 EMG ?Side Muscle Nerve Root Ins Act Fibs Psw Amp Dur Poly Recrt Int Pat Comment Right AbdHallucis MedPlantar S1-2 Incr 1+ 1+ Nml Nml 0 Nml Complete Right AntTibialis Dp Br Peron L4-5 Incr 1+ 1+ Nml Nml 0 Nml Complete Right PostTibialis Tibial L5, S1 Nml Nml Nml Nml Nml 0 Nml Complete Right MedGastroc Tibial S1-2 Incr 1+ 1+ Nml Nml 0 Nml Complete Right VastusMed Femoral L2-4 Nml Nml Nml Nml Nml 0 Nml Complete Right Peroneus Long Sup Br Peron L5-S1 Nml Nml Nml Nml Nml 0 Nml Complete Right BicepsFemS Sciatic L5-S1 Nml Nml Nml Nml Nml 0 Nml Complete Right GluteusMed SupGluteal L4-S1 Nml Nml Nml Nml Nml 0 Nml Complete Left AbdHallucis MedPlantar S1-2 Incr 1+ 1+ Nml Nml 0 Nml Complete Left AntTibialis Dp Br Peron L4-5 Nml Nml Nml Nml Nml 0 Nml Complete Left PostTibialis Tibial L5, S1 Nml Nml Nml Nml Nml 0 Nml Complete Left MedGastroc Tibial S1-2 Nml Nml Nml Nml Nml 0 Nml Complete Left VastusMed Femoral L2-4 Nml Nml Nml Nml Nml 0 Nml Complete FINDINGS: Right peroneal nerve showed absent response. Left peroneal nerve showed prolonged distal latency, small amplitude and slow conduction velocity distally. No conduction block across fibular neck. Right tibial nerve showed prolonged distal latency, small amplitude and slow conduction velocity. Left tibial nerve showed normal distal latency, small amplitude and normal conduction velocity. Bilateral sural nerves showed absent response. Concentric needle EMG was performed in selected muscles of the bilateral lower extremity. Study revealed signs of electric abnormalities as shown in the table above. Right medial gastrocnemius and tibialis anterior showed increased insertional activity, small PSWs and small fibrillations. Right tibialis posterior showed increased duration and amplitude. Bilateral AH showed increased insertional activity, PSWs and fibrillations. IMPRESSION: 1. This is an abnormal study. 2. 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 3. There is no electrodiagnostic evidence for lumbar radiculopathy. Thank you for your kind referral. Ness Singleton MD, HOLLIS Board Certified, [place] Board of Physical Medicine and Rehabilitation (ABPMR) Board Certified, [place] Board of Electrodiagnostic Medicine (ABEM) CODIN 27883 x 2 MTDD
--- OUTSIDE RECORDS SUMMARY | 2024-11-21 15:23 | XMS_ITS | Clinical Summary ---
Author Organization [facility] Address [address] [place] [address] Phone Care Team Providers Care Purchasing Engineer Name Role Phone Alexandre Jarquin MD Primary Care Provider [phone] Allergies No known active allergies Medications dilTIAZem [...] Multivitamins 2 capsules po daily Active calcium alf-kcq-I2-Zn-co p-maddison (CALCIUM CITRATE PLUS) 092-47-110-3.75 qh-mk-mead-mg Tab Calcium Citrate Plus 250 mg-40 mg-125 [...] written instructions with new dosing recommendations Using Deltagenstyle Max 2 CGM, encouraged to continue to [...] to continue to purchase insulin OTC at [facility] for low cost, given instructions on dosing Also we discussed the benefits of CGM and Dawit is provided a [employer] CRE Max 2 reader and sensor today We [...] echo today and will be seeing his spooler operator automatic next week Assessment & Plan (01/13/2018 4:24 [...] cancer Father Coronary artery disease Mother s/p SC x 4 Diabetes type II Mother Cancer [...] DIABETIC EYE EXAM 03/08/2023 03/08/2022, , 11/21/2018 INFLUENZA VACCINE (#1) 2024 9, 12/10/2017, 12/21/2016, Additional history exists COVID-19 VACCINE (2024- season) 2024 08/15/2020, 07/18/2020, 07/18/2020 Adult Td,Tdap Booster 09/25/2027 [...] - External 7.8 % us Historical Provider LAB BLOOD ORDERABLES Bel l [...] REPLACEMENT MEDICARE PPO BLUE REPLACEMENT Care Teams Purchasing Engineer Relationship Specialty Start Date End Date Alexandre Jarquin MD [address] [facility] [address] [place] [address] PCP - General Family Medicine 10/07/21 Additional Source Comments The information contained in this document represents components of the legal health record. It is not the complete legal health record.[facility]
--- OUTSIDE RECORDS SUMMARY | 2024-11-21 15:23 | XMS_ITS | Encounter Summary ---
Demographics Address [address] [place] [address] Home Phone Work Phone Mobile Phone Preferred Language en Marital Status Hinduism Affiliation Unknown Race White Ethnic Group Unknown Author Organization [employer] Address [address] [facility] [address]t [place] [address] Care Team Providers Care Wax Machine Operator Name Role Phone Unavailable Primary Care Provider Unavailabl e Encounter Details Date Type Department Care Team (Latest Contact Info) Description 06/15/2021 Abstract [facility] CONVERSIONS Dental, Provider, DDS Social History [...]
--- OUTSIDE RECORDS SUMMARY | 2024-11-21 15:23 | XMS_ITS | Clinical Summary ---
Demographics Address [address] [place] [address] Home Phone Work Phone Mobile Phone Preferred Language en Marital Status Mu-Ism Affiliation Unknown Race White Ethnic Group Unknown Author Organization [employer] Address [address] [place] [address] 7t [place] [address] Care Team Providers Care Can Doffer Name Role Phone Unavailable Primary Care Provider [...]
--- OUTSIDE RECORDS SUMMARY | 2024-11-21 15:23 | XMS_ITS | Encounter Summary ---
Demographics Address [address] [place] [address] Home Phone Work Phone Mobile Phone Preferred Language en Marital Status Taoism Affiliation Unknown Race White Ethnic Group Unknown Author Organization [employer] Address [address] [facility] [address]t [place] [address] Care Team Providers Care Copyholder Name Role Phone Unavailable Primary Care Provider Unavailabl e Encounter Details Date Type Department Care Team (Latest Contact Info) Description 06/21/2018 Abstract [facility] CONVERSIONS Dental, Provider, DDS Social History Tobacco [...]
--- OUTSIDE RECORDS SUMMARY | 2024-11-21 15:23 | XMS_ITS | Encounter Summary ---
Author Organization [facility], Address [address] [address] [place] [address] Phone Care Team Providers Care Sales Operations Assistant Name Role Phone Alexandre Jarquin MD Primary Care Provider [phone] Reason for Visit * Reason Comments Med Refill Encounter Details Date Type Department Care Team (Late Contact Info) Description 09/03/2020 Refill [facility] [address] [place] [phone] Jeancarlos Corea MD Social History Tobacco Use [...] Upcoming Encounters Date Type Department Care Team ([facility] Contact Info) Description 10/11/2025 1:45 PM EDT Office Visit [facility], [address] [place] [address] Solis Serrato MD [address] [facility] [place] [id number] documented as of this encounter Visit Diagnoses Not on filedocumented in this encounter Care Teams Sales Operations Assistant Relationship Specialty Start Date End Date Alexandre Jarquin MD [address] [phone] PCP - General Family Medicine 05/18/21 documented as of this encounter
--- OUTSIDE RECORDS SUMMARY | 2024-11-21 15:23 | XMS_ITS | Clinical Summary ---
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 [address] Health Maintenance Due Date Last [...] EDT) Citric Acid, Urine 377 Undefined mg/L [facility] Citric Acid, 24hr Urine 603 320 - 1,240 mg/24 hr [facility] Urine 10/30/2024 6:00 AM EDT 10/30/2024 Narrative [facility] - 11/02/2024 8:06 AM EDT Test(s) [id number] Acid, Urine was developed and its performance characteristics determined by [facility]. It has not been cleared or approved by the Food and Drug Administration. Solis Serrato MD LAB URINE ORDERABLES Final Result [facility] [place] [address] * Urine Uric Acid, 24 hour (10/30/2024 6:00 AM EDT) URIC ACID, URINE RND 38.9 Not Estab. mg/dL [facility], [facility]H Ur 622.4 182.4 - 936.8 mg/24 hr [facility] Urine Urine specimen obtained by clean catch procedure / Unknown 10/30/2024 6:00 AM EDT 10/30/2024 Solis Serrato MD LAB URINE ORDERABLES Final Result Performing Organization Address City/[facility]/ZIP Co de Phone Number [facility] [address] [place] [address] * Urine Calcium, 24 hour (10/30/2024 6:00 AM EDT) Calcium, Ur 14.8 Not Estab. mg/dL [facility] Calcium, 24H Urine 237 0 - 320 mg/24 hr [facility] Urine Urine specimen obtained by clean catch procedure / Unknown 10/30/2024 6:00 AM EDT 10/30/2024 Solis Serrato MD LAB URINE ORDERABLES Final Result Performing Organization Address [facility] Co de Phone Number [facility] [address] [place] [address] * Urine Creatinine, 24 hour (10/30/2024 6:00 AM EDT) Creatinine, 24H Ur 1,302 1,000 - 2,000 mg/24 hr [facility] Urine Urine specimen obtained by clean catch procedure / Unknown 10/30/2024 6:00 AM EDT 10/30/2024 Solis Serrato MD LAB URINE ORDERABLES Final Result Performing Organization Address City/[facility] Co de Phone Number [facility] [address] [place] [address] * (ABNORMAL) Urine Albumin / Creatinine Ratio (10/30/2024 6:00 AM EDT) Creatinine, Ur 81.4 Not Estab. mg/dL [facility] Albumin, Urine 58.5 Not Estab. ug/mL [facility] Albumin/Creatin ine Ratio 72(H) 0 - 29 mg/g creat [facility] Comment: Normal: 0 - 29 Moderately increased: 30 - 300 Severely increased: >300 10/30/2024 6:00 AM EDT 10/30/2024 Solis Serrato MD LAB URINE ORDERABLES Final Result Performing Organization Address City/[facility]/ZIP Co de Phone Number [facility] [address] [place] [address] * Urine Sodium, 24 hour (10/30/2024 6:00 AM EDT) Sodium, 24H Ur 132 Not Estab. mmol/L [facility] Sodium, 24H Ur 211 58 - 337 mmol/24 hr [facility] Urine Urine specimen obtained by clean catch procedure / Unknown 10/30/2024 6:00 AM EDT 10/30/2024 Solis Serrato MD LAB URINE ORDERABLES Final Result Performing Organization Address [facility] Co de Phone Number [facility] [address] [place] [address] * (ABNORMAL) CBC and Differential (10/24/2024 10:14 AM EDT) WBC 6.8 3.4 - 10.8 x10E3/uL [facility] RBC 4.21 4.14 - 5.80 x10E6/uL [facility] Hemoglobin 11.9(L) 13.0 - 17.7 g/dL [facility] Hematocrit 36.6(L) 37.5 - 51.0 % [facility] MCV 87 79 - 97 fL [facility] MCH 28.3 26.6 - 33.0 pg [facility] MCHC 32.5 31.5 - 35.7 g/dL [facility] RDW 14.1 11.6 - 15.4 % [facility] Platelets 306 150 - 450 x10E3/uL [facility] Neutrophils Relative 44 Not Estab. % [facility] Lymphocytes Relative 40 Not Estab. % [facility] Monocytes 11 Not Estab. % [facility] Eosinophils Relative 4 Not Estab. % [facility] Basophils Relative 1 Not Estab. % [facility] Neutrophils Absolute 3.0 1.4 - 7.0 x10E3/uL [facility] Lymphocytes Absolute 2.7 0.7 - 3.1 x10E3/uL [facility] Monocytes Absolute 0.8 0.1 - 0.9 x10E3/uL [facility] Eosinophils Absolute 0.3 0.0 - 0.4 x10E3/uL [facility] Basophils Absolute 0.1 0.0 - 0.2 x10E3/uL [facility] Immature Granulocytes 0 Not Estab. % [facility] Immature Grans (Absolute) 0.0 0.0 - 0.1 x10E3/uL [facility] Blood Venous blood / Unknown 10/24/2024 10:14 AM EDT 10/24/2024 us Solis Serrato MD LAB BLOOD ORDERABLES Final Result [facility] [address] [place] [address] * (ABNORMAL) Renal Function Panel (10/24/2024 10:14 AM EDT) Pathologist [facility] Glucose 145(H) 70 - 99 mg/dL [facility] BUN 25 8 - 27 mg/dL [facility] Creatinine 1.67(H) 0.76 - 1.27 mg/dL [facility] eGFR CKD-EPI CR 2020 45(L) >59 mL/min/1.7 3 [facility] BUN/Creatinine Ratio 15 10 - 24 [facility] Sodium 139 134 - 144 mmol/L [facility] Potassium 4.5 3.5 - 5.2 mmol/L [facility] Chloride 101 96 - 106 mmol/L [facility] Bicarbonate (CO2) 22 20 - 29 mmol/L [facility] Calcium 10.0 8.6 - 10.2 mg/dL [facility] Albumin 4.3 3.9 - 4.9 g/dL [facility] Phosphorus 4.0 2.8 - 4.1 mg/dL [facility] Blood Venous blood / Unknown 10/24/2024 10:14 AM EDT 10/24/2024 Solis Serrato MD LAB BLOOD ORDERABLES Final Result [facility] [address] [place] [address] * (ABNORMAL) Hemoglobin A1c (08/07/2020 10:28 AM EDT) Pathologist [facility] [place] Hemoglobin A1C 8.3(H) (4.0-5.6) % [facility] Comment: MONITORING: In known diabetic patients, hemoglobin A1c targets should be discussed with health care provider. DIAGNOSTIC USE: The [place] Diabetes Association (ADA) and the World Health [...] Supplement 1 Testing performed or reported by [facility], a Service of [facility], [address] [place] [address] Frnacois Haque MD, [employer] Blood specimen (specimen) Venous blood / Unknown 08/07/2020 10:28 AM EDT 08/07/2020 10:29 AM EDT Solis Serrato MD LAB BLOOD ORDERABLES Final Result [facility] from Last 3 Months or Most Recently Relevant to Health Maintenance Insurance [facility] Care Teams Vp Analytics Relationship Specialty Start Date End Date Alexandre Jarquin MD [address] [place] [address] [address] PCP - General Family Medicine 05/18/21
--- OUTSIDE RECORDS SUMMARY | 2024-11-21 15:23 | XMS_ITS | Clinical Summary ---
Demographics Address [address] [place] [address] Home Phone Mobile Phone Preferred Language en Marital Status Rastafarian Affiliation Unknown Race Unknown Ethnic Group or Author Organization [facility] ity Address [address] [place] [address] Care Team Providers Care Assistant Golf Coach Name Role Phone Unavailable Primary Care Provider [...] 02/21/2022 Social Influencers of Health Screening 02/21/2022 Depression Screening 03/21/2024 COVID-19 Vaccine (1 - 2023-2 5 season) 2024 Influenza Vaccine (#1) 2024 RSV Immunization Adult [...] Documents on File Type Date Recorded Patient Circulation Supervisor Expl anation Health Care Decision (hx) 02/25/2014 [...]
--- OUTSIDE RECORDS SUMMARY | 2024-11-21 15:23 | XMS_ITS | Clinical Summary ---
Demographics Address [address] [place] [address] Home Phone Mobile Phone Preferred Language Divehi Marital Status Scientologist Affiliation Unknown Race Unknown Ethnic Group or Author Organization [facility] Address [address] [place] [address] Care Team Providers Care Pig Furnace Operator Name Role Phone Unavailable Primary Care [...] 2) 2010 COVID-19 Vaccine (3 - season) 2024 08/15/2020, 07/18/2020 Influenza Vaccine (#1) 2024 9, [...] Personal/Family Self 1960 [address] [place] [address]
--- OUTSIDE RECORDS SUMMARY | 2024-11-21 15:23 | XMS_ITS | Encounter Summary ---
Author Organization [facility] Address [address] [place] [address] Phone Care Team Providers Care Jack Prizer Name Role Phone Alexandre Jarquin MD Primary Care Provider [phone] Reason for Visit * Reason Comments Med Refill Encounter Details Date Type Department Care Team (Late Contact Info) Description 03/22/2021 Refill [facility] [address] [place] [address] Solis Serrato MD [address] [place] [address] Social History Tobacco Use Types [...] Office Visit [facility], [address] [place] [address] Solis Serrato MD [address] [place] [place] [address] documented as of this encounter Visit Diagnoses Not on filedocumented in this encounter Care Teams Jack Prizer Relationship Specialty Start Date End Date Alexandre Jarquin MD [address] [address] PCP - General Family Medicine 05/18/21 documented as of this encounter
== END 2024-11-21 13:04 | disposition home or self-care (01) ==
LOC: HO.NEURO 13:03
PROVIDERS: PCP Physician Assistant; Visit Provider Neurological Surgery
DX: M21.371 Foot drop, right foot (principal); R94.131 Abnormal electromyogram [EMG]; Z98.890 Other specified postprocedural states
CPT/HCPCS: 95886; 95909

== ENCOUNTER → 2024-11-21 13:07 | Outpatient (BNV) | payer MEDICARE, SELFPAY | PROVIDERS: PCP Physician Assistant; Visit Provider Physical Medicine & Rehabilitation | DX: G58.8 Other specified mononeuropathies (principal) | CPT/HCPCS: 95886; 95909 ==

== ENCOUNTER 2025-03-11 10:53 | Outpatient (AMB) | payer MEDICARE, SELFPAY ==
--- NOTE | 2025-03-11 10:55 | A.OFFVIS_ITS ---
Vital Signs 03/11/25 10:56 Height 5 ft 7 in Weight 156 lb 1.396 oz BMI 24.4 BP 132/66 Blood Pressure Location Lt brachial Position Sitting Pulse 72 Pulse Source Pulse Oximeter Pulse Oximetry (%) 99 Oxygen Delivery Method Room Air Intake Visit Reasons: T2DM Intake Note: Patient present today for Type 2 Diabetes Mellitus Last Diabetic eye exam: Last exam was on 03/07/24 at [facility]. Last Podiatry Visit: Doesn't have one Random Glucose: 126 mg/dl HgA1C: 6.8% Manager Card Required: No Accompanied by: Self / Same As Patient Allergies acetaminophen (From Percocet) Allergy (Intermediate, Verified 03/11/25 11:02) Difficulty Breathing oxycodone (From Percocet) Allergy (Intermediate, Verified 03/11/25 11:02) Difficulty Breathing HPI HPI T2DM: Details: Pt is a 64 y/o male who presents today for a DM follow up. He has a hx of htn, cardiomyopathy, hyperlipidemia, ckd, microalbuminuria, peripheral neuropathy and insomnia. Endo: A1c most recently was 6.8. He is currently on Tresiba 8 units and Mounjaro 7.5 mg. -using tresiba every few days if needed. -he stopped farxiga and does not want to be on it. he stopped it due to issues with supply. CGM-Max 3 download shows GMI 6.8%. Very high 1%, high 16%, 83% in range. No hypoglycemic events. Hypoglycemia-rare/none in many months. Treats it with orange juice. has glucose tabs as well. Hyperglycemia- states that he will get thirsty but has no sx usually. Complications- CKD, microalbuminuria, peripheral neuropathy, denies known vision problems but states he wears glasses. No known retinopathy. Nephro: he follows with Nephrology, Dr. Serrato. Follows annually. CV: Blood pressure today in the office is 132/66. He is on spironolactone 25 mg, metoprolol 100 mg, lisinopril 40 mg, diltiazem 300 mg. His last cholesterol was not at goal. he states he does not want any statins right now and did not tolerate crestor or atorvastatin. his real estate lawyer is Dr. Cee and sees him annually. Recent echo, per pt, shows stable/improved. Neuro: follows with neurology for peripheral neuropathy thought to be related to dm and on gabapentin. [facility] Medical History (Updated 11/16/24 @ 10:37 by Sean Sweet MD, PhD) Hyperlipidemia Surgical History H/O lateral meniscus repair of left knee H/O umbilical hernia repair History of Tony-en-Y gastric bypass History of cervical discectomy History of lumbar fusion H/O microdiscectomy Family History Mother Asthma Father Diabetes Prostate cancer Social History Alcohol intake: never Patient Tobacco Use Status: Never used Tobacco Physical Exam Vital Signs: Last Vital Signs Pulse 72 03/11/25 10:56 BP 132/66 03/11/25 10:56 Pulse Ox 99 03/11/25 10:56 Oxygen Delivery Method Room Air 03/11/25 10:56 BMI result Body Mass Index 24.4 Const Orientation/consciousness: patient oriented x3 HEENT Ears: hearing grossly normal bilaterally Neck Thyroid: Thyroid normal Lymphatic: no lymphadenopathy noted Resp Auscultation: clear to auscultation bilaterally Cardio Rate: regular rate Rhythm: regular rhythm Heart sounds: S1 normal heart sound present and S2 normal heart sound present Skin General skin exam: no rashes or lesions noted Neuro General: patient oriented x3, gait normal and no focal motor deficits Results AMB Hemoglobin A1c AMB Hemoglobin A1c 6.8 % Last Edit by ALINA Ceja on 03/11/25 11:29 Results Reviewed Results Reviewed: Laboratory Last Values Glucose (Clinic) 126 mg/dL (60-115) H 03/11/25 11:08 Assessment & Plan Assessment & Plan (1) 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 Advised to complete labs. (2) HTN (hypertension): Code(s): I10 - Essential (primary) hypertension Category: Medical Qualifiers: Hypertension type: primary hypertension Qualified Code(s): I10 - Essential (primary) hypertension Plan: We will continue to monitor. Last blood pressures were normal. 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
[2025-03-11 10:56] VITALS: BP 132/66; PULSE 72; O2SAT 99; BMI 24.4
[2025-03-11 11:13] LABS: Glucose, Whole Blood 126 mg/dL (60-115)
--- OUTSIDE RECORDS SUMMARY | 2025-03-11 13:41 | XMS_ITS | Encounter Summary ---
Author Organization [facility], Address [address] [address] [place] [address] Phone Care Team Providers Care Extracorporeal Technician Name Role Phone Alexandre Jarquin MD Primary Care Provider [phone] Reason for Visit * Reason Comments Med Refill Encounter Details Date Type Department Care Team (Late Contact Info) Description 09/03/2020 Refill [facility] [address] [place] [phone] Jeancarlos Corea MD Social History Tobacco Use [...] Encounters Date Type Department Care Team ([facility] Contact Info) Description 10/11/2025 1:45 PM EDT Office Visit [facility], [address] [place] [address] Solis Serrato MD [address] [place] [id number] documented as of this encounter Visit Diagnoses Not on filedocumented in this encounter Care Teams Extracorporeal Technician Relationship Specialty Start Date End Date Alexandre Jarquin MD [address] [phone] PCP - General Family Medicine 05/18/21 documented as of this encounter
--- OUTSIDE RECORDS SUMMARY | 2025-03-11 13:41 | XMS_ITS | Continuity of Care Document ---
Author Organization [facility], Main Office Address [address] [facility] [address] [place] [id number] Care Team Providers Care Director Compensation Name Role Phone MARILEE GASTON Instrument Engineer DALE CORONA Urologist ЕЛЕНА RAMOS County Judge [phone] JESICA MELENDEZ Tractor Operator Helper JEANCARLOS VELASCO Sheriffs Detective JANINE ALEJANDRE Phys. Med. & Rehab [phone] CRISTINA DAVIS Neurosurgeon TATY CARBALLO Hairspring Cutter ALEXANDRE GONZÁLES Primary Care Provider LYNN MCCORD Belt Cutter MANDY CORONADO Assessment Encounter Date Assessment Date Assessment LastModified by Organization Details LastModified Time 12/11/2024 12/11/2024 -Continue metoprolol at reduced dose of 100 mg daily. -Symptoms have improved; likely due to resolution of low blood pressure from prior higher dose in the setting of weight loss. -Patient advised to follow up with his video engineer (who prescribes the metoprolol) so they are aware of dose change and can confirm ongoing plan. -Return for routine annual wellness visit or sooner if symptoms recur or worsen. theresa Not available 12/11/2024 14:31:31 Plan of Treatment Reminders Order Date Submit Date Provider Last Modified By Organization Details Last Modified Time Details Appointments None recorded. Lab None recorded. Referral None recorded. Procedures None recorded. Surgeries None recorded. Imaging electrocard iogram 2024 025 [email or web address] In-Office Order, Internal Use Only DO Not Attach Compendium DO Not Attach Compendium, Do Not Delete/merge, [id number] 14:33:21 Medication Orders None recorded. Patient TargetsNo targets recorded. Patient Instructions Encounter Date Encounter Id Patient Instructions Last Modified By Organization Details Last Modified Time 12/11/2024 [id number] lightheadedness or faintness: care instructions [email or web address] Not available 12/11/2024 14:33:21 orthostatic vitals* [email or web address] Not available 12/11/2024 16:16:31 Reason for Referral None Reported. Results Created Date Observation Date Name Description Value Unit Range Abnormal Flag Note LastModifiedBy Organization Detail LastModifiedTime 12/11/1912/11/2024 [facility] No observ ation record ed. [email or web address] In-Office Order Internal Use Only DO Not Attach Compendium DO Not Attach Compendium, Do Not Delete/merge, [id number] 12/11/2024 17:07:49 12/12/19 [facility] garima hall No observ ation record ed. [email or web address] In-Office Order Internal Use Only DO Not Attach Compendium DO Not Attach Compendium, Do Not Delete/merge, [id number] 12/11/2024 14:33:10 Result Notes None recorded. Problems Name Problem SNOMED Code Status Onset Date Resolution Date Notes Provider Name and Address Organization Details Recorded Time Type 2 diabetes mellitus 93104700 Completed 03/25/2017 Simón Finch MD [address] [facility] [address], [place], [address] , [facility] 8 13:56:11 Intraret inal microvas cular abnormal ity 522700865 Completed 09/08/2022 Alexandre Gonzáles MD [address] [facility] [address], [address] , [facility] 3 13:22:54 Adult health examinat ion Completed 08/13/2022 Alexandre Gonzáles MD [address] [facility] [address], [address] , [facility] 3 18:13:54 Asthma 719404014 Completed 09/17/2016 Alexandre Gonzáles MD [address], [place], [address] , [facility] 2 18:53:24 Benign prostati c hyperpla lalo 419768797 Active Not Available [facility] 2 19:36:36 Bipolar I disorder 339927797 Active Not Available [facility] 2 19:36:36 Primary cardiomy opathy 97859830 Active Not Available [facility] 2 19:36:36 Carpal tunnel syndrome 90884933 Completed 09/08/2022 Alexandre Gonzáles MD [address], [place], [address] , [facility] 3 13:21:48 Chronic pain 70903519 Active Not Available [facility] 2 19:36:36 Screenin g for malignan t neoplasm of colon Completed 12/21/2016 Hali baez MA null, [facility] 7 13:26:16 Disorder of eye due to type 2 diabetes mellitus 415586208 Active Not Available [facility] 2 19:36:36 Diplopia 11309662 Completed 09/08/2022 Alexandre Gonzáles MD [address], [place], [address] , [facility] 3 13:21:57 Psychose 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 d libido 417712708 Active Not Available [facility] 2 19:36:37 Umbilica l hernia 024254154 Active Not Available [facility] 2 19:36:37 Hypersom shane with sleep apnea 84407627 Completed 01/17/2024 Alexandre Gonzáles MD [address], [place], [address] , [facility] 4 10:37:02 Testicul ar hypofunc tion 428494834 Completed 09/08/2022 Alexandre Gonzáles MD [address], [place], [address] , [facility] 3 13:23:57 Metaboli c syndrome X 011416104 Completed 09/19/2016 Simón Finch MD [address], [place], [address] , [facility] 7 17:32:14 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 7 14:55:50 Morbid obesity 364768773 Completed 09/08/2022 Alexandre Gonzáles MD [address], [place], [address] , [facility] 3 13:23:08 Inflamma tion of rotator cuff tendon 953563183 Active Not Available [facility] 2 19:36:37 Retinopa thy Active Not Available [facility] 2 19:36:36 Pain of multiple joints 03524577 Completed 01/17/2024 Alexandre Gonzáles MD [address], [place], [address] , [facility] 4 10:37:17 Multiple bruising 194451374 Completed 09/01/2021 Alexandre Gonzáles MD [address], [place], [address] , [facility] 2 08:36:05 Painless rectal bleeding 742726409 Completed 09/19/2016 Simón Finch MD [address] [facility] [address], [place], [address] , [facility] 7 17:32:25 Foot pain 12899120 Completed 09/08/2022 Alexandre Gonzáles MD [address] [facility] [address], [place], [address] , [facility] 3 13:22:03 Cardiomy opathy 47859846 Active Not Available [facility] 2 19:36:37 Tear of medial meniscus of knee 865625709 Active s/p repair Alexandre Gonzáles MD [address] [address], [place], [address] , [facility] 3 13:23:39 Uncontro lled type 2 diabetes mellitus 777686833 Completed 12/21/2016 Simón Finch MD [address] [address], [place], [address] , [facility] 7 14:00:56 Mild persiste nt asthma 829894472 Active Not Available [facility] 2 19:36:36 Proteinu jennifer 30123781 Completed 01/17/2024 Alexandre Gonzáles MD [address] [address], [place], [address] , [facility] 4 10:37:22 Anemia 146021420 Completed 01/17/2024 Alexandre Gonzáles MD [address] [address], [place], [address] , [facility] 4 10:51:44 Serum creatini ne above referenc e range 829192069 Completed 09/08/2022 Alexandre Gonzáles MD [address] [facility] [address], [place], [address] , [facility] 3 13:23:22 Hyperkal emia 41547909 Completed 09/01/2021 Alexandre Gonzáles MD [address] [address], [place], [address] , [facility] 2 08:35:50 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 652009536 Active Not Available [facility] 2 19:36:37 Administ ration of bacteria l and viral vaccine Completed 200710/25/2013 RECORDED 01/04/20 08 9:03AM BY NATE GUTIERREZ, OFFICE VISIT Nora HUNG-C [address], [place], [address] , [facility] 6 14:59:27 Administ ration of bacteria l and viral vaccine Completed 200710/26/2013 RECORDED 01/04/20 08 9:03AM BY NATE GUTIERREZ, OFFICE VISIT Nora HUNG-C [address], [place], [address] , [facility] 6 14:59:27 Administ ration of bacteria l and viral vaccine Completed 200710/02/2013 RECORDED 01/04/20 08 9:03AM BY NATE GUTIERREZ, OFFICE VISIT Nora RIVERAC [address] [facility] [address], [place], [address] , [facility] 6 14:59:27 Active or passive immuniza tion Completed 200710/25/2013 RECORDED 02/14/20 08 9:58AM BY AFIA HILL ON/ADDEN DUM Nora RIVERAC [address], [place], [address] , [facility] 6 14:59:27 Active or passive immuniza tion Completed 200710/26/2013 RECORDED 02/14/20 08 9:58AM BY AFIA HILL ON/ADDEN DUM Nora HUNG-C [address], [place], [address] , [facility] 6 14:59:27 Active or passive immuniza tion Completed 200710/02/2013 RECORDED 02/14/20 08 9:58AM BY PANCHITO VALENTIN, MINHATI ON/ADDEN DUM Nora Patel PA-C [address], [place], [address] , [facility] 6 14:59:27 Cough 36513672 Completed 200810/25/2013 IMPRESSI ON: ASTHMA VS. ACEI-REL ATED; RECORDED 04/02/19 09 7:22AM BY HALI MCCULLOUGH MA, ANNOTATI ON/ADDEN DUM Nora Patel PA-C [address], [place], [address] , [facility] 6 14:59:27 Cough 27030339 Completed 200810/26/2013 IMPRESSI ON: ASTHMA VS. ACEI-REL ATED; RECORDED 04/02/19 09 7:22AM BY HALI MCCULLOUGH MA, AFIA ON/ADDEN DUM Nora Jorge PA-C [address], [place], [address] , [facility] 6 14:59:27 Cough 33117909 Completed 200810/02/2013 IMPRESSI ON: ASTHMA VS. ACEI-REL ATED; RECORDED 04/02/19 09 7:22AM BY HALI MCCULLOUGH MA, ANNOTATI ON/ADDEN DUM Nora Jorge PA-C [address], [place], [address] , [facility] 6 14:59:27 Inflamma tory disorder of extremit y Completed 200810/25/2013 RECORDED 10/03/19 09 11:41AM BY PANCHITO CONNOR, MINHATI ON/ADDEN DUM Nora Patel PA-C [address], [place], [address] , [facility] 6 14:59:27 Family history of malignan t neoplasm of prostate 919544495 Completed 200810/25/2013 RECORDED 10/03/19 09 11:41AM BY AFIA HAY ON/ADDEN DUM Nora Patel PA-C [address], [place], [address] , [facility] 6 14:59:27 Amnesia 48325551 Completed 200810/25/2013 RECORDED 10/03/19 09 11:35AM BY AFIA HAY ON/ADDEN DUM Nora Patle PA-C [address], [place], [address] , [facility] 6 14:59:27 Eruption 242422041 Completed 200810/25/2013 RECORDED 10/03/19 09 11:41AM BY AFIA HAY ON/ADDEN DUM Nora Patel PA-C [address], [place], [address] , [facility] 6 14:59:27 Inflamma tory disorder of extremit y Completed 200810/26/2013 RECORDED 10/03/19 09 11:41AM BY AFIA HAY ON/ADDEN DUM Nora Patel PA-C [address], [place], [address] , [facility] 6 14:59:27 Family history of malignan t neoplasm of prostate 702118759 Completed 200810/26/2013 RECORDED 10/03/19 09 11:41AM BY AFIA HAY ON/ADDEN DUM Nora Patel PA-C [address], [place], [address] , [facility] 6 14:59:27 Amnesia 26800267 Completed 200810/26/2013 RECORDED 10/03/19 09 11:35AM BY PANCHITO CONNOR, ANNOTATI ON/ADDEN DUM Nora Patel PA-C [address], [place], [address] , [facility] 6 14:59:27 Eruption 044259451 Completed 200810/26/2013 RECORDED 10/03/19 09 11:41AM BY PANCHITO CONNOR, ANNOTATI ON/ADDEN DUM Nora Patel PA-C [address], [place], [address] , [facility] 6 14:59:27 Inflamma tory disorder of extremit y Completed 200810/02/2013 RECORDED 10/03/19 09 11:41AM BY PANCHITO CONNOR, MINHATI ON/ADDEN DUM Nora Patel PA-C [address], [place], [address] , [facility] 6 14:59:27 Family history of malignan t neoplasm of prostate 792264348 Completed 200810/02/2013 RECORDED 10/03/19 09 11:41AM BY PANCHITO CONNOR, MINHATI ON/ADDEN DUM Nora Patel PA-C [address], [place], [address] , [facility] 6 14:59:27 Amnesia 64497073 Completed 200810/02/2013 RECORDED 10/03/19 09 11:35AM BY PANCHITO CONNOR, ANNOTATI ON/ADDEN DUM Nora Patel PA-C [address], [place], [address] , [facility] 6 14:59:27 Eruption 580350733 Completed 200810/02/2013 RECORDED 10/03/19 09 11:41AM BY PANCHITO CONNOR, MINHATI ON/ADDEN DUM Nora Patel PA-C [address], [place], [address] , [facility] 6 14:59:27 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 244111225 Completed 200810/25/2013 RECORDED 11/20/19 09 8:59AM BY PANCHITO CONNOR, ANNOTATI ON/ADDEN DUM Nora Patel PA-C [address], [place], [address] , [facility] 6 14:59:26 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 162981337 Completed 200810/26/2013 RECORDED 11/20/19 09 8:59AM BY PANCHITO CONNOR, MINHATI ON/ADDEN DUM Nora Patel PA-C [address], [place], [address] , [facility] 6 14:59:26 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 462673399 Completed 200810/02/2013 RECORDED 11/20/19 09 8:59AM BY PANCHITO CONNOR, MINHATI ON/ADDEN DUM Nora Patel PA-C [address], [place], [address] , [facility] 6 14:59:26 Type 2 diabetes mellitus without complica tion 039668844 Completed 201010/25/2013 RECORDED 06/26/19 11 12:56PM BY HALI MCCULLOUGH MA, ANNOTATI ON/ADDEN DUM Nora Patel PA-C [address], [place], [address] , [facility] 6 14:59:26 Type 2 diabetes mellitus without complica tion 466918637 Completed 201010/26/2013 RECORDED 06/26/19 11 12:56PM BY HALI MCCULLOUGH MA, ANNOTATI ON/ADDEN DUM Nora Patel PA-C [address], [place], [address] , [facility] 6 14:59:26 Type 2 diabetes mellitus without complica tion 361414370 Completed 201010/02/2013 RECORDED 06/26/19 11 12:56PM BY HALI MCCULLOUGH MA, ANNOTATI ON/ADDEN DUM Nora Patel PA-C [address], [place], [address] , [facility] 6 14:59:26 Counseli ng Completed 201110/25/2013 RECORDED 01/21/20 12 11:22AM BY HALI MCCULLOUGH MA, ANNOTATI ON/ADDEN DUM Nora Patel PA-C [address], [place], [address] , [facility] 6 14:59:27 Edema [id number] Completed 201110/25/2013 RECORDED 01/21/20 12 11:21AM BY HALI MCCULLOUGH MA, ANNOTATI ON/ADDEN DUM Nora Patel PA-C [address], [place], [address] , [facility] 6 14:59:27 Lateral epicondy litis 338183796 Completed 201110/25/2013 RECORDED 01/21/20 12 11:21AM BY HALI MCCULLOUGH MA, ANNOTATI ON/ADDEN DUM Nora Patel PA-C [address], [place], [address] , [facility] 6 14:59:26 Knee pain Completed 201110/25/2013 STORY: LEFT KNEE; RECORDED 01/21/20 12 11:22AM BY HALI MCCULLOUGH MA, ANNOTATI ON/ADDEN DUM Nora Patel PA-C [address], [place], [address] , [facility] 6 14:59:26 Pre-surg ghanshyam evaluati on Completed 201110/25/2013 RECORDED 01/21/20 12 11:22AM BY HALI MCCULLOUGH MA, ANNOTATI ON/ADDEN DUM Nora HUNG-C [address] [facility] [address], [place], [address] , [facility] 6 14:59:27 Senile hyperker atosis 035542306 Completed 201110/25/2013 RECORDED 01/21/20 12 11:21AM BY HALI MCCULLOUGH MA, ANNOTATI ON/ADDEN DUM Nora RIVERAC [address] [facility] [address], [place], [address] , [facility] 6 14:59:26 Disturba nce of consciou sness 4012403 Completed 201110/25/2013 STORY: EXCESSIV E DAYTIME SOMNOLEN CE. PREVIOUS INCONCLU SIVE POLYSOMN OGRAM.; RECORDED 01/21/20 12 11:22AM BY HALI MCCULLOUGH MA, ANNOTLICHA ON/ADDEN DUM Nora RIVERAC [address] [facility] [address], [place], [address] , [facility] 6 14:59:26 Current knee cartilag e tear Completed 201110/25/2013 IMPRESSI ON: L KNEE, M AND LMT, FOLLOWED BY DR. KIM. SCHED FOR REPAIR 10/27. WILL FORWARD NOTE AND EKG. PT ALREADY HAS ORDER FROM THEIR OFFICE FOR REC LABS.; RECORDED 01/21/20 12 11:22AM BY HALI MCCULLOUGH MA, ANNOTLICHA ON/ADDEN DUM Nora RIVERAC [address] [facility] [address], [place], [address] , [facility] 6 14:59:27 Dermatop hytosis of the body Completed 201110/25/2013 RECORDED 01/21/20 12 11:22AM BY HALI MCCULLOUGH MA, ANNOTATI ON/ADDEN DUM Nora Patel PA-C [address], [place], [address] , [facility] 6 14:59:26 Counseli ng Completed 201110/26/2013 RECORDED 01/21/20 12 11:22AM BY HALI MCCULLOUGH MA, ANNOTATI ON/ADDEN DUM Nora Patel PA-C [address], [place], [address] , [facility] 6 14:59:27 Edema 310784162 Completed 201110/26/2013 RECORDED 01/21/20 12 11:21AM BY HALI MCCULLOUGH MA, ANNOTATI ON/ADDEN DUM Nora Patel PA-C [address], [place], [address] , [facility] 6 14:59:27 Lateral epicondy litis 751980973 Completed 201110/26/2013 RECORDED 01/21/20 12 11:21AM BY HALI MCCULLOUGH MA, ANNOTATI ON/ADDEN DUM Nora Jorge PA-C [address], [place], [address] , [facility] 6 14:59:26 Knee pain Completed 201110/26/2013 STORY: LEFT KNEE; RECORDED 01/21/20 12 11:22AM BY HALI MCCULLOUGH MA, ANNOTATI ON/ADDEN DUM Nora Jorge PA-C [address], [place], [address] , [facility] 6 14:59:26 Pre-surg ghanshyam evaluati on Completed 201110/26/2013 RECORDED 01/21/20 12 11:22AM BY HALI MCCULLOUGH MA, ANNOTLICHA ON/ADDEN DUM Nora Jorge HUNG-C [address], [place], [address] , [facility] 6 14:59:27 Senile hyperker atosis 550389730 Completed 201110/26/2013 RECORDED 01/21/20 12 11:21AM BY HALI MCCULLOUGH MA, ANNOTLICHA ON/ADDEN DUM Nora Jorge HUNG-C [address] [facility] [address], [place], [address] , [facility] 6 14:59:26 Disturba nce of consciou sness 8158726 Completed 201110/26/2013 STORY: EXCESSIV E DAYTIME SOMNOLEN CE. PREVIOUS INCONCLU SIVE POLYSOMN OGRAM.; RECORDED 01/21/20 12 11:22AM BY HALI MCCULLOUGH MA, AFIA ON/ADDEN DUM Nora Jorge RIVERAC [address] [facility] [address], [place], [address] , [facility] 6 14:59:26 Current knee cartilag e tear Completed 201110/26/2013 IMPRESSI ON: L KNEE, M AND LMT, FOLLOWED BY DR. KIM. SCHED FOR REPAIR 10/27. WILL FORWARD NOTE AND EKG. PT ALREADY HAS ORDER FROM THEIR OFFICE FOR REC LABS.; RECORDED 01/21/20 12 11:22AM BY HALI MCCULLOUGH MA, AFIA ON/ADDEN DUM Nora Jorge RIVERAC [address] [facility] [address], [place], [address] , [facility] 6 14:59:27 Dermatop hytosis of the body Completed 201110/26/2013 RECORDED 01/21/20 12 11:22AM BY HALI MCCULLOUGH MA, AFIA ON/ADDEN DUM Nora RIVERAC [address] [facility] [address], [place], [address] , [facility] 6 14:59:26 Counseli ng Completed 201110/02/2013 RECORDED 01/21/20 12 11:22AM BY HALI MCCULLOUGH MA, ANNOTATI ON/ADDEN DUM Nora Patel PA-C [address], [place], [address] , [facility] 6 14:59:27 Edema [id number] Completed 201110/02/2013 RECORDED 01/21/20 12 11:21AM BY HALI MCCULLOUGH MA, ANNOTATI ON/ADDEN DUM Nora Jorge PA-C [address] [facility] [address], [place], [address] , [facility] 6 14:59:27 Lateral epicondy litis 468286583 Completed 201110/02/2013 RECORDED 01/21/20 12 11:21AM BY HALI MCCULLOUGH MA, ANNOTATI ON/ADDEN DUM Nora Jorge PA-C [address] [facility] [address], [place], [address] , [facility] 6 14:59:26 Knee pain Completed 201110/02/2013 STORY: LEFT KNEE; RECORDED 01/21/20 12 11:22AM BY HALI MCCULLOUGH MA, ANNOTATI ON/ADDEN DUM Nora Jorge PA-C [address], [place], [address] , [facility] 6 14:59:26 Pre-surg ghanshyam evaluati on Completed 201110/02/2013 RECORDED 01/21/20 12 11:22AM BY HALI MCCULLOUGH MA, ANNOTATI ON/ADDEN DUM Nora Jorge PA-C [address], [place], [address] , [facility] 6 14:59:27 Senile hyperker atosis 635727909 Completed 201110/02/2013 RECORDED 01/21/20 12 11:21AM BY HALI MCCULLOUGH MA, AFIA ON/ADDEN DUM Nora HUNG-C [address] [facility] [address], [place], [address] , [facility] 6 14:59:26 Disturba nce of consciou sness [id number] Completed 201110/02/2013 STORY: EXCESSIV E DAYTIME SOMNOLEN CE. PREVIOUS INCONCLU SIVE POLYSOMN OGRAM.; RECORDED 01/21/20 12 11:22AM BY HALI MCCULLOUGH MA, AFIA ON/ADDEN DUM Nora HUNG-C [address] [facility] [address], [place], [address] , [facility] 6 14:59:26 Current knee cartilag e tear Completed 201110/02/2013 IMPRESSI ON: L KNEE, M AND LMT, FOLLOWED BY DR. KIM. SCHED FOR REPAIR 10/27. WILL FORWARD NOTE AND EKG. PT ALREADY HAS ORDER FROM THEIR OFFICE FOR REC LABS.; RECORDED 01/21/20 12 11:22AM BY HALI MCCULLOUGH MA, AFIA ON/ADDEN DUM Nora RIVERAC [address] [facility] [address], [place], [address] , [facility] 6 14:59:27 Dermatop hytosis of the body Completed 201110/02/2013 RECORDED 01/21/20 12 11:22AM BY HALI MCCULLOUGH MA, AFIA ON/ADDEN DUM Nora RIVERAC [address] [facility] [address], [place], [address] , [facility] 6 14:59:26 Acute sinusiti s [id number] Completed 201210/25/2013 RECORDED 05/04/19 13 4:48PM BY MALAIKA EARL I, ANNOTATI ON/ADDEN DUM Nora Patel PA-C [address], [place], [address] , [facility] 6 14:59:26 Acute sinusiti s 23792767 Completed 201210/26/2013 RECORDED 05/04/19 13 4:48PM BY MALAIKA EARL I, ANNOTATI ON/ADDEN DUM Nora Patel PA-C [address], [place], [address] , [facility] 6 14:59:26 Acute sinusiti s [id number] Completed 201210/02/2013 RECORDED 05/04/19 13 4:48PM BY MALAIKA EARL I, MINHATI ON/ADDEN DUM Nora Patel PA-C [address], [place], [address] , [facility] 6 14:59:26 Renewal of prescrip tion Completed 201210/25/2013 RECORDED 07/28/19 13 3:30PM BY HALI MCCULLOUGH MA, ANNOTATI ON/ADDEN DUM Nora Patel PA-C [address], [place], [address] , [facility] 6 14:59:27 Renewal of prescrip tion Completed 201210/26/2013 RECORDED 07/28/19 13 3:30PM BY HALI MCCULLOUGH MA, ANNOTATI ON/ADDEN DUM Nora Patel PA-C [address], [place], [address] , [facility] 6 14:59:27 Renewal of prescrip tion Completed 201210/02/2013 RECORDED 07/28/19 13 3:30PM BY HALI MCCULLOUGH MA, ANNOTATI ON/ADDEN DUM Nora Jorge HUNG-C [address], [place], [address] , [facility] 6 14:59:27 Epigastr ic pain [id number] Completed 201210/25/2013 RECORDED 11/29/19 13 2:49PM BY HALI MCCULLOUGH MA, ANNOTATI ON/ADDEN DUM Nora Jorge HUNG-C [address] [facility] [address], [place], [address] , [facility] 6 14:59:27 Pain of joint [id number] Completed 201210/25/2013 RECORDED 11/29/19 13 2:49PM BY HALI MCCULLOUGH MA, ANNOTATI ON/ADDEN DUM Nora Jorge HUNG-C [address] [facility] [address], [place], [address] , [facility] 6 14:59:26 Uncontro lled type 2 diabetes mellitus [id number] Completed 201210/25/2013 RECORDED 11/29/19 13 2:51PM BY HALI MCCULLOUGH MA, ANNOTATI ON/ADDEN DUM Simón Finch MD [address] [address], [place], [address] , [facility] 7 14:00:56 Influenz a vaccine needed [id number] 06 Completed 201210/25/2013 RECORDED 11/29/19 13 3:35PM BY SIMÓN FINCH MD, OFFICE VISIT Nora RIVERAC [address] [facility] [address], [place], [address] , [facility] 6 14:59:27 Epigastr ic pain [id number] Completed 201210/26/2013 RECORDED 11/29/19 13 2:49PM BY HALI MCCULLOUGH MA, ANNOTATI ON/ADDEN DUM Nora Jorge HUNG-C [address], [place], [address] , [facility] 6 14:59:27 Pain of joint 97253547 Completed 201210/26/2013 RECORDED 11/29/19 13 2:49PM BY HALI MCCULLOUGH MA, ANNOTATI ON/ADDEN DUM Nora Jorge HUNG-C [address] [facility] [address], [place], [address] , [facility] 6 14:59:26 Uncontro lled type 2 diabetes mellitus [id number] Completed 201210/26/2013 RECORDED 11/29/19 13 2:51PM BY HALI MCCULLOUGH MA, ANNOTATI ON/ADDEN DUM Simón Finch MD [address] [facility] [address], [place], [address] , [facility] 7 14:00:56 Influenz a vaccine needed [id number] 06 Completed 201210/26/2013 RECORDED 11/29/19 13 3:35PM BY SIMÓN FINCH MD, OFFICE VISIT Nora HUNG-C [address] [facility] [address], [place], [address] , [facility] 6 14:59:27 Epigastr ic pain 41655282 Completed 201210/02/2013 RECORDED 11/29/19 13 2:49PM BY HALI MCCULLOUGH MA, ANNOTATI ON/ADDEN DUM Nora Jorge HUNG-C [address] [facility] [address], [place], [address] , [facility] 6 14:59:27 Pain of joint 83885817 Completed 201210/02/2013 RECORDED 11/29/19 13 2:49PM BY HALI MCCULLOUGH MA, ANNOTATI ON/ADDEN DUM Nora HUNG-C [address], [place], [address] , [facility] 6 14:59:26 Uncontro lled type 2 diabetes mellitus [id number] Completed 201210/02/2013 RECORDED 11/29/19 13 2:51PM BY HALI MCCULLOUGH MA, ANNOTATI ON/ADDEN DUM Simón Finch MD [address] [facility] [address], [place], [address] , [facility] 7 14:00:56 Influenz a vaccine needed [id number] 06 Completed 201210/02/2013 RECORDED 11/29/19 13 3:35PM BY SIMÓN FINCH MD, OFFICE VISIT Nora Patel PA-C [address] [facility] [address], [place], [address] , [facility] 6 14:59:27 Abdomina l pain [id number] Completed 201310/25/2013 RECORDED 03/23/19 14 1:50PM BY HALI MCCULLOUGH MA, ANNOTATI ON/ADDEN DUM Noraadam RIVERAC [address] [facility] [address], [place], [address] , [facility] 6 14:59:27 Abdomina l pain [id number] Completed 201310/26/2013 RECORDED 03/23/19 14 1:50PM BY HALI MCCULLOUGH MA, ANNOTATI ON/ADDEN DUM Noraadam Patel PA-C [address] [facility] [address], [place], [address] , [facility] 6 14:59:27 Abdomina l pain [id number] Completed 201310/02/2013 RECORDED 03/23/19 14 1:50PM BY HALI MCCULLOUGH MA, ANNOTATI ON/ADDEN DUM Nora Jorge RIVERAC [address] [facility] [address], [place], [address] , [facility] 6 14:59:27 Laborato ry procedur e performe d [id number] Completed 201310/25/2013 RECORDED 05/23/19 14 9:12AM BY HALI MCCULLOUGH MA, ANNOTATI ON/ADDEN DUM Nora Patel PA-C [address], [place], [address] , [facility] 6 14:59:27 Laborato ry procedur e performe d [id number] Completed 201310/26/2013 RECORDED 05/23/19 14 9:12AM BY HALI MCCULLOUGH MA, ANNOTATI ON/ADDEN DUM Nora Patel PA-C [address], [place], [address] , [facility] 6 14:59:27 Laborato ry procedur e performe d [id number] Completed 201310/02/2013 RECORDED 05/23/19 14 9:12AM BY HALI MCCULLOUGH MA, ANNOTATI ON/ADDEN DUM Nora Patel PA-C [address], [place], [address] , [facility] 6 14:59:27 Screenin g procedur e Completed 201310/25/2013 RECORDED 06/26/19 14 9:59AM BY HALI MCCULLOUGH MA, ANNOTATI ON/ADDEN DUM Nora Patel PA-C [address], [place], [address] , [facility] 6 14:59:27 Screenin g procedur e Completed 201310/26/2013 RECORDED 06/26/19 14 9:59AM BY HALI MCCULLOUGH MA, ANNOTATI ON/ADDEN DUM Nora Patel PA-C [address], [place], [address] , [facility] 6 14:59:27 Screenin g for malignan t neoplasm of colon Completed 201310/02/2013 RECORDED 06/26/19 14 9:59AM BY HALI MCCULLOUGH MA, ANNOTATI ON/ADDEN DUM PANCHITO Galvan, [facility] 7 13:26:16 Screenin g procedur e Completed 201310/02/2013 RECORDED 06/26/19 14 9:59AM BY HALI MCCULLOUGH MA, ANNOTATI ON/ADDEN DUM Nora Patel PA-C [address], [place], [address] , [facility] 6 14:59:27 Hyperlip idemia 52089168 Active 2017 Not Available [facility] 2 19:36:37 Ulcerati ve colitis 19141057 Active 2017 Not Available [facility] 2 19:36:36 Venous retinal branch occlusio n 14851472 Active 2018 Not Available [facility] 2 19:36:36 Iron deficien cy anemia 72931513 Completed 201809/01/2021 Alexandre Gonzáles MD [address] [facility] [address], [place], [address] , [facility] 2 08:35:56 Gastroes ophageal reflux disease 104069593 Active 2018 Not Available [facility] 2 19:36:37 Chronic kidney disease stage 3 517924383 Completed 201907/23/2019 PANCHITO Galvan, [facility] 2 15:07:15 Neurogen ic claudica tion 280547585 Completed 201909/08/2022 Alexandre Gonzáles MD [address], [place], [address] , [facility] 3 13:23:16 Chronic kidney disease stage 3A 708167431 Active 2020 Not Available [facility] 2 19:36:37 Chronic kidney disease due to type 2 diabetes mellitus 42193722934 8 Active 2020 Not Available [facility] 2 19:36:36 Asthma 635747944 Active 2021 Not Available [facility] 2 19:36:36 Hyperten sive renal disease 45645641 Active 2021 Not Available [facility] 2 19:36:36 Spinal stenosis of lumbar region 82631648 Active 2023 Alexandre Gonzáles MD [address] [facility] [address], [place], [address] , [facility] 4 17:59:11 Body mass index 25-29 - overweig 213457187 Active 2023 Alexandre Gonzáles MD [address] [facility] [address], [place], [address] , [facility] 4 10:50:18 Overwelia health 438104326 Active 2023 Alexandre Gonzáles MD [address] [facility] [address], [place], [address] , [facility] 4 10:50:34 Abnormal testoste tonio 957685289 Active 2023 Alexandre Gonzáles MD [address] [facility] [address], [place], [address] , [facility] 4 06:26:29 Notes:Some problems listed i n Document: #[id number] could not be added to this patient's chart. Please review this document and add these problems to the patient's chart manually as needed. Problem Notes None recorded. Procedures Surgical History Date Name Laterality Status Provider Name and Address Organization Details Recorded Time 11/07/19 25 Chronic Pain Assessment completed Hali ramirez MA [facility] 11/06/2024 13:11:40 03/07/20 24 diabetic retinopathy screening completed Beatrice Pope [facility] 03/09/2024 09:24:39 01/17/20 24 Diabetic Foot Exam (Monofilament) completed Alexandre Gonzáles MD [address], [place], [address], [facility] 01/17/2024 10:59:13 09/09/19 23 Diabetic Foot Exam (Monofilament) completed Alexandre Gonzáles MD [address], [place], [address], [facility] 09/08/2022 13:49:58 09/03/19 22 Diabetic Foot Exam (Monofilament) completed Alexandre Gonzáles MD [address] [facility] [address], [place], [address], [facility] 09/02/2021 09:44:23 11/12/19 21 lumbar microdiscectomy completed Hali ramirez MA [facility] 05/27/2021 15:18:39 10/28/19 21 Diabetic Foot Exam (Monofilament) completed Hali ramirez MA [facility] 10/27/2020 13:17:47 09/04/19 21 lumbar spinal fusion completed Hali ramirez MA [facility] 05/27/2021 15:19:22 06/13/19 21 fusion of cervicothoracic joint by anterior approach completed Hali ramirez MA [facility] 05/27/2021 15:19:42 12/30/19 19 Diabetic Foot Exam (Monofilament) completed Sherry Barnes [facility] 12/29/2018 10:14:49 11/29/19 19 injection of steroid via intravitreal route completed Hali ramirez MA [facility] 12/05/2018 13:15:48 12/11/19 18 Chronic Pain Assessment completed Hali ramirez MA [facility] 12/10/2017 10:21:40 12/11/19 18 Diabetic Foot Exam (Monofilament) completed Hali Duc-Sharif PANCHITO ramirez [facility] 12/10/2017 10:09:19 09/25/19 18 Chronic Pain Assessment completed Hali Duc-Sharif PANCHITO ramirez [facility] 09/24/2017 08:50:23 09/25/19 18 Diabetic Foot Exam (Monofilament) completed Hali Duc-Sharif PANCHITO ramirez [facility] 09/24/2017 08:33:05 06/21/19 18 Chronic Pain Assessment completed Hali Duc-Sharif PANCHITO ramirez [facility] 06/20/2017 13:01:18 03/25/19 18 Chronic Pain Assessment completed Hali Duc-Sharif PANCHITO ramirez [facility] 03/25/2017 13:50:04 12/22/19 17 Chronic Pain Assessment completed Hali Duc-Sharif PANCHITO ramirez [facility] 12/21/2016 13:28:57 09/18/19 17 Chronic Pain Assessment completed Hali Duc-Sharif PANCHITO ramirez [facility] 09/17/2016 14:55:34 05/07/19 17 Chronic Pain Assessment completed Malaika Soolrio [facility] 05/07/2016 09:21:49 02/06/20 16 Chronic Pain Assessment completed Hali Duc-Sharif PANCHITO ramirez [facility] 02/06/2016 14:10:17 11/04/19 16 Chronic Pain Assessment completed Hali Duc-Sharif PANCHITO ramirez [facility] 11/04/2015 10:50:37 10/16/19 15 Colonoscopy completed Hali Duc-Sharif PANCHITO ramirez [facility] 05/27/2021 15:20:02 10/16/19 15 Colonoscopy & polypectomy completed Hali Duc-Sharif PANCHITO ramirez [facility] 05/27/2021 15:20:15 02/19/20 14 Gastric bypass for obesity completed Hali ramirez MA [facility] 05/27/2021 15:21:50 11/20/19 12 Circumcision completed Hali ramirez MA [facility] 02/06/2016 14:02:12 03/21/19 12 primary repair of umbilical hernia completed Hali ramirez MA [facility] 05/27/2021 15:22:24 10/20/19 11 Orthopedic Surgery completed Hali ramirez MA [facility] 02/06/2016 14:02:12 03/21/19 11 operation on meniscus of the knee completed Hali ramirez MA [facility] 05/27/2021 15:22:55 07/31/19 04 lumbar spinal fusion completed Hali ramirez MA [facility] 05/27/2021 15:23:44 03/21/19 03 Back Surgery completed Hali ramirez, PANCHITO [facility] 01/21/2014 10:51:35 Imaging Results None recorded. Procedure Notes None recorded. Medical Equipment None Reported. Allergies Allergen ID Allergen Name Allergen Category Reaction Reaction Severity Criticality Documentation Date Start Date Code Code System Note Provider Name and Address Organization Details Recorded Time 48463 No known allergy (situatio n) Not available Not available Not available Not available 08/05/2020 69434 6003 SNOMED PANCHITO [place] [facility] 3 14:17:44 61340 atorvasta tin medicatio n myalgias (muscle pain) Not available Not available 06/02/2022 38040 RxNorm PANCHITO [place] [facility] 3 14:17:54 25056 gabapenti n medicatio n edema moderate Not available 11/06/2024 70825 RxNorm PANCHITO [place] [facility] 5 13:09:08 70557 acetamino phen / oxycodone medicatio n respirato ry distress moderate Not available 11/06/2024 07845 3 RxNorm PANCHITO [place] - [facility] 5 13:09:38 43560 acetamino phen / oxycodone medicatio n Not available Not available Not available 02/27/2025 60243 3 RxNorm Not Available [facility] - External Data Service - prod 5 12:07:48 Medications Name Sig Start Date Stop Date [...] 03/03 completed RECORDED 03/03/20 11 11:00AM BY HALI MCCULLOUGH MA, OFFICE VISIT; Not Available Not [...] 07/27 completed RECORDED 07/28/19 13 3:34PM BY HALI MCCULLOUGH MA, OFFICE VISIT; Not Available Not Available Not Available gabapenti n 600 mg tablet PLEASE SEE ATTACHED FOR DETAILED DIRECTIO NS 11/06 completed LE edema Not Available Not Available Not Available ipratropi [...] NEBULIZE R THREE TIMES A DAY NEEDED 11/06 completed Not Available Not Available Not Available Vitamin C 500 mg tablet TAKE [...] 03/03 completed RECORDED 03/03/20 11 11:00AM BY HALI MCCULLOUGH MA, OFFICE VISIT; Not Available Not [...] mg tablet TAKE 2 TABLETS BY MOUTH THREE TIMES A DAY NEEDED FOR SPINAL STENOSIS 2024 active Not Available Not Available Not [...] 2008 active RECORDED 04/02/19 09 11:27AM BY HALI MCCULLOUGH MA, ANNOTATI ON/JULIET OCHOA;SHAR MITCHELL ([facility] ) Not Available Not Available Not Available metoprolo l succinate ER 200 mg tablet,ex tended release 24 hr TAKE 1 TABLET BY MOUTH EVERY DAY FOR HYPERTEN DENISE. RENAL DISEASE 12/11 completed Not Available Not Available Not Available polysacch aride iron complex 150 mg iron [...] 100 mg tablet,ex tended release 24 hr TAKE 1 TABLET BY MOUTH EVERY DAY active Not Available Not Available No t Available prednison e 5 mg tablet Take [...] VISIT; Not Available Not Available Not Available amlodipin [...] 05/22 completed RECORDED 05/23/19 14 9:21AM BY HALI MCCULLOUGH MA, OFFICE VISIT; Not Available Not Available Not Available aspirin 81 mg tablet,de layed release Take 1 tablet every day by oral route. 09/17 completed Not Available Not Available Not Available spironola ctone 25 mg tablet TAKE 1 TABLET BY MOUTH EVERY DAY 01/[address] Lynn Mccord Not Available Not Available Not Available amoxicill [...] 07/27 completed RECORDED 07/28/19 13 3:35PM BY HALI MCCULLOUGH MA, OFFICE VISIT; Not Available Not Available Not Available hydromorp petey 2 mg tablet TAKE 1 2 TABLETS BY MOUTH EVERY 4 HOURS NEEDED FOR MODERATE PAIN SCALE 4 6 05/27 completed Not Available Not Available Not Available amitripty line 25 mg tablet Take 1 tablet every day by oral route at bedtime for [address] Rodríguez Not Available Not Available Not Available [...] 03/23 completed RECORDED 03/23/19 14 1:58PM BY HALI MCCULLOUGH MA, OFFICE VISIT; Not Available Not [...] 1 tablet every day by oral route. 12/11 completed no longer taking Not Available Not Available Not Available nystatin- triamcino lone 100,000 unit/g-0. 1 % topical cream 2 TIMES A DAY 03/03 completed RECORDED 03/03/20 11 11:00AM BY HALI MCCULLOUGH MA, OFFICE VISIT; Not Available Not Available Not Available docusate sodium 100 mg capsule TAKE 1 TO 2 CAPSULES BY MOUTH AT BEDTIME NEEDED FOR [...] Not Available Not Available Not Avai lable saw palmetto 500 mg capsule Take 1000 [...] PUFFS BY MOUTH EVERY 4 HOURS NEEDED 11/06 completed Not Available Not Available Not Available doxycycli ne hyclate 20 mg tablet Q12H 03/03 completed RECORDED 03/03/20 11 11:00AM BY HALI MCCULLOUGH MA, OFFICE VISIT;DR RIVERA Not Available [...] 03/03 completed RECORDED 03/03/20 11 11:01AM BY HALI MCCULLOUGH MA, OFFICE VISIT;DR RIVERA Not Available [...] 07/27 completed RECORDED 07/28/19 13 3:35PM BY HALI MCCULLOUGH MA, OFFICE VISIT; Not Available Not Available Not Available Mapap Arthritis Pain 650 mg tablet,ex tended release 06/02 completed Not Available Not Available Not Available multivita min with iron tablet Take 1 tablet every day by oral route. 10/27 completed Not Available Not Available Not Available eplerenon e 25 mg tablet Take 1 tablet every day by oral route. 10/[address] Lynn Mccord Not Available Not Available Not Available ezetimibe 10 mg tablet TAKE 1 TABLET BY MOUTH EVERY DAY 2024 active Not Available Not Available Not Avai lable Novolog FlexPen U-100 Insulin aspart 100 unit/mL (3 mL) subcutane ous 10/04 completed Not Available Not Available Not Available cyclobenz aprine 5 mg tablet NEEDED 06/25 completed RECORDED 06/26/19 14 10:05AM BY HALI MCCULLOUGH MA, OFFICE VISIT; Not Available Not Available Not Available aripipraz ole 5 mg tablet DAILY 07/18 completed RECORDED 07/19/19 10 11:12AM BY SIMÓN FINCH MD, OFFICE VISIT;PE R PSYCH Not Available Not Available Not Available rosuvasta tin 10 mg tablet Take 1 tablet every day by oral route in the evening. 12/[address] Mandy Coronado Not Available Not Available [...] day by oral route. 12/[address] Jeancarlos Velasco Not Available Not Available Not Available [...] 05/18 completed RECORDED 05/18/19 13 11:14AM BY HALI MCCULLOUGH MA, PHONE ENCOUNTE R;CHANGE D TO [...] 03/03 completed RECORDED 03/03/20 11 11:00AM BY HALI MCCULLOUGH MA, OFFICE VISIT;DR CORONA Not Available Not Available Not Available econazole nitrate TWO TIMES DAILY 03/03 completed RECORDED 03/03/20 11 11:00AM BY HALI MCCULLOUGH MA, OFFICE VISIT; Not Available Not Available Not Available CORAL Tennis Elbow Brace 04/23 completed RECORDED 04/23/19 12 9:45AM BY AFIA STONE/JULIET OCHOA; Not Available Not Available Not Available Glucagon Emergency Kit (human) NEEDED active RECORDED 06/26/19 14 9:58AM BY HALI MCCULLOUGH MA, OFFICE VISIT; Not Available Not Available Not Available One Touch Lancets TID 04/23 completed RECORDED 04/23/19 12 9:45AM BY AFIA STONE/JULIET OCHOA; Not Available Not Available Not Available blood [...] 07/27 completed RECORDED 07/28/19 13 3:35PM BY HALI MCCULLOUGH MA, OFFICE VISIT; Not Available Not [...] DUM; Not Available Not Available Not Available MoviPrep 100 gram-7.5 gram-2.69 1 gram oral powder packet Take 1 packet every day by oral route. active Not Available Not Available No t Available coenzyme W71-[id number] in E 100 mg-5 unit capsule Take 300 mg by oral route. 01/16 completed Not Available Not Available Not Available Pulmicort Flexhaler 180 mcg/actua tion breath activated TWO TIMES DAILY 07/27 completed RECORDED 07/28/19 13 3:35PM BY HALI MCCULLOUGH MA, OFFICE VISIT; Not Available Not Available Not Available Symbicort 160 mcg-4.5 mcg/actua tion HFA aerosol inhaler TWO TIMES DAILY 05/22 completed RECORDED 05/23/19 14 9:21AM BY HALI MCCULLOUGH MA, OFFICE VISIT; Not Available Not Available Not Available SymlinPen 120 2,700 mcg/2.7 mL subcutane ous pen injector THREE TIMES DAILY 05/22 completed RECORDED 05/23/19 14 9:21AM BY HALI MCCULLOUGH MA, OFFICE VISIT;DR CORONADO Not Available [...] 06/25 completed RECORDED 06/26/19 14 10:05AM BY HALI MCCULLOUGH MA, OFFICE VISIT; Not Available Not Available Not Available Co Q-10 400 mg capsule Take 800 mg every day by oral route. active Not Available Not Available No t Available Annamarie Allergy 180 mg tablet Take 1 tablet every day by oral route for 90 days. 11/06 completed as needed Not Available Not Available Not [...] 200 unit/mL (3 mL) subcutane ous pen sliding scale with meals active Dr. Eric Coronado Not Available Not Available Not Available Tresiba FlexTouch U-100 insulin 100 unit/mL [...] completed Not Available Not Available Not Available Toujeo Max U-300 SoloStar 300 unit/mL (3 mL) subcutane ous insulin pen prn 11/[address] Eric Coronado Not Available Not Available Not Available BD Torie 2nd Gen Pen Needle 32 gauge x active Not Available Not Available Not Available Bariatric Multivita mins 1 capsules po daily 2021 active brand: Celebrat e Not Available Not Available Not Available Tiadylt ER 300 mg capsule,e xtended release TAKE 1 CAPSULE BY MOUTH EVERY DAY active Not Available Not Available No t Available FreeStyle Max 2 Sensor kit 11/06 completed Not Available Not Available Not Available gorge seaman root extract with KSM-66; 2 tablets po daily 03/01 completed Not Available Not Available Not Available Mounjaro 7.5 mg/0.5 mL subcutane ous pen injector Inject 0.5 mL every week by subcutan eous route. active Dr. Eric Coronado Not Available Not Available Not Available Mounjaro 5 mg/0.5 mL subcutane ous pen injector Inject 0.5 mL every week by sub-q route as directed for 28 days. 11/06 completed Not Available Not Available Not Available Mounjaro 2.5 mg/0.5 mL subcutane ous pen injector 1 injectio n weekly 01/16 completed Not Available Not Available Not Available FreeStyle Max 3 [place] 11/06 completed Not Available Not Available Not Available FreeStyle Max 3 Plus Sensor device active Not Available Not Available Not Available Vitals Date Recorded Body height Body mass index (BMI) Body weight Heart rate Oxygen saturation Body temperature Heart rate Heart rate Heart rate Systolic And Diastolic Systolic And Diastolic Systolic And Diastolic Systolic And Diastolic Provider Name and Address Organization Details Last Updated DateTime 5 170.18 cm 24 kg/m2 31367.6 3 g 65 /min 99 % 97.6 [degF] 65 /min 70 /min 69 /min 116/61 mm[Hg] 131/75 mm[Hg] 112/70 mm[Hg] 104/66 mm[Hg] Hali mejias MA [facility] 5 14:19:50 Social History Question Answer Notes LastModified by Organizat ion Details LastModified Time Tobacco Smoking Status Never Smoker PANCHITO [facility] 10/27/2020 13:22:08 Do You Have An Advance Directive? Yes Information not available 01/02/2021 Is Blood Transfusion Acceptable In An Emergency? Yes Information not available 10/27/2020 What Is Your Level Of Caffeine Consumption? Moderate Coffee- 4 Cups Daily Information not available 09/08/2022 How Much Tobacco Do You Chew? None Information not available 10/27/2020 What Type Of Diet Are You Following? DIABETIC Information not available 10/27/2020 Which Illicit Or Recreational Drugs Have You Used? None Information not available 10/27/2020 Live Alone Or With Others? With Others [...] Date Of Your Most Recent Tobacco Screening? 03/01/2025 Information not available 03/01/2025 How Many Children Do You Have? 3 Erick Pastor Jr, And Leola Information not available 09/08/2022 Do [...] To Smoke? No Information not available 10/27/2020 How Much Tobacco Do You Smoke? No Information not available 10/27/2020 Do You Use Sunscreen Routinely? No Information not available 10/27/2020 How Many Years Have You Smoked Tobacco? 0 Information not available 10/27/2020 Sex: Unknown Functional Status Question Answer Note LastModified by Organizat ion Details LastModified Time Do you use any illicit or recreational drugs? No Information not available 05/27/2021 Do you or have you ever used any other forms of tobacco or nicotine? No Information not available 05/27/2021 What is your level of alcohol consumption? None Information not available 03/01/2025 Do you or have you ever used smokeless tobacco? Never used smokeless tobacco Information not available 10/27/2020 Are you currently employed? No Information not available 10/27/2020 Are you able to walk independently without assistance or assistive devices? YESWOREST Information not available 01/02/2021 Are you able to care for yourself independently? 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 Never used electronic cigarettes Information not available 01/02/2021 What is your exercise level? Occasional Information not available 10/27/2020 Mental Status None recorded. Family History Relationship Description Onset Age of this Age Resolved Age Notes LastModified by Organization Details LastModified Time Mother Coronary arterioscler osis Not available 2020 10:14:07 Mother Asthma [email or web address] Not availab le [...] available 10/27/2020 13:21:25 Medical History Condition Response Other N Gout N Kidney Stones Y Blood Diseases N Hyperthyroidism N Breast Cancer N COPD N Depression N Hypothyroidism N Lung Disease N Defects or Inherited Disease N Anesthesia Complications N Headaches/Migraines N Varicose Veins N Anxiety Disorder N Obesity Y Vision or Eye Problems N Arthritis Y Head Injury/Concussion N Infertility N Polyps Y Congenital Anomalies N Acid Reflux (GERD) N Cancer N Stroke N ADHD N Endometriosis N High Cholesterol Y Liver Disease N Fibromyalgia N Kidney Disease Y Heart Problems Y Ear or Hearing Problems N Hospitalizations Y Thyroid Problems N GI Problems Y Acne N Skin Problems N Eating Disorder N Anemia N Constipation N Bladder Problems Y Mental Illness N Ovarian Cancer N Diabetes Y Blood Transfusions N Seizures/Epilepsy N Tuberculosis N AIDS/HIV N Congestive Heart Failure (CHF) N Eczema N Diverticulitis N Abuse/Domestic Violence N Asthma Y Allergies N Reflux/GERD N Hepatitis N Pulmonary Embolism N Hypertension Y Osteoporosis N Chicken Pox N Autism Spectrum Disorder (ASD) N Immunizations Vaccine Type Date Status Note Provider Nam e and Address Organization Details Recorded Time pneumococcal polysaccharide PPV23 7 completed Not Available [facility] 01/06/2022 19:36:37 pneumococcal polysaccharide PPV23 7 completed Not Available [facility] 01/06/2022 19:36:37 Influenza, split virus, trivalent, preservative 7 completed Not Available [facility] 01/06/2022 19:36:37 Influenza, split virus, trivalent, preservative 8 completed Not Available [facility] 01/06/2022 19:36:37 Tdap 8 completed Not Available [facility] 01/06/2022 19:36:37 Influenza, split virus, trivalent, preservative 3 completed Not Available [facility] 01/06/2022 19:36:37 COVID-19, mRNA, LNP-S, PF, 100 mcg/0.5mL dose or 50 mcg/0.25mL dose 1 completed Not Available [facility] 01/06/2022 19:36:37 Influenza, split virus, quadrivalent, PF 6 completed Not Available [facility] 04/07/2019 02:22:02 COVID-19, mRNA, LNP-S, PF, 100 mcg/0.5mL dose or 50 mcg/0.25mL dose 1 completed PANCHITO Chavez, [facility] 11/06/2024 13:02:40 zoster recombinant 2 completed PANCHITO Fulton, [facility] 10/05/2023 13:56:12 zoster recombinant 2 completed PANCHITO Fulton, [facility] 10/05/2023 13:56:12 COVID-19, mRNA, LNP-S, PF, 100 mcg/0.5mL dose or 50 mcg/0.25mL dose 1 completed PANCHITO Chavez, [facility] 11/06/2024 13:02:40 Influenza, split virus, quadrivalent, PF 6 completed Not Available [facility] 04/07/2019 02:22:07 Influenza, split virus, quadrivalent, PF 7 completed Not Available [facility] 04/07/2019 02:22:13 Tdap 8 completed Not Available [facility] 04/07/2019 02:21:48 Influenza, split virus, quadrivalent, PF 8 completed Not Available [facility] 04/07/2019 02:22:16 Influenza, split virus, quadrivalent, PF 9 completed Not Available [facility] 04/07/2019 02:22:10 Influenza, split virus, trivalent, PF 4 completed Not Available [facility] 04/07/2019 02:21:57 Past Encounters Encounter ID Performer Location Encounter Start Date Encounter Closed Date Diagnosis/Indication Diagnosis SNOMED-CT Code Diagnosis ICD10 Code Diagnosis IMO Codes Diagnosis Note [id number] Alexandre Gonzáles MD Main Office [address] [facility] [address] [place] [address] 12/11/2024 13:46:43 12/11/2024 14:27:16 Lightheadedness 738029564 R42 [id number] Hypertensi ve renal disease 97134002 I12.9 Influenza vaccination declined 869510053 Z28.21 [id number] Chronic ki dney disease due to type 2 diabetes mellitus 8798107336 08 E11.22 Health Concerns Section Related Observation LastModified by Organization Detai ls LastModified Time None Recorded Concern Status LastModified by Organization Details LastModified Time None Recorded Payers Encounter Date Sequence Insurance Name Policy Number Policy Palumbo Covered Member ID Palumbo Member ID Guarantor Name 12/11/2024 1 [employer] [facility]: MEDICARE PPO BLUE (MEDICARE REPLACEMENT PPO) [id number] Dawit Ramos [id number] Dawit Ramos Notes Date Note Type Note Provider Name and Address Organization Details Recorded Time 12/11/2024 text/html Syncope/Dizzines sRepo rted by [facility] as noted in the HPI Patient presents today for follow-up after reduction of his blood pressure medication. Previously, his blood pressure had been low, and he experienced lightheadedness with a sensation as if he might pass out, though he has not had any syncope or loss of consciousness. Symptoms were worsened by standing up too quickly. He denies recent diarrhea, illness, vomiting, palpitations, chest pain, earache, tinnitus, visual changes, or tunnel vision. He has had weight loss while on Mounjaro, which was suspected to contribute to low blood pressure. Metoprolol dose was decreased from 200 mg to 100 mg, after which his symptoms improved. EKG performed today was similar to his 2020 study. He continues to follow with a video engineer. Orthostatic vitals were obtained today and were negative. Alexandre Gonzáles MD [address] [address], [place], [address], [facility] 12/11/2024 14:32:57
--- OUTSIDE RECORDS SUMMARY | 2025-03-11 13:41 | XMS_ITS | Data Portability ---
Author Organization [facility], Main Office Address [address] [facility] [address] [place] [id number] Care Team Providers Care Public Relations Analyst Name Role Phone MARILEE GASTON Information Receptionist [phone] DALE CORONA Urologist ЕЛЕНА RAMOS Duplicating Machine Operator JESICA MELENDEZ Coal Drier Operator MORENITA VELASCO Investment Banking Manager JANINE ALEJANDRE Phys. Med. & Rehab [phone] CRISTINA DAVIS Neurosurgeon TATY CARBALLO Cryogenics Engineer NÉSTOR JARQUIN Primary Care Provider [phone] LYNN CEE Grievance And Appeals Coordinator MANDY CORONADO Assessment Encounter Date Assessment Date Assessment LastModified by Organization Details LastModified Time 11/06/2024 11/06/2024 Chronic Pain / Back Pain -Continue tramadol and acetaminophen; no dose adjustments desired. -Proceed with permanent nerve stimulator per physiatry. -Orthopedic evaluation scheduled 12/17/24 for new foot drop. -Adjust pain regimen if needed at future visits. Constipation -Stool softener prescribed. -Reviewed red flag symptoms. -Monitor effect of Mounjaro on bowel habits. Mental Health -Encouraged follow-up with mental health provider for bipolar disorder. -Patient declines therapy or additional medication at this time. -Denies suicidal/homicidal ideation. Cardiovascular / Blood Pressure -Reduce metoprolol to 100 mg daily given orthostatic symptoms and weight loss. -Continue follow-up with cardiology for cardiomyopathy. -Monitor orthostasis at next visit. Diabetes / Diabetic Nephropathy -Continue Mounjaro 7.5 mg weekly. -Rare use of Tresiba sliding scale. -Follow with endocrinology and nephrology. -Consider initiation of SGLT2 inhibitor per nephrology recommendation. Ulcerative Colitis / CKD -Continue follow-up with gastroenterology and nephrology. Hyperlipidemia -Continue rosuvastatin, Zetia, fenofibrate. -CK stable; repeat CK and anemia labs (CBC, iron studies, B12, folate) at upcoming physical. Neuropathy -Continue TCA as previously prescribed by neurology for neuropathy and sleep benefit. Follow-Up -Reassess in 1 month or sooner if symptoms worsen. -Will adjust medications and management as clinically indicated. [email or web address] Not available 11/06/2024 13:57:31 12/11/2024 12/11/2024 -Continue metoprolol at reduced dose of 100 mg daily. -Symptoms have improved; likely due to resolution of low blood pressure from prior higher dose in the setting of weight loss. -Patient advised to follow up with his rehabilitation therapy aide (who prescribes the metoprolol) so they are aware of dose change and can confirm ongoing plan. -Return for routine annual wellness visit or sooner if symptoms recur or worsen. [email or web address] Not available 12/11/2024 14:31:31 Plan of Treatment Reminders Order Date Submit Date Provider Last Modified By Organization Details Last Modified Time Details Appointments None record ed. Lab C reacti ve protei n, QN, serum or plasma 2024 [facility] (Centralized Electronic Ordering - All Locations), Patient Can Go To The Location Of Their Choice, 15:18:37 vitami n B12 + folate , serum or blood 2024 025 [facility] (Centralized Electronic Ordering - All Locations), Patient Can Go To The Location Of Their Choice, 5 15:18:37 testos terone , free + total, serum 2024 025 [facility] (Centralized Electronic Ordering - All Locations), Patient Can Go To The Location Of Their Choice, 15:18:36 lipid panel, serum 2024 025 [facility], [address], [place], [address], 15:18:37 CMP, serum or plasma 2024 025 [facility] (Centralized Electronic Ordering - All Locations), Patient Can Go To The Location Of Their Choice, 15:18:36 TSH, ultra- sensit surekha, serum 2024 025 [facility], [address], [place], [address], 15:18:38 CBC w/ auto diff 2024 [facility] (Centralized Electronic Ordering - All Locations), Patient Can Go To The Location Of Their Choice, 15:18:36 microa lbumin /creat inine, mass ratio, urine 2024 025 [facility] (Centralized Electronic Ordering - All Locations), Patient Can Go To The Location Of Their Choice, 15:18:38 vitami n D, 25-hyd mar, total, serum 2024 [facility], [address], [place], [address], 15:18:37 PSA, serum or plasma 2024 025 [facility] (Centralized Electronic Ordering - All Locations), Patient Can Go To The Location Of Their Choice, 15:18:35 sjogre n antibo dy panel (ssa, ssb, ro, la), serum 2023 024 [facility], [address], [facility], [place], [address], 4 06:09:02 C reacti ve protei n, QN, serum or plasma 2023 024 [facility] (Centralized Electronic Ordering - All Locations), Patient Can Go To The Location Of Their Choice, 06:09:09 TSH, ultra- sensit surekha, serum 2023 [facility], [address], [place], [address], 06:09:05 PSA, serum or plasma 2023 [facility] (Centralized Electronic Ordering - All Locations), Patient Can Go To The Location Of Their Choice, 06:09:03 testos terone , free + total, serum 2023 [facility] (Centralized Electronic Ordering - All Locations), Patient Can Go To The Location Of Their Choice, 06:09:03 lipid panel, serum 2023 [facility], [address], [place], [address], 06:09:00 CMP, serum or plasma 2023 [facility] (Centralized Electronic Ordering - All Locations), Patient Can Go To The Location Of Their Choice, 06:08:59 microa lbumin /creat inine, mass ratio, urine 2023 [facility] (Centralized Electronic Ordering - All Locations), Patient Can Go To The Location Of Their Choice, 06:09:01 vitami n B12, serum 2023 [facility], [address], [place], [address], 4 06:09:06 folate , serum 2023 [facility], [address], [place], [address], 4 06:09:04 ferrit in, serum or plasma 2023 [facility], [address], [place], [address], 4 06:09:07 retic count, blood 2023 [facility], [address], [place], [address], 4 06:09:08 CBC w/ auto diff 2023 [facility], [address], [place], [address], 4 06:08:58 TIBC (total iron-b inding capaci ty), serum 2023 [facility], [address], [place], [address], 4 06:09:00 transf antoni recept or, solubl e, quant, serum 2023 [facility] (Centralized Electronic Ordering - All Locations), Patient Can Go To The Location Of Their Choice, [id number] 4 06:09:04 aldola se, serum 2023 [facility], [address] [facility], [address], [address], 4 06:09:07 hemogl obin A1C, finger stick 2023 CRISTIAN In-Office Order, Internal Use Only DO Not Attach Compendium DO Not Attach Compendium, Do Not Delete/merge, [id number] 4 14:13:01 Referral physic al medici ne and rehabi litati on referr al - wants to consid er stimul ator. 2023 CRISTIAN [facility], [address] [place] [address], [place], [address], 4 09:07:47 gastro entero logist referr davis coe needs colon cancer screen ing 2023 024 CHRISTINE Gaston MD, [address] [facility], [address], [place], [address], 4 12:07:25 Procedures colono scopy screen ing (PROC) 2023 024 [email or web address] [facility], [address] [facility], [place], [address], 4 11:55:46 Surgeries None record ed. Imaging electr ocardi ogram 2024 025 theresa In-Office Order, Internal Use Only DO Not Attach Compendium DO Not Attach Compendium, Do Not Delete/merge, [id number] 14:33:21 Medication Orders metopr olol succin ate ER 100 mg tablet ,exten ded releas e 24 hr 2024 025 [id number], [address] [place] [address], [address], 5 13:28:58 Colace 100 mg capsul e 2024 025 [id number], [address] [place], [address], 5 13:28:58 Patient TargetsNo targets recorded. Patient Instructions Encounter Date Encounter Id Patient Instructions Last Modified By Organization Details Last Modified Time 10/05/2023 [id number] Learning About Take-Home Naloxone Kits for Opioid Emergencies [email or web address] Not available 10/05/2023 14:11:39 ulcerative colitis: care instructions [email or web address] Not available 10/05/2023 14:11:39 anemia: care instructions [email or web address] Not available 10/05/2023 14:11:39 01/17/2024 [id number] back care and preventing injuries: care instructions [...] request* - had colo and endo at [facility] get records. Not available 01/18/2024 09:50:55 When You Want to Lose Weight: Care Instructions [email or web address] Not available 01/17/2024 10:50:37 learning about colon cancer ckokar Not available 01/17/2024 10:49:07 11/06/2024 [id number] chronic pain: ca re instructions [email or web address] Not available 11/06/2024 13:28:54 lumbar spinal stenosis: care instructions [email or web address] Not available 11/06/2024 13:28:54 ulcerative colitis: care instructions ckokar Not available 11/06/2024 13:28:54 12/11/2024 [id number] lightheadedness or faintness: care instructions ckokar Not available 12/11/2024 14:33:21 orthostatic vitals* [email or web address] Not available 12/11/2024 16:16:31 03/01/2025 [id number] Well Visit 50 to 65: Care Instructions [email or web address] Not available 03/01/2025 15:18:28 preventing falls : care instructions ckokar Not available 03/01/2025 15:18:29 medical record request* - had colo [facility] Not available 03/01/2025 16:10:42 Prostate Cancer Screening ckokar Not available 03/01/2025 15:18:28 diabetic neuropathy: care instructions ckokar Not available 03/01/2025 15:18:28 Reason for Referral Information Receptionist Referral for Screening for malignant neoplasm of colon Established Patient needs colon cancer screening Referring Physician: Néstor Jarquin, Family Medicine, Encounter Date: 01/17/2024 Physical Medicine And Rehabi litation Referral for Low back pain wants to consider stimulator. Referring Physician: Néstor Jarquin [facility], Encounter Date: 01/17/2024 Results Created Date Observation Date Name Description Value Unit Range Abnormal Flag Note LastModifiedBy Organization Detail LastModifiedTime 10/05/19 24 10/05/2023 hemog lobin A1C, finge rstic k A1C 7.6 % 4-6 abnormal Not Available In-Office Order Internal Use Only DO Not Attach Compendium DO Not Attach Compendium, Do Not Delete/merge, [id number] 10/04/2023 17:57:12 02/08/2002/08/2024 CBC WITH DIFFE RENTI AL/PL ATELE T WBC 9.2 x10e3 /uL 3.4-10 .8 normal Eff ectiv e Decem jatinder 2023 [place] [id number] 5 WBC will be made* * non-o rdera ble as a stand -cristela e order code. Not Available [facility] ([facility]) [address] [place], [address], 02/10/2024 06:08:58 02/08/20 24 02/08/2024 CBC WITH DIFFE RENTI AL/PL ATELE T RBC 4.78 x10e6 /uL 4.14-5 .80 normal Not Available [facility] ([facility]) [address] [place], [address], 02/10/2024 06:08:58 02/08/20 24 02/08/2024 CBC WITH DIFFE RENTI AL/PL ATELE T hemoglobin 13.5 g/dL 13.0-1 7.7 normal Not Available [facility] ([facility]) [address] [place], [address], 02/10/2024 06:08:58 02/08/20 24 02/08/2024 CBC WITH DIFFE RENTI AL/PL ATELE T hematocrit 41.8 % 37.5-5 1.0 normal Not Available [facility] ([facility]) [address] [place], [address], 02/10/2024 06:08:58 02/08/20 24 02/08/2024 CBC WITH DIFFE RENTI AL/PL ATELE T MCV 87 fL 79-97 normal Not Available [facility] ([facility]) [address] [facility], [place], [address], 02/10/2024 06:08:58 02/08/20 24 02/08/2024 CBC WITH DIFFE RENTI AL/PL ATELE T MCH 28.2 pg 26.6-3 3.0 normal Not Available [facility] ([facility]) [address] [facility], [place], [address], 02/10/2024 06:08:58 02/08/20 24 02/08/2024 CBC WITH DIFFE RENTI AL/PL ATELE T MCHC 32.3 g/dL 31.5-3 5.7 normal Not Available [facility] ([facility]) [address] [place], [address], 02/10/2024 06:08:58 02/08/20 24 02/08/2024 CBC WITH DIFFE RENTI AL/PL ATELE T RDW 13.2 % 11.6-1 5.4 Not Available [facility] ([facility]) [address] [place], [address], 02/10/2024 06:08:58 02/08/20 24 02/08/2024 CBC WITH DIFFE RENTI AL/PL ATELE T platelets 262 x10e3 /uL 150-45 0 normal Not Available [facility] ([facility]) [address] [place], [address], 02/10/2024 06:08:58 02/08/20 24 02/08/2024 CBC WITH DIFFE RENTI AL/PL ATELE T neutrophils 57 % not estab. normal Not Available [facility] ([facility]) [address] [facility], [place], [address], 02/10/2024 06:08:58 02/08/20 24 02/08/2024 CBC WITH DIFFE RENTI AL/PL ATELE T lymphs 29 % not estab. normal Not Available [facility] ([facility]) [address] [facility], [place], [address], 02/10/2024 06:08:58 02/08/20 24 02/08/2024 CBC WITH DIFFE RENTI AL/PL ATELE T monocytes 9 % not estab. normal Not Available [facility] ([facility]) [address] [facility], [place], [address], 02/10/2024 06:08:58 02/08/20 24 02/08/2024 CBC WITH DIFFE RENTI AL/PL ATELE T eos 4 % not estab. normal Not Available [facility] ([facility]) [address] [facility], [place], [address], 02/10/2024 06:08:58 02/08/20 24 02/08/2024 CBC WITH DIFFE RENTI AL/PL ATELE T basos 1 % not estab. normal Not Available [facility] ([facility]) [address] [facility], [place], [address], 02/10/2024 06:08:58 02/08/20 24 02/08/2024 CBC WITH DIFFE RENTI AL/PL ATELE T immature cells STAFF WRITER Not Available [facility] ([facility]) [address] [facility], [place], [address], 02/10/2024 06:08:58 02/08/20 24 02/08/2024 CBC WITH DIFFE RENTI AL/PL ATELE T neutrophils (absolute) 5.2 x10e3 /uL 1.4-7. 0 normal Not Available [facility] ([facility]) [address] [facility], [place], [address], 02/10/2024 06:08:58 02/08/20 24 02/08/2024 CBC WITH DIFFE RENTI AL/PL ATELE T lymphs (absolute) 2.7 x10e3 /uL 0.7-3. 1 normal Not Available [facility] ([facility]) [address] [facility], [place], [address], 02/10/2024 06:08:58 02/08/20 24 02/08/2024 CBC WITH DIFFE RENTI AL/PL ATELE T monocytes(ab solute) 0.8 x10e3 /uL 0.1-0. 9 normal Not Available [facility] ([facility]) [address] [place], [address], 02/10/2024 06:08:58 02/08/20 24 02/08/2024 CBC WITH DIFFE RENTI AL/PL ATELE T eos (absolute) 0.4 x10e3 /uL 0.0-0. 4 normal Not Available [facility] ([facility]) [address] [place], [address], 02/10/2024 06:08:58 02/08/20 24 02/08/2024 CBC WITH DIFFE RENTI AL/PL ATELE T baso (absolute) 0.1 x10e3 /uL 0.0-0. 2 normal Not Available [facility] ([facility]) [address] [place], [address], 02/10/2024 06:08:58 02/08/20 24 02/08/2024 CBC WITH DIFFE RENTI AL/PL ATELE T immature granulocytes 0 % not estab. Not Available [facility] ([facility]) [address] [place], [address], 02/10/2024 06:08:58 02/08/20 24 02/08/2024 CBC WITH DIFFE RENTI AL/PL ATELE T immature grans (abs) 0.0 x10e3 /uL 0.0-0. 1 Not Available [facility] ([facility]) [address], [place], [address], 02/10/2024 06:08:58 02/08/20 24 02/08/2024 CBC WITH DIFFE RENTI AL/PL ATELE T NRBC STAFF WRITER Not Available [facility] ([facility]) [address], [place], [address], 02/10/2024 06:08:58 02/08/20 24 02/08/2024 CBC WITH DIFFE RENTI AL/PL ATELE T hematology comments: STAFF WRITER Not Available [facility] ([facility]) [address], [place], [address], 02/10/2024 06:08:58 02/08/20 24 02/08/2024 COMP. METAB OLIC PANEL (14) glucose 99 mg/dL 70-99 normal Not Available [facility] ([facility]) [address], [place], [address], 02/10/2024 06:08:59 02/08/20 24 02/08/2024 COMP. METAB OLIC PANEL (14) BUN 17 mg/dL 8-27 normal Not Available [facility] ([facility]) [address] [facility], [place], [address], 02/10/2024 06:08:59 02/08/20 24 02/08/2024 COMP. METAB OLIC PANEL (14) creatinine 1.36 mg/dL 0.76-1 .27 above high normal Not Available [facility] ([facility]) [address] [facility] [place], [address], 02/10/2024 06:08:59 02/08/20 24 02/08/2024 COMP. METAB OLIC PANEL (14) eGFR 58 mL/mi n/1.7 3 >59 below low normal Not Available [facility] ([facility]) [address] [facility] [place], [address], 02/10/2024 06:08:59 02/08/20 24 02/08/2024 COMP. METAB OLIC PANEL (14) BUN/creatini ne ratio 13 10-24 normal Not Available [facility] ([facility]) [address] [facility], [place], [address], 02/10/2024 06:08:59 02/08/20 24 02/08/2024 COMP. METAB OLIC PANEL (14) sodium 141 mmol/ L 134-14 4 normal Not Available [facility] ([facility]) [address] [facility], [place], [address], 02/10/2024 06:08:59 02/08/20 24 02/08/2024 COMP. METAB OLIC PANEL (14) potassium 3.5 mmol/ L 3.5-5. 2 normal Not Available [facility] ([facility]) [address] [facility], [place], [address], 02/10/2024 06:08:59 02/08/20 24 02/08/2024 COMP. METAB OLIC PANEL (14) chloride 101 mmol/ L 96-106 normal Not Available [facility] ([facility]) [address] [facility], [place], [address], 02/10/2024 06:08:59 02/08/20 24 02/08/2024 COMP. METAB OLIC PANEL (14) carbon dioxide, total 25 mmol/ L 20-29 normal Not Available [facility] ([facility]) [address] [place], [address], 02/10/2024 06:08:59 02/08/20 24 02/08/2024 COMP. METAB OLIC PANEL (14) calcium 9.5 mg/dL 8.6-10 .2 normal Not Available [facility] ([facility]) [address] [place], [address], 02/10/2024 06:08:59 02/08/20 24 02/08/2024 COMP. METAB OLIC PANEL (14) protein, total 6.8 g/dL 6.0-8. 5 normal Not Available [facility] ([facility]) [address] [place], [address], 02/10/2024 06:08:59 02/08/20 24 02/08/2024 COMP. METAB OLIC PANEL (14) albumin 4.2 g/dL 3.9-4. 9 normal Not Available [facility] ([facility]) [address] [place], [address], 02/10/2024 06:08:59 02/08/20 24 02/08/2024 COMP. METAB OLIC PANEL (14) globulin, total 2.6 g/dL 1.5-4. 5 Not Available [facility] ([facility]) [address] [place], [address], 02/10/2024 06:08:59 02/08/20 24 02/08/2024 COMP. METAB OLIC PANEL (14) bilirubin, total 0.8 mg/dL 0.0-1. 2 normal Not Available [facility] ([facility]) [address] [place], [address], 02/10/2024 06:08:59 02/08/20 24 02/08/2024 COMP. METAB OLIC PANEL (14) alkaline phosphatase 52 IU/L 44-121 normal Not Available [facility] ([facility]) [address] [place], [address], 02/10/2024 06:08:59 02/08/20 24 02/08/2024 COMP. METAB OLIC PANEL (14) AST (SGOT) 22 IU/L 0-40 normal Not Available [facility] ([facility]) [address] [place], [address], 02/10/2024 06:08:59 02/08/20 24 02/08/2024 COMP. METAB OLIC PANEL (14) ALT (SGPT) 16 IU/L 0-44 normal Not Available [facility] ([facility]) [address] [place], [address], 02/10/2024 06:08:59 02/08/20 24 02/08/2024 LIPID PANEL cholesterol, total 189 mg/dL 100-19 9 normal Not Available [facility] ([facility]) [address] [place], [address], 02/10/2024 06:09:00 02/08/20 24 02/08/2024 LIPID PANEL triglyceride s 103 mg/dL 0-149 normal Not Available [facility] ([facility]) [address] [place], [address], 02/10/2024 06:09:00 02/08/20 24 02/08/2024 LIPID PANEL HDL cholesterol 30 mg/dL >39 below low normal Not Available [facility] ([facility]) [address] [place], [address], 02/10/2024 06:09:00 02/08/20 24 02/08/2024 LIPID PANEL VLDL cholesterol emma 19 mg/dL 5-40 Not Available [facility] ([facility]) [address] [place], [address], 02/10/2024 06:09:00 02/08/20 24 02/08/2024 LIPID PANEL LDL chol calc ([facility]) 140 mg/dL 0-99 above high normal Not Available [facility] ([facility]) [address] [place], [address], 02/10/2024 06:09:00 02/08/2002/08/2024 LIPID PANEL LDL calc comment: STAFF WRITER Not Available [facility] ([facility]) [address] [place], [address], 02/10/2024 06:09:00 02/08/20 24 02/09/2024 IRON AND TIBC iron bind.cap.(TI BC) 397 ug/dL 250-45 0 normal Not Available [facility] ([facility]) [address] [place], [address], 02/10/2024 06:09:00 02/08/20 24 02/09/2024 IRON AND TIBC UIBC 300 ug/dL 111-34 3 normal Not Available [facility] ([facility]) [address] [facility], [place], [address], 02/10/2024 06:09:00 02/08/20 24 02/09/2024 IRON AND TIBC iron 97 ug/dL 38-169 normal Not Available [facility] ([facility]) [address] [place], [address], 02/10/2024 06:09:00 02/08/20 24 02/09/2024 IRON AND TIBC iron saturation 24 % 15-55 normal Not Available [facility] ([facility]) [address] [place], [address], 02/10/2024 06:09:00 02/08/20 24 02/09/2024 ALBUM IN/CR EAT RATIO , RANDO M UR creatinine, urine 223.8 mg/dL not estab. normal Not Available [facility] ([facility]) [address] [place], [address], 02/10/2024 06:09:01 02/08/20 24 02/09/2024 ALBUM IN/CR EAT RATIO , RANDO M UR albumin, urine 251.8 ug/mL not estab. Not Available [facility] ([facility]) [address] [place], [address], 02/10/2024 06:09:01 02/08/20 24 02/09/2024 ALBUM IN/CR EAT RATIO , RANDO M UR alb/creat ratio 113 mg/g_ creat 0-29 above high normal Cecy l: 0 - 29 Moder ately incre ased: 30 - 300 Sever jossie incre ased: >300 Not Available [facility] ([facility]) [address] [place], [address], 02/10/2024 06:09:01 02/08/20 24 02/09/2024 SJOGR EN'S AB, ANTI- SS-A/ -SS-B sjogren's anti-ss-A <0.2 ai 0.0-0. 9 Not Available [facility] ([facility]) [address] [place], [address], 02/10/2024 06:09:02 02/08/2002/09/2024 SJOGR EN'S AB, ANTI- SS-A/ -SS-B sjogren's anti-ss-B <0.2 ai 0.0-0. 9 Not Available [facility] ([facility]) [address] [place], [address], 02/10/2024 06:09:02 02/08/20 24 02/09/2024 TESTO STERO NE,FR EE AND TOTAL testosterone 1081 NG/dL 264-91 6 above high normal Adult male refer ence inter jeannie is based on a popul ation of healt hy nonob severo males (BMI <30) betwe en 19 and 39 years old. Lb lubin, et.al . JCEM 2017, 102;1 161-1 173. PMID: 92754 103. Not Available [facility] ([facility]) [address] [place], [address], 02/10/2024 06:09:03 02/08/2002/09/2024 TESTO STERO NE,FR EE AND TOTAL free testosterone (direct) 9.3 pg/mL 6.6-18 .1 Not Available [facility] ([facility]) [address] [place], [address], 02/10/2024 06:09:03 02/08/20 24 02/08/2024 PSA TOTAL (REFL EX TO FREE) reflex criteria Commen t The perce nt free PSA is perfo rmed on a refle x basis only when the total PSA is betwe en 4.0 and 10.0 ng/mL . Not Available [facility] ([facility]) [address] [facility], [place], [address], 02/10/2024 06:09:03 02/08/20 24 02/09/2024 PSA TOTAL (REFL EX TO FREE) prostate specific Ag 2.2 NG/mL 0.0-4. 0 normal Muna ECLIA metho dolog y. Accor ding to [...] of edvin andino se. Not Available [facility] ([facility]) [address] [facility], [place], [address], 02/10/2024 06:09:03 02/08/20 24 02/08/2024 FOLAT E (FOLI C ACID) , SERUM folate (folic acid), serum >20.0 NG/mL >3.0 A serum folat e jodee ntrat ion of less than 3.1 ng/mL is consi dered to repre sent clini emma defic iency . Not Available [facility] ([facility]) [address] [facility], [place], [address], 02/10/2024 06:09:04 02/08/20 24 02/10/2024 SOLUB LE TRANS NEAL N CANE FLUME WATCHER TOR soluble transferrin receptor 16.6 nmol/ L 12.2-2 7.3 Not Available [facility] ([facility]) [address] [facility] [place], [address], 02/10/2024 06:09:04 02/08/20 24 02/08/2024 TSH RFX ON ABNOR MAL TO FREE T4 TSH 1.280 uIU/m L 0.450- 4.500 normal Not Available [facility] ([facility]) [address] [facility] [place], [address], 02/10/2024 06:09:05 02/08/20 24 02/09/2024 VITAM IN B12 vitamin B12 1708 pg/mL 232-12 45 above high normal Not Available [facility] [facility]) [address] [place], [address], 02/10/2024 06:09:06 02/08/20 24 02/09/2024 ALDOL ASE aldolase 4.2 U/L 3.3-10 .3 Not Available [facility] ([facility]) [address] [place], [address], 02/10/2024 06:09:07 02/08/20 24 02/09/2024 NEAL TIN ferritin 115 NG/mL 30-400 normal Not Available [facility] ([facility]) [address] [place], [address], 02/10/2024 06:09:07 02/08/20 24 02/08/2024 RETIC ULOCY TE COUNT reticulocyte count 1.0 % 0.6-2. 6 Not Available [facility] ([facility]) [address] [place], [address], 02/10/2024 06:09:08 02/08/20 24 02/09/2024 C-NATHAN CTIVE PROTE IN, QUANT C-reactive protein, quant 2 mg/L 0-10 normal Not Available [facility] ([facility]) [address] [place], [address], 02/10/2024 06:09:09 12/11/19 25 12/11/2024 elect garima hall am No observ ation record ed. [email or web address] In-Office Order Internal Use Only DO Not Attach Compendium DO Not Attach Compendium, Do Not Delete/merge, [id number] 12/11/2024 17:07:49 12/12/19 elect garima solitariogr am No observ ation record ed. theresa In-Office Order Internal Use Only DO Not Attach Compendium DO Not Attach Compendium, Do Not Delete/merge, [id number] 12/11/2024 14:33:10 Result Notes None recorded. Problems Name Problem SNOMED Code Status Onset Date Resolution Date Notes Provider Name and Address Organization Details Recorded Time Type 2 diabetes mellitus 54312350 Completed 03/25/2017 Simón Finch MD [address], [place], [address] , [facility] 8 13:56:11 Intraret inal microvas cular abnormal ity 941172906 Completed 09/08/2022 Néstor Jarquin MD [address], [place], [address] , [facility] 3 13:22:54 Adult health examinat ion Completed 08/13/2022 Néstor Jarquin MD [address], [place], [address] , [facility] 3 18:13:54 Asthma 013364090 Completed 09/17/2016 Néstor Jarquin MD [address], [place], [address] , [facility] 2 18:53:24 Benign prostati c hyperpla lalo 972894141 Active Not Available [facility] 2 19:36:36 Bipolar I disorder 544042287 Active Not Available [facility] 2 19:36:36 Primary cardiomy opathy 41526873 Active Not Available [facility] 2 19:36:36 Carpal tunnel syndrome 42970942 Completed 09/08/2022 Néstor Jarquin MD [address] [facility] [address], [place], [address] , [facility] 3 13:21:48 Chronic pain 39449986 Active Not Available [facility] 2 19:36:36 Screenin g for malignan t neoplasm of colon Completed 12/21/2016 Wayne baez MA null, [facility] 7 13:26:16 Disorder of eye due to type 2 diabetes mellitus 011902970 Active Not Available [facility] 2 19:36:36 Diplopia 93535074 Completed 09/08/2022 Néstor Jaqruin MD [address] [facility] [address], [place], [address] , [facility] 3 13:21:57 Psychose 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 d libido 105216064 Active Not Available [facility] 2 19:36:37 Umbilica l hernia 007099706 Active Not Available [facility] 2 19:36:37 Hypersom shane with sleep apnea 86692707 Completed 01/17/2024 Néstor Jarquin MD [address] [facility] [address], [place], [address] , [facility] 4 10:37:02 Testicul ar hypofunc tion 972492873 Completed 09/08/2022 Néstor Jarquin MD [address] [facility] [address], [place], [address] , [facility] 3 13:23:57 Metaboli c syndrome X 135337424 Completed 09/19/2016 Simón Finch MD [address] [facility] [address], [place], [address] , [facility] 7 17:32:14 Vertebra l artery syndrome 08572639 Completed 09/19/2016 Simón Finch MD [address] [facility] [address], [place], [address] , [facility] 7 17:32:22 Low back pain 178167669 Active Not Available [facility] 2 19:36:36 Patient status finding 743425467 Completed 09/17/2016 Wayne baez MA null, [facility] 7 14:55:50 Morbid obesity 440514218 Completed 09/08/2022 Néstor Jarquin MD [address] [facility] [address], [place], [address] , [facility] 3 13:23:08 Inflamma tion of rotator cuff tendon 240412430 Active Not Available [facility] 2 19:36:37 Retinopa thy Active Not Available [facility] 2 19:36:36 Pain of multiple joints 13391419 Completed 01/17/2024 Néstor Jarquin MD [address] [facility] [address], [place], [address] , [facility] 4 10:37:17 Multiple bruising 770995465 Completed 09/01/2021 Néstor Jarquin MD [address] [facility] [address], [place], [address] , [facility] 2 08:36:05 Painless rectal bleeding 599813614 Completed 09/19/2016 Simón Finch MD [address] [facility] [address], [place], [address] , [facility] 7 17:32:25 Foot pain 75914502 Completed 09/08/2022 Néstor Jarquin MD [address] [facility] [address], [place], [address] , [facility] 3 13:22:03 Cardiomy opathy 01738292 Active Not Available [facility] 2 19:36:37 Tear of medial meniscus of knee 047319411 Active s/p repair Néstor Jarquin MD [address], [place], [address] , [facility] 3 13:23:39 Uncontro lled type 2 diabetes mellitus 527392150 Completed 12/21/2016 Simón Finch MD [address], [place], [address] , [facility] 7 14:00:56 Mild persiste nt asthma 071418727 Active Not Available [facility] 2 19:36:36 Proteinu jennifer 15071170 Completed 01/17/2024 Néstor Jarquin MD [address], [place], [address] , [facility] 4 10:37:22 Anemia 954662512 Completed 01/17/2024 Néstor Jarquin MD [address] [facility] [address], [place], [address] , [facility] 4 10:51:44 Serum creatini ne above referenc e range 981093521 Completed 09/08/2022 Néstor Jarquin MD [address] [facility] [address], [place], [address] , [facility] 3 13:23:22 Hyperkal emia 43215497 Completed 09/01/2021 Néstor Jarquin MD [address] [facility] [address], [place], [address] , [facility] 2 08:35:50 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 641440880 Active Not Available [facility] 2 19:36:37 Administ ration of bacteria l and viral vaccine Completed 200710/25/2013 RECORDED 01/04/20 08 9:03AM BY NATE GUTIERREZ, OFFICE VISIT Nora Patel PA-C [address] [facility] [address], [place], [address] , [facility] 6 14:59:27 Administ ration of bacteria l and viral vaccine Completed 200710/26/2013 RECORDED 01/04/20 08 9:03AM BY NATE GUTIERREZ, OFFICE VISIT Nora Patel AL-C [address] [facility] [address], [place], [address] , [facility] 6 14:59:27 Administ ration of bacteria l and viral vaccine Completed 200710/02/2013 RECORDED 01/04/20 08 9:03AM BY NATE GUTIERREZ, OFFICE VISIT Nora Patel AL-C [address] [facility] [address], [place], [address] , [facility] 6 14:59:27 Active or passive immuniza tion Completed 200710/25/2013 RECORDED 02/14/20 08 9:58AM BY AFIA HILL ON/ADDEN DUM Nora Patel AL-C [address] [facility] [address], [place], [address] , [facility] 6 14:59:27 Active or passive immuniza tion Completed 200710/26/2013 RECORDED 02/14/20 08 9:58AM BY AFIA HILL ON/ADDEN DUM Nora Patel AL-C [address] [facility] [address], [place], [address] , [facility] 6 14:59:27 Active or passive immuniza tion Completed 200710/02/2013 RECORDED 02/14/20 08 9:58AM BY AFIA HILL ON/ADDEN DUM Nora Patel PA-C [address] [facility] [address], [place], [address] , [facility] 6 14:59:27 Cough 76101727 Completed 200810/25/2013 IMPRESSI ON: ASTHMA VS. ACEI-REL ATED; RECORDED 04/02/19 09 7:22AM BY WAYNE MCCULLOUGH MA, ANNOTATI ON/ADDEN DUM Nora Patel PA-C [address], [place], [address] , [facility] 6 14:59:27 Cough 38934102 Completed 200810/26/2013 IMPRESSI ON: ASTHMA VS. ACEI-REL ATED; RECORDED 04/02/19 09 7:22AM BY WAYNE MCCULLOUGH MA, ANNOTATI ON/ADDEN DUM Nora Jorge PA-C [address], [place], [address] , [facility] 6 14:59:27 Cough 61159113 Completed 200810/02/2013 IMPRESSI ON: ASTHMA VS. ACEI-REL ATED; RECORDED 04/02/19 09 7:22AM BY WAYNE MCCULLOUGH MA, ANNOTATI ON/ADDEN DUM Nora Jorge PA-C [address], [place], [address] , [facility] 6 14:59:27 Inflamma tory disorder of extremit y Completed 200810/25/2013 RECORDED 10/03/19 09 11:41AM BY AFIA HAY ON/ADDEN DUM Nora Patel PA-C [address], [place], [address] , [facility] 6 14:59:27 Family history of malignan t neoplasm of prostate 685548347 Completed 200810/25/2013 RECORDED 10/03/19 09 11:41AM BY AFIA HAY ON/ADDEN DUM Nora Patel PA-C [address], [place], [address] , [facility] 6 14:59:27 Amnesia [id number] Completed 200810/25/2013 RECORDED 10/03/19 09 11:35AM BY PANCHITO CONNOR, MINHATI ON/ADDEN DUM Nora Patel PA-C [address], [place], [address] , [facility] 6 14:59:27 Eruption [id number] Completed 200810/25/2013 RECORDED 10/03/19 09 11:41AM BY PANCHITO CONNOR, MINHATI ON/ADDEN DUM Nora Patel PA-C [address], [place], [address] , [facility] 6 14:59:27 Inflamma tory disorder of extremit y Completed 200810/26/2013 RECORDED 10/03/19 09 11:41AM BY PANCHITO CONNOR, MINHATI ON/ADDEN DUM Nora Patel PA-C [address], [place], [address] , [facility] 6 14:59:27 Family history of malignan t neoplasm of prostate 780164164 Completed 200810/26/2013 RECORDED 10/03/19 09 11:41AM BY PANCHITO CONNOR, AFIA ON/ADDEN DUM Nora Patel PA-C [address], [place], [address] , [facility] 6 14:59:27 Amnesia [id number] Completed 200810/26/2013 RECORDED 10/03/19 09 11:35AM BY MINH HAYATI ON/ADDEN DUM Nora Patel PA-C [address], [place], [address] , [facility] 6 14:59:27 Eruption [id number] Completed 200810/26/2013 RECORDED 10/03/19 09 11:41AM BY MINH HAYATI ON/ADDEN DUM Nora Patel PA-C [address], [place], [address] , [facility] 6 14:59:27 Inflamma tory disorder of extremit y Completed 200810/02/2013 RECORDED 10/03/19 09 11:41AM BY AFIA HAY ON/ADDEN DUM Nora Patel PA-C [address], [place], [address] , [facility] 6 14:59:27 Family history of malignan t neoplasm of prostate 774457673 Completed 200810/02/2013 RECORDED 10/03/19 09 11:41AM BY AFIA HAY ON/ADDEN DUM Nora Patel PA-C [address], [place], [address] , [facility] 6 14:59:27 Amnesia [id number] Completed 200810/02/2013 RECORDED 10/03/19 09 11:35AM BY AFIA HAY ON/ADDEN DUM Nora Patel PA-C [address], [place], [address] , [facility] 6 14:59:27 Eruption [id number] Completed 200810/02/2013 RECORDED 10/03/19 09 11:41AM BY AFIA HAY ON/ADDEN DUM Nora Patel PA-C [address], [place], [address] , [facility] 6 14:59:27 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 487546629 Completed 200810/25/2013 RECORDED 11/20/19 09 8:59AM BY AFIA HAY ON/ADDEN DUM Nora Patel PA-C [address], [place], [address] , [facility] 6 14:59:26 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 Completed 200810/26/2013 RECORDED 11/20/19 09 8:59AM BY PANCHITO CONNOR, ANNOTATI ON/ADDEN DUM Nora Patel PA-C [address], [place], [address] , [facility] 6 14:59:26 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 968970416 Completed 200810/02/2013 RECORDED 11/20/19 09 8:59AM BY PANCHITO CONNOR, ANNOTATI ON/ADDEN DUM Nora Patel PA-C [address], [place], [address] , [facility] 6 14:59:26 Type 2 diabetes mellitus without complica tion 186829397 Completed 201010/25/2013 RECORDED 06/26/19 11 12:56PM BY WAYNE MCCULLOUGH MA, ANNOTATI ON/ADDEN DUM Nora Patel PA-C [address], [place], [address] , [facility] 6 14:59:26 Type 2 diabetes mellitus without complica tion 031228910 Completed 201010/26/2013 RECORDED 06/26/19 11 12:56PM BY WAYNE MCCULLOUGH MA, ANNOTATI ON/ADDEN DUM Nora Patel PA-C [address], [place], [address] , [facility] 6 14:59:26 Type 2 diabetes mellitus without complica tion 872774750 Completed 201010/02/2013 RECORDED 06/26/19 11 12:56PM BY WAYNE MCCULLOUGH MA, ANNOTATI ON/ADDEN DUM Nora Patel PA-C [address], [place], [address] , [facility] 6 14:59:26 Counseli ashlee Completed 201110/25/2013 RECORDED 01/21/20 12 11:22AM BY WAYNE MCCULLOUGH MA, ANNOTATI ON/ADDEN DUM Nora Patel PA-C [address], [place], [address] , [facility] 6 14:59:27 Edema [id number] Completed 201110/25/2013 RECORDED 01/21/20 12 11:21AM BY WAYNE MCCULLOUGH MA, ANNOTATI ON/ADDEN DUM Nora Patel PA-C [address], [place], [address] , [facility] 6 14:59:27 Lateral epicondy litis 962078114 Completed 201110/25/2013 RECORDED 01/21/20 12 11:21AM BY WAYNE MCCULLOUGH MA, ANNOTATI ON/ADDEN DUM Nora Patel PA-C [address], [place], [address] , [facility] 6 14:59:26 Knee pain Completed 201110/25/2013 STORY: LEFT KNEE; RECORDED 01/21/20 12 11:22AM BY WAYNE MCCULLOUGH MA, ANNOTATI ON/ADDEN DUM Nora Patel PA-C [address], [place], [address] , [facility] 6 14:59:26 Pre-surg ghanshyam evaluati on Completed 201110/25/2013 RECORDED 01/21/20 12 11:22AM BY WAYNE MCCULLOUGH MA, ANNOTATI ON/ADDEN DUM Nora Patel PA-C [address], [place], [address] , [facility] 6 14:59:27 Senile hyperker atosis 917136990 Completed 201110/25/2013 RECORDED 01/21/20 12 11:21AM BY WAYNE MCCULLOUGH MA, ANNOTATI ON/ADDEN DUM Nora Jorge RIVERAC [address], [place], [address] , [facility] 6 14:59:26 Disturba nce of consciou sness 1543296 Completed 201110/25/2013 STORY: EXCESSIV E DAYTIME SOMNOLEN CE. PREVIOUS INCONCLU SIVE POLYSOMN OGRAM.; RECORDED 01/21/20 12 11:22AM BY WAYNE MCCULLOUGH MA, ANNOTATI ON/ADDEN DUM Nora Jorge RIVERAC [address] [facility] [address], [place], [address] , [facility] 6 14:59:26 Current knee cartilag e tear Completed 201110/25/2013 IMPRESSI ON: L KNEE, M AND LMT, FOLLOWED BY DR. KIM. SCHED FOR REPAIR 10/27. WILL FORWARD NOTE AND EKG. PT ALREADY HAS ORDER FROM THEIR OFFICE FOR REC LABS.; RECORDED 01/21/20 12 11:22AM BY WAYNE MCCULLOUGH MA, ANNOTLICHA ON/ADDEN DUM Nora Jorge RIVERAC [address] [facility] [address], [place], [address] , [facility] 6 14:59:27 Dermatop hytosis of the body Completed 201110/25/2013 RECORDED 01/21/20 12 11:22AM BY WAYNE MCCULLOUGH MA, ANNOTLICHA ON/ADDEN DUM Nora Jorge RIVERAC [address] [facility] [address], [place], [address] , [facility] 6 14:59:26 Counseli ng Completed 201110/26/2013 RECORDED 01/21/20 12 11:22AM BY WAYNE MCCULLOUGH MA, ANNOTLICHA ON/ADDEN DUM Nora Jorge RIVERAC [address] [facility] [address], [place], [address] , [facility] 6 14:59:27 Edema [id number] Completed 201110/26/2013 RECORDED 01/21/20 12 11:21AM BY WAYNE MCCULLOUGH MA, ANNOTATI ON/ADDEN DUM Nora Patel PA-C [address], [place], [address] , [facility] 6 14:59:27 Lateral epicondy litis 217435531 Completed 201110/26/2013 RECORDED 01/21/20 12 11:21AM BY WAYNE MCCULLOUGH MA, ANNOTATI ON/ADDEN DUM Nora Patel PA-C [address], [place], [address] , [facility] 6 14:59:26 Knee pain Completed 201110/26/2013 STORY: LEFT KNEE; RECORDED 01/21/20 12 11:22AM BY WAYNE MCCULLOUGH MA, ANNOTATI ON/ADDEN DUM Nora Patel PA-C [address] [facility] [address], [place], [address] , [facility] 6 14:59:26 Pre-surg ghanshyam evaluati on Completed 201110/26/2013 RECORDED 01/21/20 12 11:22AM BY WAYNE MCCULLOUGH MA, ANNOTATI ON/ADDEN DUM Nora Patel PA-C [address], [place], [address] , [facility] 6 14:59:27 Senile hyperker atosis 766235474 Completed 201110/26/2013 RECORDED 01/21/20 12 11:21AM BY WAYNE MCCULLOUGH MA, ANNOTATI ON/ADDEN DUM Nora Patel PA-C [address], [place], [address] , [facility] 6 14:59:26 Disturba nce of consciou sness 8954375 Completed 201110/26/2013 STORY: EXCESSIV E DAYTIME SOMNOLEN CE. PREVIOUS INCONCLU SIVE POLYSOMN OGRAM.; RECORDED 01/21/20 12 11:22AM BY WAYNE MCCULLOUGH MA, AFIA ON/ADDEN DUM Nora Patel PA-C [address], [place], [address] , [facility] 6 14:59:26 Current knee cartilag e tear Completed 201110/26/2013 IMPRESSI ON: L KNEE, M AND LMT, FOLLOWED BY DR. KIM. SCHED FOR REPAIR 10/27. WILL FORWARD NOTE AND EKG. PT ALREADY HAS ORDER FROM THEIR OFFICE FOR REC LABS.; RECORDED 01/21/20 12 11:22AM BY WAYNE MCCULLOUGH MA, AFIA ON/ADDEN DUM Nora Patel PA-C [address], [place], [address] , [facility] 6 14:59:27 Dermatop hytosis of the body Completed 201110/26/2013 RECORDED 01/21/20 12 11:22AM BY WAYNE MCCULLOUGH MA, AFIA ON/ADDEN DUM Nora Patel PA-C [address] [facility] [address], [place], [address] , [facility] 6 14:59:26 Counseli ng Completed 201110/02/2013 RECORDED 01/21/20 12 11:22AM BY WAYNE MCCULLOUGH MA, AFIA ON/ADDEN DUM Nora Patel PA-C [address] [facility] [address], [place], [address] , [facility] 6 14:59:27 Edema [id number] Completed 201110/02/2013 RECORDED 01/21/20 12 11:21AM BY WAYNE MCCULLOUGH MA, ANNOTATI ON/ADDEN DUM Nora Patel PA-C [address], [place], [address] , [facility] 6 14:59:27 Lateral epicondy litis 700135914 Completed 201110/02/2013 RECORDED 01/21/20 12 11:21AM BY WAYNE MCCULLOUGH MA, ANNOTATI ON/ADDEN DUM Nora Patel PA-C [address], [place], [address] , [facility] 6 14:59:26 Knee pain Completed 201110/02/2013 STORY: LEFT KNEE; RECORDED 01/21/20 12 11:22AM BY WAYNE MCCULLOUGH MA, ANNOTATI ON/ADDEN DUM Nora Patel PA-C [address], [place], [address] , [facility] 6 14:59:26 Pre-surg ghanshyam evaluati on Completed 201110/02/2013 RECORDED 01/21/20 12 11:22AM BY WAYNE MCCULLOUGH MA, ANNOTATI ON/ADDEN DUM Nora Patel PA-C [address], [place], [address] , [facility] 6 14:59:27 Senile hyperker atosis 773142953 Completed 201110/02/2013 RECORDED 01/21/20 12 11:21AM BY WAYNE MCCULLOUGH MA, ANNOTATI ON/ADDEN DUM Nora Patel PA-C [address], [place], [address] , [facility] 6 14:59:26 Disturba nce of consciou sness 2920810 Completed 201110/02/2013 STORY: EXCESSIV E DAYTIME SOMNOLEN CE. PREVIOUS INCONCLU SIVE POLYSOMN OGRAM.; RECORDED 01/21/20 12 11:22AM BY WAYNE MCCULLOUGH MA, ANNOTATI ON/ADDEN DUM Nora Jorge HUNG-C [address] [facility] [address], [place], [address] , [facility] 6 14:59:26 Current knee cartilag e tear Completed 201110/02/2013 IMPRESSI ON: L KNEE, M AND LMT, FOLLOWED BY DR. KIM. SCHED FOR REPAIR 10/27. WILL FORWARD NOTE AND EKG. PT ALREADY HAS ORDER FROM THEIR OFFICE FOR REC LABS.; RECORDED 01/21/20 12 11:22AM BY WAYNE MCCULLOUGH MA, ANNOTATI ON/ADDEN DUM Nora Jorge HUNG-C [address] [facility] [address], [place], [address] , [facility] 6 14:59:27 Dermatop hytosis of the body Completed 201110/02/2013 RECORDED 01/21/20 12 11:22AM BY WAYNE MCCULLOUGH MA, AFIA ON/ADDEN DUM Nora Jorge HUNG-C [address] [facility] [address], [place], [address] , [facility] 6 14:59:26 Acute sinusiti s 65228723 Completed 201210/25/2013 RECORDED 05/04/19 13 4:48PM BY MINH BOLDENATI ON/ADDEN DUM Nora Jorge PA-C [address] [facility] [address], [place], [address] , [facility] 6 14:59:26 Acute sinusiti s 49162479 Completed 201210/26/2013 RECORDED 05/04/19 13 4:48PM BY MALAIKA EARL I, ANNOTATI ON/ADDEN DUM Nora Jorge PA-C [address], [place], [address] , [facility] 6 14:59:26 Acute sinusiti s 86067080 Completed 201210/02/2013 RECORDED 05/04/19 13 4:48PM BY MALAIKA EARL I, ANNOTATI ON/ADDEN DUM Nora Patel PA-C [address], [place], [address] , [facility] 6 14:59:26 Renewal of prescrip tion Completed 201210/25/2013 RECORDED 07/28/19 13 3:30PM BY WAYNE MCCULLOUGH MA, ANNOTATI ON/ADDEN DUM Nora Patel PA-C [address], [place], [address] , [facility] 6 14:59:27 Renewal of prescrip tion Completed 201210/26/2013 RECORDED 07/28/19 13 3:30PM BY WAYNE MCCULLOUGH MA, ANNOTATI ON/ADDEN DUM Nora Patel PA-C [address], [place], [address] , [facility] 6 14:59:27 Renewal of prescrip tion Completed 201210/02/2013 RECORDED 07/28/19 13 3:30PM BY WAYNE MCCULLOUGH MA, AFIA ON/ADDEN DUM Nora Patel PA-C [address], [place], [address] , [facility] 6 14:59:27 Epigastr ic pain 79107118 Completed 201210/25/2013 RECORDED 11/29/19 13 2:49PM BY WAYNE MCCULLOUGH MA, ANNOTATI ON/ADDEN DUM Nora Patel PA-C [address], [place], [address] , [facility] 6 14:59:27 Pain of joint 33556133 Completed 201210/25/2013 RECORDED 11/29/19 13 2:49PM BY WAYNE MCCULLOUGH MA, ANNOTATI ON/ADDEN DUM Nora RIVERAC [address], [place], [address] , [facility] 6 14:59:26 Uncontro lled type 2 diabetes mellitus 360904331 Completed 201210/25/2013 RECORDED 11/29/19 13 2:51PM BY WAYNE MCCULLOUGH MA, ANNOTATI ON/ADDEN DUM Simón Finch MD [address], [place], [address] , [facility] 7 14:00:56 Influenz a vaccine needed [id number] 06 Completed 201210/25/2013 RECORDED 11/29/19 13 3:35PM BY SIMÓN FINCH MD, OFFICE VISIT Nora Patel PA-C [address] [facility] [address], [place], [address] , [facility] 6 14:59:27 Epigastr ic pain 48075585 Completed 201210/26/2013 RECORDED 11/29/19 13 2:49PM BY WAYNE MCCULLOUGH MA, ANNOTLICHA ON/ADDEN DUM Nora RIVERAC [address], [place], [address] , [facility] 6 14:59:27 Pain of joint 55301295 Completed 201210/26/2013 RECORDED 11/29/19 13 2:49PM BY WAYNE MCCULLOUGH MA, ANNOTATI ON/ADDEN DUM Nora RIVERAC [address], [place], [address] , [facility] 6 14:59:26 Uncontro lled type 2 diabetes mellitus [id number] Completed 201210/26/2013 RECORDED 11/29/19 13 2:51PM BY WAYNE MCCULLOUGH MA, ANNOTATI ON/ADDEN DUM Simón Finch MD [address], [place], [address] , [facility] 7 14:00:56 Influenz a vaccine needed [id number] 06 Completed 201210/26/2013 RECORDED 11/29/19 13 3:35PM BY SIMÓN FINCH MD, OFFICE VISIT Nora HUNG-C [address] [address], [place], [address] , [facility] 6 14:59:27 Epigastr ic pain 96792922 Completed 201210/02/2013 RECORDED 11/29/19 13 2:49PM BY WAYNE MCCULLOUGH MA, ANNOTATI ON/ADDEN DUM Nora RIVERAC [address], [place], [address] , [facility] 6 14:59:27 Pain of joint 73453393 Completed 201210/02/2013 RECORDED 11/29/19 13 2:49PM BY WAYNE MCCULLOUGH MA, ANNOTATI ON/ADDEN DUM Nora HUNG-C [address], [place], [address] , [facility] 6 14:59:26 Uncontro lled type 2 diabetes mellitus 146115302 Completed 201210/02/2013 RECORDED 11/29/19 13 2:51PM BY WAYNE MCCULLOUGH MA, ANNOTATI ON/ADDEN DUM Simón Finch MD [address], [place], [address] , [facility] 7 14:00:56 Influenz a vaccine needed [id number] 06 Completed 201210/02/2013 RECORDED 11/29/19 13 3:35PM BY SIMÓN FINCH MD, OFFICE VISIT Nora Patel PA-C [address], [place], [address] , [facility] 6 14:59:27 Abdomina l pain 47613707 Completed 201310/25/2013 RECORDED 03/23/19 14 1:50PM BY WAYNE MCCULLOUGH MA, ANNOTATI ON/ADDEN DUM Nora Patel PA-C [address], [place], [address] , [facility] 6 14:59:27 Abdomina l pain 62657336 Completed 201310/26/2013 RECORDED 03/23/19 14 1:50PM BY WAYNE MCCULLOUGH MA, ANNOTATI ON/ADDEN DUM Nora Jorge PA-C [address], [place], [address] , [facility] 6 14:59:27 Abdomina l pain 55547277 Completed 201310/02/2013 RECORDED 03/23/19 14 1:50PM BY WAYNE MCCULLOUGH MA, ANNOTATI ON/ADDEN DUM Nora Patel PA-C [address], [place], [address] , [facility] 6 14:59:27 Laborato ry procedur e performe d [id number] Completed 201310/25/2013 RECORDED 05/23/19 14 9:12AM BY WAYNE MCCULLOUGH MA, ANNOTATI ON/ADDEN DUM Nora Patel PA-C [address], [place], [address] , [facility] 6 14:59:27 Laborato ry procedur e performe d [id number] Completed 201310/26/2013 RECORDED 05/23/19 14 9:12AM BY WAYNE MCCULLOUGH MA, ANNOTATI ON/ADDEN DUM Nora Patel PA-C [address], [place], [address] , [facility] 6 14:59:27 Laborato ry procedur e performe d 972123807 Completed 201310/02/2013 RECORDED 05/23/19 14 9:12AM BY WAYNE MCCULLOUGH MA, ANNOTATI ON/ADDEN DUM Nora Patel PA-C [address], [place], [address] , [facility] 6 14:59:27 Screenin g procedur e Completed 201310/25/2013 RECORDED 06/26/19 14 9:59AM BY WAYNE MCCULLOUGH MA, ANNOTATI ON/ADDEN DUM Nora Patel PA-C [address], [place], [address] , [facility] 6 14:59:27 Screenin g procedur e Completed 201310/26/2013 RECORDED 06/26/19 14 9:59AM BY WAYNE MCCULLOUGH MA, ANNOTATI ON/ADDEN DUM Nora Patel PA-C [address] [facility] [address], [place], [address] , [facility] 6 14:59:27 Screenin g for malignan t neoplasm of colon Completed 201310/02/2013 RECORDED 06/26/19 14 9:59AM BY WAYNE MCCULLOUGH MA, ANNOTATI ON/ADDEN DUM [facility] 7 13:26:16 Screenin g procedur e Completed 201310/02/2013 RECORDED 04/07/20 14 9:59AM BY WAYNE MCCULLOUGH MA, ANNOTATI ON/JULIET Patel PA-C [address], [place], [address] , [facility] 6 14:59:27 Hyperlip idemia 94056157 Active 2017 Not Available [facility] 2 19:36:37 Ulcerati ve colitis 08812258 Active 2017 Not Available [facility] 2 19:36:36 Venous retinal branch occlusio n 64536294 Active 2018 Not Available [facility] 2 19:36:36 Iron deficien cy anemia 42307246 Completed 201809/01/2021 Néstor Jarquin MD [address], [place], [address] , [facility] 2 08:35:56 Gastroes ophageal reflux disease 289889052 Active 2018 Not Available [facility] 2 19:36:37 Chronic kidney disease stage 3 380888338 Completed 201907/23/2019 Wayne baez MA [facility], [facility] 2 15:07:15 Neurogen ic claudica tion 725190737 Completed 201909/08/2022 Néstor Jarquin MD [address], [place], [address] , [facility] 3 13:23:16 Chronic kidney disease stage 3A 837416744 Active 2020 Not Available [facility] 2 19:36:37 Chronic kidney disease due to type 2 diabetes mellitus 41589281766 8 Active 2020 Not Available [facility] 2 19:36:36 Asthma 202686554 Active 2021 Not Available [facility] 2 19:36:36 Hyperten sive renal disease 59485518 Active 03/09/ 2022 Not Available [facility] 2 19:36:36 Spinal stenosis of lumbar region 72861398 Active 2023 Néstor Jarquin MD [address] [address], [address] , [facility] 4 17:59:11 Body mass index 25-29 - overweig 338747188 Active 2023 Néstor Jarquin MD [address] [address], [address] , [facility] 4 10:50:18 [facility] 3783[facility]13 Active 2023 Néstor Jarquin MD [address] [address], [place], [address] , [facility] 4 10:50:34 Abnormal testoste tonio 642217277 Active 2023 Néstor Jarquin MD [address] [address], [address] , [facility] 4 06:26:29 Notes:Some problems listed i n Document: #[id number] could not be added to this patient's chart. Please review this document and add these problems to the patient's chart manually as needed. Problem Notes None recorded. Procedures Surgical History Date Name Laterality Status Provider Name and Address Organization Details Recorded Time 11/07/19 25 Chronic Pain Assessment completed Wayne ramirez MA [facility] 11/06/2024 13:11:40 03/07/20 24 diabetic retinopathy screening completed Beatrice Pope [facility] 03/09/2024 09:24:39 01/17/20 24 Diabetic Foot Exam (Monofilament) completed Néstor Jarquin MD [address], [address], [facility] 01/17/2024 10:59:13 09/09/19 23 Diabetic Foot Exam (Monofilament) completed Néstor Jarquin MD [address], [address], [facility] 09/08/2022 13:49:58 09/03/19 22 Diabetic Foot Exam (Monofilament) completed Néstor Jarquin MD [address] [address], [place], [address], [facility] 09/02/2021 09:44:23 11/12/19 21 lumbar microdiscectomy completed Wayne ramirez MA [facility] 05/27/2021 15:18:39 10/28/19 21 Diabetic Foot Exam (Monofilament) completed Wayne ramirez MA [facility] 10/27/2020 13:17:47 09/04/19 21 lumbar spinal fusion completed Wayne ramirez MA [facility] 05/27/2021 15:19:22 06/13/19 21 fusion of cervicothoracic joint by anterior approach completed Wayne ramirez [facility] 05/27/2021 15:19:42 12/30/19 19 Diabetic Foot Exam (Monofilament) completed Sherry Barnes [facility] 12/29/2018 10:14:49 11/29/19 19 injection of steroid via intravitreal route completed Wayne ramirez MA [facility] 12/05/2018 13:15:48 12/11/19 18 Chronic Pain Assessment completed Wayne ramirez MA [facility] 12/10/2017 10:21:40 12/11/19 18 Diabetic Foot Exam (Monofilament) completed Wayne ramirez MA [facility] 12/10/2017 10:09:19 09/25/19 18 Chronic Pain Assessment completed Wayne ramirez MA [facility] 09/24/2017 08:50:23 09/25/19 18 Diabetic Foot Exam (Monofilament) completed Wayne ramirez MA [facility] 09/24/2017 08:33:05 06/21/19 18 Chronic Pain Assessment completed Wayne Duc-Sharif os, PANCHITO [facility] 06/20/2017 13:01:18 03/25/19 18 Chronic Pain Assessment completed Wayne Duc-Sharif os, PANCHITO [facility] 03/25/2017 13:50:04 12/22/19 17 Chronic Pain Assessment completed Wayne Duc-Sharif os, PANCHITO [facility] 12/21/2016 13:28:57 09/18/19 17 Chronic Pain Assessment completed Wayne Duc-Sharif os, PANCHITO [facility] 09/17/2016 14:55:34 05/07/19 17 Chronic Pain Assessment completed Malaika Solorio [facility] 05/07/2016 09:21:49 02/06/20 16 Chronic Pain Assessment completed Wayne Duc-Sharif os, PANCHITO [facility] 02/06/2016 14:10:17 11/04/19 16 Chronic Pain Assessment completed Wayne Duc-Sharif os, PANCHITO [facility] 11/04/2015 10:50:37 10/16/19 15 Colonoscopy completed Wayne Duc-Sharif os, PANCHITO [facility] 05/27/2021 15:20:02 10/16/19 15 Colonoscopy & polypectomy completed Wayne Duc-Sharif os, PANCHITO [facility] 05/27/2021 15:20:15 02/19/20 14 Gastric bypass for obesity completed Wayne Duc-Sharif os, PANCHITO [facility] 05/27/2021 15:21:50 11/20/19 12 Circumcision completed Wayne Duc-Sharif os, PANCHITO [facility] 02/06/2016 14:02:12 03/21/19 12 primary repair of umbilical hernia completed Wayne Duc-Sharif os, PANCHITO [facility] 05/27/2021 15:22:24 10/20/19 11 Orthopedic Surgery completed Wayne Duc-Sharif os, PANCHITO [facility] 02/06/2016 14:02:12 03/21/19 11 operation on meniscus of the knee completed Wayne ramirez MA [facility] 05/27/2021 15:22:55 07/31/19 04 lumbar spinal fusion completed Wayne ramirez MA [facility] 05/27/2021 15:23:44 03/21/19 03 Back Surgery completed Wayne ramirez MA [facility] 01/21/2014 10:51:35 Imaging Results None recorded. Procedure Notes None recorded. Medical Equipment None Reported. Allergies Allergen ID Allergen Name Allergen Category Reaction Reaction Severity Criticality Documentation Date Start Date Code Code System Note Provider Name and Address Organization Details Recorded Time 59257 No known allergy (situatio n) Not available Not available Not available Not available 08/05/2020 89708 6003 SNOMED PANCHITO [place] [facility] 3 14:17:44 90951 atorvasta tin medicatio n myalgias (muscle pain) Not available Not available 06/02/2022 96516 RxNorm PANCHITO [facility] 3 14:17:54 74334 gabapenti n medicatio n edema moderate Not available 11/06/2024 89640 RxNorm PANCHITO [facility] 5 13:09:08 74853 acetamino phen / oxycodone medicatio n respirato ry distress moderate Not available 11/06/2024 46059 3 RxNorm PANCHITO [facility] 5 13:09:38 78189 acetamino phen / oxycodone medicatio n Not available Not available Not available 02/27/2025 96699 3 RxNorm Not Available cristian - External [...] WAYNE MCCULLOUGH MA, ANNOTATI ON/ADDEN DUM;CASK EY ([facility] ) Not Available Not Available Not [...] BY MOUTH EVERY DAY 01/[address] Skinner Pack Not Available Not Available Not Available amoxicill [...] 09 9:23AM BY SIMÓN FINCH MD, ANNOTATI ON/ADDPATEL DUM;PER PSYCHIAT RY (DR. QUEEN) Not Available [...] by oral route. 10/[address] Lynn Cee Not Available Not Available Not Available ezetimibe [...] RECORDED 04/23/19 12 9:45AM BY AFIA STONE/JULIET DUM; Not Available Not Available Not Available [...] completed RECORDED 06/16/19 13 11:40AM BY AFIA STONE/JULIET OCHOA; Not Available Not Available Not Available Men's Multi-Vit freitas 1 tablet po daily 09/17 completed Not Available Not Available Not Available One Touch Test TID 2007 active RECORDED 06/22/19 08 12:27PM BY SIMÓN FINCH MD, AFIA ON/JULIET DUM; Not Available Not Available Not Available [...] 04/23 completed RECORDED 04/23/19 12 9:45AM BY SIOBHAN JHAVERI, AFIA ON/ADDEN DUM; Not Available Not Available Not Available MoviPrep 100 gram-7.5 gram-2.69 1 gram oral powder packet Take 1 packet every day by oral route. active Not Available Not Available No t Available coenzyme K70-eurmv in E 100 mg-5 unit capsule Take [...] Available Flonase Sensimist 27.5 mcg/actua tion nasal spray,maans pension Take 1 spray every day by nasal route at bedtime for 30 days. 10/04 completed Not Available Not Available Not Available Toujeo Max U-300 SoloStar 300 unit/mL (3 mL) subcutane ous insulin pen prn 11/[address] Eric Coronado Not Available Not Available Not Available BD Torie 2nd Gen Pen Needle 32 gauge x /32 active Not Available Not Available Not Available [...] Not Available Not Available FreeStyle Max 3 Douds 11/06 completed Not Available Not Available Not Available FreeStyle Max 3 Plus Sensor device active Not Available Not Available Not Available Vitals Date Recorded Body height Body mass index (BMI) Body weight Oxygen saturation Heart rate Body temperature Systolic And Diastolic Provider Name and Address Organization Details Last Updated DateTime 4 170.18 cm 31 kg/m2 90077.9 9 g 98 % 64 /min 97.8 [degF] 123/71 mm[Hg] Irene Ordonez MA [facility] 4 13:55:40 Date Recorded Body height Body mass index (BMI) Body weight Heart rate Heart rate Oxygen saturation Body temperature Pain severity - 0-10 verbal numeric rating [Score] - Reported Systolic And Diastolic Provider Name and Address Organization Details Last Updated DateTime 5 170.18 cm 24.6 kg/m2 46489 g 62 /min 68 /min 100 % 98 [degF] 7 113/67 mm[Hg] Wayne mejias MA [facility] 5 13:01:06 Date Recorded Body height Body mass index (BMI) Body weight Heart rate Oxygen saturation Body temperature Heart rate Heart rate Heart rate Systolic And Diastolic Systolic And Diastolic Systolic And Diastolic Systolic And Diastolic Provider Name and Address Organization Details Last Updated DateTime 5 170.18 cm 24 kg/m2 69381.6 3 g 65 /min 99 % 97.6 [degF] 65 /min 70 /min 69 /min 116/61 mm[Hg] 131/75 mm[Hg] 112/70 mm[Hg] 104/66 mm[Hg] Wayne mejias MA [facility] 5 14:19:50 Date Recorded Body height Body mass index (BMI) Body weight Heart rate Oxygen saturation Body temperature Systolic And Diastolic Provider Name and Address Organization Details Last Updated DateTime 4 170.18 cm 29.8 kg/m2 32942.5 5 g 76 /min 98 % 97.3 [degF] 129/73 mm[Hg] Wayne mejias MA [facility] 4 10:11:59 Date Recorded Body height Body mass index (BMI) Body weight Heart rate Oxygen saturation Body temperature Systolic And Diastolic Provider Name and Address Organization Details Last Updated DateTime 5 170.18 cm 24.5 kg/m2 58996.8 5 g 67 /min 99 % 97.2 [degF] 126/78 mm[Hg] Jayla Ulises [facility] 5 14:54:31 Social History Question Answer Notes LastModified by Organizat ion Details LastModified Time Tobacco Smoking Status Never Smoker PANCHITO Chavez, [facility] 10/27/2020 13:22:08 Do You Have An [...] available 10/27/2020 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 [employer] Information not available 09/02/2021 Do [...] Diseases N Hyperthyroidism N Breast Cancer N Hypothyroidism N Lung Disease N Depression N COPD N Defects or Inherited Disease N Anesthesia [...] pneumococcal polysaccharide PPV23 7 completed Not Available [facility] 01/06/2022 19:36:37 pneumococcal polysaccharide PPV23 7 completed Not Available [facility] 01/06/2022 19:36:37 Influenza, split virus, trivalent, preservative 7 completed Not Available [facility] 01/06/2022 19:36:37 Influenza, split virus, trivalent, preservative 8 completed Not Available [facility] 01/06/2022 19:36:37 Tdap 8 completed Not Available [facility] 01/06/2022 19:36:37 Influenza, split virus, trivalent, preservative 3 completed Not Available [facility] 01/06/2022 19:36:37 COVID-19, mRNA, LNP-S, PF, 100 mcg/0.5mL dose or 50 mcg/0.25mL dose 1 completed Not Available [facility] 01/06/2022 19:36:37 Influenza, split virus, quadrivalent, PF 6 completed Not Available [facility] 04/07/2019 02:22:02 COVID-19, mRNA, LNP-S, PF, 100 mcg/0.5mL dose or 50 mcg/0.25mL dose 1 completed PANCHITO Chavez [facility] 11/06/2024 13:02:40 zoster recombinant 2 completed PANCHITO Fulton [facility] 10/05/2023 13:56:12 zoster recombinant 2 completed PANCHITO [place], [facility] 10/05/2023 13:56:12 COVID-19, mRNA, LNP-S, PF, 100 mcg/0.5mL dose or 50 mcg/0.25mL dose 1 completed PANCHITO Chavez, [facility] 11/06/2024 13:02:40 Influenza, split virus, quadrivalent, PF 6 completed Not Available [facility] 04/07/2019 02:22:07 Influenza, split virus, quadrivalent, PF 7 completed Not Available [facility] 04/07/2019 02:22:13 Tdap 8 completed Not Available [facility] 04/07/2019 02:21:48 Influenza, split virus, quadrivalent, PF 8 completed Not Available [facility] 04/07/2019 02:22:16 Influenza, split virus, quadrivalent, PF 9 completed Not Available [facility] 04/07/2019 02:22:10 Influenza, split virus, trivalent, PF 4 completed Not Available [facility] 04/07/2019 02:21:57 Past Encounters Encounter ID Performer Location Encounter Start Date Encounter Closed Date Diagnosis/Indication Diagnosis SNOMED-CT Code Diagnosis ICD10 Code Diagnosis IMO Codes Diagnosis Note [id number] Simón Finch MD Main Office [address] [facility] [address] [facility] [place] [address] 10/23/2013 09:26:09 10/23/2013 10:16:36 Type 2 diabetes mellitus 14095775 Chronic pain 98933927 Low back pain 317858699 Chronic ki dney disease stage 3 166940666 Continue monitorig and follow up with Dr. Velasco for renal. Renal diso rder due to type 2 diabetes mellitus 753817247 [id number] autoEComm erce [address] [facility] [place] [address] 01/10/2006 00:00:00 [id number] autoEComm erce [address] [facility] [place] [address] 10/08/2005 00:00:00 [id number] autoEComm erce [address] [facility] [place] [address] 08/23/2005 00:00:00 [id number] autoEComm erce [address] [facility] [place] [address] 06/16/2005 00:00:00 [id number] autoEComm erce [address] [facility] [place] [address] 05/16/2006 00:00:00 [id number] autoEComm erce [address] [facility] [place] [address] 08/16/2006 00:00:00 [id number] autoEComm erce [address] [facility] [place] [address] 11/16/2006 00:00:00 [id number] autoEComm erce [address] [facility] [place] [address] 03/13/2007 00:00:00 [id number] autoEComm erce [address] [facility] [place] [address] 05/11/2007 00:00:00 [id number] autoEComm erce [address] [facility] [place] [address] 06/14/2007 00:00:00 [id number] autoEComm erce [address] [facility] [place] [address] 09/19/2007 00:00:00 [id number] [address]EComm erce [address] [place] [address] 01/04/2008 00:00:00 [id number] autoEComm erce [address] [place] [address] 02/14/2008 00:00:00 [id number] autoEComm erce [address] [place] [address] 04/02/2008 00:00:00 [id number] autoEComm erce [address] [place] [address] 08/13/2008 00:00:00 [id number] autoEComm erce [address] [facility] [address] [place] [address] 11/19/2008 00:00:00 [id number] autoEComm erce [address] [facility] [place] [address] 03/13/2009 00:00:00 [id number] autoEComm erce [address] [facility] [place] [address] 07/18/2009 00:00:00 [id number] autoEComm erce [address] [facility] [address] [place] [address] 06/30/2010 00:00:00 [id number] autoEComm erce [address] [facility] [place] [address] 08/14/2010 00:00:00 [id number] autoEComm erce [address] [facility] [address] [place] [address] 10/19/2010 00:00:00 [id number] autoEComm erce [address] [place] [address] 11/27/2010 00:00:00 [id number] autoEComm erce [address] [facility] [address] [place] [address] 03/03/2011 00:00:00 [id number] autoEComm erce [address] [place] [address] 07/09/2011 00:00:00 [id number] autoEComm erce [address] [facility] [place] [address] 10/11/2011 00:00:00 [id number] autoEComm erce [address] [place] [address] 01/21/2012 00:00:00 [id number] autoEComm erce [address] [facility] [place] [address] 03/30/2012 00:00:00 [id number] autoEComm erce [address] [facility] [place] [address] 05/05/2012 00:00:00 [id number] autoEComm erce [address] [facility] [place] [address] 07/27/2012 00:00:00 [id number] autoEComm erce [address] [facility] [place] [address] 09/27/2012 00:00:00 [id number] autoEComm erce [address] [facility] [place] [address] 11/28/2012 00:00:00 [id number] autoEComm erce [address] [facility] [place] [address] 03/23/2013 00:00:00 [id number] autoEComm erce [address] [facility] [place] [address] 05/22/2013 00:00:00 [id number] autoEComm erce [address] [facility] [place] [address] 06/25/2013 00:00:00 [id number] JODEE Bran Main Office [address] [facility] [address] [place] [address] 11/29/2013 09:33:35 11/29/2013 09:58:41 Pre-surgery evaluation 154409631 Benign pro static hyperplasia 110872757 Morbid obesity 330763159 Chronic ki dney disease stage 3 410004484 Type 2 shavon betes mellitus 17177634 Essential hypertension 85281937 BP 157/90 today, he states he has been takig his BP meds regularly and that he took these this am. Just came to appt from the gym, states it has not been elevated recently. Patient to monitor and report back. Hyperlipidemia 13664166 Metabolic syndrome X 191840821 [id number] Simón Finch MD Main Office [address] [address] 01/21/2014 10:20:26 01/21/2014 11:57:02 Type 2 diabetes mellitus 18357953 Chronic pain 68284257 Chronic ki dney disease stage 3 704541585 Continue monitorig and follow up with Dr. Velasco for renal. 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 251729001 Essential hypertension 68217934 Pain of mu ltiple joints 42661427 Multiple bruising 605107731 [id number] Simón Finch MD Main Office [address] [address] 09/24/2014 10:25:51 09/24/2014 11:38:34 Type 2 diabetes mellitus 50249348 Essential hypertension 58023789 Chronic pain 84400118 Foot pain 02372388 [id number] Simón Finch MD Main Office [address] [address] 12/31/2014 15:13:36 12/31/2014 16:32:48 Type 2 diabetes mellitus 08377207 E11.9 Chronic pain 98615166 G8 9.29 Cardiomyopathy 70838503 I42.9 Benign pro static hyperplasia 964327941 D29.1 [id number] Simón Finch MD Main Office [address] [address] [place] [address] 04/02/2015 13:43:32 04/02/2015 16:44:29 Adult health examination 384573418 Z00.00 Chronic pain 75132472 G8 9.29 Needs infl uenza immunization 326216403 Z23 Essential hypertension 19768535 I10 Renal diso rder due to type 2 diabetes mellitus 433147727 E11.29 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 436845440 E11.39 Tear of me dial meniscus of knee 751469972 S83.241A [id number] Simón Finch MD Main Office [address] [address] [place] [address] 07/01/2015 09:09:08 07/01/2015 10:19:28 Renal disorder due to type 2 diabetes mellitus 708417793 E11.29 Essential hypertension 32289800 I10 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 Velasco as scheduled. 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 Uncontroll ed type 2 diabetes mellitus 019375329 E11.65 Continue Glipizide ER 5 mg 2 po qd. Start Trulicity 0.75 mg SC weekly injections . POssible side effects reviewed. F/u 6 weeks with log and repeat A1c. 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 Notes no symptoms of CHF and improving LVEF. 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 Velasco for renal. 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 Velasco for renal. Cardiomyopathy 26477662 I42.9 Lumbar radiculopathy 128 727711 M54.16 [id number] Simón Finch MD Main Office [address] [facility] [address] [place] [address] 03/25/2017 13:31:53 03/25/2017 14:20:41 Renal disorder due to type 2 diabetes mellitus 829731896 E11.29 Followed by endo. 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 Velasco for renal. Cardiomyopathy 94526324 I42.9 Lumbar radiculopathy 128 789492 M54.16 [id number] Simón Finch MD Main Office 36[address] [facility] [address] [place] [address] 06/20/2017 12:48:57 06/20/2017 13:38:08 Hepatitis C screening 538578666 Z11.59 Renal diso rder due to type 2 diabetes mellitus 811707245 E11.29 Followed by endo. continue monitoring Chronic pain 74148287 G8 9.29 Anemia due to unknown mechanism 48491104 D64.9 Chronic low back pain 27 4422054 M54.5 Obesity 621807404 E66.9 Body mass index 30+ - obesity 163163872 Z68.30 s/p bariatric surgery with bypass [id number] Simón Finch MD Main Office [address] [facility] [address] [place] [address] 09/24/2017 08:22:14 09/24/2017 09:21:13 Essential hypertension 37955964 I10 Renal diso rder due to type 2 diabetes mellitus 039736104 E11.29 Followed by endo. continue monitoring Administra tion of viral vaccine 32578104 Z23 Chronic low back pain 27 5420694 M54.5 Benign pro static hyperplasia 933186731 D29.1 Mild persi stent asthma 809957159 J45.30 Chronic ki dney disease stage 3 922666773 N18.3 Continue monitorig and follow up with Dr. Velasco for renal. [id number] Simón Finch MD Main Office [address] [place] [address] 12/10/2017 09:51:19 12/10/2017 11:11:13 Essential hypertension 74029692 I10 Renal diso rder due to type 2 diabetes mellitus 527983749 E11.29 Followed by endo. continue monitoring Chronic pain 32245889 G8 9.29 Chronic low back pain 27 8617976 M54.5 Needs infl uenza immunization 849672080 Z23 Fatigue 49719671 R53.83 Hypersomnia 87382422 G47 .10 Bursitis of shoulder 239 662134 M75.50 Disorder o f nervous system due to type 2 diabetes mellitus 210372711 E11.49 Diabetic polyneurop athy. preserved sensation by monofilame nt exam, but complains of burning pain. Continues to see Dr. Melendez for management of blood sugars. [id number] Simón Finch MD Main Office [address] [place] [address] 06/26/2018 11:10:15 06/26/2018 12:24:50 Essential hypertension 61399286 I10 Adult heal th examination 985525949 Z00.00 Renal diso rder due to type 2 diabetes mellitus 962854924 E11.29 Followed by endo. continue monitoring Cardiomyopathy 40685439 I42.9 History of non-ischem ic cardiomyop athy Kidney stone 92941214 N2 0.0 Testicular hypofunction 172848334 E29.1 Primary er ectile dysfunction 081432739 N52.9 Chronic low back pain 27 6607297 M54.5 [id number] Simón Finch MD Main Office [address] [place] [address] 12/05/2018 13:03:11 12/05/2018 14:22:28 Renal disorder due to type 2 diabetes mellitus 869991276 E11.22 renal fxn followed by Dr. Velasco, and diabetes followed by Dr. Melendez - CGM for 2 week continuous glucose monitoring placed today to reevaluate for adjusting Soliqua up. Pt. will continue all antidiabet ic at this time. Essential hypertension 50789926 I10 Sees cardiologi , Dr. Cee. Had echo in June - mild reduced ejection fraction. Was put on spironolac tone. Continue current regimen. Hyperlipidemia 40632460 E78.00 elevated triglyceri rajiv as of 10/06. Start atorvastat in 40 mg daily . Repeat lipids in 6 weeks. Venous ret inal branch occlusion 67886865 H34.8322 r/o hypercoagu lable state. Chronic ki dney disease stage 3 495375412 N18.3 [id number] Yossi Baltazar MD Main Office [address] [facility] [address] [place] [address] 12/19/2018 13:34:47 12/19/2018 14:34:11 Uncontrolled type 2 diabetes mellitus 586955439 E11.65 [id number] Simón Finch MD Main Office [address] [facility] [address] [place] [address] 12/29/2018 09:34:41 12/29/2018 11:32:32 Renal disorder due to type 2 diabetes mellitus 913634033 E11.29 Followed by coby. continue monitoring blood sugars. repeat labs as ordered. Needs infl uenza immunization 160287373 Z23 Venous ret inal branch occlusion 91261696 H34.8322 Followed by retina specialist . Chronic ki dney disease stage 3 340245985 N18.3 Continue monitorig and follow up with Dr. Velasco for renal. Avoiding NSAIDS Hyperlipidemia 14447684 E78.5 Cardiomyopathy 87717341 I42.9 History of non-ischem ic cardiomyop athy [id number] Yossi Baltazar MD Main Office [address] [facility] [address] [place] [address] 05/16/2019 10:24:46 05/16/2019 11:48:51 Dysuria 56600742 R30.0 no dysuria rather dark urine -- likely d/t bilirubin - see below re: DM care Renal diso rder due to type 2 diabetes mellitus 619502254 E11.29 last seen by coby ~ 6 months ago - next f/u is next month ---- see below A1c elevated to 9.6!!! *will fwd this note to endo and renal* Chronic ki dney disease stage 3 883708380 N18.3 cont f/u c renal next week Hyperlipidemia 93648456 E78.5 advised pt likely infxn causing his sugars to go up not his statin, so encouraged him to resume his statin Uncontroll ed type 2 diabetes mellitus 400684701 E11.65 A1c elevated to 9.6!!! strongly encouraged pt to call endo for sooner eval Abscess of oral tissue 16083341 K12.2 L upper - wll rx c abx - rec probiotic supplement -- and cont f/u c dentist in a few days [id number] Simón Finch MD Main Office [address] [facility] [address] [place] [address] 08/27/2019 10:48:03 08/27/2019 12:07:20 Adult health examination 265152502 Z00.00 Renal diso rder due to type 2 diabetes mellitus 773720210 E11.29 Followed by endo. continue monitoring blood sugars. repeat labs as ordered. Essential hypertension 67520948 I10 Chronic ki dney disease stage 3 134331048 N18.3 Continue monitorig and follow up with Dr. Velasco for renal. Avoiding NSAIDS Primary er ectile dysfunction 190971134 N52.9 Cardiomyopathy 62082628 I42.9 History of non-ischem ic cardiomyop athy Tremor 98131719 R25.1 Neurogenic claudication 542599763 M48.062 [id number] Yossi Baltazar MD Main Office [address] [facility] [address] [place] [address] 06/04/2020 13:56:52 06/04/2020 15:22:12 Pre-surgery evaluation 481420630 Z01.818 Chronic ki dney disease stage 3 571208863 N18.31 cont f/u c renal Cardiomyopathy 90004533 I42.9 History of non-ischem ic cardiomyop athy - cont f/u c card Cervical radiculitis 110 22893 M54.12 Lumbosacra l radiculitis 26676420 M54.17 Hypertensi ve renal disease 62632683 I12.9 stable, cont meds as dir Chronic ki dney disease due to type 2 diabetes mellitus 0713197719 08 E11.22 cont f/u c endo - next is tomorrow - advised pt to d/w endo re: holding his glipizide and novolin the am of his surgery [id number] Chatchai Kokar, MD Main Office [address] [facility] [address] [facility] [place] [address] 07/09/2020 10:25:51 07/09/2020 11:25:48 Cramp in lower limb 516807647 R25.2 Patient notes to poor PO hydration, advised hydration. Will check CK levels and electrolyt e Fatigue 27863396 R53.83 On iron will start will cbc Testicular hypofunction 240392579 E29.1 will check testostero ne levels. Muscle weakness 91853923 M62.81 per orders.Antolin l check UA for myoglobin. Anxiety state 687230166 F41.1 ANNE 19, 2/2 to health and medication concerned discussed at visit, will monitor at next visit. [id number] Crissy medina MD Main Office [address] [facility] [address] [facility] [place] [address] 07/16/2020 15:55:21 07/17/2020 13:23:20 Diarrhea 67204846 R19.7 Pt with 2 weeks diarrhea, needs stool studies done, no loperamide until infectious diarrhea or cdiff ruled out, need to r/o dehydratio n. Lightheadedness 41921236 8 R42 Pt has been lightheade d all day, ? dehydratio n, will have him go to ED now for evaluation and treatment including labs, IV hydration, EKG. Offered ambulance but he and his decline, she will drive him. I called [facility] with an expect . Orthostati c hypotension 57948298 I95.1 BP low today 88/62 on arrival, reports orthostati c sx at home with fall last week, needs hydration and labs, possible BP adjustment . If pt discharged tonight, keep followup appt with cardiology tomorrow. Chronic ki dney disease due to type 2 diabetes mellitus 4021572214 08 E11.22 BS with poor control, on insulin, metformin and glipizide, states he does not feel hypoglycem ic. Follows with endocrine in [facility] Chronic ki dney disease stage 3 294789641 N18.31 [id number] Simón Finch MD Main Office [address] [facility] [address] [facility] [place] [address] 10/27/2020 13:05:30 10/27/2020 14:16:20 Essential hypertension 96113908 I10 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 004650660 E11.39 Neurogenic claudication 851299457 M48.062 Hyperlipidemia 18666377 E78.5 Body mass index 30+ - obesity 829835074 E66.9 s/p bariatric surgery with bypass [id number] Néstor Jarquin MD Main Office [address] [place] [address] 01/02/2021 10:13:18 01/02/2021 11:10:51 Benign prostatic hyperplasia 755893725 N40.1 Dawit has a diagnosis of BPH he follows urology for this and he takes Flomax for this with good outcome. We will check PSA. Carcinoma of urinary bladder 425617916 C67.9 Won denies any smoking history, or [...] Dawit hence the work-up for reassuranc e. [id number] Néstor Jarquin MD Main Office [address] [address] 05/27/2021 14:41:37 05/27/2021 16:04:07 Cardiomyopathy 72182281 I42.[address] Lantigua Chronic ki dney disease stage 3A 086456042 N18.[address] Nelson Chronic ki dney disease due to type 2 diabetes mellitus 5813552715 [address] Estevez per [id number] s0xiqqrc done by Judy Patel on ASAFeet check by Corey lmology exam done for this year.Follo wing RenalLipid profile orderedCou nselled about regular physical activityCo unselled on dietPatien t advised regarding risks/sign s/symptoms of hypoglycem ia. Counseled to carry a snack in case of emergencie s Varicella vaccination 68 803621 Z23 Fatigue 16600178 R53.83 Hyperlipidemia 25924043 E78.5 Benign pro static hyperplasia 084594417 N40.1 Dawit has a diagnosis of BPH he follows urology for this and he takes Flomax for this with good outcome. We will check PSA. Peripheral neuropathy due to type 2 diabetes mellitus 5739332541 107 E11.42 requesting to be seen by specialist for neuropathy , has tried gabapentin does not want to try more but rather be evaluated by neurologis t.I noted to him glycemic control is mesa to prevent progressio n.Will get neuropathy workup labs in the event other causes contribute since getting labs done for annual. Long-term drug therapy 221928172 Z79.899 Z86.39 Metformin Use Pain of mu ltiple joints 84043533 M25.50 Neuropathy 587607044 G62 .9 Asthma 260997601 J45.90 9 Anemia due to unknown mechanism 30423671 D64.9 Hypertensi ve renal disease 40935580 I12.9 Low sodium diet discussedC ounseled on medication adherenceC ounseled on diet/exerc iseAdvised to keep BP daily BP log and technique counseled. Red flags of HTN emergency discussed and when to go to ED. [id number] Néstor Jarquin MD Main Office [address] [facility] [address] [facility] [place] [address] 06/03/2021 10:37:57 06/03/2021 15:28:40 Intrinsic asthma 776112976 J45.909 Likely allergy induced , sx improved, able to speak in full sentencesN otes PM neublizer has helped.Had CXR, result pending.Wi ll consider short dose of pred if needed would like to avoid as he is a diabeticLo w suspicion for PNA as no longer dyspnoeic and no fever. Allergic rhinitis 025292 04 J30.9 [id number] Néstor Jarquin MD Main Office [address] [facility] [address] [facility] [place] [address] 09/02/2021 08:56:31 09/02/2021 09:50:31 Hyperlipidemia 32160119 E78.5 Body mass index 30+ - obesity 798556422 Z68.32 s/p bariatric surgery with bypass Adult heal th examination 781746975 Z00.00 Patient was counseled on healthy diet, exercise and nutrition due to Body mass index is 32.7 kg/m . Last PSADate: 08/31/21Res ult: 2.4Plan: cont to monitor Last Colonoscop y:Date:Res ult:Plan: due referral provided. Vaccines:T dAP: 18shin grix: Notes had first dose.PCV20 : Will provide at 09QXHE26: 11/16/06Inf luenza: not in seasonCovi d: 07/18/20, 08/15/20, booster advised. Routine labs today reviewed Immunizati on status reviewed. Will screen based on risk factors. Regular dental and ophtho care advised as well as seat belt and sunscreen use. Distracted driving discussed. Medication reconciled . Varicella vaccination 68 308077 Z23 Screening for malignant neoplasm of colon 865502169 Z12.11 Cardiomyopathy 28291521 I42.[address] Lantigua Chronic ki dney disease due to type 2 diabetes mellitus 2788503502 [address] Estevez per CamiGGW3P w3hrznny done faxed on endoOn ACENot on ASA [...] date. Chronic ki dney disease stage 3A 627112420 N18.[address] Nelson Hypertensi ve renal disease 27897066 I12.9 Low sodium diet discussedC ounseled on medication adherenceC ounseled on diet/exerc iseAdvised to keep BP daily BP log and technique counseled. Red flags of HTN emergency discussed and when to go to ED. Obesity 080583016 E66.9 s/p bariatric surgery with bypass [id number] Néstor Jarquin MD Main Office [address] [facility] [address] [facility] [place] [address] 06/02/2022 13:47:48 06/02/2022 14:56:40 Hypertensive renal disease 13538122 I12.9 Low sodium diet discussedC ounseled on medication adherence - working on restarting meds, otherwise asymptomat ic.Anesthesiologist Assistant ed on diet/exerc iseAdvised to keep BP daily BP log and technique counseled. Red flags of HTN emergency discussed and when to go to ED. Chronic ki dney disease stage 3A 029124185 N18.[address] Nelson Cardiomyopathy 37846526 I42.[address] Lantigua Chronic ki dney disease due to type 2 diabetes mellitus 3622345331 [address] Estevez per LosjPTF5W f0xsmior done by Judy Patel on ASAFeet check by endoDhara lmology exam done for this year.Follo wing RenalLipid profile orderedCou nselled about regular physical activityCo unselled on dietPatien t advised regarding risks/sign s/symptoms of hypoglycem ia. Counseled to carry a snack in case of emergencie s Fatigue 43439711 R53.83 Hyperlipidemia 38695332 E78.5 Benign pro static hyperplasia 585279131 N40.1 Dawit has a diagnosis of BPH he follows urology for this and he takes Flomax for this with good outcome. We will check PSA. Peripheral neuropathy due to type 2 diabetes mellitus 1832802006 107 E11.42 Following neurologis t. Asthma 338498370 J45.90 9 Recent increase of inhaler every 2 weeks but not regularly. Anemia due to unknown mechanism 22243653 D64.9 Long-term drug therapy 153562942 Z79.899 Z86.39 Metformin Use Bipolar I disorder 54048 6008 F31.9 Denies homicidal or suicidal Ideation.4 13care given, psychology today advised. Allergic rhinitis 091460 04 J30.9 [id number] Néstor Jarquin MD Main Office [address] [place] [address] 08/13/2022 15:17:50 08/13/2022 15:19:48 [id number] Néstor Jarquin MD Main Office [address] [place] [address] 09/08/2022 12:49:09 09/08/2022 13:46:23 Chronic kidney disease due to type 2 diabetes mellitus 9345388218 [address] Estevez per HtatASS3V b8dxrmio Per endo.On ACENot on ASAFeet check done, advised to use own clipperOph thalmology exam done for this year.Follo wing RenalLipid profile done, on statinCoun selled about regular physical activityCo unselled on dietPatien t advised regarding risks/sign s/symptoms of hypoglycem ia. Counseled to carry a snack in case of emergencie s Hypertensi ve renal disease 77346814 I12.9 Cont current regimen. Chronic ki dney disease stage 3A 864810555 N18.[address] Nelson Cardiomyopathy 58439349 I42.[address] Lantigua Fatigue 05358975 R53.83 Peripheral neuropathy due to type 2 diabetes mellitus 7761836283 107 E11.42 Following neurologis t. Asthma 516468794 J45.90 9 Recent increase of inhaler every 2 weeks but not regularly. Bipolar I disorder 02458 6008 F31.9 Denies homicidal or suicidal Ideation.4 13care given, psychology today advised. Adult heal th examination 445814142 Z00.00 Patient was counseled on healthy diet, exercise and nutrition due to Body mass index is 32.7 kg/m . Last PSADate: 07/27/22Resu lt: 2.3Plan: cont to [...] Distracted driving discussed. Medication reconciled . Obesity 016817181 E66.9 s/p bariatric surgery with bypass Body mass index 30+ - obesity 675702507 Z68.32 s/p bariatric surgery with bypass Ulcerative colitis 56684 004 K51.90 Administra tion of pneumococcal vaccine 54528322 Z23 Xerostomia 68933976 R68. 2 Likely related to med and dm advised bioperine otc mouth will check sjogren ab.JACQUELINE done in 2021 wnl. Candidiasis of mouth 797 14101 B37.0 Will get HIV and start oral rinse. Dental care advised.No recent steroid use. If not better he is aware to let us know Muscle weakness 14472368 M62.81 All lab workup so far wnl will add adolase, advise neuro follow up since he is establishshaina lizarraga [id number] Néstor Jarquin MD Main Office [address] [facility] [address] [facility] [place] [address] 10/05/2023 13:42:49 10/05/2023 14:27:41 Bipolar I disorder 030843029 F31.9 Has been stable of meds for many years.Was given resources to mental health provider in past. Cardiomyopathy 33346491 I42.[address] Lantigua Chronic ki dney disease stage 3A 211967289 N18.[address] Nelson 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 037582478 E11.39 Mononeurop athy due to type 2 diabetes mellitus 945075659 E11.41 Ulcerative colitis 98734 004 K51.90 Cont follow up with GI Family his tory of malignant neoplasm of prostate 457456158 Z80.42 Follows urology. Hyperglyce stewart due to type 2 diabetes mellitus 9618390205 [address] Jose Angelo. Spinal cody nosis of lumbar region 05893958 M48.061 Chronic pain syndrome 37 5734911 G89.4 Reviewed the risks and benefits of long-term use of opiate for chronic, non-malign ant pain. Reviewed with patient that group home opiate use is appropriat e treatment based [...] I have reviewed the patients profile in [facility] Partial fill of RX is possible. Contract. Anemia 752598177 D64.9 Likely related to ACD from UC. [id number] Néstor Jarquin MD Main Office [address] [facility] [address] [place] [address] 01/17/2024 09:54:26 01/17/2024 11:11:54 Influenza vaccination declined 753467309 Z28.21 Body mass index 25-29 - overweight 344028732 E66.3 Z68.25 Continues weight loss on mounjaro. Overweight 011427121 E66 .3 Low back pain 299764555 M54.50 Reduced libido 4795953 R 68.82 Adult heal th examination 123796638 Z00.00 Patient was counseled on healthy diet, exercise and nutrition due to Body mass index is 29.8 kg/m . Last PSADate: 07/27/22Resu lt: 2.3Plan: cont to [...] disease due to type 2 diabetes mellitus 1720550711 [address] Christianson per OyeeDSV5I f8mzllra Per endo.On ACENot on ASAFeet check done, advised to use own clipper and check feet regularly. Yearly Ophthalmol ogy exam advisedFol lowing RenalLipid profile ordered, on statinCoun selled about regular physical activityCo unselled on dietPatien t advised regarding risks/sign s/symptoms of hypoglycem ia. Counseled to carry a snack in case of emergencie s Hypertensi ve renal disease 86935270 I12.9 Cont current regimen. Chronic ki dney disease stage 3A 737551602 N18.[address] Nelson Cardiomyopathy 80122250 I42.[address] Lantigua Fatigue 60883080 R53.83 Peripheral neuropathy due to type 2 diabetes mellitus 6906646174 107 E11.42 Following neurologis t. Asthma 723721897 J45.90 9 Bipolar I disorder 42080 6008 F31.9 Denies homicidal or suicidal Ideation.D eclines therapy or to be seen by psych.413c are given, psychology today advised. Ulcerative colitis 60086 004 K51.90 Cont follow up with GI Administra tion of pneumococcal vaccine 71533407 Z23 Xerostomia 03000085 R68. 2 Likely related to med and dm advised bioperine otc mouth will check sjogren ab.JACQUELINE done in 2021 wnl. Muscle weakness 65187976 M62.81 All lab workup so far wnl will add adolase, advise neuro follow up since he is establishe d. Screening for malignant neoplasm of colon 609971064 Z12.11 Hyperlipidemia 36766694 E78.5 Z00.00 FASTING Nocturia 846865892 R35.1 Anemia due to unknown mechanism 09469569 D64.9 [id number] Néstor Jarquin MD Main Office [address] [place] [address] 11/06/2024 12:46:00 11/06/2024 13:34:51 Mononeuropathy due to type 2 diabetes mellitus 922373017 E11.41 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 257523273 E11.39 Ulcerative colitis 64451 004 K51.90 Bipolar I disorder 43620 6008 F31.9 Cardiomyopathy 04518322 I42.9 Chronic ki dney disease stage 3A 029752691 N18.31 Chronic ki dney disease due to type 2 diabetes mellitus 5651346798 08 E11.22 Spinal cody nosis of lumbar region 90339893 M48.061 Chronic pain 80881792 G8 9.29 Hypertensi ve renal disease 57969661 I12.9 Drug-induc ed constipation 59443529 K59.03 8840 [id number] Néstor Jarquin MD Main Office [address] [place] [address] 12/11/2024 13:46:43 12/11/2024 14:27:16 Lightheadedness 923717995 R42 019389 Hypertensi ve renal disease 71916892 I12.9 Influenza vaccination declined 370698633 Z28.21 28442046 Chronic ki dney disease due to type 2 diabetes mellitus 8149139765 08 E11.22 934802 Néstor Jarquin MD Main Office [address] [place] [address] 03/01/2025 14:43:46 03/01/2025 15:29:31 Adult health examination [id number] Z00.00 Patient was counseled on healthy diet, exercise and nutrition due to Body mass index is 24.5 kg/m . Last PSADate: 02/08/24Re sult: 2.2Plan: cont to monitor per pt. Last Colonoscop [...] use. Distracted driving discussed. Medication reconciled . Bipolar I disorder [id number] 6008 F31.9 Denies homicidal or suicidal Ideation.D eclines therapy or to be seen by psych.413c are given, psychology today advised. Chronic ki dney disease due to type 2 diabetes mellitus [id number] [address] Christianson per GmvjEEO5V q6jpmsmp Per endo.On ACENot on ASAFeet check done, advised to use own clipper and check feet regularly. Yearly Ophthalmol ogy exam advisedFol lowing RenalLipid profile ordered, on statinCoun selled about regular physical activityCo unselled on dietPatien t advised regarding risks/sign s/symptoms of hypoglycem ia. Counseled to carry a snack in case of emergencie s Hypertensi ve renal disease 29509592 I12.9 Cont current regimen. Chronic ki dney disease stage 3A [id number] N18.[address] Nelson Cardiomyopathy 08993740 I42.[address] Lantigua Peripheral neuropathy due to type 2 diabetes mellitus [id number] 107 E11.42 Following neurologis t. Asthma 000317829 J45.90 9 Ulcerative colitis 62666 004 K51.90 Cont follow up with GI Administra tion of pneumococcal vaccine 36817162 Z23 Hyperlipidemia 32681828 E78.5 Z00.00 FASTING Nocturia 336895067 R35.1 Fatigue 95148535 R53.83 Influenza vaccination declined 725040513 Z28.21 Serum test osterone above reference range 7167779776 R79.89 05720580 Vitamin D deficiency 347 99003 E55.9 Health Concerns Section Related Observation LastModified by Organization Detai ls LastModified Time None Recorded Concern Status LastModified by Organization Details LastModified Time None Recorded Advance Directives Directive Y: Payers Insurance Date Sequence Insurance Name Policy Number Policy Palumbo Covered Member ID Palumob Member ID Guarantor Name 12/25/2018 1 [employer] - MEDICARE ADVANTAGE PLAN (MEDICARE REPLACEMENT HMO) [id number] Dawit Ramos [id number] Dawit Ramos 03/01/2025 1 [facility]: MEDICARE PPO BLUE (MEDICARE REPLACEMENT PPO) [id number] Dawit Ramos [id number] Dawit Ramos Notes Date Note Type Note Provider Name and Address Organization Details Recorded Time 10/05/19 24 text/htm l Pain Management F/UReported by PatientHPIFor associated symptoms, patient reportsnumbnessandtinglingbut reportsno skin changes,no fever, andno swelling. For location, patient reportslower back bilateral. For quality, patient reportsaching. For severity, patient reportssame. For duration, patient reportspresent for >12 months. For timing, patient reportsconstant. For context, patient reportsprior back problems,used medication for back pain,had evaluations by back specialist,previous surgery, andprevious mri. For alleviating factors, patient reportsrest,ice,heat,medication, injections, andphysical therapy. For aggravating factors, patient reportsmovement/positioning,bend ing over, andtwisting. Hypertension F/UReported by PatientHPIFor lifestyle, patient reportsnot exercising regularlybut reportslimiting/avoiding salt. For associated symptoms, patient reportsno dizziness,no lightheadedness,no chest pain,no shortness of breath,no palpitations,no edema, andno calf pain with exertion. For medications, patient reportstaking medications as directedandno side effects from medication. Diabetes F/UReported by PatientHPIFor associated symptoms, patient reportsnumbness of feetbut reportsno increased thirst,no increased appetite,no increased urination,no blurred vision, andno calluses on feet. For context, patient reportsnormal range of home blood sugars (in the low 100s),seeing eye doctor regularly, andchecking feet regularly.Followed by Dr. Coronado for diabetes. Has been trying to titrate medication doses. Followed by Dr. nelson for diabetic nephropathy. Stable serum [facility] Néstor Jarquin MD [address] [facility] [address], [place], [address], [facility] 10/05/2023 17:58:02 01/17/20 24 text/htm l Here for PE visit. Reviewed chronic medications and medical problems. Discussed screening guidelines as well as goals for fitness and weight management. Seeing neurologist for neuropathy which has worsened. Néstor Jarquin MD [address] [facility] [address], [place], [address], [facility] 01/17/2024 11:01:19 11/07/19 25 text/htm l ROS [facility] Patient presents for chronic pain follow-up. He reports plans for permanent nerve stimulator placement with physiatry after a successful trial on November 22, 2024. He is scheduled to see orthopedics on December 17, 2024, for evaluation of a new right-sided foot drop, which developed gradually following prior lumbar surgery. His pain is currently well-controlled with tramadol and acetaminophen, which provide meaningful improvement in quality of life. He declines any changes to his regimen. He endorses constipation, worsened by Mounjaro, managed by endocrinology. Mental health: He reports stress related to family issues but declines psychiatric medications or therapy at this time. He denies suicidal or homicidal ideation. Cardiac: Blood pressure is well controlled. He denies chest pain, shortness of breath, palpitations, or edema. He reports intermittent lightheadedness when standing quickly but no syncope. He has experienced weight loss. Endocrine: Diabetes is managed by endocrinology with Mounjaro 7.5 mg weekly and sliding scale Tresiba (rarely used). He reports stable glucose control and denies polyuria, polydipsia, or polyphagia. He has chronic lower extremity numbness due to diabetic neuropathy and prior spinal surgery. Nephrology manages his diabetic nephropathy and has recommended starting an SGLT2 inhibitor. Other history: He follows with gastroenterology for ulcerative colitis, nephrology for CKD 3A, and cardiology for cardiomyopathy. He continues rosuvastatin, Zetia, and fenofibrate for dyslipidemia with stable CK levels. He previously followed with neurology for neuropathy, where he was started on a TCA, which he continues to use with reported benefit for sleep. Néstor Jarquin MD [address], [address], [facility] 11/06/2024 13:58:31 12/12/19 25 text/htm l Syncope/DizzinessReported by PatientROS as noted in the HPI [...] study. He continues to follow with a rehabilitation therapy aide. Orthostatic vitals were obtained today and were negative. Néstor Jarquin MD [address], [address], [facility] 12/11/2024 14:32:57 03/01/20 25 text/htm l Medicare Annual Wellness VisitReported by Patient Here for PE visit. Reviewed chronic medications and medical problems. Discussed screening guidelines as well as goals for fitness and weight management. Noted malfunctioning spinal stimulator. Working with [facility] and [facility]. Néstor Jarquin MD [address], [address], [facility] 03/01/2025 16:31:10
--- OUTSIDE RECORDS SUMMARY | 2025-03-11 13:42 | XMS_ITS | Encounter Summary ---
Demographics Address [address] [place] [address] Home Phone Mobile Phone Preferred Language en Marital Status Restoration Affiliation Unknown Race Unknown Ethnic Group or Author Organization [facility] Address [id number] [place] [address] Care Team Providers Care Traffic Operator Name Role Phone Alexandre Jarquin MD Primary Care Provider [phone] Encounter Details Date Type Department Care Team (Late st Contact Info) Description 03/05/[address] [facility] Lab [address] [facility] [place] [phone] Zack Gomez MD [address] [facility] [address] [place] [address] Calculus of kidney Social History Tobacco Use Types Packs/Day Years Used Date Smoking Tobacco: Never Assessed Sex and Gender Information Value Date Recorded Sex Assigned at Not on file Legal Sex Male 4:55 AM EST Gender Identity Not on file Sexual Orientation Not on file documented as of this encounter Plan of Treatment Pending Results Name Type Priority Associated Diagnoses Date /Time Stone analysis Lab Routine Calculus of kidney 03/05/2025 12:00 AM EST documented as of this encounter Visit Diagnoses Diagnosis Calculus of kidney documented in this encounter Care Teams Traffic Operator Relationship Specialty Start Date End Date Alexandre Jarquin MD [address] [facility] [address] [place] [address] PCP - General Family Medicine 03/05/25 documented as of this encounter
--- OUTSIDE RECORDS SUMMARY | 2025-03-11 13:42 | XMS_ITS | Encounter Summary ---
Author Organization [facility] Address [address] [place] [address] Phone Care Team Providers Care Band Log Mill And Carriage Operator Name Role Phone Alexandre Jarquin MD Primary Care Provider Reason for Visit * Reason Comments Med Refill Encounter Details Date Type Department Care Team (Late Contact Info) Description 03/22/2021 Refill [facility] [address] [place] [address] Solis Serrato MD [address] [facility] [place] [address] Social History Tobacco Use Types [...] Office Visit [facility], [address] [facility] [place] [address] Solis Serrato MD [address] [facility] [place] [address] documented as of this encounter Visit Diagnoses Not on filedocumented in this encounter Care Teams Band Log Mill And Carriage Operator Relationship Specialty Start Date End Date Alexandre Jarquin MD [address] [address] PCP - General Family Medicine 05/18/21 documented as of this encounter
--- OUTSIDE RECORDS SUMMARY | 2025-03-11 13:42 | XMS_ITS | Clinical Summary ---
Demographics Address [address] [place] [address] Home Phone Work Phone Mobile Phone Preferred Language en Marital Status Jain Affiliation Unknown Race White Ethnic Group Unknown Author Organization [employer] Address [address] [place] [address] [address] [place] [address] Care Team Providers Care Pediatric Genetic Counselor Name Role Phone Unavailable Primary Care Provider [...]
--- OUTSIDE RECORDS SUMMARY | 2025-03-11 13:42 | XMS_ITS | Clinical Summary ---
Demographics Address [address] [place] [address] Home Phone Mobile Phone Preferred Language en Marital Status Religion Affiliation Unknown Race Unknown Ethnic Group or Author Organization [address] [facility] Address [address] [place] [address] Phone Care Team Providers Care Derrick Boat Lever Operator Name Role Phone Alexandre Jarquin MD Primary Care Provider [phone] Encounters Date Type Department Care Team Description 03/05/2025 Lab Requisition [facility] [address] [facility] [place] [address] Zack Gomez MD Calculus of kidney from Last 3 Months Social History Tobacco Use Types Packs/Day Years Used Date Smoking Tobacco: Never Assessed Sex and Gender Information Value Date Recorded Sex Assigned at Not on file Legal Sex Male 4:55 AM EST Gender Identity Not on file Sexual Orientation Not on file Plan of Treatment Health Maintenance Due Date Last Done Comments Diabetes: Annual GFR (Glomerular Filtration Rate) 1960 Diabetes: Annual Foot Exam 1970 Diabetes: Annual Retina Eye Exam 1970 Pneumococcal Vaccine: 50+ Years (2 of 2 - PCV) 11/17/2007 11/16/2006, 08/16/2006 RSV Immunization Adult Patients (1 - Risk 50-74 years 1-dose series) 2010 Cholesterol Screening (Lipid Panel) 02/21/2022 HIV Screening 02/21/2022 Hepatitis C Screening 02/21/2022 Medicare Annual Wellness Visit 02/21/2022 Social Influencers of Health Screening 02/21/2022 Depression Screening 03/21/2024 Colorectal Cancer Screening: Colonoscopy 10/15/2024 10/15/2014 COVID-19 Vaccine ( season) 2024 08/15/2020, 07/18/2020 Influenza Vaccine (#1) 2024 9, 12/10/2017, 12/21/2016, Additional history exists Diabetes: Blood Sugar Control Test (HGBA1C) 02/28/2025 08/07/2020 Hypertension/CHF/CAD Annual BMP Blood Test 02/28/2025 Diabetes: Annual Urine Albumin-Creatinine Ratio (uACR) 10/30/2025 10/30/2024 DTaP,Tdap,and Td Vaccines (3 - Td or Tdap) 09/25/2027 09/24/2017, 01/04/2008 Zoster Vaccines Completed 11/24/2021, 08/05/2021 HIB Vaccines Aged Out No longer eligi [...] to complete this topic RSV Immunization Patients Under 20 months Aged Out No longer eligible based on patient's age to complete this topic Varicella Vaccines Aged Out No longer eligible based on patient's age to complete this topic Insurance * Guarantor: Oral Ramos Account Type Relation to Patient Date of Phone Billing Address Personal/Family Self 1960 [address] [facility] [place] [address] [facility] MEDICARE ADVANTAGE Advance Directives Documents on File Type Date Recorded Patient Hat Liner Expl anation Health Care Decision (hx) 02/25/2014 [...] Care Decision (hx) 12/17/2011 AD GUAJARDO DIRECTIVE Care Teams Derrick Boat Lever Operator Relationship Specialty Start Date End Date Alexandre Jaruqin MD [address] [address] PCP - General Family Medicine 03/05/25
--- OUTSIDE RECORDS SUMMARY | 2025-03-11 13:42 | XMS_ITS | Clinical Summary ---
Author Organization [facility] Address [address] [place] [address] Phone Care Team Providers Care Business Office Technician Name Role Phone Alexandre Jarquin MD Primary Care Provider [phone] Allergies No known active allergies Medications dilTIAZem [...] Multivitamins 2 capsules po daily Active calcium dnw-sno-X7-Zn-co p-maddison (CALCIUM CITRATE PLUS) 078-97-731-3.75 qq-bv-alot-mg Tab Calcium Citrate Plus 250 mg-40 mg-125 [...] written instructions with new dosing recommendations Using Natural Option USAstyle Max 2 CGM, encouraged to continue to [...] to continue to purchase insulin OTC at [facility] for low cost, given instructions on dosing Also we discussed the benefits of CGM and Dawit is provided a [employer] Max 2 reader and sensor today We [...] echo today and 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 grinder 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 Assessment & Plan (01/13/2018 4:24 [...] cancer Father Coronary artery disease Mother s/p GA x 4 Diabetes type II Mother Cancer [...] 11/16/2006, 08/16/2006 RSV VACCINE (1 - Risk 50-74 years 1-dose series) 2010 CREATININE LEVEL 07/30/2021 07/30/2020 POTASSIUM LEVEL 08/31/2022 [...] REPLACEMENT MEDICARE PPO BLUE REPLACEMENT Care Teams Business Office Technician Relationship Specialty Start Date End Date Alexandre Jarquin MD [address] [facility] [address] [place] [address] PCP - General Family Medicine 10/07/21 Additional Source Comments The information contained in this document represents components of the legal health record. It is not the complete legal health record.[facility]
--- OUTSIDE RECORDS SUMMARY | 2025-03-11 13:42 | XMS_ITS | Clinical Summary ---
Author Organization [facility], Address [address] [place] [address] [place] [address] Phone Care Team Providers Care Timber Harvester Operator Name Role Phone Alexandre Jarquin MD Primary Care Provider [phone] Allergies No known active allergies Medications dilTIAZem [...] Visit [facility], [address] [facility] [place] [address] Solis Serrato MD [address] [facility] [place] [phone] Health Maintenance Due Date Last Done Comments [...] AM EDT) Hemoglobin A1C 8.3(H) (4.0-5.6) % [facility] Comment: MONITORING: In known diabetic patients, hemoglobin A1c targets should be discussed with health care provider. DIAGNOSTIC USE: The [place] Diabetes Association (ADA) and the World Health [...] Supplement 1 Testing performed or reported by [facility], a Service of [facility], [address] [place] [id number] Francois Haque MD, Municipal Clerk Blood specimen (specimen) Venous blood / Unknown 08/07/2020 10:28 AM EDT 08/07/2020 10:29 AM EDT Solis Serrato MD LAB BLOOD ORDERABLES Final Result [facility] from Last 3 Months or Most Recently Relevant to Health Maintenance Insurance [facility] Care Teams Timber Harvester Operator Relationship Specialty Start Date End Date Alexandre Jarquin MD [address] [address] PCP - General Family Medicine 05/18/21
--- OUTSIDE RECORDS SUMMARY | 2025-03-11 13:42 | XMS_ITS | Encounter Summary ---
Demographics Address [address] [place] [address] Home Phone Work Phone Mobile Phone Preferred Language en Marital Status Buddhism Affiliation Unknown Race White Ethnic Group Unknown Author Organization [employer] Address [address] [facility] [address]t [place] [address] Care Team Providers Care Tire Retreader Name Role Phone Unavailable Primary Care Provider Unavailabl e Encounter Details Date Type Department Care Team (Latest Contact Info) Description 06/15/2021 Abstract [facility] CONVERSIONS Dental, Provider, DDS Social History [...]
--- OUTSIDE RECORDS SUMMARY | 2025-03-11 13:42 | XMS_ITS | Continuity of Care Document ---
Author Organization [facility], Main Office Address [address] [facility] [address] [place] [id number] Care Team Providers Care Back End Engineer Name Role Phone MARILEE GASTON Managing Attorney DALE CORONA Urologist ЕЛЕНА RAMOS Enamel Machine Operator [phone] JESICA MELENDEZ Hotel Baggage Handler JEANCARLOS VELASCO Manager Clinical JANINE ALEJANDRE Phys. Med. & Rehab [phone] CRISTINA DAVIS Neurosurgeon TATY CARBALLO Meter Installer And Remover ALEXANDRE GONZÁLES Primary Care Provider LYNN MCCORD A Class Lineman MANDY CORONADO OTHER Assessment No assessment recorded. Plan of Treatment Reminders Order Date Submit Date Provider Last Modified By Organization Details Last Modified Time Details Appointments None recorded. Lab C reactive protein, QN, serum or plasma 2024 025 [facility] (Centralized Electronic Ordering - All Locations), Patient Can Go To The Location Of Their Choice, [address] 5 15:18:37 vitamin B12 + folate, serum or blood 2024 025 [facility] (Centralized Electronic Ordering - All Locations), Patient Can Go To The Location Of Their Choice, [address] 5 15:18:37 testostero ne, free + total, serum 2024 025 [facility] (Centralized Electronic Ordering - All Locations), Patient Can Go To The Location Of Their Choice, 15:18:36 lipid panel, serum 2024 [facility], [address], [place], [address], 15:18:37 CMP, serum or plasma 2024 [facility] (Centralized Electronic Ordering - All Locations), Patient Can Go To The Location Of Their Choice, 15:18:36 TSH, ultra-sens itive, serum 2024 [facility], [address], [place], [address], 15:18:38 CBC w/ auto diff 2024 [facility] (Centralized Electronic Ordering - All Locations), Patient Can Go To The Location Of Their Choice, 15:18:36 microalbum in/creatin ine, mass ratio, urine 2024 [facility] (Centralized Electronic Ordering - All Locations), Patient Can Go To The Location Of Their Choice, 15:18:38 vitamin D, 25-hydroxy , total, serum 2024 [facility], [address], [place], [address], 15:18:37 PSA, serum or plasma 2024 [facility] (Centralized Electronic Ordering - All Locations), Patient Can Go To The Location Of Their Choice, 15:18:35 Referral None recorded. Procedures None recorded. Surgeries None recorded. Imaging None recorded. Medication Orders None recorded. Patient TargetsNo targets recorded. Patient Instructions Encounter Date Encounter Id Patient Instructions Last Modified By Organization Details Last Modified Time 03/01/2025 [id number] Well Visit 50 to 65: Care Instructions [email or web address] Not available 03/01/2025 15:18:28 preventing falls : care instructions [email or web address] Not available 03/01/2025 15:18:29 medical record request* - [facility] Not available 03/01/2025 16:10:42 Prostate Cancer Screening [email or web address] Not available 03/01/2025 15:18:28 diabetic neuropathy: care instructions [email or web address] Not available 03/01/2025 15:18:28 Reason for Referral None Reported. Problems Name Problem SNOMED Code Status Onset Date Resolution Date Notes Provider Name and Address Organization Details Recorded Time Type 2 diabetes mellitus 82578363 Completed 03/25/2017 Simón Finch MD [address], [place], [address] , [facility] 8 13:56:11 Intraret inal microvas cular abnormal ity 632481791 Completed 09/08/2022 Alexandre Gonzáles MD [address], [place], [address] , [facility] 3 13:22:54 Adult health examinat ion Completed 08/13/2022 Alexandre Gonzáles MD [address], [place], [address] , [facility] 3 18:13:54 Asthma 386488604 Completed 09/17/2016 Alexandre Gonzáles MD [address], [place], [address] , [facility] 2 18:53:24 Benign prostati c hyperpla lalo 505220724 Active Not Available [facility] 2 19:36:36 Bipolar I disorder 344361525 Active Not Available [facility] 2 19:36:36 Primary cardiomy opathy 95247878 Active Not Available [facility] 2 19:36:36 Carpal tunnel syndrome 21358443 Completed 09/08/2022 Alexandre Gonzáles MD [address], [place], [address] , [facility] 3 13:21:48 Chronic pain 20748938 Active Not Available [facility] 2 19:36:36 Screenin g for malignan t neoplasm of colon Completed 12/21/2016 PANCHITO Galvan, [facility] 7 13:26:16 Disorder of eye due to type 2 diabetes mellitus 381355843 Active Not Available [facility] 2 19:36:36 Diplopia 80027452 Completed 09/08/2022 Alexandre Gonzáles MD [address], [place], [address] , [facility] 3 13:21:57 Psychose 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 d libido 383104682 Active Not Available [facility] 2 19:36:37 Umbilica l hernia 881867182 Active Not Available [facility] 2 19:36:37 Hypersom shane with sleep apnea 78075803 Completed 01/17/2024 Alexandre Gonzáles MD [address], [place], [address] , [facility] 4 10:37:02 Testicul ar hypofunc tion 807891578 Completed 09/08/2022 Alexandre Gonzáles MD [address], [place], [address] , [facility] 3 13:23:57 Metaboli c syndrome X 789900413 Completed 09/19/2016 Simón Finch MD [address], [place], [address] , [facility] 7 17:32:14 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 Completed 09/19/2016 Simón Finch MD [address], [place], [address] , [facility] 7 17:32:22 Low back pain 812652562 Active Not Available [facility] 2 19:36:36 Patient status finding 861430508 Completed 09/17/2016 Hali baez MA null, [facility] 7 14:55:50 Morbid obesity 895739136 Completed 09/08/2022 Alexandre Gonzáles MD [address], [place], [address] , [facility] 3 13:23:08 Inflamma tion of rotator cuff tendon 257745727 Active Not Available [facility] 2 19:36:37 Retinopa thy Active Not Available [facility] 2 19:36:36 Pain of multiple joints 14178446 Completed 01/17/2024 Alexandre Gonzáles MD [address] [facility] [address], [place], [address] , [facility] 4 10:37:17 Multiple bruising 388663589 Completed 09/01/2021 Alexandre Gonzáles MD [address] [facility] [address], [place], [address] , [facility] 2 08:36:05 Painless rectal bleeding 060398187 Completed 09/19/2016 Simón Finch MD [address], [place], [address] , [facility] 7 17:32:25 Foot pain 61978108 Completed 09/08/2022 Alexandre Gonzáles MD [address] [facility] [address], [place], [address] , [facility] 3 13:22:03 Cardiomy opathy 58706771 Active Not Available [facility] 2 19:36:37 Tear of medial meniscus of knee 405874434 Active s/p repair Alexandre Gonzáles MD [address] [facility] [address], [place], [address] , [facility] 3 13:23:39 Uncontro lled type 2 diabetes mellitus 005292768 Completed 12/21/2016 Simón Finch MD [address] [facility] [address], [place], [address] , [facility] 7 14:00:56 Mild persiste nt asthma 645702063 Active Not Available [facility] 2 19:36:36 Proteinu jennifer 19989435 Completed 01/17/2024 Alexandre Gonzáles MD [address] [address], [place], [address] , [facility] 4 10:37:22 Anemia 915237141 Completed 01/17/2024 Alexandre Gonzáles MD [address] [address], [place], [address] , [facility] 4 10:51:44 Serum creatini ne above referenc e range 012611725 Completed 09/08/2022 Alexandre Gonzáles MD [address] [address], [place], [address] , [facility] 3 13:23:22 Hyperkal emia 30711050 Completed 09/01/2021 Alexandre Gonzáles MD [address] [address], [place], [address] , [facility] 2 08:35:50 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 448967102 Active Not Available [facility] 2 19:36:37 Administ ration of bacteria l and viral vaccine Completed 200710/25/2013 RECORDED 01/04/20 08 9:03AM BY NATE GUTIERREZ, OFFICE VISIT Nora Patel PA-C [address] [address], [place], [address] , [facility] 6 14:59:27 Administ ration of bacteria l and viral vaccine Completed 200710/26/2013 RECORDED 01/04/20 08 9:03AM BY NATE GUTIERREZ, OFFICE VISIT Nora Patel PA-C [address] [address], [place], [address] , [facility] 6 14:59:27 Administ ration of bacteria l and viral vaccine Completed 200710/02/2013 RECORDED 01/04/20 08 9:03AM BY NATE GUTIERREZ, OFFICE VISIT Nora Patel ND-C [address] [facility] [address], [place], [address] , [facility] 6 14:59:27 Active or passive immuniza tion Completed 200710/25/2013 RECORDED 02/14/20 08 9:58AM BY AFIA HILL ON/ADDEN DUM [facility] [address] [facility] [address], [place], [address] , [facility] 6 14:59:27 Active or passive immuniza tion Completed 200710/26/2013 RECORDED 02/14/20 08 9:58AM BY AFIA HILL ON/ADDEN DUM Nora [facility] [address] [facility] [address], [place], [address] , [facility] 6 14:59:27 Active or passive immuniza tion Completed 200710/02/2013 RECORDED 02/14/20 08 9:58AM BY AFIA HILL ON/ADDEN DUM [facility] [address] [facility] [address], [place], [address] , [facility] 6 14:59:27 Cough 20672605 Completed 200810/25/2013 IMPRESSI ON: ASTHMA VS. ACEI-REL ATED; RECORDED 04/02/19 09 7:22AM BY HALI MCCULLOUGH MA, AFIA ON/ADDEN DUM Nora Patel PA-C [address] [facility] [address], [place], [address] , [facility] 6 14:59:27 Cough 07469098 Completed 200810/26/2013 IMPRESSI ON: ASTHMA VS. ACEI-REL ATED; RECORDED 04/02/19 09 7:22AM BY HALI MCCULLOUGH MA, ANNOTATI ON/ADDEN DUM Nora Patel PA-C [address], [place], [address] , [facility] 6 14:59:27 Cough 35269799 Completed 200810/02/2013 IMPRESSI ON: ASTHMA VS. ACEI-REL ATED; RECORDED 04/02/19 09 7:22AM BY HALI MCCULLOUGH MA, ANNOTATI ON/ADDEN DUM Nora Patel PA-C [address], [place], [address] , [facility] 6 14:59:27 Inflamma tory disorder of extremit y Completed 200810/25/2013 RECORDED 10/03/19 09 11:41AM BY PANCHITO CONNOR, AFIA ON/ADDEN DUM Nora Patel PA-C [address], [place], [address] , [facility] 6 14:59:27 Family history of malignan t neoplasm of prostate 645844462 Completed 200810/25/2013 RECORDED 10/03/19 09 11:41AM BY MINH HAYATI ON/ADDEN DUM Nora Patel PA-C [address], [place], [address] , [facility] 6 14:59:27 Amnesia [id number] Completed 200810/25/2013 RECORDED 10/03/19 09 11:35AM BY PANCHITO CONNOR, MINHATI ON/ADDEN DUM Nora Patel PA-C [address], [place], [address] , [facility] 6 14:59:27 Eruption 605613823 Completed 200810/25/2013 RECORDED 10/03/19 09 11:41AM BY AFIA HAY ON/ADDEN DUM Nora Patel PA-C [address], [place], [address] , [facility] 6 14:59:27 Inflamma tory disorder of extremit y Completed 200810/26/2013 RECORDED 10/03/19 09 11:41AM BY PANCHITO CONNOR, MINHATI ON/ADDEN DUM Nora Patel PA-C [address], [place], [address] , [facility] 6 14:59:27 Family history of malignan t neoplasm of prostate 640669182 Completed 200810/26/2013 RECORDED 10/03/19 09 11:41AM BY AFIA HAY ON/ADDEN DUM Nora Patel PA-C [address], [place], [address] , [facility] 6 14:59:27 Amnesia [id number] Completed 200810/26/2013 RECORDED 10/03/19 09 11:35AM BY AFIA HAY ON/ADDEN DUM Nora Patel PA-C [address] [facility] [address], [place], [address] , [facility] 6 14:59:27 Eruption 866865003 Completed 200810/26/2013 RECORDED 10/03/19 09 11:41AM BY MINH HAYATI ON/ADDEN DUM Nora Patel PA-C [address], [place], [address] , [facility] 6 14:59:27 Inflamma tory disorder of extremit y Completed 200810/02/2013 RECORDED 10/03/19 09 11:41AM BY AFIA HAY ON/ADDEN DUM Nora Patel PA-C [address], [place], [address] , [facility] 6 14:59:27 Family history of malignan t neoplasm of prostate 900199570 Completed 200810/02/2013 RECORDED 10/03/19 09 11:41AM BY PANCHITO CONNOR, AFIA ON/ADDEN DUM Nora Patel PA-C [address], [place], [address] , [facility] 6 14:59:27 Amnesia [id number] Completed 200810/02/2013 RECORDED 10/03/19 09 11:35AM BY PANCHITO CONNOR, AFIA ON/ADDEN DUM Nora Patel PA-C [address], [place], [address] , [facility] 6 14:59:27 Eruption 988744194 Completed 200810/02/2013 RECORDED 10/03/19 09 11:41AM BY PANCHITO CONNOR, AFIA ON/ADDEN DUM Nora Patel PA-C [address], [place], [address] , [facility] 6 14:59:27 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 Completed 200810/25/2013 RECORDED 11/20/19 09 8:59AM BY AFIA HAY ON/ADDEN DUM Nora Ptael PA-C [address], [place], [address] , [facility] 6 14:59:26 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 Completed 200810/26/2013 RECORDED 11/20/19 09 8:59AM BY AFIA HAY ON/ADDEN DUM Nora Patel PA-C [address], [place], [address] , [facility] 6 14:59:26 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 947683080 Completed 200810/02/2013 RECORDED 11/20/19 09 8:59AM BY PANCHITO CONNOR, ANNOTATI ON/ADDEN DUM Nora Patel PA-C [address], [place], [address] , [facility] 6 14:59:26 Type 2 diabetes mellitus without complica tion 894532266 Completed 201010/25/2013 RECORDED 06/26/19 11 12:56PM BY HALI MCCULLOUGH MA, ANNOTATI ON/ADDEN DUM Nora Patel PA-C [address], [place], [address] , [facility] 6 14:59:26 Type 2 diabetes mellitus without complica tion 726198723 Completed 201010/26/2013 RECORDED 06/26/19 11 12:56PM BY HALI MCCULLOUGH MA, ANNOTATI ON/ADDEN DUM Nora Patel PA-C [address], [place], [address] , [facility] 6 14:59:26 Type 2 diabetes mellitus without complica tion 395829738 Completed 201010/02/2013 RECORDED 06/26/19 11 12:56PM BY HALI MCCULLOUGH MA, ANNOTATI ON/ADDEN DUM Nora Patel PA-C [address], [place], [address] , [facility] 6 14:59:26 Counseli ng Completed 201110/25/2013 RECORDED 01/21/20 12 11:22AM BY HALI MCCULLOUGH MA, ANNOTATI ON/ADDEN DUM Nora Patel PA-C [address], [place], [address] , [facility] 6 14:59:27 Edema [id number] Completed 201110/25/2013 RECORDED 01/21/20 12 11:21AM BY HALI MCCULLOUGH MA, ANNOTATI ON/ADDEN DUM Nora Patel PA-C [address], [place], [address] , [facility] 6 14:59:27 Lateral epicondy litis 419797128 Completed 201110/25/2013 RECORDED 01/21/20 12 11:21AM BY HALI MCCULLOUGH MA, ANNOTATI ON/ADDEN DUM Nora Patel PA-C [address], [place], [address] , [facility] 6 14:59:26 Knee pain Completed 201110/25/2013 STORY: LEFT KNEE; RECORDED 01/21/20 12 11:22AM BY HALI MCCULLOUGH MA, ANNOTATI ON/ADDEN DUM Nora Jorge PA-C [address], [place], [address] , [facility] 6 14:59:26 Pre-surg ghanshyam evaluati on Completed 201110/25/2013 RECORDED 01/21/20 12 11:22AM BY HALI MCCULLOUGH MA, ANNOTATI ON/ADDEN DUM Nora Jorge PA-C [address], [place], [address] , [facility] 6 14:59:27 Senile hyperker atosis 653042564 Completed 201110/25/2013 RECORDED 01/21/20 12 11:21AM BY HALI MCCULLOUGH MA, ANNOTATI ON/ADDEN DUM Nora Patel PA-C [address], [place], [address] , [facility] 6 14:59:26 Disturba nce of consciou sness 7870106 Completed 201110/25/2013 STORY: EXCESSIV E DAYTIME SOMNOLEN CE. PREVIOUS INCONCLU SIVE POLYSOMN OGRAM.; RECORDED 01/21/20 12 11:22AM BY HALI MCCULLOUGH MA, ANNOTLICHA ON/ADDEN DUM Nora Jorge ARANGO [address] [facility] [address], [place], [address] , [facility] 6 14:59:26 Current knee cartilag e tear Completed 201110/25/2013 IMPRESSI ON: L KNEE, M AND LMT, FOLLOWED BY DR. KIM. SCHED FOR REPAIR 10/27. WILL FORWARD NOTE AND EKG. PT ALREADY HAS ORDER FROM THEIR OFFICE FOR REC LABS.; RECORDED 01/21/20 12 11:22AM BY HALI MCCULLOUGH MA, ANNOTLICHA ON/ADDEN DUM Nora Jorge ARANGO [address] [facility] [address], [place], [address] , [facility] 6 14:59:27 Dermatop hytosis of the body Completed 201110/25/2013 RECORDED 01/21/20 12 11:22AM BY HALI MCCULLOUGH MA, AFIA ON/ADDEN DUM Noraadam Patel PA-C [address] [facility] [address], [place], [address] , [facility] 6 14:59:26 Counseli ng Completed 201110/26/2013 RECORDED 01/21/20 12 11:22AM BY HALI MCCULLOUGH MA, AFIA ON/ADDEN DUM Nora Jorge ARANGO [address] [facility] [address], [place], [address] , [facility] 6 14:59:27 Edema [id number] Completed 201110/26/2013 RECORDED 01/21/20 12 11:21AM BY HALI MCCULLOUGH MA, ANNOTATI ON/ADDEN DUM Nora Patel PA-C [address], [place], [address] , [facility] 6 14:59:27 Lateral epicondy litis 694810912 Completed 201110/26/2013 RECORDED 01/21/20 12 11:21AM BY HALI MCCULLOUGH MA, ANNOTATI ON/ADDEN DUM Nora Patel PA-C [address], [place], [address] , [facility] 6 14:59:26 Knee pain Completed 201110/26/2013 STORY: LEFT KNEE; RECORDED 01/21/20 12 11:22AM BY HALI MCCULLOUGH MA, ANNOTATI ON/ADDEN DUM Nora Jorge PA-C [address], [place], [address] , [facility] 6 14:59:26 Pre-surg ghanshyam evaluati on Completed 201110/26/2013 RECORDED 01/21/20 12 11:22AM BY HALI MCCULLOUGH MA, ANNOTATI ON/ADDEN DUM Nora Jorge PA-C [address], [place], [address] , [facility] 6 14:59:27 Senile hyperker atosis 867806372 Completed 201110/26/2013 RECORDED 01/21/20 12 11:21AM BY HALI MCCULLOUGH MA, ANNOTATI ON/ADDEN DUM Nora Patel PA-C [address], [place], [address] , [facility] 6 14:59:26 Disturba nce of consciou sness 3575113 Completed 201110/26/2013 STORY: EXCESSIV E DAYTIME SOMNOLEN CE. PREVIOUS INCONCLU SIVE POLYSOMN OGRAM.; RECORDED 01/21/20 12 11:22AM BY HALI MCCULLOUGH MA, ANNOTLICHA ON/ADDEN DUM Nora Jorge HUNG-C [address], [place], [address] , [facility] 6 14:59:26 Current knee cartilag e tear Completed 201110/26/2013 IMPRESSI ON: L KNEE, M AND LMT, FOLLOWED BY DR. KIM. SCHED FOR REPAIR 10/27. WILL FORWARD NOTE AND EKG. PT ALREADY HAS ORDER FROM THEIR OFFICE FOR REC LABS.; RECORDED 01/21/20 12 11:22AM BY HALI MCCULLOUGH MA, ANNOTLICHA ON/ADDEN DUM Nora Jorge HUNG-C [address] [facility] [address], [place], [address] , [facility] 6 14:59:27 Dermatop hytosis of the body Completed 201110/26/2013 RECORDED 01/21/20 12 11:22AM BY HALI MCCULLOUGH MA, ANNOTLICHA ON/ADDEN DUM Nora Jorge HUNG-C [address] [facility] [address], [place], [address] , [facility] 6 14:59:26 Counseli ng Completed 201110/02/2013 RECORDED 01/21/20 12 11:22AM BY HALI MCCULLOUGH MA, ANNOTLICHA ON/ADDEN DUM Nora Jorge HUNG-C [address] [facility] [address], [place], [address] , [facility] 6 14:59:27 Edema [id number] Completed 201110/02/2013 RECORDED 01/21/20 12 11:21AM BY HALI MCCULLOUGH MA, ANNOTLICHA ON/ADDEN DUM Nora Jorge HUNG-C [address], [place], [address] , [facility] 6 14:59:27 Lateral epicondy litis [id number] Completed 201110/02/2013 RECORDED 01/21/20 12 11:21AM BY HALI MCCULLOUGH MA, ANNOTATI ON/ADDEN DUM Nora Patel PA-C [address], [place], [address] , [facility] 6 14:59:26 Knee pain Completed 201110/02/2013 STORY: LEFT KNEE; RECORDED 01/21/20 12 11:22AM BY HALI MCCULLOUGH MA, ANNOTATI ON/ADDEN DUM Nora Patel PA-C [address], [place], [address] , [facility] 6 14:59:26 Pre-surg ghanshyam evaluati on Completed 201110/02/2013 RECORDED 01/21/20 12 11:22AM BY HALI MCCULLOUGH MA, ANNOTATI ON/ADDEN DUM Nora Patel PA-C [address], [place], [address] , [facility] 6 14:59:27 Senile hyperker atosis 371276337 Completed 201110/02/2013 RECORDED 01/21/20 12 11:21AM BY HALI MCCULLOUGH MA, ANNOTATI ON/ADDEN DUM Nora Patel PA-C [address], [place], [address] , [facility] 6 14:59:26 Disturba nce of consciou sness 2597076 Completed 201110/02/2013 STORY: EXCESSIV E DAYTIME SOMNOLEN CE. PREVIOUS INCONCLU SIVE POLYSOMN OGRAM.; RECORDED 01/21/20 12 11:22AM BY HALI MCCULLOUGH MA, ANNOTATI ON/ADDEN DUM Nora Patel PA-C [address], [place], [address] , [facility] 6 14:59:26 Current knee cartilag e tear Completed 201110/02/2013 IMPRESSI ON: L KNEE, M AND LMT, FOLLOWED BY DR. KIM. SCHED FOR REPAIR 10/27. WILL FORWARD NOTE AND EKG. PT ALREADY HAS ORDER FROM THEIR OFFICE FOR REC LABS.; RECORDED 01/21/20 12 11:22AM BY HALI MCCULLOUGH MA, ANNOTATI ON/ADDEN DUM Nora Patel PA-C [address], [place], [address] , [facility] 6 14:59:27 Dermatop hytosis of the body Completed 201110/02/2013 RECORDED 01/21/20 12 11:22AM BY HALI MCUCLLOUGH MA, ANNOTATI ON/ADDEN DUM Nora Patel PA-C [address], [place], [address] , [facility] 6 14:59:26 Acute sinusiti s 93593051 Completed 201210/25/2013 RECORDED 05/04/19 13 4:48PM BY AFIA BOLDEN ON/ADDEN DUM Nora Patel PA-C [address], [place], [address] , [facility] 6 14:59:26 Acute sinusiti s 30169640 Completed 201210/26/2013 RECORDED 05/04/19 13 4:48PM BY MINH BOLDENATI ON/ADDEN DUM Nora Patel PA-C [address], [place], [address] , [facility] 6 14:59:26 Acute sinusiti s [id number] Completed 201210/02/2013 RECORDED 05/04/19 13 4:48PM BY MALAIKA EARL I, ANNOTATI ON/ADDEN DUM Nroa Patel PA-C [address], [place], [address] , [facility] 6 14:59:26 Renewal of prescrip tion Completed 201210/25/2013 RECORDED 07/28/19 13 3:30PM BY HALI MCCULLOUGH MA, ANNOTATI ON/ADDEN DUM Nora Patel PA-C [address], [place], [address] , [facility] 6 14:59:27 Renewal of prescrip tion Completed 201210/26/2013 RECORDED 07/28/19 13 3:30PM BY HALI MCCULLOUGH MA, ANNOTATI ON/ADDEN DUM Nora Patel PA-C [address], [place], [address] , [facility] 6 14:59:27 Renewal of prescrip tion Completed 201210/02/2013 RECORDED 07/28/19 13 3:30PM BY HALI MCCULLOUGH MA, ANNOTLICHA ON/ADDEN DUM Nora Jorge PA-C [address], [place], [address] , [facility] 6 14:59:27 Epigastr ic pain [id number] Completed 201210/25/2013 RECORDED 11/29/19 13 2:49PM BY HALI MCCULLOUGH MA, ANNOTATI ON/ADDEN DUM Nora Jorge PA-C [address] [address], [place], [address] , [facility] 6 14:59:27 Pain of joint 21298144 Completed 201210/25/2013 RECORDED 11/29/19 13 2:49PM BY HALI MCCULLOUGH MA, ANNOTATI ON/ADDEN DUM Nora Jorge HUNG-C [address], [place], [address] , [facility] 6 14:59:26 Uncontro lled type 2 diabetes mellitus 718637459 Completed 201210/25/2013 RECORDED 11/29/19 13 2:51PM BY HALI MCCULLOUGH MA, ANNOTATI ON/ADDEN DUM Simón Finch MD [address] [facility] [address], [place], [address] , [facility] 7 14:00:56 Influenz a vaccine needed [id number] 06 Completed 201210/25/2013 RECORDED 11/29/19 13 3:35PM BY SIMÓN FINCH MD, OFFICE VISIT Nora HUNG-C [address] [facility] [address], [place], [address] , [facility] 6 14:59:27 Epigastr ic pain 92213898 Completed 201210/26/2013 RECORDED 11/29/19 13 2:49PM BY HALI MCCULLOUGH MA, ANNOTATI ON/ADDEN DUM Nora Jorge HUNG-C [address] [facility] [address], [place], [address] , [facility] 6 14:59:27 Pain of joint 21036092 Completed 201210/26/2013 RECORDED 11/29/19 13 2:49PM BY HALI MCCULLOUGH MA, ANNOTATI ON/ADDEN DUM Nora Jorge PA-C [address] [facility] [address], [place], [address] , [facility] 6 14:59:26 Uncontro lled type 2 diabetes mellitus 680403147 Completed 201210/26/2013 RECORDED 11/29/19 13 2:51PM BY HALI MCCULLOUGH MA, ANNOTATI ON/ADDEN DUM Simón Finch MD [address], [place], [address] , [facility] 7 14:00:56 Influenz a vaccine needed [id number] 06 Completed 201210/26/2013 RECORDED 11/29/19 13 3:35PM BY SIMÓN FINCH MD, OFFICE VISIT Nora Patel [facility] [address] [facility] [address], [place], [address] , [facility] 6 14:59:27 Epigastr ic pain 28802216 Completed 201210/02/2013 RECORDED 11/29/19 13 2:49PM BY HALI MCCULLOUGH MA, ANNOTATI ON/ADDEN DUM Nora Jorge HUNG [address] [facility] [address], [place], [address] , [facility] 6 14:59:27 Pain of joint 29056758 Completed 201210/02/2013 RECORDED 11/29/19 13 2:49PM BY HALI MCCULLOUGH MA, ANNOTATI ON/ADDEN DUM Noraadam Patel [facility] [address] [facility] [address], [place], [address] , [facility] 6 14:59:26 Uncontro lled type 2 diabetes mellitus 591874609 Completed 201210/02/2013 RECORDED 11/29/19 13 2:51PM BY HALI MCCULLOUGH MA, ANNOTATI ON/ADDEN DUM Simón Finch MD [address] [facility] [address], [place], [address] , [facility] 7 14:00:56 Influenz a vaccine needed [id number] 06 Completed 201210/02/2013 RECORDED 11/29/19 13 3:35PM BY SIMÓN FINCH MD, OFFICE VISIT Nora HUNG [address] [facility] [address], [place], [address] , [facility] 6 14:59:27 Abdomina l pain 23208170 Completed 201310/25/2013 RECORDED 03/23/19 14 1:50PM BY HALI MCCULLOUGH MA, ANNOTATI ON/ADDEN DUM Nora Patel PA-C [address], [place], [address] , [facility] 6 14:59:27 Abdomina l pain 44217590 Completed 201310/26/2013 RECORDED 03/23/19 14 1:50PM BY HALI MCCULLOUGH MA, ANNOTATI ON/ADDEN DUM Nora Patel PA-C [address], [place], [address] , [facility] 6 14:59:27 Abdomina l pain 19717022 Completed 201310/02/2013 RECORDED 03/23/19 14 1:50PM BY HALI MCCULLOUGH MA, ANNOTATI ON/ADDEN DUM Nora Patel PA-C [address], [place], [address] , [facility] 6 14:59:27 Laborato ry procedur e performe d 140766150 Completed 201310/25/2013 RECORDED 05/23/19 14 9:12AM BY HALI MCCULLOUGH MA, ANNOTATI ON/ADDEN DUM Nora Patel PA-C [address], [place], [address] , [facility] 6 14:59:27 Laborato ry procedur e performe d 487361047 Completed 201310/26/2013 RECORDED 05/23/19 14 9:12AM BY HALI MCCULLOUGH MA, ANNOTATI ON/ADDEN DUM Nora Patel PA-C [address], [place], [address] , [facility] 6 14:59:27 Laborato ry procedur e performe d 082803571 Completed 201310/02/2013 RECORDED 05/23/19 14 9:12AM BY HALI MCCULLOUGH MA, ANNOTATI ON/ADDEN DUM Nora Patel PA-C [address], [place], [address] , [facility] 6 14:59:27 Screenin g procedur e Completed 201310/25/2013 RECORDED 06/26/19 14 9:59AM BY HALI MCCULLOUGH MA, ANNOTATI ON/ADDEN DUM Nora Patel PA-C [address] [facility] [address], [place], [address] , [facility] 6 14:59:27 Screenin g procedur e Completed 201310/26/2013 RECORDED 06/26/19 14 9:59AM BY HALI MCCULLOUGH MA, ANNOTATI ON/ADDEN DUM Nora Patel PA-C [address] [facility] [address], [place], [address] , [facility] 6 14:59:27 Screenin g for malignan t neoplasm of colon Completed 201310/02/2013 RECORDED 06/26/19 14 9:59AM BY HALI MCCULLOUGH MA, ANNOTATI ON/ADDEN DUM [facility] 7 13:26:16 Screenin g procedur e Completed 201310/02/2013 RECORDED 06/26/19 14 9:59AM BY HALI MCCULLOUGH MA, ANNOTATI ON/ADDEN DUM Nora Patel PA-C [address], [place], [address] , [facility] 6 14:59:27 Hyperlip idemia 97832321 Active 2017 Not Available [facility] 2 19:36:37 Ulcerati ve colitis 05140394 Active 2017 Not Available [facility] 2 19:36:36 Venous retinal branch occlusio n 22230991 Active 2018 Not Available [facility] 2 19:36:36 Iron deficien cy anemia 18920628 Completed 201809/01/2021 Alexandre Gonzáles MD [address], [place], [address] , [facility] 2 08:35:56 Gastroes ophageal reflux disease 841492265 Active 2018 Not Available [facility] 2 19:36:37 Chronic kidney disease stage 3 250624831 Completed 201907/23/2019 Hali baez [facility], [facility] 2 15:07:15 Neurogen ic claudica tion 689782090 Completed 201909/08/2022 Alexandre Gonzáles MD [address], [place], [address] , [facility] 3 13:23:16 Chronic kidney disease stage 3A 124427446 Active 2020 Not Available [facility] 2 19:36:37 Chronic kidney disease due to type 2 diabetes mellitus 60526249223 8 Active 2020 Not Available [facility] 2 19:36:36 Asthma 368336338 Active 2021 Not Available [facility] 2 19:36:36 Hyperten sive renal disease 11512161 Active 2021 Not Available [facility] 2 19:36:36 Spinal stenosis of lumbar region 89789520 Active 2023 Alexandre Gonzáles MD [address], [place], [address] , [facility] 4 17:59:11 Body mass index 25-29 - overweig ht 133119426 Active 2023 Alexandre Gonzáles MD [address] [address], [place], [address] , [facility] 4 10:50:18 Overweig ht 498160181 Active 2023 Alexandre Gonzáles MD [address] [address], [place], [address] , [facility] 4 10:50:34 Abnormal testoste tonio 866936337 Active 2023 Alexandre Gonzáles MD [address] [address], [place], [address] , [facility] 4 06:26:29 Notes:Some problems listed i n Document: #[id number] could not be added to this patient's chart. Please review this document and add these problems to the patient's chart manually as needed. Problem Notes None recorded. Procedures Surgical History Date Name Laterality Status Provider Name and Address Organization Details Recorded Time 11/07/19 25 Chronic Pain Assessment completed Hali ramirez MA [facility] 11/06/2024 13:11:40 03/07/20 24 diabetic retinopathy screening completed Beatrice Pope [facility] 03/09/2024 09:24:39 01/17/20 24 Diabetic Foot Exam (Monofilament) completed Alexandre Gonzáles MD [address], [address], [facility] 01/17/2024 10:59:13 09/09/19 23 Diabetic Foot Exam (Monofilament) completed Alexandre Gonzáles MD [address], [address], [facility] 09/08/2022 13:49:58 09/03/19 22 Diabetic Foot Exam (Monofilament) completed Alexandre Gonzáles MD [address], [address], [facility] 09/02/2021 09:44:23 11/12/19 21 lumbar microdiscectomy completed Hali ramirez MA [facility] 05/27/2021 15:18:39 10/28/19 21 Diabetic Foot Exam (Monofilament) completed Hali ramirez MA [facility] 10/27/2020 13:17:47 09/04/19 21 lumbar spinal fusion completed Hali ramirez MA [facility] 05/27/2021 15:19:22 06/13/19 21 fusion of cervicothoracic joint by anterior approach completed Hali ramirez MA [facility] 05/27/2021 15:19:42 12/30/19 19 Diabetic Foot Exam (Monofilament) completed Sherry Barnes [facility] 12/29/2018 10:14:49 11/29/19 19 injection of steroid via intravitreal route completed Hali ramirez MA [facility] 12/05/2018 13:15:48 12/11/19 18 Chronic Pain Assessment completed Hali ramirez MA [facility] 12/10/2017 10:21:40 12/11/19 18 Diabetic Foot Exam (Monofilament) completed Hali ramirez MA [facility] 12/10/2017 10:09:19 09/25/19 18 Chronic Pain Assessment completed Hali ramirez MA [facility] 09/24/2017 08:50:23 09/25/19 18 Diabetic Foot Exam (Monofilament) completed Hali ramirez MA [facility] 09/24/2017 08:33:05 06/21/19 18 Chronic Pain Assessment completed Hali ramirez MA [facility] 06/20/2017 13:01:18 03/25/19 18 Chronic Pain Assessment completed Hali ramirez MA [facility] 03/25/2017 13:50:04 12/22/19 17 Chronic Pain Assessment completed Hali Duc-Sharif ashley, PAN[place] [facility] 12/21/2016 13:28:57 09/18/19 17 Chronic Pain Assessment completed Hali Duc-Sharif os, PANCHITO [facility] 09/17/2016 14:55:34 05/07/19 17 Chronic Pain Assessment completed Malaika Solorio [facility] 05/07/2016 09:21:49 02/06/20 16 Chronic Pain Assessment completed Hali Duc-Sharif os, PANCHITO [facility] 02/06/2016 14:10:17 11/04/19 16 Chronic Pain Assessment completed Hali Duc-Sharif os, PANCH[place]O [facility] 11/04/2015 10:50:37 10/16/19 15 Colonoscopy completed Hali Duc-Sharif ashley, PANCHITO [facility] 05/27/2021 15:20:02 10/16/19 15 Colonoscopy & polypectomy completed Hali Duc-Sharif ashley, PANCHITO [facility] 05/27/2021 15:20:15 02/19/20 14 Gastric bypass for obesity completed Hali Duc-Sharif ashley, PANCHITO [facility] 05/27/2021 15:21:50 11/20/19 12 Circumcision completed Hali Duc-Sharif ashley, PANCHITO [facility] 02/06/2016 14:02:12 03/21/19 12 primary repair of umbilical hernia completed Hali Duc-Sharif ashley, PANCHITO [facility] 05/27/2021 15:22:24 10/20/19 11 Orthopedic Surgery completed Hali Duc-Sharif ashley, PANCHITO [facility] 02/06/2016 14:02:12 03/21/19 11 operation on meniscus of the knee completed Hali Duc-Sharif ashley, PANCHITO [facility] 05/27/2021 15:22:55 07/31/19 04 lumbar spinal fusion completed Halimatt ramirez MA [facility] 05/27/2021 15:23:44 03/21/19 03 Back Surgery completed Hali ramirez MA [facility] 01/21/2014 10:51:35 Imaging Results None recorded. Procedure Notes None recorded. Medical Equipment None Reported. Allergies Allergen ID Allergen Name Allergen Category Reaction Reaction Severity Criticality Documentation Date Start Date Code Code System Note Provider Name and Address Organization Details Recorded Time 91707 No known allergy (situatio n) Not available Not available Not available Not available 08/05/2020 08588 6003 SNOMED [place] [facility] 3 14:17:44 65873 atorvasta tin medicatio n myalgias (muscle pain) Not available Not available 06/02/2022 37994 RxNorm [place] [facility] 3 14:17:54 58963 gabapenti n medicatio n edema moderate Not available 11/06/2024 77004 RxNorm [place] [facility] 5 13:09:08 16109 acetamino phen / oxycodone medicatio n respirato ry distress moderate Not available 11/06/2024 08065 3 RxNorm [place] [facility] 5 13:09:38 56411 acetamino phen / oxycodone medicatio n Not available Not available Not available 02/27/2025 40015 3 RxNorm Not Available cristian - External [...] 09 11:27AM BY HALI MCCULLOUGH MA, ANNOTATI ON/ADDEN DUM;CASK EY ([facility] ) Not Available Not Available Not [...] 9:57AM BY SIMÓN FINCH MD, MEDICATI ON AUTO-WIDLA CTIVATIO N; Not Available Not Available Not [...] Available Not Available No t Available coenzyme O09-wonue in E 100 mg-5 unit capsule Take [...] Not Available Not Available FreeStyle Max 3 [place] 11/06 completed Not Available Not Available Not Available FreeStyle Max 3 Plus Sensor device active Not Available Not Available Not Available Vitals Date Recorded Body height Body mass index (BMI) Body weight Heart rate Oxygen saturation Body temperature Systolic And Diastolic Provider Name and Address Organization Details Last Updated DateTime 5 170.18 cm 24.5 kg/m2 40461.8 5 g 67 /min 99 % 97.2 [degF] 126/78 mm[Hg] Jayla Montgomery [facility] 5 14:54:31 Social History Question Answer Notes LastModified by Organizat ion Details LastModified Time Tobacco Smoking Status Never Smoker [place] Chavez, [facility] 10/27/2020 13:22:08 Do You Have An [...] available 10/27/2020 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 [email or web address] Information not available 09/02/2021 Do you or [...] Diseases N Hyperthyroidism N Breast Cancer N Depression N COPD N Lung Disease N Hypothyroidism N Defects [...] pneumococcal polysaccharide PPV23 7 completed Not Available [facility] 01/06/2022 19:36:37 pneumococcal polysaccharide PPV23 7 completed Not Available [facility] 01/06/2022 19:36:37 Influenza, split virus, trivalent, preservative 7 completed Not Available [facility] 01/06/2022 19:36:37 Influenza, split virus, trivalent, preservative 8 completed Not Available [facility] 01/06/2022 19:36:37 Tdap 8 completed Not Available [facility] 01/06/2022 19:36:37 Influenza, split virus, trivalent, preservative 3 completed Not Available [facility] 01/06/2022 19:36:37 COVID-19, mRNA, LNP-S, PF, 100 mcg/0.5mL dose or 50 mcg/0.25mL dose 1 completed Not Available [facility] 01/06/2022 19:36:37 Influenza, split virus, quadrivalent, PF 6 completed Not Available [facility] 04/07/2019 02:22:02 COVID-19, mRNA, LNP-S, PF, 100 mcg/0.5mL dose or 50 mcg/0.25mL dose 1 completed [place] Chavez, [facility] 11/06/2024 13:02:40 zoster recombinant 2 completed [place], [facility] 10/05/2023 13:56:12 zoster recombinant 2 completed [place], [facility] 10/05/2023 13:56:12 COVID-19, mRNA, LNP-S, PF, 100 mcg/0.5mL dose or 50 mcg/0.25mL dose 1 completed [place] Chavez, [facility] 11/06/2024 13:02:40 Influenza, split virus, quadrivalent, PF 6 completed Not Available [facility] 04/07/2019 02:22:07 Influenza, split virus, quadrivalent, PF 7 completed Not Available [facility] 04/07/2019 02:22:13 Tdap 8 completed Not Available [facility] 04/07/2019 02:21:48 Influenza, split virus, quadrivalent, PF 8 completed Not Available [facility] 04/07/2019 02:22:16 Influenza, split virus, quadrivalent, PF 9 completed Not Available [facility] 04/07/2019 02:22:10 Influenza, split virus, trivalent, PF 4 completed Not Available [facility] 04/07/2019 02:21:57 Past Encounters Encounter ID Performer Location Encounter Start Date Encounter Closed Date Diagnosis/Indication Diagnosis SNOMED-CT Code Diagnosis ICD10 Code Diagnosis IMO Codes Diagnosis Note [id number] Alexandre Gonzáles MD Main Office [address] [facility] [address] [facility] [place] [address] 03/01/2025 14:43:46 03/01/2025 15:29:31 Adult health examination 647565700 Z00.00 Patient was counseled on healthy diet, [...] discussed. Medication reconciled . Bipolar I disorder 43528 6008 F31.9 Denies homicidal or suicidal Ideation.D eclines therapy or to be seen by psych.413c are given, psychology today advised. Chronic ki dney disease due to type 2 diabetes mellitus [address]30747589 [address] Christianson per SrptGXT9L [id number] Per endo.On ACENot on ASAFeet check done, advised to use own clipper and check feet regularly. Yearly Ophthalmol ogy exam advisedFol lowing RenalLipid profile ordered, on statinCoun selled about regular physical activityCo unselled on dietPatien t advised regarding risks/sign s/symptoms of hypoglycem ia. Counseled to carry a snack in case of emergencie s Hypertensi ve renal disease 83126095 I12.9 Cont current regimen. Chronic ki dney disease stage 3A 975508567 N18.[address] Serrato Cardiomyopathy 13076437 I42.[address] Lantigua Peripheral neuropathy due to type 2 diabetes mellitus 2199405569 107 E11.42 Following neurologis t. Asthma 656634908 J45.90 9 Ulcerative colitis 37319 004 K51.90 Cont follow up with GI Administra tion of pneumococcal vaccine 77845462 Z23 Hyperlipidemia 97190134 E78.5 Z00.00 FASTING Nocturia 645262631 R35.1 Fatigue 58901440 R53.83 Influenza vaccination declined 218789789 Z28.21 Serum test osterone above reference range 1647460203 R79.89 33457326 Vitamin D deficiency 347 81659 E55.9 Health Concerns Section Related Observation LastModified by Organization Detai ls LastModified Time None Recorded Concern Status LastModified by Organization Details LastModified Time None Recorded Payers Encounter Date Sequence Insurance Name Policy Number Policy Palumbo Covered Member ID Palumbo Member ID Guarantor Name 03/01/2025 1 [facility]IC[place]PO BLUE (MEDICARE REPLACEMENT PPO) [id number] Dawit Ramos [id number] Dawit Ramos Notes Date Note Type Note Provider Name and Address Organization Details Recorded Time 03/01/2025 text/html Medicare Annual Wellness VisitReported by Patient Here for PE visit. Reviewed chronic medications and medical problems. Discussed screening guidelines as well as goals for fitness and weight management. Noted malfunctioning spinal stimulator. Working with [facility] and [place]. Alexandre Gonzáles MD [address] [address], [place], [address], [facility] 03/01/2025 16:31:10
--- OUTSIDE RECORDS SUMMARY | 2025-03-11 13:42 | XMS_ITS | Encounter Summary ---
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
--- OUTSIDE RECORDS SUMMARY | 2025-03-11 13:42 | XMS_ITS | Clinical Summary ---
Demographics Address [address] [place] [address] Home Phone Mobile Phone Preferred Language Kiswahili Marital Status Yazidism Affiliation Unknown Race Unknown Ethnic Group or Author Organization [facility] Prior to 08/18/[address] [place] [address] Care Team Providers Care Director Operations Name Role Phone Unavailable Primary Care Provider [...] to Patient Date of Phone Billing Address Dawit Ramos Personal/Family Self 1960 [address] [place] [address]
== END 2025-03-11 11:21 | disposition home or self-care (01) ==
LOC: HO.ENCR 10:54
PROVIDERS: PCP Internal Medicine; Visit Provider Physician Assistant
DX: Z13.9 Encounter for screening, unspecified (principal); E11.21 Type 2 diabetes mellitus with diabetic nephropathy; I10 Essential (primary) hypertension

== ENCOUNTER → 2025-03-11 10:53 | Outpatient (BNVA) | payer MEDICARE, SELFPAY | PROVIDERS: PCP Internal Medicine; Visit Provider Physician Assistant | DX: E11.21 Type 2 diabetes mellitus with diabetic nephropathy (principal); I10 Essential (primary) hypertension | CPT/HCPCS: 82947; 83036; 99212 ==